=== PATIENT | female | born 1935 | race Caucasian/White ===

== ENCOUNTER → 2023-12-24 12:32 | Outpatient (REF) | payer MEDICARE, OTHER, SELFPAY ==
[2023-12-24 13:24] LABS: Blood Urea Nitrogen 19 mg/dl (7-17); Calcium 9.4 mg/dl (8.4-10.2); Carbon Dioxide 35 mmol/L (22-30); Chloride 97 mmol/L (98-107); Glucose 88 mg/dl (70-99); Potassium 3.6 mmol/L (3.5-5.1); Sodium 135 mmol/L (135-145); eGFR > 60.00
== END ==
LOC: OLABN 12:32
PROVIDERS: ATTENDING PHYSICIAN Student in an Organized Health Care Education/Training Program
DX: M79.7 Fibromyalgia (principal)
CPT/HCPCS: 36415; 80048

== ENCOUNTER → 2023-12-31 10:23 | Outpatient (REF) | payer MEDICARE, OTHER, SELFPAY ==
[2023-12-31 11:37] LABS: Blood Urea Nitrogen 17 mg/dl (7-17); Calcium 9.3 mg/dl (8.4-10.2); Carbon Dioxide 35 mmol/L (22-30); Chloride 98 mmol/L (98-107); Glucose 89 mg/dl (70-99); Potassium 3.9 mmol/L (3.5-5.1); Sodium 137 mmol/L (135-145); eGFR > 60.00
== END ==
LOC: OLABN 10:23
PROVIDERS: ATTENDING PHYSICIAN Student in an Organized Health Care Education/Training Program
DX: M79.7 Fibromyalgia (principal)
CPT/HCPCS: 36415; 80048

== ENCOUNTER → 2024-01-14 10:23 | Outpatient (REF) | payer MEDICARE, OTHER, SELFPAY ==
[2024-01-14 11:48] LABS: Blood Urea Nitrogen 19 mg/dl (7-17); Calcium 9.2 mg/dl (8.4-10.2); Carbon Dioxide 33 mmol/L (22-30); Chloride 100 mmol/L (98-107); Glucose 85 mg/dl (70-99); Potassium 3.6 mmol/L (3.5-5.1); Sodium 135 mmol/L (135-145); eGFR > 60.00
== END ==
LOC: OLABN 10:23
PROVIDERS: ATTENDING PHYSICIAN Student in an Organized Health Care Education/Training Program
DX: M79.7 Fibromyalgia (principal)
CPT/HCPCS: 36415; 80048

== ENCOUNTER 2024-05-20 21:53 | Inpatient (IN) | payer MEDICARE, OTHER, SELFPAY ==
[2024-05-20 19:22] VITALS: BP 124/91
[2024-05-20 19:23] VITALS: BP 124/91
--- NOTE | 2024-05-20 19:38 | ED.GENMED ---
History of Present Illness
General
Chief Complaint: Breathing Problem
Source: fpc
Exam Limitations: none
Time Seen by Provider: 05/20/24 19:25
History of Present Illness
History of Present Illness:
This is a 89 year old female that is brought in by ambulance with c/o low pulse ox. Called and spoke with Danilo the nurse and he states that on 7-3 shift she started with some wheezing. states that she was place on Oxygen at 4 liters and her pulse
ox went up to 90-91%. Then on 01-30 she was more lethargic and her pulse ox was down again to 09095% so her oxygen was increased to 5 liters and then onto a simple mask. This brought her up to 91-92%. States that her temp was 99.4. When questioned
about the left leg redness, he stated that she always has some redness but did not noticed the increased redness. Denies any chills, chest pain, SOB, abd pain, nausea, vomiting, diarrhea, headache or dizziness.
Past History
Past History
ED Past Medical History: Cancer (Skin Cancer), CHF, Fibromyalgia, GERD, Psychiatric (Anxiety), Other (Back pain, Herniated disc, GI bleeding Upper and lower, Hiatal hernia, Ulcers. cellulitis, Psoriasis, Anemia, ), Other (Rheumatoid arthritis) and
Other ( chronic pain. Followed by pain management. Currently taking Endocet )
ED Past Surgical History: Cholecystectomy, Gynecological (tubal, ), Orthopedic (Status post right knee replacement x3, status post left wrist fracture repair x 3, Hip surgery) and Other (cataracts)
Social History
Tobacco: Non-smoker
Alcohol: None
Personal:
Living: with family
Family History
Family History: Negative Diabetes, Hypertension or CAD
Review of Systems
Review of Systems
Other source history: fpc
All Other Systems: ROS reviewed and negative except as documented in HPI and ROS
Constitutional: Reports fever (Low grade at 99.4) and other (Lethargic); Denies chills
EENT: Reports no symptoms
Respiratory: Reports other (Low pulse ox); Denies cough or trouble breathing
Cardiac: Denies chest pain
ABD/GI: Denies abdominal pain, nausea, vomiting or diarrhea (Had loose stool)
: Reports no symptoms
Musculoskeletal: Reports other (left leg pain)
Skin: Reports no symptoms
Neurological: Reports no symptoms; Denies dizzy or headache
Psychiatric: Reports no symptoms
Phy Exam
General Physical Exam
General Presentation: mild distress
General age: appears stated age
General Skin: warm and dry
General Habitus: debilitated and elderly
General Mental: other (Lethargic, Opens eyes to name and tries to answer questions. Helped with turning. )
General Hydration: dry mucous membranes
ENT Exam
ENT Exam: TM's normal, pharynx normal and neck supple
Eye Exam
Eye Exam: EOMI
Cardiovascular Exam
Cardiovascular Exam: regular rate/rhythm and normal peripheral pulses
Pulmonary Exam
Pulmonary Exam: lungs clear, no respiratory distress, no rales, chest non tender, no crackles, no rhonchi, no wheezing and no cough
Gastrointestinal Exam
Gastrointestinal Exam: normal bowel sounds, soft, no organomegaly, no pulsatile mass, non distended and tender (Slight generalized tenderness with palpation)
Musculoskeletal Exam
Musculoskeletal Exam: edema (L>R pitting from feet to lower legs) and other (left leg sweling with redness form the foot to the medial aspect of the thigh. Redness also noted on the right lower leg mid calf)
Skin Exam
Skin Exam: normal color, warm/dry, no petechia and redness (Left lower leg on the medial aspect into the thighs, Rightness right lower leg. )
Psychiatric Exam
Psychiatric Exam: other (Lethargic but will attempt to answer questions and helped with turning. )
Scores
Heart Failure Risk
Heart Failure Risk Score: Yes
History of Stroke or TIA: No
History of intubation for respiratory distress: No
Heart rate on ED arrival >/= 110: No
SaO2 <90% on arrival on room air: Yes
HR >/=110 during 3min walk test (or too ill to perform test): No
ECG has acute ischemic changes: No
Urea >/=12mmol/L (BUN 33.6mg/dL): No
Serum CO2>/=35mmol/L: Yes
Troponin I or T elevated to SC Level (0.4mg/dL): No
NT-proBNP >/=5,000ng/L (5,000pg/ml): No
HF Risk Score: 3
Admission Status: HIGH RISK 15.9% Consider SNF treatment or admission to hospital
Course
Orders/Labs/Results
Orders:
Orders
05/20/24 Breakfast
Cholesterol Lowering
At Your Request: Limited Participation
Fluid Restriction: 1200 mL/day (40 oz)
Cholesterol Lowering: Sodium, 2 Gram
05/20/24 19:27
Electrocardiogram (*1) Urgent
Reason for Study: Other
Other Reason for Exam: Possible Sepsis
Cardiac Monitoring- Treatment ONCE
O2 Therapy [RESP] Urgent
Titrate/Wean O2 to maintain O2 sat greater than (%): 93
Special Instructions: TO MAINTAIN CONTINUOUS O2 SATS > OR = 93%
Pulse Ox/cont/shift [RESP] Urgent
Quantity: 1
Special Instructions: CONTINUOUS
05/20/24 19:28
EKG- Treatment ONCE
05/20/24 19:31
Complete Blood Count/With Diff Urgent
Lactic Acid Q4H
Comment: ON ICE, CANCEL 2ND ORDER IF FIRST LACTIC ACID LEVEL <2
Blood Culture Q30M
CAR Source: Blood/Venous
Specimen Description:
Comment: FROM 2 SEPARATE SITES
05/20/24 19:35
Acetaminophen 1000MG/100Ml [Ofirmev] 1,000 mg in 100 ml IV ONCE
Acetaminophen IV Indication:: ED Narcotic Naive Pt-ONCE
Piperacillin/Tazo 3.375 Gram [Zosyn] 3.375 gram in 50 ml IV NOW
Vancomycin 1 Gram/200 ml [Vancocin] 1 gram in 200 ml IV NOW
05/20/24 20:02
CR Chest Portable - 1 View Urgent
Comment:
Reason For Exam: Fever, Hypoxia
Reason Study Needs to be Portable: Patient Unstable
05/20/24 20:06
Blood Culture Q30M
CAR Source: Blood/Venous
Specimen Description:
Comment: FROM 2 SEPARATE SITES
05/20/24 20:12
CT Head W/o Iv Contrast Urgent
Comment:
Reason For Exam: Change in mental status
05/20/24 20:39
Furosemide [Lasix] 80 mg IV NOW STA
05/20/24 20:56
COVID-19 Antigen Stat
Source: Nasal Swab
NT-proBNP Urgent
Troponin I Urgent
05/20/24 21:28
Comprehensive Metabolic Panel Urgent
05/20/24 21:37
Admit/Transfer Patient As Directed
Co-Sign Provider:
Level of Care: Inpatient admission
Assign to:: Telemetry
Physician / Group: dulce baker
Diagnosis: CHF exacerbation
Reason for Telemetry: Subacute Heart Failure
Date to Stop Telemetry: 05/22/24
Time to Stop Telemetry: 11:00
Reason for Hospitalization: CHF exacerbation
cellulitis
Expected length of stay greater than two midnights?: Yes
ELOS- Estimated Length of Stay in days: 3
I certify the patient meets the requirements for IP care: Yes
05/20/24 21:39
Code Status As Directed
Resuscitation Status: Do not resuscitate
Reached after discussion with pt or family/Healthcare POA: Yes
DNR Bracelet Application ONCE
05/20/24 22:15
Urinalysis Reflex To Culture Urgent
Date Specimen was Collected: 05/20/24
Time Specimen was Collected: 19:28
Urine Microscopic Reflex Cult Urgent
Urine Culture Urgent
CAR Source: U
Specimen Description:
Date Specimen was Collected: 05/20/24
Time Specimen was Collected: 19:28
05/20/24 22:28
Diclofenac 1% Topical Gel 2 gram TOPICAL Q8H PRN
Apply 2 or 4 grams as per protocol to the following joints:: Other joint(s)
Other joint/location to apply to:: back
Grams to be applied to other indicated joint/location:: 2
Gabapentin [Neurontin] 300 mg PO HS
Ipratropium/Albuterol Sulfate [Duoneb] 3 ml INH R Q4HPRN PRN
05/20/24 22:28
CARDIOLOGY CONSULT Routine
Consulting Provider: Paulino Aguilar
Was physician already notified: Yes
HF DIETARY CONSULT Routine
HF EDUCATOR CONSULT Routine
Comment:
Activity As Directed
Activity Level: As Tolerated
Intake/ Output As Directed
Frequency: Per unit guidelines
Patient Education As Directed
Type: CHF folder
Comment: give on admission. Document in Interdisciplinary Education record
Sleep Apnea Assessment by RN As Directed
Comment:
Physician Instructions:
Vital Signs As Directed
Frequency: Other
Additional Instructions:: Q12 or per unit guidelines if more frequent.
Weight As Directed
Frequency: Daily
Type of Scale: Standing Scale
Comment: Daily morning weight. If unable to stand, use balanced bed scale.
Weight As Directed
Frequency: Once
Type of Scale: Standing Scale
Comment: Upon Admission. If unable to stand, use balanced bed scale.
Pulse Ox/cont/shift [RESP] Routine
Quantity: 1
Special Instructions: Daily pulse oximetry at rest. If greater than 92% at rest also obtain pulse oximetry
while ambulating as tolerated.
Ot Eval And Treat Routine
Pt Eval And Treat Routine
Activity Level: As Tolerated
DX Deep Vein Thrombosis Video Routine
05/21/24 06:00
Basic Metabolic Panel IN AM
Cardiovascular Evaluation IN AM
Complete Blood Count/No Diff IN AM
Mgnod-Weso-Dvqotrv IN AM
Magnesium IN AM
TSH Reflex To Free T4 IN AM
05/21/24 08:00
Famotidine [Pepcid] 20 mg PO BID
Furosemide [Lasix] 40 mg IV BID AT 0800,1600
Heparin 5,000 units SC Q12
Polyethylene Glycol 3350 [Gavilax] 17 gm PO DAILY
Potassium Chloride [KCl] 20 meq PO DAILY
05/21/24 08:30
Gabapentin [Neurontin] 2 mg PO BID@0830,1430
05/22/24 06:00
Basic Metabolic Panel IN AM
Complete Blood Count/No Diff IN AM
05/22/24 11:00
DC Protocol for Telemetry ONCE
05/22/24 21:37
ferrous gluconate 324 mg PO MOWEFR
05/23/24 06:00
Basic Metabolic Panel IN AM
Complete Blood Count/No Diff IN AM
05/24/24 06:00
Complete Blood Count/No Diff IN AM
05/25/24 06:00
Complete Blood Count/No Diff IN AM
Abnormal Lab Results
05/20/24 05/20/24
19:31 21:28
Hct 49.0 H %
(37.0-47.0)
MCHC 31.0 L g/dL
(33.0-37.0)
MPV 10.5 H fL
(7.4-10.4)
Immature Gran % 0.6 H %
(0-0.5)
Monocytes % 10.2 H %
(1.7-9.3)
Chloride 93 L mmol/L
(98-107)
Carbon Dioxide 38 H mmol/L
(22-30)
Glucose 136 H mg/dl
(70-99)
Total Protein 6.1 L g/dl
(6.3-8.2)
05/20/24 19:31
05/20/24 21:28
lactic acid normal at 0.9, Chloride low. carbon dioxide elevation. Glucose nonfasting. Total protein slightly low. COVID negative, Positive UTI, Troponin <0.012, Pro-BNP 4180
Vital Signs
Initial and Last Documented VS:
Initial Vital Signs
BP
124/91
05/20/24 19:22
Last Documented Vital Signs
Temp Pulse Resp BP Pulse Ox
98.5 F 78 22 123/74 94
05/20/24 22:34 05/20/24 22:34 05/20/24 22:34 05/20/24 22:34 05/20/24 22:34
MDM/Problems Addressed
Differential Diagnosis Includes:
Change in mental status, Cellulitis,
MDM/Problems Addressed:
This is a 89 year old female that is brought in by ambulance with c/o Hypoxia according to the nurse at [facility]. Told that the patient was hypoxic there and they kept increase her Oxygen and she continued to go down into the 80's.
Will get labs, Chest, and start antibiotics as patient has a cellulitis of the left leg form the foot to the medial aspect of the thigh. Will admit. .
Spoke with patient family and explained that she would be admitted. Explained that her leg is extremely red and patient has a fever. Will give IV antibiotics and admit.
Chronic conditions affecting care:
Cellulitis
Chronic conditions affecting care: Other (CHF)
Acute Exacerbation and/or Progression of Chronic Illness:
Cellulitis
*Radiology
Radiology exam reviewed: preliminary read by ED provider (Chest- Increased vascular congestion, ) and radiology read reviewed (CT head night hawk-Limited by motion artifact. No acute intracranial abnormality seen. Moderate atrophy and small vessel
ischemic white matter changes. )
*Pulse Oximetry
Patient hypoxic: no
Comment: 98% on 100% Nonrebreather
*EKG
Interpreted by ED Provider?: Yes
Heart Rate: 90
Rate: normal
Rhythm: sinus
[place]: left axis deviation
Interval: normal interval
QRS Pattern: normal QRS
Ischemia: T-wave inversion (III, aVR, aVF, V1, V2, V3, V4, V5, )
*Critical Care Note
Total Time (30-74mins, 75-104mins- exclusive of procedures): Not Applicable
ED Attending Note
-
Portions of this chart may have been created with voice recognition software.� Occasional wrong word or��sound alike� substitutions may have occurred due to the inherent limitations of voice recognition software.
Discharge Plan
Departure
Patient Disposition: Admit
Presentation/result/management discussed w/ accepting MD/DO: Hospitalist
Patient with high blood pressure during this ER visit?: No
Condition: Good
Covid-19: Negative COVID-19
Discharge Problem:
Cellulitis of left leg, Altered mental status, Acute UTI (urinary tract infection), CHF (congestive heart failure)
Interventions
Interventions:
*Risk Screen - Suicide Last Done: 05/20/24 20:00
*General Assessment Last Done: 05/20/24 20:00
*Neglect/Abuse Screening Last Done: 05/20/24 20:00
ED- Fall Risk Assessment Last Done: 05/20/24 22:06
*Nursing Disposition Last Done: 05/20/24 22:25
ED- Cardiac Assessment Last Done: 05/20/24 20:34
ED- Pulmonary Assessment Last Done: 05/20/24 20:34
Discharge Date and Time
Discharge Date/Time: 05/20/24 22:25
[2024-05-20] MEDS: OFIRMEV 100 IV (19:50)
[2024-05-20 19:52] LABS: % Basophils 0.2 % (0-2); % Immature Granulocytes 0.6 % (0-0.5); % Lymphocytes 28.2 % (20.5-51.1); % Monocytes 10.2 % (1.7-9.3); % Neutrophils 59.8 % (42.2-75.2); Absolute Eosinophils 0.1 10^3/uL (0-0.7); Absolute Lymphocytes 1.5 10^3/uL (1.2-3.4); Absolute Monocytes 0.5 10^3/uL (0.1-0.6); Absolute Neutrophils 3.1 10^3/uL (1.4-6.5); Hemoglobin 15.2 g/dL (12.0-16.0); Mean Corpuscular Hgb 30.1 pg (27.0-31.0); Mean Platelet Volume 10.5 fL (7.4-10.4); Nucleated Red Blood Cells % 0 %; Platelet Count 154 10^3/uL (130-400); Red Blood Cell Count 5.05 10^6/uL (4.20-5.40); Red Cell Dist. Width 14.5 % (11.5-14.5); White Blood Cell Count 5.2 10^3/uL (4.8-10.8)
[2024-05-20] MEDS: ZOSYN 50 IV (20:03)
[2024-05-20 20:04] LABS: Lactic Acid 0.9 mmol/L (0.7-2.0)
[2024-05-20] MEDS: VANCOCIN 200 IV (20:09)
--- NOTE | 2024-05-20 20:52 | HPS.HSE ---
Addendum entered and electronically signed by Nick Brody DO 05/20/24 22:08:
Patient seen and examined independently. Agree with findings and plan as set forth by RAYSHAWN Bruner.
Patient is an 89y F with PMH significant for CHF, chronic lymphedema and morbid obesity who presents to ED with confusion, lethargy and hypoxemia requirements. History obtained from family at the bedside. Patient began to seem more sleepy /
lethargic about one week ago. She had notable increase in LE swelling. Family states that these symptoms are consistent with her prior episodes of CHF exacerbation.
Family also states that patient is non-compliant with her Lasix dosing. She will refuse or hide her Lasix pills as she is quite bothered by the increased frequency coupled with her baseline immobility. She requires Chaz lift to get OOB and to the
toilet.
Ass:
Acute on Chronic HFpEF
Acute Hypoxemic Respiratory Failure
Acute TME secondary to the above
Chronic Lymphedema +/- LLE Cellulitis
Iron Deficiency Anemia
Chronic Pain Syndrome
Chronic Opioid Dependence
Obesity
Plan:
Admit for further evaluation and treatment.
IV Lasix BID and follow weight, I/Os, etc.
Echo done last October with normal LVEF and severe pulmonary hypertension.
Patient is not on O2 chronically at the ID.
Continue O2 support for now and titrate as needed - may benefit from chronic O2 given pulmonary hypertension.
Will give IV Ancef for now for suspected LLE cellulitis.
Wound Care evaluation.
Follow for clinical improvement.
Ongoing discussions with patient / family re: med compliance and reasonable plan of care moving forward.
Original Note:
Family Physician
-
Family Physician: Jean Sandoval DO
Chief Complaint
-
sob
History of Present Illness
89 year old with PMH for CHF, chronic lymphedema, GERD, anxiety, bleed, hiatal hernia, RA, chronic pain presented to us with lethargic, sob, hypoxic and wheezing today. as per family she was noted weak and tired last Wednesday. she was looking
puffier than usual. today she was more lethargic, noted hypoxic at [facility]. she required 5l of oxygen at ID. at present she is denying sob. denied HOANG ,dizzy. denied chest pain. denied abdominal pain,n,v,d, denied dysuria or hematuria.
patient has chronic lymphedema and she follows wound care as outpatient.
upon arrival she required non breather mask, at present she is oxygenating >95 on 5l. patient recived Lasix fo CHF. she also received iv abx for cellulitis. admitting for further mangement.
Medical History
Past Medical History
Past Medical History: Reports Other
Additional Past Medical History:
fibromyalgia
anemia
atherosclerosis of b/l LE
lymphedema
HTn
spinal stones
PAD
Past Surgical History: Reports Other
Additional Past Surgical History:
b/l TKR
Social History
Tobacco: Former Smoker
Alcohol: Former
Drug: None
Personal: Single
Living: Assisted Living
Family History
Family History: Not pertinent
Allergies / Home Medications
Allergies reflects when Allergies were last updated in [facility].
Home Medications with original date entered in [facility]
Allergy/Medication List:
Allergies
Allergy/AdvReac Type Severity Reaction Status Date / Time
No Known Drug Allergies Allergy Unknown Verified 02/21/22 03:58
Home Medications
ascorbic acid (vitamin C) 500 mg tablet 500 mg PO MOWEFR@7070,2947 Supplement 11/09/23
bisacodyl 10 mg rectal suppository (Dulcolax (bisacodyl)) 10 mg TN DAILY PRN 3 days ag no bm & mom is ineffective 11/09/23
diclofenac sodium 1 % topical gel 2 g topical Q8H PRN lower back pain 11/09/23
ferrous gluconate 324 mg (38 mg iron) tablet 324 mg PO MOWEFR Supplement 11/09/23
gabapentin 100 mg capsule 100 mg PO BID@0830,1430 Pain 11/09/23
gabapentin 300 mg capsule 300 mg PO HS Pain 11/09/23
lidocaine 4 % topical patch 1 patch topical DAILY PRN lower back pain 11/09/23
magnesium hydroxide 400 mg/5 mL oral suspension (Milk of Magnesia) 30 ml PO HS PRN constipation 11/09/23
naloxone 4 mg/actuation nasal spray (Narcan) 1 spray intranasal Q2M PRN opioid overdose 11/09/23
pantoprazole 20 mg tablet,delayed release 20 mg PO DAILY Gastrointestinal Issue 11/09/23
triamcinolone acetonide 40 mg/mL suspension for injection (Kenalog) 80 mg IM ONCE PRN left knee pain 11/09/23
triamcinolone acetonide 40 mg/mL suspension for injection (Kenalog) 80 mg IM ONCE PRN lower back pain 11/09/23
acetaminophen 500 mg tablet (Pain Relief Extra Strength (acetaminophen)) 1,000 mg (2 x 500 mg) PO TID #0 tabs 11/14/23
furosemide 80 mg tablet (Lasix) 80 mg PO DAILY #30 tabs 11/14/23
miconazole nitrate 2 % topical powder (Miconazorb AF) 1 applic topical BID #0 grams 11/14/23
oxycodone 5 mg tablet 5 mg PO Q4HPRN PRN severe pain #10 tabs 11/14/23
polyethylene glycol 3350 17 gram/dose oral powder 17 g PO DAILY #510 grams 11/14/23
potassium chloride 20 mEq tablet,extended release 20 meq PO DAILY #30 tabs 11/14/23
Review of Systems
-
Constitutional: Reports No Symptoms
EENT: Reports No Symptoms
Respiratory: Reports No Symptoms
Cardiac: Reports No Symptoms
Abdomen/GI: Reports No Symptoms
: Reports No Symptoms
Musculoskeletal: Reports No Symptoms
Skin: Reports No Symptoms
Neurological: Reports No Symptoms
Endocrine: Reports No Symptoms
Hematologic/Lymphatic: Reports No Symptoms
Psych: Reports No Symptoms
Physical Exam
Vital Signs
Vital Signs
Temp Pulse Resp BP Pulse Ox
100 F 87 24 124/91 95
05/20/24 19:23 05/20/24 19:23 05/20/24 19:23 05/20/24 19:23 05/20/24 20:34
Physical Exam
General: Well Developed, Well Nourished and No Apparent Distress
HEENT: NormoCephalic, Moist mucous membranes and Atraumatic
Respiratory: Rales
Cardiac: S1/S2 and Regular Rhythm; No Murmur or Rub
GI: Soft, Non Tender, Non Distended and Normal Bowel Sounds; No Organomegaly
Rectal: Deferred by Provider
Musculoskeletal: No Clubbing, No Cyanosis and Other (left LE swollen)
Skin: Other (left LE red and swollen); No Rash
Neuro: Nonfocal/grossly intact
Psych: Confused
Laboratory Results
-
05/20/24 19:31
Laboratory Results
Lactic Acid Cancelled 05/20/24 23:30
Total Bilirubin Cancelled 05/20/24 19:31
AST Cancelled 05/20/24 19:31
ALT Cancelled 05/20/24 19:31
Alkaline Phosphatase Cancelled 05/20/24 19:31
Troponin I Cancelled 05/20/24 20:22
Data Reviewed
-
Lab Data: Labs Reviewed by me
Impression/Plan
-
#metabolic encephalopathy likely from acute hypoxic respiratory failure secondary to CHF exacerbation
-head CT pending
-chest X ray pending
-BNP 4180
-received Lasix in ER
-continue Lasix 4o bid
-strict I&O
-daily weight
-fluid restriction
-cardiology consulted
# PAD
#Chronic Lymphedema concern for cellulitis
-iv vanco and cefepime continued
-blood culture sent from ER
-Tylenol prn for fever
#Chronic Pain Syndrome
#Chronic Narcotic Dependence
-gabapentin continued
-oxy continued
�
#GERD
#History of GI Bleeding
�- Stable.� Continue PPI.
#iron def anemia
-ferrous gluconate continued
#Dermatitis
-Triamcinolone
#DVT Prophylaxis:�Subcu Lovenox
#Code Status:� DNR
[2024-05-20] MEDS: LASIX 80 MG IV (21:05)
[2024-05-20 21:08] VITALS: BP 99/54
[2024-05-20 21:18] VITALS: BP 101/63
[2024-05-20 21:31] LABS: COVID-19 Antigen Negative (Negative)
[2024-05-20 21:32] LABS: NT-proBNP 4180 pg/ml; Troponin I < 0.012 ng/ml
[2024-05-20 21:55] LABS: ALT (SGPT) 15 U/L (0-35); AST (SGOT) 19 U/L (14-36); Albumin 3.7 g/dl (3.5-5.0); Alkaline Phosphatase 48 U/L (38-126); Blood Urea Nitrogen 14 mg/dl (7-17); Chloride 93 mmol/L (98-107); Glucose 136 mg/dl (70-99); Potassium 4.5 mmol/L (3.5-5.1); Sodium 136 mmol/L (135-145); Total Bilirubin 0.8 mg/dl (0.2-1.3); Total Protein 6.1 g/dl (6.3-8.2); eGFR > 60.00
[2024-05-20 22:00] VITALS: BP 103/58
[2024-05-20 22:09] LABS: Carbon Dioxide 38 mmol/L (22-30)
[2024-05-20 22:23] LABS: Urine Albumin Negative (Neg - Trace); Urine Bilirubin Negative (Negative); Urine Character Clear (Clear); Urine Color Straw; Urine Glucose Negative (Negative); Urine Ketone Negative (Negative); Urine Leukocyte 2+ (Negative); Urine Nitrite Positive (Negative); Urine Occult Blood Negative (Negative); Urine Specific Gravity 1.015 (<1.030); Urine Urobilinogen Negative (Neg - 1+)
[2024-05-20 22:29] LABS: Urine Squamous Cell 0-2 /LPF (Few)
[2024-05-20 22:30] LABS: Urine Bacteria Few (Negative); Urine Red Blood Cell 0-2 /HPF (0-2); Urine White Cell 16-20 /HPF (0-5)
[2024-05-20 22:34] VITALS: BP 123/74; BMI 33.8
[2024-05-20 22:39] VITALS: BMI 33.8
--- NOTE | 2024-05-20 22:45 | PTCARENOTE ---
pt arrived to floor via stretcher from ED, Pt is not ambulatory baseline. Pt lives at [facility] where she requires a Chaz lift to get oob and is in the wheel chair most of the day. Pt AOx3, but forgetful. Needed information repeated to her
several times. Pt c/o lower back pain and mildy SOB. VSS on 4L O2NC. Pt resting comfortably in bed, will review chart and follow plan of care.
[2024-05-20] MEDS: NEURONTIN 300 MG PO (23:31)
[2024-05-20] MEDS: DICLOFENAC 1% TOPICAL GEL 2 GRAM TOPICAL (23:31)
[2024-05-21] MEDS: ANCEF 10 IV ×3 (02:34→18:04)
[2024-05-21 03:13] VITALS: BP 105/65
[2024-05-21 06:00] VITALS: BMI 33.8
[2024-05-21 06:41] LABS: Hematocrit 45.4 % (37.0-47.0); Hemoglobin 14.1 g/dL (12.0-16.0); Mean Corp Hgb Conc. 31.1 g/dL (33.0-37.0); Mean Corpuscular Volume 96.6 fL (81.0-99.0); Mean Platelet Volume 10.8 fL (7.4-10.4); Platelet Count 146 10^3/uL (130-400); Red Cell Dist. Width 14.1 % (11.5-14.5); White Blood Cell Count 4.9 10^3/uL (4.8-10.8)
[2024-05-21 07:00] VITALS: BP 111/61
[2024-05-21 07:06] LABS: ALT (SGPT) 17 U/L (0-35); AST (SGOT) 42 U/L (14-36); Albumin 3.8 g/dl (3.5-5.0); Alkaline Phosphatase 31 U/L (38-126); Blood Urea Nitrogen 15 mg/dl (7-17); Calcium 8.9 mg/dl (8.4-10.2); Carbon Dioxide 40 mmol/L (22-30); Chloride 93 mmol/L (98-107); Direct Bilirubin 0.7 mg/dl (0.0-0.4); Estimated Creatinine Clearance 73 ml/min; Glucose 90 mg/dl (70-99); HDL Cholesterol 49 mg/dl; LDL Cholesterol, Calculated 98 mg/dl; Magnesium 1.7 mg/dl (1.6-2.3); Potassium 4.7 mmol/L (3.5-5.1); Sodium 135 mmol/L (135-145); Total Bilirubin 1.3 mg/dl (0.2-1.3); Total Cholesterol 163 mg/dl (50-199); Total Protein 6.4 g/dl (6.3-8.2); Triglyceride 81 mg/dl (10-149); Very Low Density Lipoprotein 16 mg/dl (0-30); eGFR > 60.00
[2024-05-21 07:33] LABS: TSH Reflex To Free T4 0.58 uIU/ml (0.47-4.68)
--- NOTE | 2024-05-21 07:58 | W.PN.HOSP.TC ---
Today's Communication/Plan
-
see bold
Assessment / Plan
Assessment / Plan
Gen: NAD, Awake and alert
Eyes: EOMI, PERRLA, no scleral icterus.
Neck: supple.
CV: RRR, +S1/S2, no m/r/g.
Resp: CTAB anteriorly, no rales, wheezes, or rhonchi.
Abd: +BS, soft, NT, ND
Skin: B/L LE chronic venous stasis dermatitis. 1�2+ bilateral lower extremity edema
Neuro: CN 2-12 intact, non-focal.
Psych: Normal mood and affect.
CXR: Lungs appear significantly hypoinflated, with worsening inflation/aeration of the lungs compared to most recent chest radiograph of November 13, 2023.
CT Brain: No evidence of acute intracranial abnormality. Mild to moderate diffuse atrophy. Moderate leukomalacia.
Acute hypoxemic respiratory failure and acute metabolic encephalopathy due to acute on chronic HFpEF:
-CXR above
-Echo Oct 2023 EF 60-65%, G1DD, Dilated right ventricle with hypokinesis of the right ventricular free wall and mild/moderately impaired systolic function.
-proBNP 4180
-cont IV Lasix
-daily wts, I/Os
-c/s cards
-check echo
-was on 6L NC O2, now weaned to 4L NC O2
-hold home narcotics
Other problems:
Chronic Lymphedema +/- LLE Cellulitis: cont Ancef for today. B/L LE skin findings more consistent with chronic venous stasis dermatitis.
Iron Deficiency Anemia, Hb normal, cont ferrous sulfate
Chronic Pain Syndrome, Chronic Opioid use with dependence: hold home narcotics, cont neurontin
Obesity due to excess calories
GERD: cont PPI
PAD
Family updated at bedside.
DNR/Heparin
Anticipated Discharge: 24 - 48 hours
Subjective/Interval History
-
Date of Service: May 21, 2024
No new complaints.
Objective Data
-
Labs:
Laboratory Results
05/20/24 05/20/24 05/20/24
19:31 20:56 21:28
WBC
Hgb
Hct
Plt Count
Sodium Cancelled Cancelled 136
Potassium Cancelled Cancelled 4.5
Chloride Cancelled Cancelled 93 L
Carbon Dioxide Cancelled Cancelled 38 H
BUN Cancelled Cancelled 14
Creatinine Cancelled Cancelled 0.6
Glucose Cancelled Cancelled 136 H
Calcium Cancelled Cancelled 9.0
Total Bilirubin Cancelled Cancelled 0.8
AST Cancelled Cancelled 19
ALT Cancelled Cancelled 15
Alkaline Phosphatase Cancelled Cancelled 48
05/21/24
06:17
WBC 4.9
Hgb 14.1
Hct 45.4
Plt Count 146
Sodium 135
Potassium 4.7
Chloride 93 L
Carbon Dioxide 40 H
BUN 15
Creatinine 0.4 L
Glucose 90
Calcium 8.9
Total Bilirubin 1.3
AST 42 H
ALT 17
Alkaline Phosphatase 31 L
Vital Signs:
Vital Signs
Temp Pulse Resp BP Pulse Ox
98.6 F 74 18 111/61 95
05/21/24 07:00 05/21/24 07:00 05/21/24 07:00 05/21/24 07:00 05/21/24 07:00
I&O
05/20/24 05/21/24 05/22/24
06:59 06:59 06:59
Intake Total 400 / 400
Output Total 900 / 900
Balance -500 / -500
[2024-05-21] MEDS: PEPCID 20 MG PO ×2 (09:08→21:18)
[2024-05-21] MEDS: GAVILAX 17 GM PO (09:09)
[2024-05-21] MEDS: KCL 20 MEQ PO (09:09)
[2024-05-21] MEDS: DICLOFENAC 1% TOPICAL GEL 2 GRAM TOPICAL ×2 (09:09→16:51)
[2024-05-21] MEDS: HEPARIN 5000 UNITS SC ×2 (09:10→21:18)
[2024-05-21] MEDS: LASIX 40 MG IV ×2 (09:10→16:52)
[2024-05-21] MEDS: NEURONTIN 200 MG PO ×2 (09:12→15:04)
--- NOTE | 2024-05-21 10:29 | CON.CAR ---
Consultation
Consultation Request
Date/Time Consultation Requested: May 20, 2024 10:30 PM
Date/Time Consultation Performed: May 21, 2024 10:30 AM
Requesting Provider: Hospitalist
Performing Provider: Paulino Aguilar
Reason for Consultation: Heart failure
Medical History
-
Chief Complaint: Shortness of breath
History of Present Illness:
89-year-old female with past medical history of CHF, chronic lymphedema, GERD, anxiety, bleed, hiatal hernia, RA, chronic pain presented to us with lethargic, sob, hypoxic and wheezing today. She is a poor historian and her son is at bedside.
He provides interval history. Apparently, she has been noncompliant with her Lasix. She either does not take it or will hide them. She is essentially nonambulatory and requires a wheelchair to be able to move around [facility]. She also
needs a Chaz lift to be able to go to the bathroom. Thus, taking Lasix is extremely difficult as she is unable to make it to bathroom. She also has poor dietary compliance and eats chips pretzels etc. Thus, she has had some weight gain and
worsening shortness of breath.
Past Medical History
Past Medical History: Other (Additional Past Medical History: fibromyalgia anemia atherosclerosis of b/l LE lymphedema HTn spinal stones PAD)
Past Surgical History: Tonsilectomy and Other (b/l TKR)
Social History
Tobacco: Former Smoker
Alcohol: None
Drug: None
Personal: Single
Living: Usp
Family History
Family History: Reviewed & Not Pertinent (denies)
Allergies / Home Medications
Allergy/AdvReac Type Severity Reaction Status Date / Time
No Known Drug Allergies Allergy Unknown Verified 02/21/22 03:58
�Medication �Instructions �Recorded �Confirmed �Type
ascorbic acid (vitamin C) 500 mg 500 mg PO MOWEFR@1808,9523 11/09/23 05/20/24 History
tablet Supplement
bisacodyl 10 mg rectal suppository 10 mg MN DAILY PRN 3 days ag no 11/09/23 05/20/24 History
(Dulcolax (bisacodyl)) bm & mom is ineffective
diclofenac sodium 1 % topical gel 2 g topical Q8H PRN lower back pain 11/09/23 05/20/24 History
ferrous gluconate 324 mg (38 mg 324 mg PO MOWEFR Supplement 11/09/23 05/20/24 History
iron) tablet
gabapentin 100 mg capsule 200 mg PO BID@0830,1430 Pain 11/09/23 05/20/24 History
gabapentin 300 mg capsule 300 mg PO HS Pain 11/09/23 05/20/24 History
magnesium hydroxide 400 mg/5 mL 30 ml PO HS PRN constipation 11/09/23 05/20/24 History
oral suspension (Milk of Magnesia)
naloxone 4 mg/actuation nasal 1 spray intranasal Q2M PRN opioid 11/09/23 05/20/24 History
spray (Narcan) overdose
acetaminophen 500 mg tablet (Pain 1,000 mg (2 x 500 mg) PO TID #0 11/14/23 05/20/24 Rx
Relief Extra Strength tabs
(acetaminophen))
furosemide 80 mg tablet (Lasix) 80 mg PO DAILY #30 tabs 11/14/23 05/20/24 Rx
polyethylene glycol 3350 17 17 g PO DAILY #510 grams 11/14/23 05/20/24 Rx
gram/dose oral powder
potassium chloride 20 mEq 20 meq PO DAILY #30 tabs 11/14/23 05/20/24 Rx
tablet,extended release
famotidine 20 mg tablet 20 mg PO BID Gastrointestinal Issue 05/20/24 05/20/24 History
oxycodone 5 mg tablet 5 mg PO TID Pain 05/20/24 History
Review of Systems
-
All other systems: Negative unless noted
Physical Exam
Vital Signs
Temp Pulse Resp BP Pulse Ox
98.6 F 74 18 111/61 95
05/21/24 07:00 06/30/24 07:00 05/21/24 07:00 05/21/24 07:00 05/21/24 07:00
Lab Results
05/21/24 06:17
05/21/24 06:17
Troponin I < 0.012 ng/ml 05/20/24 20:56
Fzu-Y-Tumhuoftmes Pept 4180 pg/ml 05/20/24 20:56
Physical Exam
General: Well Developed, Well Nourished and No Apparent Distress
HEENT: Normocephalic and Anicteric
Respiratory: Other (Decreased breath sounds bilaterally mild crackles)
Cardiac: S1/S2 and Regular Rhythm (Distant heart sounds)
GI: Soft and Other (Obese)
Musculoskeletal: Other (Left lower extremity erythema and swelling)
Skin: Warm and Dry
Neuro: Awake, Alert and Oriented
Psych: Calm
Impression / Plan
-
89-year-old female with past medical history of CHF, chronic lymphedema, GERD, anxiety, bleed, hiatal hernia, RA, chronic pain presented to us with lethargic, sob, hypoxic and wheezing consistent with heart failure exacerbation. She has poor
dietary and medication compliance.
Acute on chronic heart failure preserved ejection fraction exacerbation
-Lasix 40 mg IV twice daily unclear what her dry weight is she has not been weighed in some time
-SGLT2 inhibitor if able to afford update echocardiogram
Possible cellulitis and infection
-Per primary
Data Reviewed
-
EKG: Tracing Personally Visualized and interpreted (Sinus rhythm)
Medical Tests (Nuc Med, Echo etc): Report Reviewed by me
Labs: Labs Reviewed by me
[2024-05-21] MEDS: FLUSH (NSS) 2 FLUSH IV (10:36)
[2024-05-21 11:00] VITALS: BP 99/58
--- NOTE | 2024-05-21 13:26 | PTCARENOTE ---
patient aaox2, confused to time, forgetful, tolerating diet, 4L NC, does become sob with exertion, turns with max assist x2, vss, will continue to monitor.
[2024-05-21 15:00] VITALS: BP 108/68
[2024-05-21 19:47] VITALS: BP 110/61
[2024-05-21] MEDS: NEURONTIN 300 MG PO (21:17)
[2024-05-21 22:29] VITALS: BP 109/53
[2024-05-21] MEDS: TYLENOL 650 MG PO (22:43)
[2024-05-22] MEDS: DICLOFENAC 1% TOPICAL GEL 2 GRAM TOPICAL ×3 (00:12→16:21)
[2024-05-22] MEDS: ANCEF 10 IV ×3 (01:46→17:00)
[2024-05-22] MEDS: FLUSH (NSS) 2 FLUSH IV (01:47)
[2024-05-22 03:04] VITALS: BP 109/63
--- NOTE | 2024-05-22 03:25 | PTCARENOTE ---
@0300;Found pt trying to get out of the bottom of bed without 02 on.Pt confused x2 to time and placed.POX room air 74%.Nasal 02 applied at 4liters = 95%. Bed alarm applied to bed.Pt more cooperative with nasal 02 on.
[2024-05-22 05:43] LABS: Hemoglobin 14.3 g/dL (12.0-16.0); Mean Corp Hgb Conc. 31.8 g/dL (33.0-37.0); Mean Corpuscular Hgb 29.9 pg (27.0-31.0); Mean Corpuscular Volume 94.1 fL (81.0-99.0); Mean Platelet Volume 10.3 fL (7.4-10.4); Platelet Count 132 10^3/uL (130-400); Red Blood Cell Count 4.78 10^6/uL (4.20-5.40); White Blood Cell Count 4.3 10^3/uL (4.8-10.8)
[2024-05-22 06:00] VITALS: BMI 33.6
[2024-05-22 06:14] LABS: Blood Urea Nitrogen 19 mg/dl (7-17); Calcium 9.1 mg/dl (8.4-10.2); Chloride 89 mmol/L (98-107); Estimated Creatinine Clearance 73 ml/min; Glucose 87 mg/dl (70-99); Potassium 3.5 mmol/L (3.5-5.1); Sodium 135 mmol/L (135-145); eGFR > 60.00
[2024-05-22 06:36] LABS: Carbon Dioxide 37 mmol/L (22-30)
[2024-05-22 07:00] VITALS: BP 112/72
[2024-05-22] MEDS: MIRALAX 17 GRAMS PO (08:37)
[2024-05-22] MEDS: PEPCID 20 MG PO ×2 (08:38→21:42)
[2024-05-22] MEDS: NEURONTIN 200 MG PO ×2 (08:38→14:26)
[2024-05-22] MEDS: LASIX 40 MG IV ×2 (08:39→16:11)
[2024-05-22] MEDS: KCL 20 MEQ PO (08:39)
[2024-05-22] MEDS: HEPARIN 5000 UNITS SC ×2 (08:39→21:42)
[2024-05-22] MEDS: GAVILAX PO (08:50)
--- NOTE | 2024-05-22 09:02 | W.PN.CD ---
Addendum entered and electronically signed by Steve Sorensen MD 05/22/24 14:12:
I saw and examined the patient.
The DECAY CONTROL OPERATOR's note was reviewed and I agree with the note.
Comment: Treating for Heart Failure, will check echo to confirm HFpEF. Adjusting meds. Continue with diuresing.
Last admit acute heart R>L. Oct 2023.
From our last note 10/2023: Acute HF: acute right sided HF, with severe pulmonary HTN
-echo 11/10/23: EF 60-65%, dilated RV with decreased fx, mild TR, PASP 61
Original Note:
Today's Communication / Plan
-
Echocardiogram today
Impression / Plan
-
BACKGROUND: 89-year-old female with past medical history of CHF, chronic lymphedema, GERD, anxiety, bleed, hiatal hernia, RA, chronic pain presented to us with lethargic, sob, hypoxic and wheezing consistent with heart failure exacerbation.
Acute hypoxemic respiratory failure, in the setting of acute HFpEF
-Wean oxygen as tolerated, HFpEF care as below
Acute heart failure exacerbation, presumed HFpEF
-Diuresis with furosemide 40 mg IV twice daily
-Dry weight to be determined
-HF education
-Trend daily weight, I/Os, and BMP with diuresis
-Consider addition of SGLT2i (admitting diagnosis is UTI however this is not reflected in notes from primary service)
Concern for left lower extremity cellulitis, on Ancef
Obesity, BMI 33
Ambulatory dysfunction
SUBJECTIVE:
Shortness of breath is improving. No chest pain.
Physical Exam
Vital Signs/Labs
Vital Signs
Temp Pulse Resp BP Pulse Ox
98.3 F 73 19 109/63 95
05/22/24 07:00 05/22/24 07:00 05/22/24 07:00 05/22/24 08:39 05/22/24 07:00
0605/22/24 05/23/24
06:59 06:59 06:59
Actual Weight 92.261 kg 91.671 kg
05/22/24 05:12
05/22/24 05:12
Magnesium 1.7 mg/dl (1.6-2.3) 05/21/24 06:17
Triglycerides 81 mg/dl (10-149) 05/21/24 06:17
LDL Cholesterol, Calc 98 mg/dl 05/21/24 06:17
VLDL Cholesterol, Calc 16 mg/dl (0-30) 05/21/24 06:17
HDL Cholesterol 49 mg/dl 05/21/24 06:17
05/20/24 05/20/24
20:22 20:56
Fzg-C-Vekyknfcnfz Pept Cancelled 4180
LAB Results
05/20/24 05/20/24
20:22 20:56
Troponin I Cancelled < 0.012
Physical Exam
Constitutional: No acute distress and Comfortable
EENT: Anicteric and Moist mucous membranes
Cardiovascular: Rhythm & rate is regular and S1S2 is normal
Respiratory: Respiratory effort normal and Crackles Present
GI: Soft, Distention absent, Flat, Non tender and Normal bowel sounds
Neuro/Psych: AO x 3
Other: Skin (warm and dry)
Data Reviewed
-
Date of Service: May 22, 2024
Labs: Labs Reviewed by me
[2024-05-22 11:00] VITALS: BP 106/66
[2024-05-22] MEDS: FEOSOL 325 MG PO (11:15)
[2024-05-22] MEDS: ROXICODONE 5 MG PO (12:28)
--- NOTE | 2024-05-22 12:53 | W.PN.HOSP.TC ---
Today's Communication/Plan
-
Echo pending
continue IV Lasix
continue IV Ancef
Assessment / Plan
Assessment / Plan
CXR: Lungs appear significantly hypoinflated, with worsening inflation/aeration of the lungs compared to most recent chest radiograph of November 13, 2023.
CT Brain: No evidence of acute intracranial abnormality. Mild to moderate diffuse atrophy. Moderate leukomalacia.
Assessment:
Acute hypoxemic respiratory failure and acute metabolic encephalopathy due to acute on chronic HFpEF:
-CXR above
-Echo Oct 2023 EF 60-65%, G1DD, Dilated right ventricle with hypokinesis of the right ventricular free wall and mild/moderately impaired systolic function.
-proBNP 4180
-repeat Echo pending
-cont IV Lasix - requires intensive monitoring of I/Os, weights, lytes
-cards following
-was on 6L NC O2, now weaned to 4L NC O2
Chronic Lymphedema +/- LLE Cellulitis: cont Ancef, day 2 . B/L LE skin findings also consistent with chronic venous stasis dermatitis.
Iron Deficiency Anemia, Hb normal, cont ferrous sulfate
Chronic Pain Syndrome, Chronic Opioid use with dependence: hold home narcotics, cont Neurontin
Obesity due to excess calories
GERD: cont PPI
PAD
DVT ppx: SC Heparin
Code: DNR
Anticipated Discharge: > 48 hours
Subjective/Interval History
-
Date of Service: May 22, 2024
reports SOB improving
weight down further 1 kg
Objective Data
-
Labs:
Laboratory Results
05/22/24
05:12
WBC 4.3 L
Hgb 14.3
Hct 45.0
Plt Count 132
Sodium 135
Potassium 3.5 D
Chloride 89 L
Carbon Dioxide 37 H
BUN 19 H
Creatinine 0.4 L
Glucose 87
Calcium 9.1
Vital Signs:
Vital Signs
Temp Pulse Resp BP Pulse Ox
98.0 F 68 18 106/66 94
05/22/24 11:00 05/22/24 11:00 05/22/24 11:00 05/22/24 11:00 05/22/24 11:00
I&O
05/21/24 05/22/24 05/23/24
06:59 06:59 06:59
Intake Total 400 / 400 1420 / 1420
Output Total 900 / 900 1450 / 1450
Balance -500 / -500 -30 / -30
Physical Exam
-
General: No Apparent Distress
HEENT: Normocephalic and Atraumatic
Respiratory: Negative Wheezes
Cardiac: Regular Rhythm
GI: Soft
Skin: Other (B/L LE chronic venous stasis dermatitis. 1-2+ bilateral lower extremity edema)
Neuro: AO x 3
Hematologic / Lymphatic: No Lymphadenopathy
Psych: Calm
Data Reviewed
-
Total Time Spent with Patient (in minutes): 51
Labs: Labs Reviewed by me
--- NOTE | 2024-05-22 14:11 | WOUNDNOTE ---
L THIGH (LATERAL POSTERIOR)
--- NOTE | 2024-05-22 14:13 | WOUNDNOTE ---
L CALF (MEDIAL ANTERIOR)
--- NOTE | 2024-05-22 14:17 | WOUNDNOTE ---
[facility] RN note: Patient admitted with CHF exacerbation. Patient resides at [facility]. Patient is non ambulatory.
See H&P for complete history.
PMH: CHF, Chronic lymphedema, GERD, anxiety, GI bleed, hiatal hernia, RA, chronic pain, psoriasis, non ambulatory, fibromyalgia, former smoker, skin cancer.
Wound Location and type/assessment: Patient admitted with: healing LLE wounds suspect r/t venous edema. Psoriasis appearing rash patches on L thigh, buttocks, L foot, R posterior breast. Patient stated she likes Vaseline for her psoriasis. LLE with
diffuse erythema. Skin on heels blanchable red. Sacral/coccyx crease mild MASD. Patient is on IV Ancef. Patient stated her LLE gets red intermittently. +Palpable pedal pulses. She stated she uses knee high Gonzales wraps at [facility].
Appetite: fair.
Pressure redistribution devices in place: [employer] Accumax. Patient turns with 1 assist. She can lift RLE but cannot lift LLE. Mild rosalba MASD.
Plan: Patient incontinent of large amount of urine. Rosalba care given. Dressings applied to LLE wounds. Protective silicone border foam maintained on heels. Heels off bed with pillow. Quilted heel pads reapplied.
Will confirm orders with Dr. Jennings and discussed with REYES Mcknight.
Care plan to be updated and will follow as needed.
[2024-05-22] MEDS: FARXIGA 10 MG PO (14:26)
--- NOTE | 2024-05-22 14:30 | CM ---
Met with pt and her son at bedside
Pt is a LTR at [facility] - confirmed with Ishan at DC - + bed hold
Pt is PASCUA YAQUI, forgetful. Non-ambulatory, wheel chair bound, feeds self
Plan to return to [facility] when ready - will send updates in [facility]
PCP - Dr Sondra Sandoval
Plan - return to [facility] when medically stable
[2024-05-22 15:00] VITALS: BP 102/60
[2024-05-22 19:55] VITALS: BP 125/63
[2024-05-22] MEDS: LOTRIMIN 1% CREAM 1 APPLIC TOPICAL (21:30)
[2024-05-22] MEDS: HYDROPHOR 1 APPLIC TOPICAL (21:31)
[2024-05-22] MEDS: DESENEX/MITRAZOL/ZEASORB 1 APPLIC TOPICAL (21:40)
[2024-05-22] MEDS: NEURONTIN 300 MG PO (21:42)
[2024-05-22] MEDS: TYLENOL 650 MG PO (21:47)
[2024-05-22 23:39] VITALS: BP 83/44
[2024-05-23] VITALS: BP 110/57
[2024-05-23] MEDS: ROXICODONE PO (00:07)
[2024-05-23] MEDS: DICLOFENAC 1% TOPICAL GEL 2 GRAM TOPICAL ×3 (00:08→15:47)
[2024-05-23] MEDS: ANCEF IV ×2 (02:21→02:51)
[2024-05-23] MEDS: FLUSH (NSS) 2 FLUSH IV (02:21)
--- NOTE | 2024-05-23 02:51 | PTCARENOTE ---
Pt stated, 'I am not taking anymore pills and you are not giving me anymore antibiotics, get away from me'. Pt agitated and yelling. This RN explained purpose of IV antibiotics and pt continued to refuse. Pt stated, 'I am going to call my son who is
an [employer] agent and have him send someone here that is higher up then your name is going on a paper and you will be in trouble'. Unable to orient patient to hospital. Pt stated 'You are not a nurse'. This RN showed patient ID [id number]. Will continue to
monitor.
--- NOTE | 2024-05-23 04:00 | PTCARENOTE ---
This RN reattempted to administer antibiotic. Pt yelled, 'You better get away from me'. This RN informed pt there are other patients on the floor and to not yell because it will wake them. Pt stated, 'I'll scream loud enough that it wakes up
everyone on the floor'. Pt angry. Pt continued to refuse. BENEFITS SPECIALIST made aware.
[2024-05-23 06:00] VITALS: BMI 33.2
--- NOTE | 2024-05-23 06:00 | PTCARENOTE ---
Pt refused to have air sampling and monitoring placed back on chest. Two PCT's and this RN at bedside. Pt informed of importance of air sampling and monitoring and why it is needed. Pt angry and raising voice. Pt pounded fist on bed and said 'you're all going to '.
Pt stated 'why is it needed if I am just going to anyway'. Pt agitated. Pt informed that if air sampling and monitoring is not placed on chest, then restraints may be needed. conveyor monitor placed.
[2024-05-23 07:10] LABS: Hematocrit 47.3 % (37.0-47.0); Hemoglobin 14.9 g/dL (12.0-16.0); Mean Corp Hgb Conc. 31.5 g/dL (33.0-37.0); Mean Corpuscular Hgb 29.4 pg (27.0-31.0); Mean Corpuscular Volume 93.5 fL (81.0-99.0); Mean Platelet Volume 10.8 fL (7.4-10.4); Platelet Count 138 10^3/uL (130-400); Red Blood Cell Count 5.06 10^6/uL (4.20-5.40); White Blood Cell Count 4.3 10^3/uL (4.8-10.8)
[2024-05-23 07:50] VITALS: BP 127/88
[2024-05-23 08:09] LABS: Blood Urea Nitrogen 19 mg/dl (7-17); Glucose 91 mg/dl (70-99)
[2024-05-23 08:10] LABS: Calcium 9.5 mg/dl (8.4-10.2); Chloride 88 mmol/L (98-107); Estimated Creatinine Clearance 72 ml/min; Potassium 3.5 mmol/L (3.5-5.1); Sodium 136 mmol/L (135-145); eGFR > 60.00
[2024-05-23 09:05] LABS: Carbon Dioxide 41 mmol/L (22-30)
[2024-05-23] MEDS: MIRALAX 17 GRAMS PO (09:14)
[2024-05-23] MEDS: PEPCID 20 MG PO ×2 (09:14→21:41)
[2024-05-23] MEDS: LASIX 40 MG IV ×2 (09:14→15:46)
[2024-05-23] MEDS: KCL 20 MEQ PO (09:14)
[2024-05-23] MEDS: HEPARIN 5000 UNITS SC ×2 (09:15→21:41)
[2024-05-23] MEDS: HYDROPHOR 1 APPLIC TOPICAL ×2 (09:19→21:31)
[2024-05-23] MEDS: LOTRIMIN 1% CREAM 1 APPLIC TOPICAL ×2 (09:20→21:31)
[2024-05-23] MEDS: DESENEX/MITRAZOL/ZEASORB 1 APPLIC TOPICAL ×2 (09:20→21:30)
[2024-05-23] MEDS: NEURONTIN 200 MG PO ×2 (09:41→14:14)
[2024-05-23] MEDS: FARXIGA 10 MG PO (09:44)
--- NOTE | 2024-05-23 10:24 | W.PN.CD ---
Today's Communication / Plan
-
-Continue furosemide 40 mg IV twice daily.
Impression / Plan
-
BACKGROUND: 89-year-old female with past medical history of CHF, chronic lymphedema, GERD, anxiety, bleed, hiatal hernia, RA, chronic pain presented to us with lethargic, sob, hypoxic and wheezing consistent with heart failure exacerbation.
Acute hypoxemic respiratory failure, in the setting of acute HFpEF
-Wean oxygen as tolerated, HFpEF care as below
Acute on chronic HFpEF
-Continue furosemide 40 mg IV twice daily.
-Dry weight to be determined
-HF education
-Trend daily weight, I/Os, and BMP with diuresis
-Consider addition of SGLT2i (admitting diagnosis is UTI however this is not reflected in notes from primary service)
Concern for left lower extremity cellulitis, on Ancef --management as per primary team.
Obesity, BMI 33
Ambulatory dysfunction
SUBJECTIVE:
No major events overnight. Still with some shortness of breath, but improving.
Physical Exam
Vital Signs/Labs
Vital Signs
Temp Pulse Resp BP Pulse Ox
98.1 F 80 17 127/88 94
05/23/24 07:50 05/23/24 07:50 05/23/24 07:50 05/23/24 07:50 05/23/24 07:50
05/22/24 05/23/24 05/24/24
06:59 06:59 06:59
Actual Weight 91.671 kg 90.407 kg
05/23/24 06:17
05/23/24 06:17
Magnesium 1.7 mg/dl (1.6-2.3) 05/21/24 06:17
Triglycerides 81 mg/dl (10-149) 05/21/24 06:17
LDL Cholesterol, Calc 98 mg/dl 05/21/24 06:17
VLDL Cholesterol, Calc 16 mg/dl (0-30) 05/21/24 06:17
HDL Cholesterol 49 mg/dl 05/21/24 06:17
05/20/24 05/20/24
20:22 20:56
Hgm-Z-Bnqlxewnwym Pept Cancelled 4180
LAB Results
05/20/24 05/20/24
20:22 20:56
Troponin I Cancelled < 0.012
Physical Exam
Constitutional: No acute distress and Comfortable
EENT: Anicteric
Cardiovascular: Rhythm & rate is regular, Pedal edema present (1+), Systolic murmur present (2/6) and S1S2 is normal
Respiratory: Respiratory effort normal, Wheeze Absent and Crackles Present
GI: Soft
Neuro/Psych: Alert
Other: Skin (Warm, dry)
Data Reviewed
-
Date of Service: May 23, 2024
EKG: Tracing Personally Visualized and interpreted (Telemetry: Sinus rhythm)
Labs: Labs Reviewed by me
[2024-05-23] MEDS: ANCEF 10 IV (10:46)
--- NOTE | 2024-05-23 12:08 | W.PN.HOSP.TC ---
Today's Communication/Plan
-
continue IV diuretics
continue IV Abx
PT/OT
wean O2 as able
Assessment / Plan
Assessment / Plan
CXR: Lungs appear significantly hypoinflated, with worsening inflation/aeration of the lungs compared to most recent chest radiograph of November 13, 2023.
CT Brain: No evidence of acute intracranial abnormality. Mild to moderate diffuse atrophy. Moderate leukomalacia.
Assessment:
Acute hypoxemic respiratory failure and acute metabolic encephalopathy due to acute on chronic HFpEF:
-CXR above
-Echo Oct 2023 EF 60-65%, G1DD, Dilated right ventricle with hypokinesis of the right ventricular free wall and mild/moderately impaired systolic function.
-proBNP 4180
-Echo: unchanged EF, RV function and pulmonary pressures improved
-cont IV Lasix - requires intensive monitoring of I/Os, weights, lytes
-cards following
-was on 6L NC O2, now weaned to 4-5L NC O2
Chronic Lymphedema +/- LLE Cellulitis: cont Ancef, day 3/5 . B/L LE skin findings also consistent with chronic venous stasis dermatitis.
Iron Deficiency Anemia, Hb normal, cont ferrous sulfate
Chronic Pain Syndrome, Chronic Opioid use with dependence: hold home narcotics, cont Neurontin
Obesity due to excess calories
GERD: cont PPI
PAD
DVT ppx: SC Heparin
Code: DNR
Anticipated Discharge: > 48 hours
Subjective/Interval History
-
Date of Service: May 23, 2024
weight down additional 1 kg
Objective Data
-
Labs:
Laboratory Results
05/23/24
06:17
WBC 4.3 L
Hgb 14.9
Hct 47.3 H
Plt Count 138
Sodium 136
Potassium 3.5
Chloride 88 L
Carbon Dioxide 41 H
BUN 19 H
Creatinine 0.5 L
Glucose 91
Calcium 9.5
Vital Signs:
Vital Signs
Temp Pulse Resp BP Pulse Ox
98.1 F 80 17 127/88 94
05/23/24 07:50 05/23/24 07:50 05/23/24 07:50 05/23/24 07:50 05/23/24 07:50
I&O
05/22/24 05/23/24 05/24/24
06:59 06:59 06:59
Intake Total 1420 / 1420 240 / 240
Output Total 1450 / 1450
Balance -30 / -30 240 / 240
Physical Exam
-
General: No Apparent Distress
HEENT: Normocephalic and Atraumatic
Respiratory: Negative Wheezes
Cardiac: Regular Rhythm
Genito-urinary: No Costovertebral Tender
Musculoskeletal: Edema, Left Upper Extrem and Edema, Right Lower Extrem
Neuro: AO x 3
Psych: Calm
Data Reviewed
-
Total Time Spent with Patient (in minutes): 51
Labs: Labs Reviewed by me
--- NOTE | 2024-05-23 13:13 | PN.CDI ---
CDI
- -
CDI:
Physician Documentation Request
Admit Date: 05/20/24 21:53
Dear Doctor Michaela
05/20 Urine culture positive for Escherichia coli.
UA results:
Laboratory Tests
05/20/24
22:15
Urine Color Straw
Urine Clarity Clear
Urine Nitrite (Reflex) Positive A
Leukocyte Esterase Rfl 2+ A
Urine WBC (Reflex) 16-20 A
Urine Bacteria (Reflex) Few A
Could you please provide diagnosis that supports the above abnormalities and additional evaluation/ monitoring:
UTI
Asymptomatic bacteruria
Other
Use of terms such as suspected, likely, concern for, or probable (associated with a specific diagnosis that is being evaluated, monitored, or treated as if it exists) are acceptable and can be coded in the inpatient setting, when documented at the
time of discharge.
Thank you,
Mallika Peguero RN, BSN
CDI Specialist
tiger text
Please use your independent medical judgment in providing your response.
[2024-05-23] MEDS: STERILE WATER FOR INJECTION 10 ML IV (14:13)
[2024-05-23] MEDS: ROCEPHIN 1000 MG IV (14:14)
[2024-05-23 15:57] VITALS: BP 101/59
[2024-05-23] MEDS: NEURONTIN 300 MG PO (21:41)
[2024-05-23] MEDS: ROXICODONE 5 MG PO (21:42)
[2024-05-23 23:40] VITALS: BP 105/64
[2024-05-24] MEDS: DICLOFENAC 1% TOPICAL GEL 2 GRAM TOPICAL ×3 (00:41→15:38)
[2024-05-24 05:31] VITALS: BMI 32.7
[2024-05-24 07:00] VITALS: BP 127/68
--- NOTE | 2024-05-24 08:18 | W.PN.CD ---
Today's Communication / Plan
-
-Continue furosemide 40 mg IV twice daily today; transition back to Lasix 80 mg PO once daily starting tomorrow--which should be her home regimen.
-No further cardiac recommendations at this time; outpatient follow-up with Cardiology.
Impression / Plan
-
BACKGROUND: 89-year-old female with past medical history of CHF, chronic lymphedema, GERD, anxiety, bleed, hiatal hernia, RA, chronic pain presented to us with lethargic, sob, hypoxic and wheezing consistent with heart failure exacerbation.
Acute hypoxemic respiratory failure, in the setting of acute HFpEF
-Wean oxygen as tolerated, HFpEF care as below
Acute on chronic HFpEF
-Continue furosemide 40 mg IV twice daily today; transition back to Lasix 80 mg PO once daily starting tomorrow--which should be her home regimen.
-No SGLT2i secondary to UTI.
-No further cardiac recommendations at this time; outpatient follow-up with Cardiology.
Concern for left lower extremity cellulitis, on Ancef --management as per primary team.
Obesity, BMI 33
Ambulatory dysfunction
SUBJECTIVE:
No major events overnight.
Physical Exam
Vital Signs/Labs
Vital Signs
Temp Pulse Resp BP Pulse Ox
97.8 F 66 19 127/68 98
05/24/24 07:00 05/24/24 07:00 05/24/24 07:00 05/24/24 07:00 05/24/24 07:00
05/23/24 05/24/24 05/25/24
06:59 06:59 06:59
Actual Weight 90.407 kg 89.046 kg
05/23/24 06:17
Magnesium 1.7 mg/dl (1.6-2.3) 05/21/24 06:17
Triglycerides 81 mg/dl (10-149) 05/21/24 06:17
LDL Cholesterol, Calc 98 mg/dl 05/21/24 06:17
VLDL Cholesterol, Calc 16 mg/dl (0-30) 05/21/24 06:17
HDL Cholesterol 49 mg/dl 05/21/24 06:17
05/20/24 05/20/24
20:22 20:56
Cqs-O-Kutoakzzvxp Pept Cancelled 4179
Physical Exam
Constitutional: No acute distress
EENT: Anicteric
Cardiovascular: Rhythm & rate is regular, Pedal edema present (trace to 1+), Systolic murmur present (2/6) and S1S2 is normal
Respiratory: Respiratory effort normal, Wheeze Absent and Rhonchi Present
GI: Soft
Neuro/Psych: Alert
Other: Skin (Warm, dry)
Data Reviewed
-
Date of Service: May 24, 2024
Labs: Labs Reviewed by me
--- NOTE | 2024-05-24 08:35 | W.PN.HOSP.TC ---
Today's Communication/Plan
-
dc to SNF today
Assessment / Plan
Assessment / Plan
CXR: Lungs appear significantly hypoinflated, with worsening inflation/aeration of the lungs compared to most recent chest radiograph of November 13, 2023.
CT Brain: No evidence of acute intracranial abnormality. Mild to moderate diffuse atrophy. Moderate leukomalacia.
Assessment:
Acute hypoxemic respiratory failure and acute metabolic encephalopathy due to acute on chronic HFpEF:
-CXR above
-Echo Oct 2023 EF 60-65%, G1DD, Dilated right ventricle with hypokinesis of the right ventricular free wall and mild/moderately impaired systolic function.
-proBNP 4180
-Echo: unchanged EF, RV function and pulmonary pressures improved
-cont IV Lasix - requires intensive monitoring of I/Os, weights, lytes
-cards following
-was on 6L NC O2, now weaned to 4-5L NC O2
Multi-drug resistant E. coli
- continue Rocephin, day 2
Chronic Lymphedema +/- LLE Cellulitis: cont Rocephin, day 4/5 . B/L LE skin findings also consistent with chronic venous stasis dermatitis.
Iron Deficiency Anemia, Hb normal, cont ferrous sulfate
Chronic Pain Syndrome, Chronic Opioid use with dependence: hold home narcotics, cont Neurontin
Obesity due to excess calories
GERD: cont PPI
PAD
DVT ppx: SC Heparin
Code: DNR
More than 30 minutes spent in discharge including
Final examination of the patient
Summarizing hospital stay
Instructions for continuing care to all relevant caregivers
Preparation of discharge records, prescriptions, and referral forms
Total time spent (in minutes):41
Anticipated Discharge: Today
Subjective/Interval History
-
Date of Service: May 24, 2024
no new complaints
transitioning to oral Lasix tomorrow
at baseline 2L NC
Objective Data
-
Labs:
Laboratory Results
05/24/24
08:12
Sodium Pending
Potassium Pending
Chloride Pending
Carbon Dioxide Pending
BUN Pending
Creatinine Pending
Glucose Pending
Calcium Pending
Vital Signs:
Vital Signs
Temp Pulse Resp BP Pulse Ox
97.8 F 66 19 127/68 98
05/24/24 07:00 05/24/24 07:00 05/24/24 07:00 05/24/24 07:00 05/24/24 07:00
I&O
05/23/24 05/24/24 05/25/24
06:59 06:59 06:59
Intake Total 240 / 240 1080 / 1080
Balance 240 / 240 1080 / 1080
Physical Exam
-
General: No Apparent Distress
HEENT: Normocephalic and Atraumatic
Respiratory: Negative Wheezes
Cardiac: Regular Rhythm
GI: Soft
Neuro: AO x 3
Psych: Calm and Apparent Dementia
Data Reviewed
-
Total Time Spent with Patient (in minutes): 41
Labs: Labs Reviewed by me
[2024-05-24 09:10] LABS: Blood Urea Nitrogen 19 mg/dl (7-17); Calcium 9.5 mg/dl (8.4-10.2); Chloride 89 mmol/L (98-107); Estimated Creatinine Clearance 71 ml/min; Glucose 89 mg/dl (70-99); Potassium 3.5 mmol/L (3.5-5.1); Sodium 136 mmol/L (135-145); eGFR > 60.00
[2024-05-24 09:20] LABS: Carbon Dioxide 40 mmol/L (22-30)
[2024-05-24] MEDS: DESENEX/MITRAZOL/ZEASORB 1 APPLIC TOPICAL (09:42)
[2024-05-24] MEDS: FARXIGA 10 MG PO (09:43)
[2024-05-24] MEDS: KCL 20 MEQ PO (09:43)
[2024-05-24] MEDS: PEPCID 20 MG PO (09:43)
[2024-05-24] MEDS: HEPARIN 5000 UNITS SC (09:44)
[2024-05-24] MEDS: LASIX 40 MG IV ×2 (09:44→15:37)
[2024-05-24] MEDS: MIRALAX 17 GRAMS PO (09:45)
[2024-05-24] MEDS: LOTRIMIN 1% CREAM 1 APPLIC TOPICAL (09:45)
[2024-05-24] MEDS: HYDROPHOR 1 APPLIC TOPICAL (09:46)
[2024-05-24] MEDS: FEOSOL 325 MG PO (09:48)
[2024-05-24] MEDS: NEURONTIN 200 MG PO ×2 (09:48→13:45)
--- NOTE | 2024-05-24 12:33 | CM ---
Received notification from attending that patient is medically cleared for discharge. Placed a call to [facility] and spoke with Ishan in admissions who confirmed that she can accept patient back.
# For report [phone]
#
Placed a call to patient's son, Ayaz to update. Reviewed IMM. He was agreeable to discharge.
Will complete medical necessity and transfer sheet to give to [employer] community planner.
Plan: Case management will continue to follow and assist with discharge planning. Back to [facility].
[2024-05-24] MEDS: ROCEPHIN 1000 MG IV (13:38)
[2024-05-24] MEDS: STERILE WATER FOR INJECTION 10 ML IV (13:38)
[2024-05-24 15:00] VITALS: BP 106/79
--- NOTE | 2024-05-24 15:39 | W.DS.TRANS ---
DC Summary - [employer]
-
Discharge Instructions:
Sleep Apnea Risk Low
Discharge Diagnosis/Procedures acute CHF, UTI
Diet 2 Gram Sodium,Restrict fluids to 48 oz,Low
Cholesterol
Activity As tolerated
Bathing Restrictions None
Other Services PT,OT
Instructions: *PCP/Other Patient'S Librarian Heart Failure Instructions
Stand-Alone Forms:
Changes to Home Medications: No
Discharge Medications:
DC Medications w/original date entered in [employer]
ascorbic acid (vitamin C) 500 mg tablet 500 mg PO MOWEFR@0830,1830 Supplement 11/09/23
bisacodyl 10 mg rectal suppository (Dulcolax (bisacodyl)) 10 mg SC DAILY PRN 3 days ag no bm & mom is ineffective 11/09/23
diclofenac sodium 1 % topical gel 2 g topical Q8H PRN lower back pain 11/09/23
ferrous gluconate 324 mg (38 mg iron) tablet 324 mg PO MOWEFR Supplement 11/09/23
gabapentin 100 mg capsule 200 mg PO BID@0830,1430 Pain 11/09/23
gabapentin 300 mg capsule 300 mg PO HS Pain 11/09/23
magnesium hydroxide 400 mg/5 mL oral suspension (Milk of Magnesia) 30 ml PO HS PRN constipation 11/09/23
naloxone 4 mg/actuation nasal spray (Narcan) 1 spray intranasal Q2M PRN opioid overdose 11/09/23
acetaminophen 500 mg tablet (Pain Relief Extra Strength (acetaminophen)) 1,000 mg (2 x 500 mg) PO TID #0 tabs 11/14/23
furosemide 80 mg tablet (Lasix) 80 mg PO DAILY #30 tabs 11/14/23
polyethylene glycol 3350 17 gram/dose oral powder 17 g PO DAILY #510 grams 11/14/23
potassium chloride 20 mEq tablet,extended release 20 meq PO DAILY #30 tabs 11/14/23
famotidine 20 mg tablet 20 mg PO BID Gastrointestinal Issue 05/20/24
cefdinir 300 mg capsule 300 mg PO Q12H #14 caps 05/24/24
dapagliflozin propanediol 10 mg tablet 10 mg PO DAILY #30 tabs 05/24/24
oxycodone 5 mg tablet 5 mg PO TID Pain #10 tabs 05/24/24
Home Medication Changes
Pending Results: No
Total time spent discharging patient (in min): 42
== END 2024-05-24 17:40 | DRG 291 ==
LOC: 3 WEST ACU 21:53
PROVIDERS: Registered Nurse; ADMITTING PHYSICIAN Hospitalist; ATTENDING PHYSICIAN Internal Medicine; CONSULT PHYSICIAN Internal Medicine Cardiovascular Disease; EMERGENCY PHYSICIAN Student in an Organized Health Care Education/Training Program; FAMILY PHYSICIAN Student in an Organized Health Care Education/Training Program
DX: I11.0 Hypertensive heart disease with heart failure (principal); G92.8 Other toxic encephalopathy; I50.33 Acute on chronic diastolic (congestive) heart failure; J96.21 Acute and chronic respiratory failure with hypoxia; F11.20 Opioid dependence, uncomplicated; L03.116 Cellulitis of left lower limb; N39.0 Urinary tract infection, site not specified; Z16.24 Resistance to multiple antibiotics; I89.0 Lymphedema, not elsewhere classified; E66.01 Morbid (severe) obesity due to excess calories; D50.9 Iron deficiency anemia, unspecified; G89.4 Chronic pain syndrome; I27.20 Pulmonary hypertension, unspecified; K21.9 Gastro-esophageal reflux disease without esophagitis; F41.9 Anxiety disorder, unspecified; M06.9 Rheumatoid arthritis, unspecified; M79.7 Fibromyalgia; I73.9 Peripheral vascular disease, unspecified; Z66 Do not resuscitate; I87.2 Venous insufficiency (chronic) (peripheral); B96.20 Unspecified Escherichia coli [E. coli] as the cause of diseases classified elsewhere; Z68.33 Body mass index [BMI] 33.0-33.9, adult; Z91.148 Patient's other noncompliance with medication regimen for other reason; Z91.119 Patient's noncompliance with dietary regimen due to unspecified reason; Z87.891 Personal history of nicotine dependence; Z11.52 Encounter for screening for COVID-19
CPT/HCPCS: 70450; 71045; 80048; 80053; 80061; 81003; 81015; 82248; 83605; 83735; 83880; 84443; 84484; 85025; 85027; 87040; 87070; 87077; 87086; 87186; 87811; 93005; 93306; 94760; 96365; 96367; 96375; 99285

== ENCOUNTER → 2024-07-25 13:11 | Outpatient (REF) | payer MEDICARE, OTHER, SELFPAY ==
[2024-07-25 13:27] LABS: % Basophils 0.4 % (0-2); % Eosinophils 4.1 % (0-6); % Immature Granulocytes 0.4 % (0-0.5); % Lymphocytes 24.3 % (20.5-51.1); % Monocytes 7.9 % (1.7-9.3); % Neutrophils 62.9 % (42.2-75.2); Absolute Eosinophils 0.2 10^3/uL (0-0.7); Absolute Lymphocytes 1.3 10^3/uL (1.2-3.4); Absolute Monocytes 0.4 10^3/uL (0.1-0.6); Absolute Neutrophils 3.4 10^3/uL (1.4-6.5); Hematocrit 40.6 % (37.0-47.0); Hemoglobin 13.1 g/dL (12.0-16.0); Mean Corp Hgb Conc. 32.3 g/dL (33.0-37.0); Mean Corpuscular Hgb 30.7 pg (27.0-31.0); Mean Corpuscular Volume 95.1 fL (81.0-99.0); Mean Platelet Volume 10.5 fL (7.4-10.4); Nucleated Red Blood Cells % 0 %; Platelet Count 117 10^3/uL (130-400); Red Blood Cell Count 4.27 10^6/uL (4.20-5.40); Red Cell Dist. Width 15.1 % (11.5-14.5); White Blood Cell Count 5.3 10^3/uL (4.8-10.8)
[2024-07-25 14:12] LABS: Blood Urea Nitrogen 13 mg/dl (7-17); Calcium 9.2 mg/dl (8.4-10.2); Carbon Dioxide 35 mmol/L (22-30); Chloride 96 mmol/L (98-107); Glucose 78 mg/dl (70-99); Potassium 4.3 mmol/L (3.5-5.1); Sodium 137 mmol/L (135-145); eGFR > 60.00
== END ==
LOC: OLABN 13:11
PROVIDERS: ATTENDING PHYSICIAN Student in an Organized Health Care Education/Training Program
DX: I10 Essential (primary) hypertension (principal); I89.0 Lymphedema, not elsewhere classified
CPT/HCPCS: 36415; 80048; 85025

== ENCOUNTER 2024-07-26 12:54 | Emergency (ER) | payer MEDICARE, OTHER, SELFPAY ==
[2024-07-26] VITALS (13 sets, daily range): BP systolic 90–119; BP diastolic 33–89; BMI 33.9
--- NOTE | 2024-07-26 14:32 | ED.GENMED ---
History of Present Illness
General
Chief Complaint: Fall
Source: patient, records and ambulance crew
Exam Limitations: none
Time Seen by Provider: 07/26/24 14:02
Nursing documentation reviewed up to this point in time: agreed with
History of Present Illness
History of Present Illness:
89-year-old female with past medical history as noted presents to the emergency room from alf at [facility] for evaluation of a lower leg injury. Patient is in a wheelchair at baseline. She says that she was moving in her wheelchair
and her left foot got caught underneath the chair and ankle was forced into extreme plantarflexion underneath the chair. She has had pain and deformity in the ankle since. She apparently had an outpatient x-ray which showed a tibia/fib fracture
and was referred to the ER. She denies any other injuries or complaints. She has chronic swelling of the legs no worse than usual.
Past History
Past History
ED Past Medical History: Cancer (Skin Cancer), CHF, Fibromyalgia, GERD, Psychiatric (Anxiety), Other (Back pain, Herniated disc, GI bleeding Upper and lower, Hiatal hernia, Ulcers. cellulitis, Psoriasis, Anemia, ), Other (Rheumatoid arthritis) and
Other ( chronic pain. Followed by pain management. Currently taking Endocet )
ED Past Surgical History: Cholecystectomy, Gynecological (tubal, ), Orthopedic (Status post right knee replacement x3, status post left wrist fracture repair x 3, Hip surgery) and Other (cataracts)
Social History
Tobacco: Non-smoker
Alcohol: None
Personal:
Living: with family
Family History
Family History: Negative Diabetes, Hypertension or CAD
Review of Systems
Review of Systems
All Other Systems: ROS reviewed and negative except as documented in HPI and ROS
Respiratory: Denies trouble breathing
Cardiac: Denies chest pain
ABD/GI: Denies abdominal pain or nausea
: Denies flank pain
Musculoskeletal: Reports joint pain; Denies neck pain or back pain
Neurological: Denies headache
Phy Exam
Physical Exam
Physical Exam:
General: Awake, alert, oriented x3; no acute distress
Head: Normocephalic, atraumatic
Eyes: Conjunctiva normal
Throat: Airway intact, handling secretions
Neck: Trachea midline
Lungs: Breathing comfortably no distress
Heart: Regular rate
Neuro: No gross deficits
Skin: no rash
Extremities: Patient has bilateral lower extremity edema +3; she has deformity of left ankle with foot angulated and plantarflexion, pain with any attempts at palpation or flexion around the ankle; she has purpleish discoloration of the left lower
leg, right lower leg appears normal color; she does have good palpable DP and PT pulses bilaterally
Scores
Heart Failure Risk
Heart Failure Risk Score: Not Applicable
Heart Score for Chest Pain Patients
STEMI patient?: Not applicable
Withdrawal Assessment of Alcohol
Withdrawal Assessment Completed?: Not applicable
Course
Orders/Labs/Results
Orders:
Orders
07/26/24 13:09
Ankle, left 3 view CR [CR Ankle - Left Min 3 Views ] Urgent
Comment:
Reason For Exam: fall/pain/deformity
CR Leg Tibia/fibula Left 2 Vw Urgent
Comment:
Reason For Exam: fall/pain/deformity
07/26/24 15:17
Propofol [Diprivan] 20 ml .ROUTE .STK-MED
07/26/24 15:35
CR Ankle - Left 2 Views Stat
Comment:
Reason For Exam: post reduction
Vital Signs
Initial and Last Documented VS:
Initial Vital Signs
BP Pulse Ox
91/69 84
07/26/24 13:01 07/26/24 13:01
Last Documented Vital Signs
Temp Pulse Resp BP Pulse Ox
36.4 C 81 26 119/68 93
07/26/24 15:25 07/26/24 15:57 07/26/24 15:57 07/26/24 15:57 07/26/24 15:57
Procedures
Moderate Sedation
ASA Risk Score: Class III
Chart and allergies reviewed: Yes
Consent for anesthesia obtained: Yes
Time out completed (validating right patient & procedure): Yes
Moderate Sedation Start Time(when first medication is given): 15:27
History of difficult intubation: No
Airway free of obstruction: Yes
Patient has a gag reflex: Yes
Patient is able to open mouth: Yes
Patient has no dentures: Yes
Patient has no loose teeth: Yes
Medication administered by Provider during Moderate Sedation: IV Propofol (mg)
Total dose administered: 50
Time drug administered: 15:27
Moderate Sedation Procedure End Time: 15:42
Splinting/Sling Placement
Left Leg:
Procedure completed by: Steve Alarcon MD
Pre-splint extermity exam: neurovascular intact
Type of splint: posterior short leg (with stirrup)
Splint material: fiberglass
Splint checked by provider?: Yes
Normal distal neurovascular exam?: Yes
Joint/Fracture Reduction
Left Leg:
Indication for procedure:: tibia and fibular fracture
Procedure completed by: Steve Alarcon MD
Consent form signed: Yes
Anesthesia/sedation: Moderate sedation
Injury was: closed
Post reduction exam: stable
Capillary Refill: normal
Normal distal neurovascular exam?: Yes
MDM/Problems Addressed
Differential Diagnosis Includes:
Fracture, dislocation
MDM/Problems Addressed:
89-year-old female presents with left ankle injury as described above. Outpatient x-ray showed tib/fib fracture. Unfortunately outpatient x-ray unavailable for review�will obtain x-ray of the ankle and tibia/fib. Will reassess at the above.
X-ray confirms fracture of the distal tibia and fibula; will discuss with orthopedics�patient may be a placement issue due to functional status with this injury.
Discussed with orthopedics recommended reduction and splinting here, will be treated nonoperatively can follow-up as an outpatient. Discussed with alf staff�patient is 100% mechanical lift does not bear weight whatsoever and is in a
wheelchair at all times. They can accommodate her with splint in place nonweightbearing left lower extremity. Discussed with patient and she is agreeable to sedation here for closed reduction and splinting.
Fracture reduced and splinted as documented in procedure note. Postreduction x-ray shows improved medial to lateral alignment still slightly angulated; hesitant to sedate further for additional reduction attempts with her multiple medical
comorbidities--alignment adequate, will refer to orthopedics for follow-up. Will monitor post sedation plan likely for discharge pending observation.
*Radiology
Radiology exam reviewed: preliminary read by ED provider and radiology read reviewed
*Pulse Oximetry
Patient hypoxic: no
*Critical Care Note
Total Time (30-74mins, 75-104mins- exclusive of procedures): Not Applicable
Data Reviewed
Review of Other/Old Records Reveals: Records
Source: patient, records, ambulance crew and alf
Patient Management
Discussion with other providers: [employer] (Discussed with orthopedics) and longterm staff (Discussed directly with alf staff)
ED Attending Note
-
Portions of this chart may have been created with voice recognition software.� Occasional wrong word or��sound alike� substitutions may have occurred due to the inherent limitations of voice recognition software.
Discharge Plan
Departure
Patient with high blood pressure during this ER visit?: No
Discharge Problem:
Fracture of tibia and fibula
Instructions: Ankle Fracture ED, MODERATE SEDATION ADULT
Prescriptions:
No Action
magnesium hydroxide [Milk of Magnesia] 400 mg/5 mL Suspension
30 ml PO HS PRN (Reason: constipation)
ascorbic acid (vitamin C) 500 mg Tablet
500 mg PO MOWEFR@0830,1830
bisacodyl [Dulcolax (bisacodyl)] 10 mg Suppository
10 mg MO DAILY PRN (Reason: 3 days ag no bm & mom is ineffective)
gabapentin 300 mg capsule
300 mg PO TID
ferrous gluconate 324 mg (38 mg iron) Tablet
324 mg PO MOWEFR
diclofenac sodium 1 % Gel
2 g TOPICAL Q8H PRN (Reason: lower back pain)
naloxone [Narcan] 4 mg/actuation Baird,Non-Aerosol
1 spray INTRANASAL Q2M PRN (Reason: opioid overdose)
acetaminophen [Pain Relief ES (acetaminophen)] 500 mg Tablet
1,000 mg PO TID Qty: 0 0RF
furosemide [Lasix] 80 mg tablet
80 mg PO DAILY Qty: 30 0RF
potassium chloride 20 mEq tablet extended release
20 meq PO DAILY Qty: 30 0RF
polyethylene glycol 3350 17 gram/dose powder
17 g PO DAILY Qty: 510 0RF
famotidine 20 mg Tablet
20 mg PO BID
dapagliflozin propanediol 10 mg Tablet
10 mg PO DAILY Qty: 30 0RF
oxycodone 5 mg tablet
5 mg PO TID Qty: 10 0RF
Referrals:
Ulices Spear MD [Active] - Call in 1-3 days for appt
Josh Chan DO [Family Provider] -
Activity Restrictions/Additional Instructions:
PATIENT MUST BE STRICT NON-WEIGHT BEARING ON THE LEFT LEG FOR 8 WEEKS. SPLINT MUST BE MAINTAINED AT ALL TIMES. PATIENT SHOULD FOLLOW UP WITH THE ORTHOPEDIC SURGEON WITHIN THE NEXT WEEK TO HAVE LEG REASSESSED.
Thank you for visiting the Emergency Department at [facility].
1. Please schedule a follow up appointment as directed. Call first thing tomorrow morning to make an appointment.
2. If indicated, please take your medications as instructed and indicated on discharge paperwork.
3. If any of your symptoms do not improve, or persist, or become more severe within 6-12 hours, please return to the emergency department for further care.
4. Please return to the emergency department if you develop a headache, neck pain/stiffness, fever greater than 100.4F, chest pain, shortness of breath, persistent nausea, vomiting, slurred speech, difficulty walking, numbness/tingling, weakness,
signs of infection or any other symptoms that are worrisome to you.
Please call [phone] if you have any questions.
Interventions
Interventions:
*Risk Screen - Suicide Last Done: 07/26/24 13:14
*General Assessment Last Done: 07/26/24 13:14
*Neglect/Abuse Screening Last Done: 07/26/24 13:14
ED- Fall Risk Assessment Last Done: 07/26/24 13:10
*ED COVID-19 Vaccine History Last Done: 07/26/24 13:14
ED-Musculoskeletal Assessment Last Done: 07/26/24 13:16
ED- Neurological Assessment Last Done: 07/26/24 13:16
ED-Skin Assessment Last Done: 07/26/24 13:16
Discharge Date and Time
Print Language: MONTENEGRIN
--- NOTE | 2024-07-26 16:01 | EDRN ---
Moderate sedation done by Dr. Alarcon.
Start time 1527; 50mg of propofol given
End time 1542
== END 2024-07-26 17:46 ==
LOC: EMR 12:54
PROVIDERS: EMERGENCY PHYSICIAN Emergency Medicine; FAMILY PHYSICIAN Family Medicine
DX: S82.832A Other fracture of upper and lower end of left fibula, initial encounter for closed fracture (principal); X58.XXXA Exposure to other specified factors, initial encounter; I50.9 Heart failure, unspecified; K21.9 Gastro-esophageal reflux disease without esophagitis; M06.9 Rheumatoid arthritis, unspecified; M79.7 Fibromyalgia; Z85.828 Personal history of other malignant neoplasm of skin; Z90.49 Acquired absence of other specified parts of digestive tract; Z96.651 Presence of right artificial knee joint
CPT/HCPCS: 99283; 27788; 99152; 73590; 73600; 73610

== ENCOUNTER → 2025-07-03 10:42 | Outpatient (REF) | payer MEDICARE, OTHER, SELFPAY ==
[2025-07-03 11:47] LABS: Blood Urea Nitrogen 20 mg/dl (7-17); Calcium 9.2 mg/dl (8.4-10.2); Carbon Dioxide 38 mmol/L (22-30); Chloride 99 mmol/L (98-107); Glucose 71 mg/dl (70-99); Potassium 4.0 mmol/L (3.5-5.1); Sodium 138 mmol/L (135-145); eGFR > 60.00
== END ==
LOC: OLABN 10:42
PROVIDERS: ATTENDING PHYSICIAN Student in an Organized Health Care Education/Training Program
DX: I50.32 Chronic diastolic (congestive) heart failure (principal)
CPT/HCPCS: 36415; 80048

== ENCOUNTER 2025-08-16 21:02 | Inpatient (IN) | payer MEDICARE, OTHER, SELFPAY ==
[2025-08-16] VITALS (8 sets, daily range): BP systolic 103–142; BP diastolic 61–88; PULSE 2–109; BMI 38.3
[2025-08-16 17:52] LABS: Hematocrit 51.0 % (37.0-47.0); Hemoglobin 15.8 g/dL (12.0-16.0); Mean Corp Hgb Conc. 31.0 g/dL (33.0-37.0); Mean Corpuscular Volume 100.6 fL (81.0-99.0); Nucleated Red Blood Cells % 0 %; Platelet Count 114 10^3/uL (130-400); Red Cell Dist. Width 14.3 % (11.5-14.5)
--- NOTE | 2025-08-16 17:57 | ED.GENMED ---
History of Present Illness
General
Chief Complaint: Breathing Problem
Source: patient, records, ambulance crew and long-term records
Exam Limitations: none
Time Seen by Provider: 08/16/25 17:47
Nursing documentation reviewed up to this point in time: agreed with
History of Present Illness
History of Present Illness:
89-year-old female with past medical history as noted significant for CHF, chronic respiratory failure on home oxygen 2 L who presents to the ER from [facility] for evaluation of breathing difficulties. Patient appears in mild
respiratory distress and is a relatively poor historian. She cannot tell me exactly how long she has been feeling short of breath. She denies feeling any chest pain. She has massive swelling of her left leg and redness but she seems to think that
this is a chronic issue.
Past History
Past History
ED Past Medical History: Cancer (Skin Cancer), CHF, Fibromyalgia, GERD, Psychiatric (Anxiety), Other (Back pain, Herniated disc, GI bleeding Upper and lower, Hiatal hernia, Ulcers. cellulitis, Psoriasis, Anemia, ), Other (Rheumatoid arthritis) and
Other ( chronic pain. Followed by pain management. Currently taking Endocet )
ED Past Surgical History: Cholecystectomy, Gynecological (tubal, ), Orthopedic (Status post right knee replacement x3, status post left wrist fracture repair x 3, Hip surgery) and Other (cataracts)
Social History
Tobacco: Non-smoker
Alcohol: None
Personal:
Living: with family
Family History
Family History: Negative Diabetes, Hypertension or CAD
Review of Systems
Review of Systems
All Other Systems: ROS reviewed and negative except as documented in HPI and ROS
Respiratory: Reports cough and trouble breathing
Cardiac: Denies chest pain or palpitations
ABD/GI: Denies abdominal pain
Musculoskeletal: Reports edema
Neurological: Denies headache
Phy Exam
Physical Exam
Physical Exam:
General: Laying in bed sleeping but easily arousable, oriented to person and place, mild respiratory distress
Head: Normocephalic, atraumatic
Eyes: Conjunctiva normal
Throat: Airway intact, handling secretions
Neck: Trachea midline, no JVD noted
Lungs: Breath sounds are diminished at the lung bases bilaterally; patient has increased hypoxia requiring 6 L nasal cannula here (on 2 L chronically), is tachypneic with respiratory rate 28-30 during my assessment and labored breathing
Heart: Tachycardia with regular rhythm, no murmurs, gallops, or rubs appreciated
Abd: Soft, non distended, no apparent tenderness
Skin: Patient has significant erythema of the entire left lower leg
Extremities: Patient has bilateral edema but much worse left +3 versus +1 on the right and significant erythema of the left leg
Scores
Heart Failure Risk
Heart Failure Risk Score: Not Applicable
Heart Score for Chest Pain Patients
STEMI patient?: Not applicable
Withdrawal Assessment of Alcohol
Withdrawal Assessment Completed?: Not applicable
Sepsis
Sepsis Screening
Sepsis Assessment: Sepsis
Sepsis Screen
Sepsis Screen: Sepsis
Date: 08/16/25
Time: 22:54
Course
Orders/Labs/Results
Orders:
Orders
08/16/25 Dinner
NPO
Allow oral meds: Yes
Allow clear liquids: Sips of Clears
08/16/25 17:22
Electrocardiogram (*1) Urgent
Reason for Study: Chest Pain
EKG- Treatment ONCE
08/16/25 17:25
Basic Metabolic Panel Urgent
COVID-19 Antigen Urgent
Source: Nasal Swab
Complete Blood Count/With Diff Urgent
NT-proBNP Urgent
Influenza A+B Rapid Molecular Urgent
CAR Source: Nasal Swab
Specimen Description:
08/16/25 17:49
CR Chest Portable - 1 View Urgent
Comment:
Reason For Exam: sob
Reason Study Needs to be Portable: Unable to Transport
08/16/25 17:53
Lactate Level [Lactic Acid] Urgent
Blood Culture Q30M
CAR Source: Blood/Venous
Specimen Description:
08/16/25 17:55
CT Chest PE Study Urgent
Comment:
Reason For Exam: sob, hypoxia, tachypnea
US Periph Venous LOWER Ext LT Urgent
Comment:
Reason For Exam: LLE redness, swelling
08/16/25 18:34
CefTRIAXone [Rocephin] 1,000 mg IV NOW STA
Doxycycline Hyclate [Vibramycin] 100 mg 0.9% Sodium Chloride 250 ml [Nss] 250 ml IV NOW
08/16/25 18:41
Blood Culture Q30M
CAR Source: Blood/Venous
Specimen Description:
08/16/25 18:46
ABG [Arterial Blood Gas] Urgent
%Oxygen/Room Air: 85%
08/16/25 19:05
Doxycycline Hyclate [Vibramycin] 100 mg 0.9% Sodium Chloride 250 ml [Nss] 250 ml IV NOW
08/16/25 19:12
Furosemide [Lasix] 40 mg IV NOW STA
08/16/25 20:25
Admit/Transfer Patient As Directed
Co-Sign Provider:
Level of Care: Inpatient admission
Assign to:: IMU- Intermediate Care
Physician / Group: Yani
Diagnosis: Hypoxic respiratory failure
Reason for Hospitalization: Hypoxic respiratory failure, pneumonia
Expected length of stay greater than two midnights?: Yes
ELOS- Estimated Length of Stay in days: 2
I certify the patient meets the requirements for IP care: Yes
PRN Pain Medication Management As Directed
May give lesser potent ordered pain med per pt: Yes
preference::
Protocol:: Medication orders for pain may be administered in a
manner that supports deferring to patient preference
when the pt is:
- Requesting an ordered lesser potent pain medication.
Least to most potent pain medications are defined
as: acetaminophen < NSAID < tramadol < opioids
(morphine, oxycodone, hydromorphone).
- Requesting a lesser dose of the same medication IF
ORDERED.
- Requesting a less intrusive route of administration
if both routes are prescribed by the provider (PO <
IV).
08/16/25 20:28
Code Status As Directed
Resuscitation Status: Do not resuscitate
Reached after discussion with pt or family/Healthcare POA: Yes
DNR Bracelet Application ONCE
08/16/25 21:39
Acetaminophen [Tylenol] 650 mg PO Q4HPRN PRN
Ipratropium/Albuterol Sulfate [Duoneb] 3 ml INH R Q4HPRN PRN
Ondansetron Injectable [Zofran] 4 mg IV Q6HPRN PRN
Oxycodone [Roxicodone] 5 mg PO DAILYPRN PRN SEVERE PAINS
08/16/25 21:39
Echo 2D MMode Color/Doppler Routine
Reason for Study: CHF
WOUND/OSTOMY CONSULT Routine
Reason for Consult: stasis dermatitis Left leg
Legionella Urinary Antigen Routine
CAR Source: Urine
Specimen Description:
MRSA Screen Routine
CAR Source: Nose
Specimen Description:
Strep pneumoniae Antigen Routine
CAR Source: Urine
Specimen Description:
Activity As Directed
Activity Level: Out of Bed-Early Mobility
Intake/ Output As Directed
Frequency: Per unit guidelines
Intake/ Output As Directed
Frequency: Per unit guidelines
Vital Signs As Directed
Frequency: Per unit guidelines
Weight As Directed
Frequency: Daily
Weight As Directed
Frequency: Once
Comment: on admission
Bipap [RESP] Routine
Patient to use own unit?: No
Inspiratory Pressure (cm H2O): 12
Expiratory Pressure (cm H2O): 5
Oxygen Liter Flow: 3
Pulse Ox/cont/shift [RESP] Routine
Quantity: 1
Special Instructions: notify provider if SPO2 < 91%
Rx Incentive Spirometry [RESP] Routine
Frequency: q1h while awake
Pt Eval And Treat Routine
Activity Level: With Assistance
DX Deep Vein Thrombosis Video Routine
08/16/25 22:00
Cefepime HCl [Maxipime] 1,000 mg IV Q6H
Gabapentin [Neurontin] 300 mg PO TID
08/17/25 06:00
Basic Metabolic Panel IN AM
Complete Blood Count/No Diff IN AM
Procalcitonin IN AM
If negative, will antibiotics be d/c'd or not started: Yes
Does the patient have renal or hepatic impairment?: No
Any recent (w/in 48 hrs) physiologic stress (CPR, rhabdo): No
Venous Blood Gas IN AM
%Oxygen/Room Air: 30
08/17/25 08:00
Dapagliflozin [Farxiga] 10 mg PO DAILY
Doxycycline Hyclate [Vibramycin] 100 mg 0.9% Sodium Chloride 250 ml [Nss] 250 ml IV Q12H
Famotidine [Pepcid] 20 mg PO BID
Furosemide [Lasix] 80 mg IV DAILY
Ipratropium/Albuterol Sulfate [Duoneb] 3 ml INH R QID
Polyethylene Glycol Powder [Miralax] 17 grams PO DAILY
Potassium Chloride [KCl] 20 meq PO DAILY
08/17/25 18:00
Enoxaparin Sodium [Lovenox] 40 mg SC QPM
Abnormal Lab Results
08/16/25 08/16/25
17:25 18:46
WBC 14.7 H 10^3/uL
(4.8-10.8)
Hct 51.0 H %
(37.0-47.0)
MCV 100.6 H fL
(81.0-99.0)
MCH 31.2 H pg
(27.0-31.0)
MCHC 31.0 L g/dL
(33.0-37.0)
Plt Count 114 L 10^3/uL
(130-400)
Abs Immat Gran (auto) 0.1 H 10^3/uL
(0-0.05)
Absolute Neuts (auto) 13.0 H 10^3/uL
(1.4-6.5)
Absolute Lymphs (auto) 1.1 L 10^3/uL
(1.2-3.4)
Immature Gran % 0.7 H %
(0-0.5)
Neutrophils % 88.5 H %
(42.2-75.2)
Lymphocytes % 7.6 L %
(20.5-51.1)
pCO2 61 H mmHg
(32-35)
pO2 75 L mmHg
(83-108)
HCO3 36.9 H mmol/L
(21-28)
Sodium 134 L mmol/L
(135-145)
Chloride 97 L mmol/L
(98-107)
Carbon Dioxide 34 H mmol/L
(22-30)
Creatinine 0.5 L mg/dL
(0.6-1.0)
Glucose 129 H mg/dl
(70-99)
08/16/25 17:25
08/16/25 17:25
Vital Signs
Initial and Last Documented VS:
Initial Vital Signs
Temp Pulse Resp BP Pulse Ox
37.8 C 110 32 105/61 92
08/16/25 17:11 08/16/25 17:11 08/16/25 17:11 08/16/25 17:11 08/16/25 17:11
Last Documented Vital Signs
Temp Pulse Resp BP Pulse Ox
38.6 C H 94 29 130/73 92
08/16/25 21:55 08/16/25 21:15 08/16/25 21:15 08/16/25 21:00 08/16/25 21:15
MDM/Problems Addressed
Differential Diagnosis Includes:
PE, CHF, bronchitis, pneumonia
MDM/Problems Addressed:
89-year-old female presents for evaluation of shortness of breath and increased hypoxia. She is normotensive but tachycardic, tachypneic borderline febrile with increased hypoxia requiring 6 L nasal cannula. She is in mild respiratory distress.
Review paperwork shows that she is DNR/DNI. Will place large-bore IV send labs including a CBC and a CMP. Will check lactate and blood cultures, proBNP. Swab for COVID and flu. Check EKG. Check stat chest x-ray. Very low threshold for CT chest
if chest x-ray nondiagnostic.
Chest x-ray reviewed by me poor inspiratory effort but no clear pneumonia or edema noted. Will proceed with CT chest to rule out PE. Will check ultrasound of the left leg as well. Continue to monitor very closely.
Patient still very labored on return from [facility] place patient on BiPAP. Will check blood gas. I did review CT PE and on my review no PE noted but it does appear to show right lower lobe pneumonia. Will cover with antibiotics. Awaiting final
radiology report. Anticipate admission.
Labs reviewed: CBC shows leukocytosis to 14.7. Mild thrombocytopenia. Chemistry no clinically significant abnormalities. Lactate less than 2. proBNP marginal. Blood gas she does have elevated pCO2 at 61�will reassess after some time on BiPAP.
Report for CT reviewed�no central PE noted. Awaiting results of lower extremity ultrasound. She does have bilateral right greater than left opacifications felt to favor atelectasis but given clinical picture concerned that this is pneumonia.
There is also question of interstitial edema or pneumonitis. Given history of CHF and edema in her legs and degree of respiratory compromise will treat with some Lasix for any aspect of interstitial edema/volume overload, will cover with
antibiotics for possible pneumonia. Will admit for continued management. Discussed case with hospitalist.
I did speak to the patient's son who is at bedside and provided an update. I clarified that she is DNR/DNI and he confirmed this. I explained her serious condition and guarded prognosis. Explained that she will be admitted to the hospital and he
is agreeable.
Chronic conditions affecting care:
CHF
Acute Exacerbation and/or Progression of Chronic Illness:
Acute on chronic respiratory failure treated with additional oxygen
*Pulse Oximetry
SaO2: 92
Nasal Cannula flow liters per minute: 2
Patient hypoxic: yes (85% on typical 2 L of oxygen)
*EKG
Interpreted by ED Provider?: Yes
Heart Rate: 109
Rate: tachycardiac
Rhythm: sinus tachycardia
[place]: normal axis
Interval: normal interval
QRS Pattern: normal QRS
Ischemia: no ischemia
*Critical Care Note
Total Time (30-74mins, 75-104mins- exclusive of procedures): 37
comment:
Critical care statement: A total of 37 minutes of critical care time was provided for this patient. This includes management of unstable vital signs, evaluation of the patient at bedside, frequent reassessment, discussion with
consultants/hospitalist, and review of pertinent medical records. This time was separate from time utilized to perform any aforementioned documented procedures
Data Reviewed
Review of Other/Old Records Reveals: Labs and Records
Source: patient, records and long-term records
Patient Management
Discussion with other providers: Hospitalist (Discussed with hospitalist)
Escalation/DeEscalation of care consider admission/obs:
Admission indicated
ED Attending Note
-
Portions of this chart may have been created with voice recognition software.� Occasional wrong word or��sound alike� substitutions may have occurred due to the inherent limitations of voice recognition software.
Discharge Plan
Departure
Patient Disposition: Admit
Date of Disposition: 08/16/25
Time of Disposition: 19:11
Admit to doctor: Yani
Presentation/result/management discussed w/ accepting MD/DO: Hospitalist
Discharge Problem:
Acute and chronic respiratory failure, Pneumonia, CHF (congestive heart failure)
Interventions
Interventions:
*Risk Screen - Suicide Last Done: 08/16/25 17:11
*General Assessment Last Done: 08/16/25 17:11
*Neglect/Abuse Screening Last Done: 08/16/25 17:11
*ED- Fall Risk Assessment Last Done: 08/16/25 21:57
*ED COVID-19 Vaccine History Last Done: 08/16/25 21:57
*Nursing Disposition Last Done: 08/16/25 21:57
ED- Cardiac Assessment Last Done: 08/16/25 18:16
ED- Pulmonary Assessment Last Done: 08/16/25 18:16
[2025-08-16 18:05] LABS: COVID-19 Antigen Negative (Negative)
[2025-08-16 18:13] LABS: Blood Urea Nitrogen 15 mg/dl (7-17); Calcium 9.4 mg/dl (8.4-10.2); Carbon Dioxide 34 mmol/L (22-30); Chloride 97 mmol/L (98-107); Glucose 129 mg/dl (70-99); Sodium 134 mmol/L (135-145); eGFR > 60.00
[2025-08-16 18:56] LABS: B.E. 9.1 mmol/L; HCO3 36.9 mmol/L (21-28); O2 Saturation % 97.3 % (94-98); PCO2 61 mmHg (32-35); PO2 75 mmHg (83-108)
[2025-08-16] MEDS: ROCEPHIN 1000 MG IV (18:57)
[2025-08-16] MEDS: VIBRAMYCIN 260 MG IV (19:41)
[2025-08-16] MEDS: LASIX 40 MG IV (19:47)
--- NOTE | 2025-08-16 19:57 | HPS.HSE ---
Family Physician
-
Family Physician: Jeet Pena MD, PhD
Chief Complaint
-
Shortness of breath
History of Present Illness
This is a 89-year-old female with past medical history significant for CHF with preserved EF, chronic respiratory failure on home oxygen,, dementia, chronic pain on opioids, pulmonary hypertension improved on prior echocardiogram, chronic lower
extremity edema brought in from intermediate for increased respiratory difficulties.
Patient is a poor historian and cannot provide much history. She lives at [facility] and was brought in to be evaluated for breathing difficulties. He is unclear exactly how long she has been feeling short of breath. She denies having
any chest pain. She denies any calf tenderness or calf pain. She does have massive swelling of her left leg and some redness but she thinks that this is chronic. She did not complain of any known fevers or chills.
In the emergency manage she had a Tmax of 100.1, blood pressure was 136/88 with a pulse rate of 110 and she was satting 94% on 3 L. Blood gas shows chronic respiratory acidosis with a pH of 7.39 CO2 61 and a bicarb of 36.9. White count was 14.7
hemoglobin 15.8 and a platelet count of 114. Electrolytes were essentially stable with normal BUN and creatinine. BNP was elevated at 678 but decreased from prior.
Chest x-ray shows increased interstitial markings consistent with mild pulmonary edema. CT scan with PE protocol was negative for PE he did show cardiomegaly and a right greater than left lower lobe opacification possibly representing subsegmental
atelectasis.
Ultrasound was negative for DVT.
She has negative COVID and influenza tests.
Medical History
Past Medical History
Past Medical History: Reports CHF (Preserved EF) and Other
Additional Past Medical History:
fibromyalgia
anemia
atherosclerosis of b/l LE
lymphedema
HTn
spinal stones
PAD
Past Surgical History: Reports Other
Additional Past Surgical History:
b/l TKR
Social History
Tobacco: Former Smoker
Alcohol: Former
Drug: None
Personal: Single
Living: Assisted Living
Family History
Family History: Not pertinent
Allergies / Home Medications
Allergies reflects when Allergies were last updated in [facility].
Home Medications with original date entered in [facility]
Allergy/Medication List:
Allergies
Allergy/AdvReac Type Severity Reaction Status Date / Time
No Known Drug Allergies Allergy Unknown Verified 08/16/25 17:22
Home Medications
ascorbic acid (vitamin C) 500 mg tablet 500 mg PO MOWEFR@0830,1830 Supplement 11/09/23
bisacodyl 10 mg rectal suppository (Dulcolax (bisacodyl)) 10 mg DE [id number] PRN IF NO BM AFTR MOM 11/09/23
diclofenac sodium 1 % topical gel 2 g topical Q8HPRN PRN lower back pain 11/09/23
ferrous gluconate 324 mg (38 mg iron) tablet 324 mg PO MOWEFR Supplement 11/09/23
gabapentin 300 mg capsule 300 mg PO TID MILD Pain 11/09/23
magnesium hydroxide 400 mg/5 mL oral suspension (Milk of Magnesia) 30 ml PO HSPRN PRN constipation 11/09/23
acetaminophen 500 mg tablet (Pain Relief Extra Strength (acetaminophen)) 1,000 mg (2 x 500 mg) PO TID #0 tabs 11/14/23
furosemide 80 mg tablet (Lasix) 80 mg PO DAILY #30 tabs 11/14/23
polyethylene glycol 3350 17 gram/dose oral powder 17 g PO DAILY #510 grams 11/14/23
potassium chloride 20 mEq tablet,extended release 20 meq PO DAILY #30 tabs 11/14/23
famotidine 20 mg tablet 20 mg PO BID Gastrointestinal Issue 05/20/24
dapagliflozin propanediol 10 mg tablet 10 mg PO DAILY #30 tabs 05/24/24
oxycodone 5 mg tablet 5 mg PO TID Pain #10 tabs 05/24/24
oxycodone 5 mg tablet 5 mg PO DAILYPRN PRN SEVERE PAINS 08/16/25
Review of Systems
-
Unable to obtain full review of systems at this time due to: Acuity
Physical Exam
Vital Signs
Vital Signs
Temp Pulse Resp BP Pulse Ox
100.1 F 110 17 136/88 94
08/16/25 17:11 08/16/25 19:47 08/16/25 18:31 08/16/25 19:47 08/16/25 18:31
Physical Exam
General: Respiratory Distress
HEENT: NormoCephalic, Anicteric, Moist mucous membranes, Atraumatic, PERRLA and Oxygen
Respiratory: Crackles and Decreased Breath Sounds
Cardiac: S1/S2 and Regular Rhythm
Breast: Deferred by me
GI: Soft, Non Tender, Non Distended and Normal Bowel Sounds
Rectal: Deferred by Provider
Genito-urinary: Deferred by me
Musculoskeletal: No Clubbing, No Cyanosis, Edema, Left Lower Extremity (3+ ) and Edema, Right Lower Extremity (trace)
Skin: Other (Left leg erythematous plaque from just below the knee to the ankle )
Neuro: Awake and Nonfocal/grossly intact
Hematologic/Lymphatic: No Lymphadenopathy
Laboratory Results
-
08/16/25 17:25
08/16/25 17:25
Laboratory Results
pH 7.39 (7.35-7.45) 08/16/25 18:46
pCO2 61 mmHg (32-35) H 08/16/25 18:46
pO2 75 mmHg (83-108) L 08/16/25 18:46
HCO3 36.9 mmol/L (21-28) H 08/16/25 18:46
Lactic Acid 1.4 mmol/L (0.7-2.0) 08/16/25 17:53
Total Bilirubin Cancelled 08/16/25 17:25
AST Cancelled 08/16/25 17:25
ALT Cancelled 08/16/25 17:25
Alkaline Phosphatase Cancelled 08/16/25 17:25
Data Reviewed
-
Diagnostic Radiology: Report Reviewed by me
CT Scan: Report Reviewed by me
Medical Tests (Nuc Med, Echo, EKG etc): Image Personally Visualized and interpreted
Old Records: Reviewed
Impression/Plan
-
IMPRESSION:
This is a 89-year-old female with past medical history significant for chronic hypoxic respiratory failure on 2 to 3 L home O2, obesity hypoventilation, congestive heart failure with preserved EF, dementia, hypertension, chronic pain, chronic
lymphedema presenting to the emergency department with approximately 1 day history of worsening shortness of breath and decrease in mental status. Patient is a poor historian. History provided by family members who saw her in usual state of health
1 day before and then the following 24 hours she declined rapidly. She had a temp of 100.1, leukocytosis to 14.7, asymmetric atelectasis on CT scan consistent with likely right-sided pneumonia and some mild interstitial edema. She does have lower
extremity swelling on the of the left lower extremity which is chronic, but the erythema is also chronic according to family members but cellulitis cannot be ruled out. Suspect multifactorial respiratory failure likely from pneumonia as well as
some mild CHF exacerbation with pneumonia contributing to moderate alteration of mental status.
PLAN:
Pneumonia -likely right lower lobe but cannot rule out bilateral pneumonia. She has increased work of breathing and reduced capacity necessitating need for noninvasive positive pressure ventilation. She had chronic respiratory acidosis with
preserved pH at this time. Chronic hypoxia and hypoventilation.
- Admit to IMU
- Continue BiPAP support 10/26 with O2 to maintain sats greater than 93%
- Blood culture sent
- Viral panel negative
- Check Legionella and pneumococcal urinary antigen
- Check procalcitonin in a.m.
- History of Pseudomonas UTI, continue with IV cefepime and doxycycline for now
- Check MRSA swab
- pulmonary consult
Congestive heart failure -BNP is actually improved compared to prior. No significant with differential. She has mild interstitial edema and chronic lower extremity edema.
- Continue with Lasix 80 mg IV daily for now
- Daily weights and ins and outs
- Check echocardiogram
- N.p.o. for now except meds
Lower extremity edema -chronic, likely some venous stasis dermatitis but cannot rule out cellulitis
-Check MRSA as above, blood culture sent
-Cefepime and Doxy antibiotics on
-Wound care for lymphedema wrapping
DVT prophylaxis�Lovenox subcu
CODE STATUS�DNR/DNI
[2025-08-16] MEDS: NEURONTIN PO (22:29)
[2025-08-16] MEDS: STERILE WATER FOR INJECTION 10 ML IV (22:34)
[2025-08-16] MEDS: OFIRMEV 100 IV (22:34)
[2025-08-16] MEDS: MAXIPIME 1000 MG IV (22:34)
--- NOTE | 2025-08-16 22:49 | PTCARENOTE ---
Addendum entered by Alicia Lawler RN 08/17/25 02:07:
documentation showing IV's on right. Pt presenting with IV/s on left hand and arm.
Original Note:
Received Pt from ED RN and RT bed side. pt on bipap at this time. spo2 92%, per RT spo2 goal change requested due to Pt having chronic copd. All other vitals stable at this time. Pt easily arousable answering all question appropriately, drowsy and
quick to fall back asleep. bed in lowest position and alarm underwriter solicitation director martinez within reach.
[2025-08-17] VITALS (37 sets, daily range): BP systolic 80–124; BP diastolic 46–83; PULSE 2–81; O2SAT 97; BMI 38.3; BMI 38.1
[2025-08-17] MEDS: LEVOPHED 250 IV (00:50)
--- NOTE | 2025-08-17 01:53 | PTCARENOTE ---
Pt becoming hypotensive overnight,ARTIFICIAL LIMB MAKER made aware. Levo gtt started with positive results at 3mcg/min.
--- NOTE | 2025-08-17 03:11 | PTCARENOTE ---
Pt having a run of tachycardia into 140 quickly back into the 80's, MELT SUPERVISOR made aware. Pt becoming more awake requesting BiPAP off. RT made aware. Pt now on 3l nc spo2 93%. Pt allowing mouth care to be done at this time!
[2025-08-17] MEDS: MAXIPIME 1000 MG IV ×2 (04:14→11:37)
[2025-08-17] MEDS: STERILE WATER FOR INJECTION 10 ML IV ×2 (04:14→11:37)
[2025-08-17 04:35] LABS: Venous Blood Gas B.E. 10.2 mmol/L (-4 to +4); Venous Blood Gas O2 Sat % 99.9 %
[2025-08-17 04:54] LABS: Hematocrit 47.4 % (37.0-47.0); Hemoglobin 14.9 g/dL (12.0-16.0); Mean Corp Hgb Conc. 31.4 g/dL (33.0-37.0); Mean Corpuscular Volume 100.9 fL (81.0-99.0); Platelet Count 106 10^3/uL (130-400); Red Cell Dist. Width 14.2 % (11.5-14.5)
[2025-08-17 05:04] LABS: Procalcitonin 0.08 ng/ml (0.0-0.25)
[2025-08-17 05:09] LABS: Blood Urea Nitrogen 13 mg/dl (7-17); Calcium 8.8 mg/dl (8.4-10.2); Carbon Dioxide 35 mmol/L (22-30); Chloride 99 mmol/L (98-107); Estimated Creatinine Clearance 68 ml/min; Glucose 147 mg/dl (70-99); Potassium 3.7 mmol/L (3.5-5.1); Sodium 136 mmol/L (135-145); eGFR > 60.00
--- NOTE | 2025-08-17 05:55 | W.PN.UPDATE ---
Update Note
Progress Note Update
�One run of tachycardia into 140s but quickly returned� to 80s NSR. More alert and awake. Off bipap. Bp 84/58. Low dose levophed added overnight and will wean this down to off. Awake and alert.�
[2025-08-17] MEDS: DUONEB 3 ML INH ×4 (08:19→19:38)
--- NOTE | 2025-08-17 08:27 | PTCARENOTE ---
Patient received from date night caregiver. Patient resting comfortably in bed. AAO, VSS. Patient had to be placed on Levo overnight but off by day shift. No complaints of pain. BiPAP also off by AM and placed on baseline 3L N/C. Purewick in place.
Continuing ABX. Scheduled for ECHO today, will remain NPO at this time. Call martinez in reach.
[2025-08-17] MEDS: VIBRAMYCIN 260 MG IV (08:53)
[2025-08-17] MEDS: KCL 20 MEQ PO (08:54)
[2025-08-17] MEDS: FARXIGA 10 MG PO (08:54)
[2025-08-17] MEDS: NEURONTIN 300 MG PO ×3 (08:54→21:57)
[2025-08-17] MEDS: PEPCID 20 MG PO ×2 (08:54→21:57)
[2025-08-17] MEDS: LASIX 80 MG IV (08:54)
--- NOTE | 2025-08-17 10:36 | WOUNDNOTE ---
MID UPPER BACK
--- NOTE | 2025-08-17 10:37 | WOUNDNOTE ---
POSTERIOR THIGHS AND BUTTOCKS
--- NOTE | 2025-08-17 10:40 | WOUNDNOTE ---
WON RN note: Patient admitted with CHF exacerbation.
See H&P for complete history. Patient resides at [facility]. Patient is non ambulatory, assisted to w/c daily.
PMH: CHF, Chronic lymphedema, GERD, anxiety, GI bleed, hiatal hernia, RA, chronic pain, psoriasis, non ambulatory, fibromyalgia, former smoker, skin cancer.
Wound Location and type/assessment: Patient known to service, last seen 05/22/24 by wound care. Admitted with: chronic L medial ankle and mid upper back with slow to heal skin cancer sites. Son Octavio at bedside confirmed it is skin cancer and not
having any grafts or aggressive treatment done. Psoriasis rash patches on thighs, R medial lower and upper leg. Patient confirmed she uses Vaseline for her psoriasis. LLE with diffuse erythema and edema, worse compared to last seen. +Palpable pedal
pulses, uses knee high Gonzales wraps at [facility]. Patient turned with assist of nurse Giovanni, heels blanchable red. Sacral/buttocks with slow to ace pink skin and MASD. Groin and skin folds with MASD, fungal powder in use. Purwick in use, leaked
onto Ultrasorb pad.
Appetite: fair.
Pressure redistribution devices in place: Centrella max air bed. Patient turns with 2 assist. Air cushion on pillow in use under calves. Protective foams applied to heels. Recommend keep on air bed or overlay if transferred to floor.
Plan: Farheen care given, pad changed, assessed skin under sacral foam. Dressings changed on back and LLE wounds. Vaseline applied to legs, ordered mineral oil to start tomorrow. Gonzales wraps knee high applied, legs elevated with pillows.
Will confirm orders with hospitalist and discussed plan with REYES Davila. Care plan to be updated and will follow as needed.
Recommend follow up at wound care center if family deems necessary.
--- NOTE | 2025-08-17 10:59 | CM ---
Initial Assessment Completed By Mirtha.
Patient lives at [facility], 6 years now, fci. Patient uses a wheelchair there with oxygen tank attached to the back, son Ralf not sure how much oxygen she uses there.
Patient was on BIPAP last night so have to watch to see if she will need this or not.
PCP: Dr. Jeet Pena
Pharmacy: Via [facility]
Patient will need transportation back. Referral sent so they can follow.
PLAN: Return to LTC at [facility]
--- NOTE | 2025-08-17 15:14 | W.PN.HOSP.TC ---
Addendum entered and electronically signed by Bertin Jesus MD 08/23/25 08:57:
#stage 2 left med ankle PI-POA
#stage 1 generalized buttocks PI-POA,
#stage 2 upper back PI-POA
Addendum entered and electronically signed by Bertin Jesus MD 08/17/25 19:53:
Attending Addendum-
I saw and evaluated the patient. I reviewed the resident�s note and agree with findings and plan as documented in the resident�s note. Sub: Denies SOB CP palps cough or urinary sxs. Patient complains of mild LLE pain. Was febrile overnight. Full 12
point ROS reviewed and negative except as documented Exam: Vitals reviewed in chart GEN-NAD heart RRR lungs decreased BS @ bases no W/R/R abd obese soft NT ND LE- LLE redn warm draining,b/l LE wrapped +2 peripheral pulses
Plan:
# Acute on Chronic Hypoxemic and hypercarbic Respiratory Failure
- resolved
- was placed on bipap in ED and weaned to NC
- baseline 3L o2 continuous- patient is noncompliant
- transfer to med surg from IMU
# Sepsis secondary to LLE cellulitis
- was on levophed for short period of time
- DC cefepime and doxycycline-doubt PNA, start ancef
- blood cx pending
# Asymptomatic Bacteruria
- no treatment
# HFpEF
- repeat echo 08/17- normal LVSF mild pulm htn
- not in AE, BNP is improved from prior
- DC IV lasix change to home PO lasix dosing
- cont farxiga
- Daily weights and ins and outs
# Lower extremity edema -chronic, likely some venous stasis dermatitis
-Wound care for lymphedema
# Chronic pain- cont oxy PRN
# Peripheral Neuropathy- cont gabapentin
DVT prophylaxis�Lovenox subcu
CODE STATUS�DNR/DNI
[facility] if able
ACP
Patient consented to discuss, was alone, time spent explanation of advance directives, changes in health status, patient�s health care wishes if the patient becomes unable to make health decisions, goals of care, code status, and prognosis, verified
with patient and facility- 16 minutes
Time spent coordinating care, review of plan of care with resident, personally reviewed previous records in EMR, med rec, labs, radiology, d/w nursing, family total time documented is exclusive of any additional time listed that was spent in advance
care planning discussion -� 51 minutes
Original Note:
Today's Communication/Plan
-
DC Cefepime and Doxy; start IV Ancef 2g q8h for cellulitis
Stop IV Lasix 80mg; restart home dose Lasix 80mg PO
Downgrade from tele to med/surg
Low cholesterol diet
Assessment / Plan
Assessment / Plan
89-year-old with HFpEF, chronic respiratory failure on home oxygen 3 L, chronic pain on narcotics, lower extremity lymphedema (L>R), HTN, and GERD who presented from [facility] for shortness of breath and increased hypoxia. Per sons, patient is
not compliant with her home O2.
Echo 08/17:
1. Normal left ventricular size and systolic function without regional wall motion abnormality.
2. Dilated right ventricle with mildly reduced systolic function.
3. No significant valve disease.
4. Mild pulmonary hypertension.
5. Compared to the images from 05/22/2024, there is no significant change.
#Acute on Chronic Hypoxic Respiratory Failure, resolved
#HFpEF
Most recent echo above. On admission thought to have PNA, started on IV cefepime and doxy 08/16-08/17 and requiring BiPAP in ED 08/16, but was weaned off to 3L NC (BL home rec) on 08/17. Per sons, patient should be on home O2 at SNF, however is not
compliant. To them, her presentation is most in line with hypoxia 2/2 low spO2; they state this happens time to time. On 08/17 patient states she was told she only needs O2 at night. Important to relay to her about 24/7 O2 use once outside the
hospital.
- Downgraded to Med/Surg
- s/p IV Lasix 80mg x2
- Restart home Lasix 80mg daily
- Continue 2-3L NC
- F/u blood culture and MRSA
- Viral panel negative
- Legionella and pneumococcal urinary antigen negative
- Procalcitonin 0.08
- DC IV cefepime and doxycycline 08/16-08/17
--Start IV Ancef 2g q8h
#History of Pseudomonas UTI
Patient complaining of some dysuria.
- Follow-up UA
#Lower extremity edema, chronic
#Cellulitis, acute on chronic
Has history of lymphedema. Left leg evaluated when unwrapped, erythematous, tender, warm, likely some venous stasis dermatitis but strong suspicion for cellulitis iso infectious picture.
- Call [place] and check status of baseline wounds
- IV Ancef 2g q8h
-Wound care for lymphedema wrapping
#Iron Deficiency Anemia
- Cont ferrous sulfate
#Chronic Pain Syndrome
#Chronic Opioid use with dependence
- Home Oxycodone 5mg po daily prn
- Cont Neurontin
#ALEXEI
- Pepcid 20mg BID
DVT prophylaxis�Lovenox subcu
CODE STATUS�DNR/DNI
Anticipated Discharge: 24 - 48 hours
Subjective/Interval History
-
Date of Service: August 17, 2025
- Weaned off levo and BiPAP; on baseline 3L NC, alert & oriented
- DC melissa as patient reporting discomfort with it
Objective Data
-
Labs:
Laboratory Results
08/17/25
04:28
WBC 12.4 H
Hgb 14.9
Hct 47.4 H
Plt Count 106 L
Sodium 136
Potassium 3.7
Chloride 99
Carbon Dioxide 35 H
BUN 13
Creatinine 0.4 L
Glucose 147 H
Calcium 8.8
Vital Signs:
Vital Signs
Temp Pulse Resp BP Pulse Ox
97.8 F 74 18 95/62 95
08/17/25 14:03 08/17/25 15:06 08/17/25 15:06 08/17/25 08:54 08/17/25 15:06
I&O
08/16/25 08/17/25 08/18/25
06:59 06:59 06:59
Intake Total 72.5 / 72.5
Output Total 375 / 375 650 / 650
Balance -302.5 / -302.5 -650 / -650
Review of Systems
-
All other systems: Reviewed and negative
Respiratory: Reports Trouble Breathing
Musculoskeletal: Reports Joint Pain (left calf) and Joint Swelling (BL LE)
Physical Exam
-
General: Well Developed, Well Nourished, No Apparent Distress and Comfortable (laying in bed on 3L NC)
HEENT: Normocephalic, Atraumatic and Moist Mucous Membranes
Respiratory: Clear to Auscultation and Non Labored Respirations
Cardiac: Regular Rhythm and S1/S2
GI: Soft, Nontender and Nondistended
Musculoskeletal: Edema, Right Lower Extrem and Edema, Left Lower Extrem (chronic lymphedema with acute on chronic cellulitis and seeping wound)
Skin: Warm, Lesions (left calf down to dorsal feet, acute on chronic cellulitis) and Decubitus Ulcers
Neuro: AO x 3
Psych: Calm and Intact Judgement/Insight
[2025-08-17 16:26] LABS: Urine Character Clear (Clear)
[2025-08-17 16:34] LABS: Urine Squamous Cell 16-20 /LPF (Few)
[2025-08-17 16:35] LABS: Urine Red Blood Cell 0-2 /HPF (0-2); Urine White Cell 21-25 /HPF (0-5)
--- NOTE | 2025-08-17 17:27 | PTCARENOTE ---
Report called to Janki Li RN. Patient taken to new room via patient transport. Patient left with all known belongings.
[2025-08-17] MEDS: ANCEF 10 IV (18:03)
[2025-08-17] MEDS: LOVENOX 40 MG SC (18:04)
--- NOTE | 2025-08-18 00:11 | PTCARENOTE ---
Oral care was not performed on patient because she stated that it was her preference to brush her teeth in the morning.
[2025-08-18] MEDS: ANCEF 10 IV ×2 (01:10→10:14)
[2025-08-18 05:26] VITALS: BMI 37.8
[2025-08-18] MEDS: DUONEB 3 ML INH ×3 (07:29→15:19)
[2025-08-18 08:39] VITALS: BP 108/62
[2025-08-18] MEDS: FARXIGA 10 MG PO (09:00)
[2025-08-18] MEDS: PEPCID 20 MG PO (09:00)
[2025-08-18] MEDS: KCL 20 MEQ PO (09:00)
[2025-08-18] MEDS: LASIX 80 MG PO (09:00)
[2025-08-18] MEDS: NEURONTIN 300 MG PO (09:00)
[2025-08-18] MEDS: DESENEX/MITRAZOL/ZEASORB 1 APPLIC TOPICAL (09:00)
[2025-08-18] MEDS: HYDROPHOR 1 APPLIC TOPICAL (09:01)
[2025-08-18] MEDS: FLUSH (NSS) 2 FLUSH IV (10:14)
--- NOTE | 2025-08-18 10:58 | W.PN.HOSP.TC ---
Addendum entered and electronically signed by Phan Francois MD 08/18/25 12:32:
treat LLE cellulitis
-Keflex 500mg QID
-Bcx NGTD
On baseline home o2
On po diuretics
DC to [facility]
Original Note:
Today's Communication/Plan
-
Discharge with Keflex 500 mg every 6 hours for 9 more days
Assessment / Plan
Assessment / Plan
89-year-old with HFpEF, chronic respiratory failure on home oxygen 3 L, chronic pain on narcotics, lower extremity lymphedema (L>R), HTN, and GERD who presented from [facility] for shortness of breath and increased hypoxia. Per sons, patient is
not compliant with her home O2.
Assessment/plan
#Acute on Chronic Hypoxic Respiratory Failure with hypercarbia
Resolved
Patient was on BiPAP in the ER, weaned down to baseline 3 L of oxygen via nasal cannula
S/p 80 mg IV Lasix twice in ER, currently on home dose of Lasix that is 80 mg daily
Procalcitonin 0.08, Legionella and pneumococcal antigen negative, viral panel negative, blood culture negative, MRSA screen negative
#Sepsis secondary to left lower extremity cellulitis
Initially was on Levophed for a short period of time, currently maintaining vitals
Suspect left lower extremity cellulitis as cause of sepsis
Received cefazolin yesterday
Discharge with Keflex 500 mg every 6 hours for 9 more days
#HFpEF
Echo 08/17-normal left ventricular systolic function with mild pulmonary hypertension
-DC IV cefepime and doxycycline 08/16-08/17, pneumonia unlikely
# Asymptomatic bacteriuria
No treatment
# Chronic lower extremity edema
Wound care for lymphedema
#Iron Deficiency Anemia
- Cont ferrous sulfate
#Chronic Pain Syndrome
#Chronic Opioid use with dependence
- Home Oxycodone 5mg po daily prn
- Cont Neurontin
#ALEXEI
- Pepcid 20mg BID
DVT prophylaxis�Lovenox subcu
CODE STATUS�DNR/DNI
Anticipated Discharge: Today
Subjective/Interval History
-
Date of Service: August 18, 2025
Patient seen and examined at bedside
No respiratory distress, breathing comfortably on 3 L of oxygen via nasal cannula
Alert and oriented
Objective Data
-
Vital Signs:
Vital Signs
Temp Pulse Resp BP Pulse Ox
97.9 F 70 18 108/62 91
08/18/25 08:39 08/18/25 08:39 08/18/25 08:39 08/18/25 08:39 08/18/25 08:39
I&O
08/17/25 08/18/25 08/19/25
06:59 06:59 06:59
Intake Total 72.5 / 72.5 640 / 640
Output Total 375 / 375 1350 / 1350
Balance -302.5 / -302.5 -710 / -710
Review of Systems
-
All other systems: Reviewed and negative
Physical Exam
-
General: No Apparent Distress, Comfortable, Conversant, Obese and Other (Sitting on bed comfortable weak and breathing on 3 L of oxygen via nasal cannula)
Respiratory: Clear to Auscultation; Negative Wheezes, Rales or Rhonchi
Cardiac: Regular Rhythm and S1/S2
GI: Soft, Nontender and Normal Bowel Sounds
Musculoskeletal: No Clubbing, Edema, Right Lower Extrem and Edema, Left Lower Extrem (Right greater than left, erythema extending up to the knee, decubitus ulcers on left ankle, few blistering lesions, psoriatic plaques on upper thigh)
Skin: Warm and Decubitus Ulcers (See wound care note)
Neuro: Awake, AO x 3 and Nonfocal/Grossly Intact
Psych: Calm and Intact Judgement/Insight
--- NOTE | 2025-08-18 11:24 | W.DCSUMMARY ---
Discharge Summary
Discharge Data
Date of Admission: 08/16/25
Date of Discharge: 08/18/25
-
Pending Results: No
Hospital Course
Discharging Physician :
Phan Francois
Disposition :
Home
Principal Discharge diagnosis :
Acute on Chronic Hypoxic Respiratory Failure with hypercarbia/Sepsis secondary to left lower extremity cellulitis
Chronic Discharge diagnosis :
fibromyalgia
anemia
atherosclerosis of b/l LE
lymphedema
HTn
spinal stones
PAD
Hospital Course :
81-year-old female with HFpEF, chronic respiratory failure on home oxygen 3 L, chronic pain on narcotics, lower extremity edema left greater than right, hypertension and GERD who presented from [facility] for worsening shortness of breath and
increased hypoxia, put on BiPAP in the ER eventually weaned down to baseline 3 L of oxygen via nasal cannula. Received 80 mg IV Lasix twice in the ER and then resumed on home dose of Lasix. Echocardiogram checked normal systolic function. Chest
x-ray checked no evidence of pneumonia, tested for Legionella, pneumococcal antigen, COVID, influenza, which was negative, procalcitonin normal, blood cultures negative.
A CT chest was done to evaluate for pulmonary embolism which was negative as well
Chronic bilateral lower extremity edema, left greater than right, peripheral vascular ultrasound did not show any evidence of DVT
Left lower extremity cellulitis possible cause of sepsis, received cefazolin in the hospital, patient back to baseline, discharged home with Keflex 500 mg every 6 hours for 9 more days.
Important imaging findings :
Echo 08/17:
1. Normal left ventricular size and systolic function without regional wall motion abnormality.
2. Dilated right ventricle with mildly reduced systolic function.
3. No significant valve disease.
4. Mild pulmonary hypertension.
5. Compared to the images from 05/22/2024, there is no significant change.
Peripheral vascular ultrasound 08/16
IMPRESSION: No evidence of deep venous thrombosis of the left common femoral and femoral veins.
Chest x-ray 08/16
IMPRESSION:
Markedly limited study with extremely low lung volumes and crowding of central/vascular markings, similar to prior study, possibly chronic. Pulmonary vascular congestion/pulmonary edema/CHF cannot be excluded.
CT chest 08/16
IMPRESSION:
Evaluation markedly limited as a result of numerous factors, as detailed above, without findings to suggest central pulmonary embolism.
Right greater than left lower lobe opacification most likely representing subsegmental atelectasis.
Pulmonary interstitium at least top normal, cannot exclude interstitial process such as edema or pneumonitis. No pneumothorax or significant pleural effusion.
Cardiomegaly with coronary artery calcifications again suspected.
Slightly prominent caliber bilateral main pulmonary arteries. Is there a history of pulmonary artery hypertension?
Large hiatal hernia.
Discharge Plan
-
Patient Disposition: Assisted/SNF
Discharge Diagnosis/Procedures: Acute on Chronic Hypoxemic and hypercarbic Respiratory Failure/Sepsis secondary to LLE cellulitis
Condition: Fair
Diet: Low Cholesterol
Activity: As tolerated
Driving Restrictions: As prior to admission
Bathing Restrictions: OK to Shower
Activity Restrictions/Additional Instructions:
Wound Care Instructions
Upper back and L medial ankle: Clean with saline, adaptic and silicone foam change q other day and prn drainage.
mineral oil to legs and feet daily
Gonzales wraps knee high daily, can remove at bedtime
turning schedule when in bed
leg elevation when sitting
offloading cushion when sitting, can take air chair cushion upon discharge
increase protein in diet to help wound healing.
Follow up at wound care center call for an appointment.
Referrals:
Jeet Pena MD, PhD [Family Provider, Interventional Radiology]
Keila Stovall DO, Resident [Family Practice Resident Year1, General] - in less than 1 week
Additional Discharge Medication Instructions: Cephalexin for cellulitis for 9 more days
Prescriptions:
New
cephalexin 500 mg capsule
500 mg PO Q6H 9 Days Qty: 36 0RF
Continued
magnesium hydroxide [Milk of Magnesia] 400 mg/5 mL Suspension
30 ml PO HSPRN PRN (Reason: constipation)
ascorbic acid (vitamin C) 500 mg Tablet
500 mg PO MOWEFR@0830,1830
bisacodyl [Dulcolax (bisacodyl)] 10 mg Suppository
10 mg OK [id number] PRN (Reason: IF NO BM AFTR MOM)
gabapentin 300 mg capsule
300 mg PO TID
ferrous gluconate 324 mg (38 mg iron) Tablet
324 mg PO MOWEFR
diclofenac sodium 1 % Gel
2 g TOPICAL Q8HPRN PRN (Reason: lower back pain)
acetaminophen [Pain Relief ES (acetaminophen)] 500 mg Tablet
1,000 mg PO TID Qty: 0 0RF
furosemide [Lasix] 80 mg tablet
80 mg PO DAILY Qty: 30 0RF
potassium chloride 20 mEq tablet extended release
20 meq PO DAILY Qty: 30 0RF
polyethylene glycol 3350 17 gram/dose powder
17 g PO DAILY Qty: 510 0RF
famotidine 20 mg Tablet
20 mg PO BID
dapagliflozin propanediol 10 mg Tablet
10 mg PO DAILY Qty: 30 0RF
oxycodone 5 mg tablet
5 mg PO TID Qty: 10 0RF
oxycodone 5 mg Tablet
5 mg PO DAILYPRN PRN (Reason: SEVERE PAIN)
Discharge Orders:
Discharge Patient (As Directed); Ordered 08/18/25
Ordered By: Sam Chou
Discharge Date and Time
Print Language: THAI
--- NOTE | 2025-08-18 12:50 | CM ---
Pt cleared for discharge back to [facility] today. Ambulance transport requested.
Rick [place] report: [phone]
Rick Hoyos
[2025-08-18 16:00] VITALS: BP 117/65
--- NOTE | 2025-08-18 16:00 | PTCARENOTE ---
pt tolerating diet, turns with assist x2, lle with greater lymph edema compared to RLE and LLE with erythema and warmth extending up to knee area. vss, returning back to [facility].
--- NOTE | 2025-08-21 12:54 | PN.CDI ---
CDI
- -
CDI:
Physician Documentation Request
Admit Date: 08/16/25 21:02
Dear Doctor Ayesha,
Patient admitted with sepsis.
08/17 Nursing skin assessment, 'Stage 1 generalized buttock pressure injury, POA....Stage 2 left medial ankle pressure injury, POA....Stage 2 upper back pressure injury, POA.'
Physician documentation of the type and location of wounds is required for compliant documentation. Based on the above clinical findings and your assessment, please provide the following in your progress note:
Type (etiology) of ulcer/wound:
- Pressure (decubitus) ulcer
- Other
- Unable to determine
For a pressure ulcer, please also include the stage* of the ulcer:
- Stage 1 - Skin intact, non-blanchable redness
- Stage 2 - Partial thickness loss of dermis, includes intact or open blister
- Stage 3 - Full thickness tissue not including bone, tendon or muscle
- Stage 4 - Full thickness tissue loss, including exposed bone, tendon or muscle
- Unstageable - Full thickness loss in which the base of the ulcer is covered by slough (yellow, coelho, collazo, green or brown) and/or eschar (coelho, brown or black) in the wound bed.
- Unable to determine
Use of terms such as suspected, likely, concern for, or probable (associated with a specific diagnosis that is being evaluated, monitored, or treated as if it exists) are acceptable and can be coded in the inpatient setting, when documented at the
time of discharge.
Thank you,
Amanda BURTON,RN,CCDS
CDI Specialist
Available via tiger text
Please use your independent medical judgment in providing your response.
*Source: National Pressure Ulcer Advisory Panel (NPUAP)
== END 2025-08-18 16:17 | DRG 871 ==
LOC: 3 WEST ACU 21:02
PROVIDERS: ADMITTING PHYSICIAN Internal Medicine; ATTENDING PHYSICIAN Hospitalist; EMERGENCY PHYSICIAN Emergency Medicine; FAMILY PHYSICIAN Radiology Diagnostic Radiology
PROC: 5A09357 Assistance with Respiratory Ventilation, Less than 24 Consecutive Hours, Continuous Positive Airway Pressure (ICD-10-PCS; 2025-08-16)
DX: A41.9 Sepsis, unspecified organism (principal); J96.21 Acute and chronic respiratory failure with hypoxia; J96.22 Acute and chronic respiratory failure with hypercapnia; L03.116 Cellulitis of left lower limb; I50.32 Chronic diastolic (congestive) heart failure; J98.11 Atelectasis; F11.20 Opioid dependence, uncomplicated; D64.9 Anemia, unspecified; F03.90 Unspecified dementia, unspecified severity, without behavioral disturbance, psychotic disturbance, mood disturbance, and anxiety; I11.0 Hypertensive heart disease with heart failure; I27.20 Pulmonary hypertension, unspecified; D72.829 Elevated white blood cell count, unspecified; D69.6 Thrombocytopenia, unspecified; K21.9 Gastro-esophageal reflux disease without esophagitis; I87.2 Venous insufficiency (chronic) (peripheral); K59.00 Constipation, unspecified; R82.71 Bacteriuria; G62.9 Polyneuropathy, unspecified; L89.301 Pressure ulcer of unspecified buttock, stage 1; L89.102 Pressure ulcer of unspecified part of back, stage 2; Z66 Do not resuscitate; K44.9 Diaphragmatic hernia without obstruction or gangrene; G89.4 Chronic pain syndrome; D50.9 Iron deficiency anemia, unspecified; Z11.52 Encounter for screening for COVID-19; Z87.891 Personal history of nicotine dependence; Z79.899 Other long term (current) drug therapy; Z99.81 Dependence on supplemental oxygen
CPT/HCPCS: 71045; 71275; 80048; 81003; 81015; 82805; 83605; 83880; 84145; 85025; 85027; 87040; 87070; 87086; 87449; 87502; 87811; 87899; 93005; 93306; 93971; 94640; 94660; 96365; 96375; 97163; 97167; 97530; 99291; Q9967

== ENCOUNTER 2025-09-02 10:38 | Inpatient (IN) | payer MEDICARE, OTHER, SELFPAY ==
[2025-09-02] VITALS (12 sets, daily range): BP systolic 92–129; BP diastolic 55–73; BMI 49.1
[2025-09-02 07:54] LABS: Hematocrit 46.7 % (37.0-47.0); Hemoglobin 14.4 g/dL (12.0-16.0); INR 1.03; Mean Corp Hgb Conc. 30.8 g/dL (33.0-37.0); Mean Corpuscular Volume 100.6 fL (81.0-99.0); Nucleated Red Blood Cells % 0 %; PT 13.8 Sec (11.4-14.6); Platelet Count 143 10^3/uL (130-400); Red Cell Dist. Width 13.5 % (11.5-14.5)
[2025-09-02 07:57] LABS: ALT (SGPT) 25 U/L (0-35); AST (SGOT) 21 U/L (14-36); Albumin 3.7 g/dl (3.5-5.0); Alkaline Phosphatase 54 U/L (38-126); Blood Urea Nitrogen 14 mg/dl (7-17); Calcium 9.4 mg/dl (8.4-10.2); Carbon Dioxide 36 mmol/L (22-30); Chloride 101 mmol/L (98-107); Estimated Creatinine Clearance 59 ml/min; Glucose 139 mg/dl (70-99); Potassium 4.4 mmol/L (3.5-5.1); Sodium 140 mmol/L (135-145); Total Protein 6.6 g/dl (6.3-8.2); eGFR > 60.00
[2025-09-02] MEDS: TYLENOL 1000 MG PO ×3 (08:03→21:23)
[2025-09-02 08:13] LABS: COVID-19 Antigen Negative (Negative)
--- NOTE | 2025-09-02 09:30 | ED.GENMED ---
History of Present Illness
General
Chief Complaint: Fever
Source: patient, records, family and previous hospital records
Exam Limitations: altered mental status
Time Seen by Provider: 09/02/25 09:07
Nursing documentation reviewed up to this point in time: agreed with
History of Present Illness
History of Present Illness:
89-year-old female from local [facility] chronic respiratory sufficiency CHF chronic lymphedema presents with fever confusion low blood pressure admitted a few weeks ago with CHF and cellulitis, currently got Tylenol prior to arrival, on exam she
is awake think she is at [facility] has marked swelling of her left lower extremity with warmth also minimal redness posterior on the right Achilles area breathing comfortably on supplemental oxygen, she tells me she did not sleep well last
night she felt very warm and then chilled
Past History
Past History
ED Past Medical History: Cancer (Skin Cancer), CHF, Fibromyalgia, GERD, Psychiatric (Anxiety), Other (Back pain, Herniated disc, GI bleeding Upper and lower, Hiatal hernia, Ulcers. cellulitis, Psoriasis, Anemia, ), Other (Rheumatoid arthritis) and
Other ( chronic pain. Followed by pain management. Currently taking Endocet )
ED Past Surgical History: Cholecystectomy, Gynecological (tubal, ), Orthopedic (Status post right knee replacement x3, status post left wrist fracture repair x 3, Hip surgery) and Other (cataracts)
Social History
Tobacco: Non-smoker
Alcohol: None
Drug: None
Personal:
Living: [facility]
Employment: Retired
Family History
Family History: Negative Diabetes, Hypertension or CAD
Review of Systems
Review of Systems
All Other Systems: Not applicable
Constitutional: Reports fever, fatigue and chills
EENT: Reports no symptoms
Respiratory: Denies cough
Cardiac: Reports no symptoms
ABD/GI: Reports no symptoms
Musculoskeletal: Reports edema
Neurological: Reports weakness
Phy Exam
Physical Exam
Physical Exam:
Physical Exam
General: Elderly female chronically ill-appearing
Neck: No jaundice
Heart: Regular
Lungs: Bibasilar crackles
Abdomen: Nontender
Neuro: alert and oriented. Globally weak
Skin: no rash
Psychiatric: Calm
Extremities: Left lower extremity warm swollen venous stasis changes with superimposed cellulitis, right lower extremity warm area posteriorly over the Achilles
Sepsis
Sepsis Screening
Sepsis Assessment: Sepsis Ruled Out
Sepsis Screen
Sepsis Screen: Sepsis Ruled Out
Date: 09/04/25
Time: 08:30
Course
Orders/Labs/Results
Orders:
Orders
09/02/25 07:20
Electrocardiogram (*1) Urgent
Reason for Study: Other
Other Reason for Exam: Possible Sepsis
EKG- Treatment ONCE
IV Insert/Care/Rem.- Treatment PRN
09/02/25 07:27
Complete Blood Count/With Diff Urgent
Comprehensive Metabolic Panel Urgent
Lactic Acid Q4H
Comment: ON ICE, CANCEL 2ND ORDER IF FIRST LACTIC ACID LEVEL <2
NT-proBNP Urgent
Comment: ADD ON
Prothrombin Time Urgent
Blood Culture Q20M
CAR Source: Blood/Venous
Specimen Description:
Comment: Urgent from separate sites. If patient screens positive for possible sepsis
09/02/25 07:29
COVID-19 Antigen Urgent
Source: Nasal Swab
Blood Culture Q20M
CAR Source: Blood/Venous
Specimen Description:
Comment: Urgent from separate sites. If patient screens positive for possible sepsis
Influenza A+B Rapid Molecular Urgent
CAR Source: Nasal Swab
Specimen Description:
09/02/25 07:57
Acetaminophen [Tylenol] 1,000 mg .ROUTE .STK-MED ONE
09/02/25 08:02
Acetaminophen [Tylenol] 1,000 mg PO NOW STA
09/02/25 09:23
CeFAZolin 2 GRAM [Ancef] 2 grams in 10 ml IV NOW
09/02/25 09:29
Add On- LAB Urgent
Tests Added?: pbnp
CR Chest - 2 Views Urgent
Comment:
Reason For Exam: fever
09/02/25 Lunch
Sodium, 4 Gram (WALE)
At Your Request: Full Participation
09/02/25 10:18
Admit/Transfer Patient As Directed
Co-Sign Provider:
Level of Care: Inpatient admission
Assign to:: Medical/Surgical
Physician / Group: Veto [place]ura
Diagnosis: Sepsis 2/2 cellulitis
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
Expected length of stay greater than two midnights?: Yes
ELOS- Estimated Length of Stay in days: 3
I certify the patient meets the requirements for IP care: Yes
09/02/25 10:19
PRN Pain Medication Management As Directed
May give lesser potent ordered pain med per pt: Yes
preference::
Protocol:: Medication orders for pain may be administered in a
manner that supports deferring to patient preference
when the pt is:
- Requesting an ordered lesser potent pain medication.
Least to most potent pain medications are defined
as: acetaminophen < NSAID < tramadol < opioids
(morphine, oxycodone, hydromorphone).
- Requesting a lesser dose of the same medication IF
ORDERED.
- Requesting a less intrusive route of administration
if both routes are prescribed by the provider (PO <
IV).
09/02/25 10:21
Code Status As Directed
Resuscitation Status: Do not resuscitate
Reached after discussion with pt or family/Healthcare POA: Yes
DNR Bracelet Application ONCE
09/02/25 11:39
Lactic Acid Q4H
Comment: ON ICE, CANCEL 2ND ORDER IF FIRST LACTIC ACID LEVEL <2
09/02/25 15:30
Bisacodyl [Dulcolax] 10 mg RECTAL [id number] PRN
Bisacodyl [Dulcolax] 10 mg RECTAL [id number] PRN IF NO BM AFTR MOM
Diclofenac 1% Topical Gel 2 gram TOPICAL Q8HPRN PRN lower back pain
Apply 2 or 4 grams as per protocol to the following joints:: Other joint(s)
Other joint/location to apply to:: Low back
Grams to be applied to other indicated joint/location:: 4
Docusate W/Senna [Senokot-S] 1 tablet PO BIDPRN PRN
Magnesium Hydroxide [Milk of Magnesia] 30 ml PO HSPRN PRN constipation
Oxycodone [Roxicodone] 5 mg PO DAILYPRN PRN SEVERE PAIN
Polyethylene Glycol Powder [Miralax] 17 grams PO DAILYPRN PRN
09/02/25 15:30
Activity As Directed
Activity Level: Out of Bed-Early Mobility
Intake/ Output As Directed
Frequency: Per unit guidelines
Pneumatic Compression Sleeves As Directed
Type: Knee high
Vital Signs As Directed
Frequency: Per unit guidelines
Weight As Directed
Frequency: Daily
DX Deep Vein Thrombosis Video Routine
09/02/25 16:00
Acetaminophen [Tylenol] 1,000 mg PO TID
Gabapentin [Neurontin] 300 mg PO TID
Oxycodone [Roxicodone] 5 mg PO TID
09/02/25 18:00
CeFAZolin 1 GRAM [Ancef] 1 gram in 5 ml IV Q8H
Enoxaparin Sodium [Lovenox] 40 mg SC QPM
09/02/25 20:00
Famotidine [Pepcid] 20 mg PO BID
09/03/25 06:47
Basic Metabolic Panel IN AM
Complete Blood Count/With Diff IN AM
Magnesium IN AM
09/03/25 08:00
Dapagliflozin [Farxiga] 10 mg PO DAILY
Polyethylene Glycol Powder [Miralax] 17 grams PO DAILY
09/03/25 08:30
Ascorbic Acid [Vitamin C] 500 mg PO MOWEFR@0830,1830
09/03/25 15:53
Ferrous Sulfate [Feosol] 325 mg PO MOWEFR
Abnormal Lab Results
09/02/25
07:27
WBC 15.0 H 10^3/uL
(4.8-10.8)
MCV 100.6 H fL
(81.0-99.0)
MCHC 30.8 L g/dL
(33.0-37.0)
Abs Immat Gran (auto) 0.1 H 10^3/uL
(0-0.05)
Absolute Neuts (auto) 13.8 H 10^3/uL
(1.4-6.5)
Absolute Lymphs (auto) 0.7 L 10^3/uL
(1.2-3.4)
Immature Gran % 0.9 H %
(0-0.5)
Neutrophils % 91.4 H %
(42.2-75.2)
Lymphocytes % 4.7 L %
(20.5-51.1)
Carbon Dioxide 36 H mmol/L
(22-30)
Creatinine 0.5 L mg/dL
(0.6-1.0)
Glucose 139 H mg/dl
(70-99)
Lactic Acid 2.1 H mmol/L
(0.7-2.0)
09/02/25 07:27
09/02/25 07:27
Vital Signs
Initial and Last Documented VS:
Initial Vital Signs
BP
106/71
09/02/25 07:16
Last Documented Vital Signs
Temp Pulse Resp BP Pulse Ox
98.0 F 70 18 118/63 94
09/04/25 07:41 09/04/25 07:41 09/04/25 07:41 09/04/25 07:41 09/04/25 07:41
MDM/Problems Addressed
Differential Diagnosis Includes:
Cellulitis sepsis bacteremia deconditioning heart failure pneumonia
MDM/Problems Addressed:
Warm leg fever
Chronic conditions affecting care:
Recurrent cellulitis venous stasis CHf respiratory failure
Acute Exacerbation and/or Progression of Chronic Illness: Cardiomyopathy
*Radiology
Radiology exam reviewed: preliminary read by ED provider
*Pulse Oximetry
SaO2: 94
Nasal Cannula flow liters per minute: 4
Oxygen Mode of Delivery: Simple mask
Patient hypoxic: no
*EKG
Interpreted by ED Provider?: Yes
Interpretation: abnormal
Comparison EKG: no comparison EKG present
Heart Rate: 78
Rate: normal
Rhythm: sinus
Ischemia: non-specific ST changes
*Environmental Services Director Interpretation
Rate: normal
Interpretation: normal
Heart Rate: 78
Rhythm: sinus
*Critical Care Note
Total Time (30-74mins, 75-104mins- exclusive of procedures): Not Applicable
Data Reviewed
Review of Other/Old Records Reveals: Labs, Records, Radiology Studies and Discharge Summary
Source: patient, records and family
ED Attending Note
-
Portions of this chart may have been created with voice recognition software.� Occasional wrong word or��sound alike� substitutions may have occurred due to the inherent limitations of voice recognition software.
Discharge Plan
Departure
Patient Disposition: Admit
Date of Disposition: 09/02/25
Time of Disposition: 09:42
Admit to: Med/Surg
Presentation/result/management discussed w/ accepting MD/DO: Hospitalist
Patient with high blood pressure during this ER visit?: No
Condition: Fair
Discharge Problem:
Cellulitis
Interventions
Interventions:
*Risk Screen - Suicide Last Done: 09/02/25 07:21
*General Assessment Last Done: 09/02/25 07:21
*Neglect/Abuse Screening Last Done: 09/02/25 07:21
*ED- Fall Risk Assessment Last Done: 09/02/25 15:37
*ED COVID-19 Vaccine History Last Done: 09/02/25 07:21
*ED Influenza Vaccine History Last Done: 09/02/25 07:21
*Nursing Disposition Last Done: 09/02/25 15:37
ED- Neurological Assessment Last Done: 09/02/25 07:24
ED-Skin Assessment Last Done: 09/02/25 07:24
Discharge Date and Time
Discharge Date/Time: 09/02/25 15:38
--- NOTE | 2025-09-02 10:04 | HPS.HSE ---
Family Physician
-
Family Physician: Jean Sandoval DO
Chief Complaint
-
Fever
History of Present Illness
89-year-old female with CRF on O2, HFpEF, PAD of the bilateral lower extremities, lymphedema, vitamin D deficiency, spinal stenosis, hypertension, OAB, chronic anemia, fibromyalgia, s/p bilateral TKR who is presenting to the ED today from nursing
facility with fever, confusion, low blood pressure. Recently was hospitalized here for heart failure and cellulitis. Patient complains of fevers and chills. AFVSS on arrival. Labs with WBC 15, neutrophilic predominance, bicarb 36, lactate 2.1.
ECG showed NSR without ischemic findings. Chest x-ray with mild pulmonary congestion though otherwise unremarkable on my prelim read. Viral panel negative. Blood cultures x 2 were obtained in the ED. Ordered 2 g IV cefazolin and 1 g Tylenol in
the ED.
Medical History
Past Medical History
Past Medical History: Reports Other
Additional Past Medical History:
Chronic hypoxemic respiratory failure
HFpEF
PAD
Lymphedema
Vitamin D deficiency
Spinal stenosis
Primary hypertension
Overactive bladder
Chronic anemia
Fibromyalgia
Dementia
GERD
Past Surgical History: Reports Other
Additional Past Surgical History:
Bilateral total knee replacement
status post left wrist fracture repair x 3
Hip surgery
Social History
Tobacco: Former Smoker
Alcohol: Former
Drug: None
Living: Assisted Living
Employment: Retired
Family History
Family History: Not pertinent
Allergies / Home Medications
Allergies reflects when Allergies were last updated in [facility].
Home Medications with original date entered in [facility]
Allergy/Medication List:
Allergies
Allergy/AdvReac Type Severity Reaction Status Date / Time
No Known Drug Allergies Allergy Unknown Verified 09/02/25 07:19
Home Medications
ascorbic acid (vitamin C) 500 mg tablet 500 mg PO MOWEFR@0830,1830 Supplement 11/09/23
bisacodyl 10 mg rectal suppository (Dulcolax (bisacodyl)) 10 mg WV [id number] PRN IF NO BM AFTR MOM 11/09/23
diclofenac sodium 1 % topical gel 2 g topical Q8HPRN PRN lower back pain 11/09/23
ferrous gluconate 324 mg (38 mg iron) tablet 324 mg PO MOWEFR Supplement 11/09/23
gabapentin 300 mg capsule 300 mg PO TID MILD Pain 11/09/23
magnesium hydroxide 400 mg/5 mL oral suspension (Milk of Magnesia) 30 ml PO HSPRN PRN constipation 11/09/23
acetaminophen 500 mg tablet (Pain Relief Extra Strength (acetaminophen)) 1,000 mg (2 x 500 mg) PO TID #0 tabs 11/14/23
furosemide 80 mg tablet (Lasix) 80 mg PO DAILY #30 tabs 11/14/23
polyethylene glycol 3350 17 gram/dose oral powder 17 g PO DAILY #510 grams 11/14/23
potassium chloride 20 mEq tablet,extended release 20 meq PO DAILY #30 tabs 11/14/23
famotidine 20 mg tablet 20 mg PO BID Gastrointestinal Issue 05/20/24
dapagliflozin propanediol 10 mg tablet 10 mg PO DAILY #30 tabs 05/24/24
oxycodone 5 mg tablet 5 mg PO TID Pain #10 tabs 05/24/24
oxycodone 5 mg tablet 5 mg PO DAILYPRN PRN SEVERE PAIN 08/16/25
cephalexin 500 mg capsule 500 mg PO Q6H 9 days #36 caps 08/18/25
Review of Systems
-
A 12 point ROS was completed and negative except as noted: Yes
Constitutional: Reports See HPI
EENT: Reports No Symptoms
Respiratory: Reports No Symptoms
Cardiac: Reports No Symptoms
Abdomen/GI: Reports No Symptoms
: Reports No Symptoms
Musculoskeletal: Reports No Symptoms
Skin: Reports See HPI
Neurological: Reports No Symptoms
Endocrine: Reports No Symptoms
Hematologic/Lymphatic: Reports No Symptoms
Psych: Reports No Symptoms
Physical Exam
Vital Signs
Vital Signs
Temp Pulse Resp BP Pulse Ox
99.7 F 90 27 102/55 94
09/02/25 07:17 09/02/25 08:45 09/02/25 08:45 09/02/25 08:00 09/02/25 09:33
Physical Exam
General: Well Developed, Comfortable and Morbidly Obese
HEENT: NormoCephalic, Anicteric, Moist mucous membranes and PERRLA
Respiratory: Clear and Non Labored Respirations; No Accessory Resp Muscle Use
Cardiac: S1/S2 and Regular Rhythm; No Murmur, Rub or Gallop
GI: Soft, Non Tender, Non Distended and Normal Bowel Sounds
Musculoskeletal: No Clubbing, No Cyanosis and Other (Edema L > R lower extremity)
Skin: Warm, Dry and Rash (Erythema and warmth to the posterior distal left lower extremity, no purulence or fluctuance)
Neuro: AO x 3, Nonfocal/grossly intact and Cranial Nerves Intact
Psych: Calm
Laboratory Results
-
09/02/25 07:27
09/02/25 07:27
Laboratory Results
PT 13.8 Sec (11.4-14.6) 09/02/25 07:27
INR 1.03 09/02/25 07:27
Lactic Acid 2.1 mmol/L (0.7-2.0) H 09/02/25 07:27
Total Bilirubin 1.2 mg/dl (0.2-1.3) 09/02/25 07:27
AST 21 U/L (14-36) 09/02/25 07:27
ALT 25 U/L (0-35) 09/02/25 07:27
Alkaline Phosphatase 54 U/L (38-126) 09/02/25 07:27
Data Reviewed
-
Lab Data: Labs Reviewed by me and Discussed with Physician (ED attending)
Impression/Plan
-
#Sepsis secondary to nonpurulent cellulitis of the LLE
#Chronic venous insufficiency
-Suspect incomplete treatment of recent cellulitis due to CVI and poor antibiotic penetrance
-Presented with leukocytosis, fever, source of infection with LLE cellulitis
-No history of diabetes or other risk factors for polymicrobial infection
-Blood cultures x 2 taken in the ED, started on IV cefazolin 2 g after cultures
-Currently hemodynamically adequate, no hypotension or tachycardia
-Continue IV cefazolin 1 g every 8 hours for now and monitor leg
-Follow cultures, trend CBC and temperature curve
-Supportive measures for CVI
#Chronic hypoxemic respiratory failure
#HFpEF with mild pulmonary hypertension
-Utilizes 3-4 L of supplemental oxygen at baseline; echo here recently with LVEF preserved; on 4L here
-Unclear etiology of heart failure, possibly iatrogenic with IV fluids received for cellulitis at that time
-Home regimen includes Lasix 80 mg daily, GDMT with SGLT2i; also on potassium supplement
-Will hold home diuretics today consider resuming as early as tomorrow depending on hemodynamics
-Avoid aggressive IVF, monitor I's and O's + weights
#Primary hypertension
-No known history of hypertensive systemic disease
-Home regimen without first-line antihypertensives
-Avoid aggressive BP goals due to age
#PAD of BLLE
-No known interventions such as angioplasty or stents
-Not currently on aspirin or statin therapy
-No signs of arterial insufficiency on exam
#GERD
-Home regimen includes famotidine twice daily
- No red flag symptoms at this time
#Vitamin D deficiency
-Continue with vitamin D supplement
#Spinal stenosis
#Fibromyalgia
-Continue with home gabapentin, oxycodone, Tylenol
- Continue with Tylenol and home oxycodone
#Overactive bladder
- Unclear etiology, not currently on any antispasmodics
- Monitor for incontinence
#Chronic iron deficiency anemia
-Home regimen includes ferrous gluconate on //
-Trend CBC here and monitor for bleeding
#Morbid obesity
-BMI 49, affects all aspects of care
#Wheelchair dependent
#Dementia
Diet: No added salt
Thromboprophylaxis: SQ Lovenox
CODE STATUS: DNR/DNI
Disposition: Admit to [facility]
[2025-09-02] MEDS: ANCEF 10 IV (10:23)
[2025-09-02] MEDS: FLUSH (NSS) 1 FLUSH IV (11:49)
--- NOTE | 2025-09-02 12:11 | CM ---
Patient seen at bedside with patient son present in ED. Patient stated that she lives at [facility] and per chart review patient appears to have been a resident there since approx 2018. Per chart transfer patient needs binh lift for transfers. Patient
has been at SNF for several years. Patient son indicated plan is to return to SNF when medically appropriate. 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 CM will continue to follow for discharge planning needs.
Plan;return to SNF; [facility] confirm nursing home care status.
[2025-09-02] MEDS: ROXICODONE 5 MG PO ×2 (16:53→21:23)
[2025-09-02] MEDS: NEURONTIN 300 MG PO ×2 (16:53→21:23)
[2025-09-02] MEDS: LOVENOX 40 MG SC (18:25)
[2025-09-02] MEDS: ANCEF 5 IV (18:25)
[2025-09-02] MEDS: PEPCID 20 MG PO (21:22)
[2025-09-02] MEDS: DESENEX/MITRAZOL/ZEASORB 1 APPLIC TOPICAL (21:24)
[2025-09-03] MEDS: ANCEF 5 IV (02:30)
[2025-09-03 06:00] VITALS: BMI 48.1
[2025-09-03 07:50] VITALS: BP 106/60
[2025-09-03 08:00] LABS: Blood Urea Nitrogen 15 mg/dl (7-17); Calcium 8.9 mg/dl (8.4-10.2); Carbon Dioxide 35 mmol/L (22-30); Chloride 101 mmol/L (98-107); Estimated Creatinine Clearance 58 ml/min; Glucose 88 mg/dl (70-99); Magnesium 2.2 mg/dl (1.6-2.3); Potassium 3.7 mmol/L (3.5-5.1); Sodium 137 mmol/L (135-145); eGFR > 60.00
[2025-09-03 08:02] LABS: Hematocrit 42.5 % (37.0-47.0); Hemoglobin 13.1 g/dL (12.0-16.0); Mean Corp Hgb Conc. 30.8 g/dL (33.0-37.0); Mean Corpuscular Volume 101.7 fL (81.0-99.0); Nucleated Red Blood Cells % 0 %; Platelet Count 123 10^3/uL (130-400); Red Cell Dist. Width 13.8 % (11.5-14.5)
[2025-09-03] MEDS: PEPCID 20 MG PO ×2 (08:45→21:00)
[2025-09-03] MEDS: ROXICODONE 5 MG PO ×3 (08:46→21:19)
[2025-09-03] MEDS: FARXIGA 10 MG PO (08:46)
[2025-09-03] MEDS: NEURONTIN 300 MG PO ×3 (08:46→21:18)
[2025-09-03] MEDS: TYLENOL 1000 MG PO ×3 (08:46→21:18)
[2025-09-03] MEDS: VITAMIN C 500 MG PO ×2 (08:58→18:07)
[2025-09-03] MEDS: MIRALAX PO (08:59)
[2025-09-03] MEDS: DESENEX/MITRAZOL/ZEASORB 1 APPLIC TOPICAL ×2 (09:00→21:00)
--- NOTE | 2025-09-03 09:04 | W.PN.HOSP.TC ---
Today's Communication/Plan
-
Escalate to IV ceftriaxone
Added on urine culture to initial urine sample
Trend CBC and temperature curve, follow blood and urine cultures
Monitor LLE, compressive stockings and elevation as tolerated
Assessment / Plan
Assessment / Plan
#Sepsis secondary to nonpurulent cellulitis of the LLE
#Chronic venous insufficiency
-Suspect incomplete treatment of recent cellulitis due to CVI and poor antibiotic penetrance
-Blood cultures x 2 taken in the ED, started on IV cefazolin 2 g after cultures
-White count improved though leg peers more erythematous and warm today
-Will transition to IV ceftriaxone with possible concurrent UTI
-Follow cultures, trend CBC and temperature curve
-Supportive measures for CVI
-Consider ID for suppressive therapy
#UTI
-Patient complains of dysuria though has been present for a while; UA consistent with infection
-Will escalate antibiotics to ceftriaxone as above for empiric coverage
-Added on urine culture to urine sample in which UA was obtained
-Trend CBC and temperature curve as above, follow UCx
#Chronic hypoxemic respiratory failure
#HFpEF with mild pulmonary hypertension
-Utilizes 2-4 L of supplemental oxygen at baseline; echo here recently with LVEF preserved; on baseline here
-Unclear etiology of heart failure, possibly iatrogenic with IV fluids received for cellulitis at that time
-Home regimen includes Lasix 80 mg daily, GDMT with SGLT2i; also on potassium supplement
-Will hold home diuretics today consider resuming as early as tomorrow depending on hemodynamics
-Avoid aggressive IVF, monitor I's and O's + weights
#Primary hypertension
-No known history of hypertensive systemic disease
-Home regimen without first-line antihypertensives
-Avoid aggressive BP goals due to age
#PAD of BLLE
-No known interventions such as angioplasty or stents
-Not currently on aspirin or statin therapy
-No signs of arterial insufficiency on exam
#GERD
-Home regimen includes famotidine twice daily
- No red flag symptoms at this time
#Vitamin D deficiency
-Continue with vitamin D supplement
#Spinal stenosis
#Fibromyalgia
-Continue with home gabapentin, oxycodone, Tylenol
- Continue with Tylenol and home oxycodone
#Overactive bladder
- Unclear etiology, not currently on any antispasmodics
- Monitor for incontinence
#Chronic iron deficiency anemia
-Home regimen includes ferrous gluconate on //
-Trend CBC here and monitor for bleeding
#Morbid obesity
-BMI 49, affects all aspects of care
#Wheelchair dependent
#Dementia
Diet: No added salt
Thromboprophylaxis: SQ Lovenox
CODE STATUS: DNR/DNI
Disposition: PT consulted
Anticipated Discharge: > 48 hours
Subjective/Interval History
-
Date of Service: September 03, 2025
Seen and examined at the bedside. No acute events reported overnight. AFVSS this morning on baseline O2
Patient states her leg still feels very warm, swollen and appears red without much improvement. Also complains of some dysuria, states it has been present for 'a while'
Denies other new complaints this morning.
Objective Data
-
Labs:
Laboratory Results
09/03/25
06:47
WBC 9.1
Hgb 13.1
Hct 42.5
Plt Count 123 L
Sodium 137
Potassium 3.7
Chloride 101
Carbon Dioxide 35 H
BUN 15
Creatinine 0.4 L
Glucose 88
Calcium 8.9
Vital Signs:
Vital Signs
Temp Pulse Resp BP Pulse Ox
98.7 F 68 16 106/60 94
09/03/25 07:50 09/03/25 07:50 09/03/25 07:50 09/03/25 07:50 09/03/25 07:50
I&O
09/02/25 09/03/25 09/04/25
06:59 06:59 06:59
Intake Total 1000 / 1000
Output Total 150 / 150
Balance 850 / 850
Review of Systems
-
History Source: Patient and Family
All other systems: Reviewed and negative
Physical Exam
-
General: Well Developed, No Apparent Distress and Morbidly Obese
HEENT: Normocephalic, Atraumatic, Moist Mucous Membranes and Anicteric
Respiratory: Clear to Auscultation and Non Labored Respirations; Negative Accessory Resp Muscle Use
Cardiac: Regular Rhythm; Negative Murmur, Rub or Gallop
GI: Soft, Nontender, Nondistended and Normal Bowel Sounds
Genito-urinary: No Costovertebral Tender
Musculoskeletal: No Clubbing, No Cyanosis and No Edema
Skin: Warm, Dry and Rash (Distal LLE with warmth, erythema, swelling and mild tenderness)
Neuro: AO x 3, Nonfocal/Grossly Intact and Central Nerve's Intact
Psych: Calm
Data Reviewed
-
Labs: Labs Reviewed by me, Discussed with Physician (Infectious disease), Discussed with Patient and Discussed with Family
--- NOTE | 2025-09-03 10:58 | PTOTSP ---
Received order for PT and reviewed chart. Pt lives at [facility] and patient needs binh lift for transfers at baseline. She has no acute rehab goals as this is her baseline. PT will sign off.
[2025-09-03] MEDS: ANCEF IV (11:20)
[2025-09-03] MEDS: STERILE WATER FOR INJECTION 20 ML IV (11:33)
[2025-09-03] MEDS: ROCEPHIN 2000 MG IV (11:34)
--- NOTE | 2025-09-03 12:35 | CM ---
Reviewed the chart notes. Referral sent for return to SNF in [facility]. Patient is a LT resident of [facility]. CM continues to be available to patient/family and is monitoring medical plan for needs at discharge.
Plan: Discharge back to [facility] when medically stable. No precert required.
--- NOTE | 2025-09-03 14:11 | WOUNDNOTE ---
MID UPPER BACK
--- NOTE | 2025-09-03 14:11 | WOUNDNOTE ---
L MEDIAL THIGH/GROIN
--- NOTE | 2025-09-03 14:11 | WOUNDNOTE ---
L MEDIAL LOWER LEG
--- NOTE | 2025-09-03 14:12 | WOUNDNOTE ---
L ANTERIOR LOWER LEG
--- NOTE | 2025-09-03 14:12 | WOUNDNOTE ---
R MEDIAL LOWER LEG AND KNEE
--- NOTE | 2025-09-03 14:15 | WOUNDNOTE ---
NAHOMY RN note: Patient admitted with Cellulitis of L leg and sepsis.
See H&P for complete history. Patient resides at [facility]. Patient is non ambulatory, assisted to w/c daily.
PMH: CHF, Chronic lymphedema, GERD, anxiety, GI bleed, hiatal hernia, RA, chronic pain, psoriasis, non ambulatory, fibromyalgia, former smoker, skin cancer.
Wound Location and type/assessment: Patient known to service, last seen 08/17/25 by wound care. Admitted with: chronic L medial ankle, slow to heal skin cancer site. Upper back with scar, healed skin cancer. Psoriasis rash patches on thighs, R
medial lower and upper leg. Patient confirmed she uses Vaseline for her psoriasis. LLE with diffuse erythema and edema, same as last seen. +Palpable pedal pulses, uses knee high Gonzales wraps at [facility] legs. Patient turned with assist of
PCT. Heels blanchable red. Sacral/buttocks with slow to ace pink skin and MASD. Groin and skin folds with MASD, fungal powder in use. Patient is incontinent.
Appetite: Good.
Pressure redistribution devices in place: Accumax. Patient turns with 2 assist. pillow in use under calves. Protective foams applied to heels. Recommend air overlay if becomes difficult to turn.
Plan: Assessed skin under sacral foam. Dressings changed on heels and L ankle wound. Vaseline applied to psoriasis patches on R leg. Gonzales wraps knee high applied b/l, legs elevated with pillows.
Will confirm orders with hospitalist. Care plan to be updated and will follow as needed.
Recommend follow up at wound care center if family deems necessary.
[2025-09-03 16:06] VITALS: BP 102/61
[2025-09-03] MEDS: FEOSOL 325 MG PO (16:25)
[2025-09-03] MEDS: LOVENOX 40 MG SC (18:07)
[2025-09-03 19:21] VITALS: BP 103/54
[2025-09-03 23:33] VITALS: BP 127/70
[2025-09-04] MEDS: ROXICODONE 5 MG PO ×4 (01:37→23:36)
[2025-09-04 06:00] VITALS: BMI 48.3
[2025-09-04 07:41] VITALS: BP 118/63
[2025-09-04] MEDS: FARXIGA 10 MG PO (08:01)
[2025-09-04] MEDS: NEURONTIN 300 MG PO ×3 (08:01→23:36)
[2025-09-04] MEDS: PEPCID 20 MG PO ×2 (08:01→21:27)
[2025-09-04] MEDS: TYLENOL 1000 MG PO ×3 (08:01→23:36)
[2025-09-04] MEDS: DESENEX/MITRAZOL/ZEASORB 1 APPLIC TOPICAL ×2 (08:02→21:29)
[2025-09-04] MEDS: MIRALAX PO (08:02)
[2025-09-04] MEDS: ANCEF 5 IV ×3 (08:02→23:36)
--- NOTE | 2025-09-04 09:14 | W.PN.HOSP.TC ---
Today's Communication/Plan
-
Continue IV cefazolin
Compression wrapping and leg elevation
Trend CBC and temperature curve
Monitor leg
OP lymphedema clinic
Assessment / Plan
Assessment / Plan
#Sepsis secondary to nonpurulent cellulitis of the LLE
#Chronic venous insufficiency
- Suspect incomplete treatment of recent cellulitis due to CVI and poor antibiotic penetrance
- Discussed with ID, no need for hospital consult or suppressive antibiotics, recommended lymphedema care
- Blood cultures x 2 taken in the ED, started on IV cefazolin 2 g after cultures
- White count improved and legs with improving erythema and warmth today
- Follow cultures, trend CBC and temperature curve
- Supportive measures for CVI
- Will need follow-up with lymphedema clinic
#Possible UTI
- Patient complains of dysuria though has been present for a while, timeline of weeks
- Leukocytosis on arrival resolved with IV Keflex after 1 day, no recurrent fevers
- Will check UA if white count up trends or she develops new fever or worsening symptoms
#Chronic hypoxemic respiratory failure
#HFpEF with mild pulmonary hypertension
- Utilizes 2-4 L of supplemental oxygen PRN; echo here recently with LVEF preserved; on baseline here
- Unclear etiology of heart failure, possibly iatrogenic with IV fluids received for cellulitis at that time
- Home regimen includes Lasix 80 mg daily, GDMT with SGLT2i; also on potassium supplement
- Will hold home diuretics today consider resuming as early as tomorrow depending on hemodynamics
- Avoid aggressive IVF, monitor I's and O's + weights
#Primary hypertension
- No known history of hypertensive systemic disease
- Home regimen without first-line antihypertensives
- Avoid aggressive BP goals due to age
#PAD of BLLE
- No known interventions such as angioplasty or stents
- Not currently on aspirin or statin therapy
- No signs of arterial insufficiency on exam
#GERD
- Home regimen includes famotidine twice daily
- No red flag symptoms at this time
#Vitamin D deficiency
- Continue with vitamin D supplement
#Spinal stenosis
#Fibromyalgia
- Continue with home gabapentin, oxycodone, Tylenol
- Continue with Tylenol and home oxycodone
#Overactive bladder
- Unclear etiology, not currently on any antispasmodics
- Monitor for incontinence
#Chronic iron deficiency anemia
- Home regimen includes ferrous gluconate on //
- Trend CBC here and monitor for bleeding
#Morbid obesity
- BMI 49, affects all aspects of care
#Wheelchair dependent
#Dementia
Diet: No added salt
Thromboprophylaxis: SQ Lovenox
CODE STATUS: DNR/DNI
Disposition: PT consulted
Anticipated Discharge: 24 - 48 hours
Subjective/Interval History
-
Date of Service: September 04, 2025
Seen and examined at the bedside. No acute events reported overnight. AFVSS this morning, not wearing oxygen
Patient denies any new complaints today. LLE in compression bandaging, appears less red but needs bandaging.
WBC continues to downtrend
Objective Data
-
Labs:
Laboratory Results
09/04/25
09:02
WBC Pending
Hgb Pending
Hct Pending
Plt Count Pending
Sodium Pending
Potassium Pending
Chloride Pending
Carbon Dioxide Pending
BUN Pending
Creatinine Pending
Glucose Pending
Calcium Pending
Vital Signs:
Vital Signs
Temp Pulse Resp BP Pulse Ox
98.0 F 70 18 118/63 94
09/04/25 07:41 09/04/25 07:41 09/04/25 07:41 09/04/25 07:41 09/04/25 07:41
I&O
09/03/25 09/04/2525
06:59 06:59 06:59
Intake Total 1000 / 1000 400 / 400
Output Total 150 / 150
Balance 850 / 850 400 / 400
Review of Systems
-
History Source: Patient
All other systems: Reviewed and negative
Physical Exam
-
General: Well Developed, No Apparent Distress, Appears Chronically Ill and Morbidly Obese
HEENT: Normocephalic, Atraumatic, Moist Mucous Membranes and Anicteric
Respiratory: Clear to Auscultation and Non Labored Respirations; Negative Accessory Resp Muscle Use
Cardiac: Regular Rhythm and S1/S2; Negative Murmur, Rub or Gallop
GI: Soft, Nontender, Nondistended and Normal Bowel Sounds
Musculoskeletal: No Clubbing, No Cyanosis and No Edema
Skin: Warm, Dry and Rash (MASD, groin)
Neuro: AO x 3 and Nonfocal/Grossly Intact; Negative Central Nerve's Intact
Psych: Calm
Data Reviewed
-
Labs: Labs Reviewed by me and Discussed with Patient
[2025-09-04 09:42] LABS: Hematocrit 43.5 % (37.0-47.0); Hemoglobin 12.9 g/dL (12.0-16.0); Mean Corp Hgb Conc. 29.7 g/dL (33.0-37.0); Mean Corpuscular Volume 104.3 fL (81.0-99.0); Nucleated Red Blood Cells % 0 %; Platelet Count 117 10^3/uL (130-400); Red Cell Dist. Width 13.9 % (11.5-14.5)
[2025-09-04 10:17] LABS: Blood Urea Nitrogen 13 mg/dl (7-17); Calcium 9.1 mg/dl (8.4-10.2); Carbon Dioxide 34 mmol/L (22-30); Chloride 100 mmol/L (98-107); Estimated Creatinine Clearance 58 ml/min; Glucose 102 mg/dl (70-99); Potassium 3.4 mmol/L (3.5-5.1); Sodium 138 mmol/L (135-145); eGFR > 60.00
[2025-09-04 11:59] VITALS: BP 119/51
--- NOTE | 2025-09-04 13:38 | CM ---
Addendum entered by Mikayla White RN 09/04/25 14:52:
Change:
Call report to: [phone]
Fax report to: [phone]
Original Note:
Reviewed the chart notes and spoke with the patient at the bedside. CM continues to be available to patient/family and is monitoring medical plan for needs at discharge.
Plan: Discharge back to [facility] when medically stable. No precert required.
Call report to: [phone]
Fax report to: [phone]
Medical necessity and transport forms on chart.
[2025-09-04] MEDS: KCL 40 MEQ PO ×2 (13:53→16:07)
[2025-09-04 15:50] VITALS: BP 98/47
[2025-09-04] MEDS: LOVENOX 40 MG SC (18:12)
[2025-09-04 23:59] VITALS: BP 119/51
[2025-09-05 06:00] VITALS: BMI 48.7
[2025-09-05 07:20] LABS: Hematocrit 39.8 % (37.0-47.0); Hemoglobin 12.0 g/dL (12.0-16.0); Mean Corp Hgb Conc. 30.2 g/dL (33.0-37.0); Mean Corpuscular Volume 105.3 fL (81.0-99.0); Nucleated Red Blood Cells % 0 %; Platelet Count 107 10^3/uL (130-400); Red Cell Dist. Width 13.7 % (11.5-14.5)
[2025-09-05 07:42] LABS: Blood Urea Nitrogen 11 mg/dl (7-17); Calcium 9.1 mg/dl (8.4-10.2); Carbon Dioxide 35 mmol/L (22-30); Chloride 102 mmol/L (98-107); Estimated Creatinine Clearance 59 ml/min; Glucose 86 mg/dl (70-99); Potassium 3.9 mmol/L (3.5-5.1); Sodium 136 mmol/L (135-145); eGFR > 60.00
[2025-09-05 07:50] VITALS: BP 131/76
[2025-09-05] MEDS: ROXICODONE 5 MG PO ×3 (08:52→20:55)
[2025-09-05] MEDS: NEURONTIN 300 MG PO ×3 (08:53→20:55)
[2025-09-05] MEDS: FARXIGA 10 MG PO (08:53)
[2025-09-05] MEDS: TYLENOL 1000 MG PO ×3 (08:53→20:55)
[2025-09-05] MEDS: MIRALAX 17 GRAMS PO (08:53)
[2025-09-05] MEDS: ANCEF 5 IV ×2 (08:53→16:56)
[2025-09-05] MEDS: PEPCID 20 MG PO ×2 (08:54→20:50)
[2025-09-05] MEDS: VITAMIN C 500 MG PO ×2 (08:55→16:58)
[2025-09-05] MEDS: DESENEX/MITRAZOL/ZEASORB 1 APPLIC TOPICAL ×2 (08:58→20:51)
--- NOTE | 2025-09-05 09:05 | W.PN.HOSP.TC ---
Today's Communication/Plan
-
24-hours more of IV antibiotic
Next continue supportive care for CVI/lymphedema
Possible discharge on oral antibiotics tomorrow
Assessment / Plan
Assessment / Plan
#Sepsis secondary to nonpurulent cellulitis of the LLE
#Chronic venous insufficiency
- Suspect incomplete treatment of recent cellulitis due to CVI and poor antibiotic penetrance
- Discussed with ID, no need for hospital consult or suppressive antibiotics, recommended lymphedema care
- Blood cultures x 2 taken in the ED, started on IV cefazolin 2 g after cultures
- White count improved and legs with improving erythema and warmth today
Plan
- Continue IV cefazolin for 1 more day, plan for Keflex
- Follow cultures, trend CBC and temperature curve
- Supportive measures for CVI
- Will need follow-up with lymphedema clinic
#Possible UTI
- Patient complains of dysuria though has been present for a while, timeline of weeks
- Leukocytosis on arrival resolved with IV Keflex after 1 day, no recurrent fevers
- Will check UA if white count up trends or she develops new fever, worsening symptoms
#Chronic hypoxemic respiratory failure
#HFpEF with mild pulmonary hypertension
- Utilizes 2-4 L of supplemental oxygen PRN; echo here recently with LVEF preserved; on baseline here
- Unclear etiology of heart failure, possibly iatrogenic with IV fluids received for cellulitis at that time
- Home regimen includes Lasix 80 mg daily, GDMT with SGLT2i; also on potassium supplement
- Will hold home diuretics today consider resuming as early as tomorrow depending on hemodynamics
- Avoid aggressive IVF, monitor I's and O's + weights
#Primary hypertension
- No known history of hypertensive systemic disease
- Home regimen without first-line antihypertensives
- Avoid aggressive BP goals due to age
#PAD of BLLE
- No known interventions such as angioplasty or stents
- Not currently on aspirin or statin therapy
- No signs of arterial insufficiency on exam
#GERD
- Home regimen includes famotidine twice daily
- No red flag symptoms at this time
#Vitamin D deficiency
- Continue with vitamin D supplement
#Spinal stenosis
#Fibromyalgia
- Continue with home gabapentin, oxycodone, Tylenol
- Continue with Tylenol and home oxycodone
#Overactive bladder
- Unclear etiology, not currently on any antispasmodics
- Monitor for incontinence
#Chronic iron deficiency anemia
- Home regimen includes ferrous gluconate on //
- Trend CBC here and monitor for bleeding
#Morbid obesity
- BMI 49, affects all aspects of care
#Wheelchair dependent
#Dementia
Diet: No added salt
Thromboprophylaxis: SQ Lovenox
CODE STATUS: DNR/DNI
Disposition: PT consulted
Anticipated Discharge: 24 - 48 hours
Subjective/Interval History
-
Date of Service: September 05, 2025
Objective Data
-
Labs:
Laboratory Results
09/05/25
06:55
WBC 3.5 L
Hgb 12.0
Hct 39.8
Plt Count 107 L
Sodium 136
Potassium 3.9
Chloride 102
Carbon Dioxide 35 H
BUN 11
Creatinine 0.4 L
Glucose 86
Calcium 9.1
Vital Signs:
Vital Signs
Temp Pulse Resp BP Pulse Ox
98.2 F 78 18 131/76 96
09/05/25 07:50 09/05/25 07:50 09/05/25 07:50 09/05/25 07:50 09/05/25 07:50
I&O
09/04/25 09/05/25 09/06/25
06:59 06:59 06:59
Intake Total 400 / 400 360 / 360
Balance 400 / 400 360 / 360
--- NOTE | 2025-09-05 12:25 | CM ---
Reviewed the chart notes. CM confirmed with Karina educational director at [facility] that the patient is a retirement resident. No precert to return.
Plan: Discharge back to [facility] when medically stable.
Call report to: [phone]
Fax report to: [phone]
Medical necessity and transport forms on chart.
[2025-09-05 15:20] VITALS: BP 93/45
[2025-09-05] MEDS: FEOSOL 325 MG PO (16:55)
[2025-09-05] MEDS: LOVENOX 40 MG SC (16:56)
[2025-09-05 23:37] VITALS: BP 110/68
[2025-09-06] MEDS: ANCEF 5 IV ×3 (00:53→15:35)
[2025-09-06 06:00] VITALS: BMI 48.9
[2025-09-06 06:25] LABS: Hematocrit 39.6 % (37.0-47.0); Hemoglobin 12.4 g/dL (12.0-16.0); Mean Corp Hgb Conc. 31.3 g/dL (33.0-37.0); Mean Corpuscular Volume 102.9 fL (81.0-99.0); Nucleated Red Blood Cells % 0 %; Platelet Count 118 10^3/uL (130-400); Red Cell Dist. Width 13.7 % (11.5-14.5)
[2025-09-06 06:49] LABS: Blood Urea Nitrogen 12 mg/dl (7-17); Calcium 9.0 mg/dl (8.4-10.2); Carbon Dioxide 36 mmol/L (22-30); Chloride 101 mmol/L (98-107); Estimated Creatinine Clearance 59 ml/min; Glucose 85 mg/dl (70-99); Potassium 4.0 mmol/L (3.5-5.1); Sodium 138 mmol/L (135-145); eGFR > 60.00
[2025-09-06 07:40] VITALS: BP 120/70
[2025-09-06] MEDS: NEURONTIN 300 MG PO ×3 (08:31→21:25)
[2025-09-06] MEDS: TYLENOL 1000 MG PO ×3 (08:31→21:25)
[2025-09-06] MEDS: FARXIGA 10 MG PO (08:31)
[2025-09-06] MEDS: ROXICODONE 5 MG PO ×3 (08:31→21:25)
[2025-09-06] MEDS: MIRALAX PO (08:32)
[2025-09-06] MEDS: DESENEX/MITRAZOL/ZEASORB 1 APPLIC TOPICAL ×2 (08:32→20:00)
[2025-09-06] MEDS: PEPCID 20 MG PO ×2 (08:33→20:00)
--- NOTE | 2025-09-06 10:44 | W.PN.HOSP.TC ---
Today's Communication/Plan
-
Transition to oral antibiotics within next 24 hours
Continue leg wrapping and elevation
Monitor LLE clinically
Assessment / Plan
Assessment / Plan
#Sepsis secondary to nonpurulent cellulitis of the LLE
#Chronic venous insufficiency
- Suspect incomplete treatment of recent cellulitis due to CVI and poor antibiotic penetrance
- Discussed with ID, no need for hospital consult or suppressive antibiotics, recommended lymphedema care
- Blood cultures x 2 taken in the ED, started on IV cefazolin 2 g after cultures
- White count improved and legs with improving erythema and warmth today
Plan
- Continue IV cefazolin for 1 more day, plan for Keflex
- Follow cultures, trend CBC and temperature curve
- Supportive measures for CVI
- Will need follow-up with lymphedema clinic
#Possible UTI
- Patient complains of dysuria though has been present for a while, timeline of weeks
- Leukocytosis on arrival resolved with IV Keflex after 1 day, no recurrent fevers
- Will check UA if white count up trends or she develops new fever, worsening symptoms
#Chronic hypoxemic respiratory failure
#HFpEF with mild pulmonary hypertension
- Utilizes 2-4 L of supplemental oxygen PRN; echo here recently with LVEF preserved; on baseline here
- Unclear etiology of heart failure, possibly iatrogenic with IV fluids received for cellulitis at that time
- Home regimen includes Lasix 80 mg daily, GDMT with SGLT2i; also on potassium supplement
- Will hold home diuretics today consider resuming as early as tomorrow depending on hemodynamics
- Avoid aggressive IVF, monitor I's and O's + weights
#Primary hypertension
- No known history of hypertensive systemic disease
- Home regimen without first-line antihypertensives
- Avoid aggressive BP goals due to age
#PAD of BLLE
- No known interventions such as angioplasty or stents
- Not currently on aspirin or statin therapy
- No signs of arterial insufficiency on exam
#GERD
- Home regimen includes famotidine twice daily
- No red flag symptoms at this time
#Vitamin D deficiency
- Continue with vitamin D supplement
#Spinal stenosis
#Fibromyalgia
- Continue with home gabapentin, oxycodone, Tylenol
- Continue with Tylenol and home oxycodone
#Overactive bladder
- Unclear etiology, not currently on any antispasmodics
- Monitor for incontinence
#Chronic iron deficiency anemia
- Home regimen includes ferrous gluconate on //
- Trend CBC here and monitor for bleeding
#Morbid obesity
- BMI 49, affects all aspects of care
#Wheelchair dependent
#Dementia
Diet: No added salt
Thromboprophylaxis: SQ Lovenox
CODE STATUS: DNR/DNI
Disposition: PT consulted
Anticipated Discharge: Within 24 hours
Subjective/Interval History
-
Date of Service: September 06, 2025
Seen and examined at the bedside. No acute events reported overnight. AFVSS on 2 L O2 this morning
Patient states she feels well, denies any complaints including chest pain, dyspnea, fevers or chills.
WBC stable near 3.6. States leg feels about the same, appears with improved redness by the day
Objective Data
-
Labs:
Laboratory Results
09/06/25
05:30
WBC 3.6 L
Hgb 12.4
Hct 39.6
Plt Count 118 L
Sodium 138
Potassium 4.0
Chloride 101
Carbon Dioxide 36 H
BUN 12
Creatinine 0.4 L
Glucose 85
Calcium 9.0
Vital Signs:
Vital Signs
Temp Pulse Resp BP Pulse Ox
97.6 F 67 16 120/70 93
09/06/25 07:40 09/06/25 07:40 09/06/25 07:40 09/06/25 07:40 09/06/25 08:42
I&O
09/05/25 09/06/25 09/07/25
06:59 06:59 06:59
Intake Total 360 / 360 1020 / 1020
Balance 360 / 360 1020 / 1020
Review of Systems
-
History Source: Patient
All other systems: Reviewed and negative
Physical Exam
-
General: Well Developed, No Apparent Distress, Appears Chronically Ill and Morbidly Obese
HEENT: Normocephalic, Atraumatic, Moist Mucous Membranes and Anicteric
Respiratory: Clear to Auscultation and Non Labored Respirations; Negative Accessory Resp Muscle Use
Cardiac: Regular Rhythm and S1/S2; Negative Murmur, Rub or Gallop
GI: Soft, Nontender, Nondistended and Normal Bowel Sounds
Musculoskeletal: No Clubbing, No Cyanosis and Other (1+ edema bilaterally)
Skin: Warm, Dry and Other (Improving erythema of the LLE distally, improved warmth, mild discomfort palpation)
Neuro: AO x 3, Nonfocal/Grossly Intact and Central Nerve's Intact
Psych: Calm
Data Reviewed
-
Labs: Labs Reviewed by me and Discussed with Patient
[2025-09-06 15:00] VITALS: BP 126/68
--- NOTE | 2025-09-06 16:02 | CM ---
Reviewed the chart notes and spoke with the patient at the bedside. IMM reviewed. CM continues to be available to patient/family and is monitoring medical plan for needs at discharge.
Plan: Discharge back to [facility] when medically stable. No precert required.
Call report to: [phone]
Fax report to: [phone]
Medical necessity and transport forms on chart.
[2025-09-06] MEDS: LOVENOX 40 MG SC (17:21)
[2025-09-06 23:15] VITALS: BP 111/67
[2025-09-07] MEDS: ANCEF 5 IV ×2 (00:58→07:51)
[2025-09-07 06:00] VITALS: BMI 49.3
[2025-09-07 07:49] LABS: Hematocrit 41.2 % (37.0-47.0); Hemoglobin 12.7 g/dL (12.0-16.0); Mean Corp Hgb Conc. 30.8 g/dL (33.0-37.0); Mean Corpuscular Volume 100.7 fL (81.0-99.0); Nucleated Red Blood Cells % 0 %; Platelet Count 131 10^3/uL (130-400); Red Cell Dist. Width 13.8 % (11.5-14.5)
[2025-09-07] MEDS: MIRALAX PO (07:51)
[2025-09-07] MEDS: NEURONTIN 300 MG PO (07:51)
[2025-09-07] MEDS: FARXIGA 10 MG PO (07:51)
[2025-09-07] MEDS: DESENEX/MITRAZOL/ZEASORB 1 APPLIC TOPICAL (07:51)
[2025-09-07] MEDS: PEPCID 20 MG PO (07:52)
[2025-09-07] MEDS: TYLENOL 1000 MG PO (07:52)
[2025-09-07] MEDS: ROXICODONE 5 MG PO (07:52)
[2025-09-07] MEDS: VITAMIN C 500 MG PO (07:53)
[2025-09-07 07:56] VITALS: BP 128/70
--- NOTE | 2025-09-07 09:21 | W.PN.HOSP.TC ---
Today's Communication/Plan
-
Transition to oral antibiotic
Discharge
Lymphedema clinic follow-up
Assessment / Plan
Assessment / Plan
#Sepsis secondary to nonpurulent cellulitis of the LLE
#Chronic venous insufficiency
- Suspect incomplete treatment of recent cellulitis due to CVI and poor antibiotic penetrance
- Discussed with ID, no need for hospital consult or suppressive antibiotics, recommended lymphedema care
- Blood cultures x 2 taken in the ED, started on IV cefazolin 2 g after cultures
- White count improved and legs with improving erythema and warmth today
Plan
- Transition from cefazolin to Keflex to complete 10 days of antibiotic
- Supportive measures for CVI
- Will need follow-up with lymphedema clinic
#Possible UTI
- Patient complains of dysuria though has been present for a while, timeline of weeks
- Leukocytosis on arrival resolved with IV Keflex after 1 day, no recurrent fevers
- Will check UA if white count up trends or she develops new fever, worsening symptoms
#Chronic hypoxemic respiratory failure
#HFpEF with mild pulmonary hypertension
- Utilizes 2-4 L of supplemental oxygen PRN; echo here recently with LVEF preserved; on baseline here
- Unclear etiology of heart failure, possibly iatrogenic with IV fluids received for cellulitis at that time
- Home regimen includes Lasix 80 mg daily, GDMT with SGLT2i; also on potassium supplement
- Will hold home diuretics today consider resuming as early as tomorrow depending on hemodynamics
- Avoid aggressive IVF, monitor I's and O's + weights
#Primary hypertension
- No known history of hypertensive systemic disease
- Home regimen without first-line antihypertensives
- Avoid aggressive BP goals due to age
#PAD of BLLE
- No known interventions such as angioplasty or stents
- Not currently on aspirin or statin therapy
- No signs of arterial insufficiency on exam
#GERD
- Home regimen includes famotidine twice daily
- No red flag symptoms at this time
#Vitamin D deficiency
- Continue with vitamin D supplement
#Spinal stenosis
#Fibromyalgia
- Continue with home gabapentin, oxycodone, Tylenol
- Continue with Tylenol and home oxycodone
#Overactive bladder
- Unclear etiology, not currently on any antispasmodics
- Monitor for incontinence
#Chronic iron deficiency anemia
- Home regimen includes ferrous gluconate on //
- Trend CBC here and monitor for bleeding
#Morbid obesity
- BMI 49, affects all aspects of care
#Wheelchair dependent
#Dementia
Diet: No added salt
Thromboprophylaxis: SQ Lovenox
CODE STATUS: DNR/DNI
Anticipated Discharge: Today
Subjective/Interval History
-
Date of Service: September 07, 2025
Seen and examined at bedside. No acute events reported overnight. AFVSS this morning on 2 L O2
Patient states she feels well today. Pain in leg proved
White count stable, no recurrent fevers.
Objective Data
-
Labs:
Laboratory Results
09/07/25
07:09
WBC 4.0 L
Hgb 12.7
Hct 41.2
Plt Count 131
Vital Signs:
Vital Signs
Temp Pulse Resp BP Pulse Ox
98.4 F 80 18 128/70 94
09/07/25 07:56 09/07/25 07:56 09/07/25 07:56 09/07/25 07:56 09/07/25 07:56
I&O
09/06/25 09/07/25 09/08/25
06:59 06:59 06:59
Intake Total 1020 / 1020 2410 / 2410
Balance 1020 / 1020 2410 / 2410
Review of Systems
-
History Source: Patient
All other systems: Reviewed and negative
Physical Exam
-
General: Well Developed, No Apparent Distress and Comfortable
HEENT: Normocephalic, Atraumatic, Moist Mucous Membranes, Anicteric and Oxygen
Respiratory: Clear to Auscultation and Non Labored Respirations; Negative Accessory Resp Muscle Use
Cardiac: Regular Rhythm and S1/S2; Negative Murmur, Rub or Gallop
GI: Soft, Nontender, Nondistended and Normal Bowel Sounds
Musculoskeletal: No Clubbing, No Cyanosis and Other (1-2+ edema bilaterally)
Skin: Warm, Dry and Rash (Improving erythema of the LLE, improved warmth)
Neuro: AO x 3, Nonfocal/Grossly Intact and Central Nerve's Intact
Psych: Calm
Data Reviewed
-
Labs: Labs Reviewed by me and Discussed with Patient
--- NOTE | 2025-09-07 12:44 | CM ---
Plan: Discharge back to [facility] when medically stable. No precert required.
Call report to: [phone]
Fax report to: [phone]
Medical necessity and transport forms on chart.
[2025-09-07 14:54] VITALS: BP 140/75
--- NOTE | 2025-09-07 16:56 | W.DCSUMMARY ---
Discharge Summary
Discharge Data
Date of Admission: 09/02/25
Date of Discharge: 09/07/25
Total time spent discharging patient (in min): 33
-
Pending Results: No
Hospital Course
Discharge physician: Veto Ventura DO
Discharge disposition: [facility]
Primary discharge diagnoses:
Nonpurulent cellulitis of the LLE
Lymphedema of the BLLE
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
Chronic discharge diagnoses:
Chronic hypoxemic respiratory failure (2 to 4 L baseline)
HFpEF
Lymphedema
GERD
Hypertension
Hyperlipidemia
Iron deficiency anemia
Morbid obesity
Hospital course:
89-year-old female with lymphedema and recurrent cellulitis of the LLE that presented to the hospital with redness, erythema, warmth of the left lower extremity. Clinically consistent with nonpurulent cellulitis of the LLE. Was started on IV
cefazolin 1 g every 8 hours which she received throughout the hospital stay. Implemented aggressive lymphedema measures with leg wrapping and elevation. Had clinical improvement with 5 days of IV antibiotics in the hospital with improvement to the
erythema, warmth and pain. Initial leukocytosis resolved with antibiotics. Was transition to Keflex 500 mg 4 times daily to complete 10-day course of antibiotics. Was provided with follow-up to the lymphedema clinic and recommended to schedule
appointment.
Pertinent imaging findings: N/A
Procedures: N/A
Follow-up:
Family doctor within 1 week
Lymphedema clinic within 1 week
Consider pulm referral for sleep study
Discharge Plan
-
Patient Disposition: Assisted Living
Discharge Diagnosis/Procedures: Nonpurulent cellulitis of the left lower extremity
Lymphedema
Chronic hypoxemic respiratory failure
Condition: Fair
Diet: No added salt
Activity: With assistance and As tolerated
Additional Activity: Use compression stockings and elevate your lower extremities is much as possible
Monitor weight daily
Driving Restrictions: No driving
Bathing Restrictions: None
Blood Work: Repeat BMP and CBC in 1 week with family doctor
Other Services: PT
Specialty Instructions: Weigh Daily- Call MD for wt gain/loss 3 lbs overnight/5 lbs in 1 week
Activity Restrictions/Additional Instructions:
Wound Care Instructions
Vaseline to psoriasis patches on R leg and posterior thighs daily(in med cart)
L medial ankle: clean with saline, silicone foam change q 2 days and prn soilage
Sacrum: clean with soap and water, sacral silicone foam change q 3 days
fungal powder to skin folds bid after cleaning
rubina wraps knee high to both legs daily, can remove at bedtime
air mattress with turning schedule
[facility] --contact them to schedule
[address] [place] [address], [id number]
[phone]
Instructions: Lymphedema
Referrals:
Jean Sandvoal DO [Family Provider, Family Practice]
Additional Discharge Medication Instructions: Continue with Keflex 500 mg 4 times daily for 5 more days after discharge from the hospital
Prescriptions:
New
cephalexin 500 mg capsule
500 mg PO QID 5 Days Qty: 20 0RF
Continued
magnesium hydroxide [Milk of Magnesia] 400 mg/5 mL Suspension
30 ml PO HSPRN PRN (Reason: constipation)
ascorbic acid (vitamin C) 500 mg Tablet
500 mg PO MOWEFR@829,1829
bisacodyl [Dulcolax (bisacodyl)] 10 mg Suppository
10 mg IN [id number] PRN (Reason: IF NO BM AFTR MOM)
gabapentin 300 mg capsule
300 mg PO TID
ferrous gluconate 324 mg (38 mg iron) Tablet
324 mg PO MOWEFR
diclofenac sodium 1 % Gel
2 g TOPICAL Q8HPRN PRN (Reason: lower back pain)
acetaminophen [Pain Relief ES (acetaminophen)] 500 mg Tablet
1,000 mg PO TID Qty: 0 0RF
potassium chloride 20 mEq tablet extended release
20 meq PO DAILY Qty: 30 0RF
polyethylene glycol 3350 17 gram/dose powder
17 g PO DAILY Qty: 510 0RF
famotidine 20 mg Tablet
20 mg PO BID
dapagliflozin propanediol 10 mg Tablet
10 mg PO DAILY Qty: 30 0RF
oxycodone 5 mg tablet
5 mg PO TID Qty: 10 0RF
oxycodone 5 mg Tablet
5 mg PO DAILYPRN PRN (Reason: SEVERE PAIN)
furosemide [Lasix] 80 mg tablet
80 mg PO DAILY Qty: 0 0RF
Discharge Orders:
Discharge Patient (As Directed); Ordered 09/07/25
Ordered By: Veto Ventura
Discharge Date and Time
Discharge Date/Time: 09/07/25 15:29
Print Language: ANDORRAN
== END 2025-09-07 15:29 | disposition home or self-care (01) | DRG 872 ==
LOC: 2 NORTH 10:38
PROVIDERS: Student in an Organized Health Care Education/Training Program; ADMITTING PHYSICIAN Internal Medicine; EMERGENCY PHYSICIAN Emergency Medicine; FAMILY PHYSICIAN Student in an Organized Health Care Education/Training Program
DX: A41.9 Sepsis, unspecified organism (principal); L03.116 Cellulitis of left lower limb; J96.11 Chronic respiratory failure with hypoxia; I50.30 Unspecified diastolic (congestive) heart failure; I13.0 Hypertensive heart and chronic kidney disease with heart failure and stage 1 through stage 4 chronic kidney disease, or unspecified chronic kidney disease; Z68.42 Body mass index [BMI] 45.0-49.9, adult; F03.94 Unspecified dementia, unspecified severity, with anxiety; N39.0 Urinary tract infection, site not specified; Z11.52 Encounter for screening for COVID-19; Z66 Do not resuscitate; Z87.891 Personal history of nicotine dependence; I27.20 Pulmonary hypertension, unspecified; K21.9 Gastro-esophageal reflux disease without esophagitis; E55.9 Vitamin D deficiency, unspecified; M79.7 Fibromyalgia; M48.00 Spinal stenosis, site unspecified; N32.81 Overactive bladder; E66.01 Morbid (severe) obesity due to excess calories; Z99.3 Dependence on wheelchair; I87.2 Venous insufficiency (chronic) (peripheral); I89.0 Lymphedema, not elsewhere classified; D50.9 Iron deficiency anemia, unspecified; Z79.899 Other long term (current) drug therapy
CPT/HCPCS: 71046; 80048; 80053; 83605; 83735; 83880; 85025; 85610; 87040; 87086; 87502; 87811; 93005; 99285

== ENCOUNTER → 2025-09-13 10:32 | Outpatient (REF) | payer OTHER, MEDICARE, SELFPAY ==
[2025-09-13 12:38] LABS: Blood Urea Nitrogen 12 mg/dl (7-17); Calcium 8.8 mg/dl (8.4-10.2); Carbon Dioxide 37 mmol/L (22-30); Chloride 96 mmol/L (98-107); Glucose 81 mg/dl (70-99); Potassium 4.2 mmol/L (3.5-5.1); Sodium 133 mmol/L (135-145); eGFR > 60.00
[2025-09-13 12:48] LABS: Hematocrit 41.1 % (37.0-47.0); Hemoglobin 12.1 g/dL (12.0-16.0); Mean Corp Hgb Conc. 29.4 g/dL (33.0-37.0); Mean Corpuscular Volume 105.7 fL (81.0-99.0); Platelet Count 124 10^3/uL (130-400); Red Cell Dist. Width 14.3 % (11.5-14.5)
== END ==
LOC: OLABN 10:32
PROVIDERS: ATTENDING PHYSICIAN Student in an Organized Health Care Education/Training Program
DX: I10 Essential (primary) hypertension (principal); E87.6 Hypokalemia
CPT/HCPCS: 36415; 80048; 85027

== ENCOUNTER 2025-09-21 12:22 | Outpatient (REF) | payer MEDICARE, OTHER, SELFPAY | END 2025-09-21 23:59 | disposition home or self-care (01) | LOC: WOUND 12:22 | PROVIDERS: ATTENDING PHYSICIAN Surgery; FAMILY PHYSICIAN Family Medicine | DX: C44.719 Basal cell carcinoma of skin of left lower limb, including hip (principal); L97.322 Non-pressure chronic ulcer of left ankle with fat layer exposed; I87.2 Venous insufficiency (chronic) (peripheral) | CPT/HCPCS: G0463; 99203 ==

== ENCOUNTER 2025-09-21 23:34 | Inpatient (IN) | payer MEDICARE, OTHER, SELFPAY ==
[2025-09-21] VITALS (20 sets, daily range): BP systolic 54–93; BP diastolic 26–71; PULSE 3–103
[2025-09-21 21:56] LABS: Hematocrit 45.6 % (37.0-47.0); Hemoglobin 13.8 g/dL (12.0-16.0); Mean Corp Hgb Conc. 30.3 g/dL (33.0-37.0); Mean Corpuscular Volume 106.8 fL (81.0-99.0); Nucleated Red Blood Cells % 0 %; Platelet Count 137 10^3/uL (130-400); Red Cell Dist. Width 14.7 % (11.5-14.5)
[2025-09-21] MEDS: NSS 1000 IV ×2 (22:05→22:06)
[2025-09-21 22:13] LABS: ALT (SGPT) 40 U/L (0-35); AST (SGOT) 35 U/L (14-36); Albumin 3.6 g/dl (3.5-5.0); Alkaline Phosphatase 62 U/L (38-126); Blood Urea Nitrogen 14 mg/dl (7-17); Calcium 9.1 mg/dl (8.4-10.2); Carbon Dioxide 37 mmol/L (22-30); Chloride 95 mmol/L (98-107); Glucose 142 mg/dl (70-99); Potassium 4.2 mmol/L (3.5-5.1); Sodium 134 mmol/L (135-145); Total Protein 6.5 g/dl (6.3-8.2); eGFR > 60.00
[2025-09-21 22:14] LABS: Venous Blood Gas B.E. 9.6 mmol/L (-4 to +4); Venous Blood Gas O2 Sat % 89.4 %
[2025-09-21] MEDS: OFIRMEV 100 IV (22:14)
[2025-09-21 22:20] LABS: COVID-19 Antigen Negative (Negative)
[2025-09-21] MEDS: MAXIPIME 2000 MG IV (22:22)
--- NOTE | 2025-09-21 22:30 | ED.GENMED ---
History of Present Illness
General
Chief Complaint: Fever
Source: patient and family
Exam Limitations: clinical condition
Time Seen by Provider: 09/21/25 21:56
History of Present Illness
History of Present Illness:
Note:
CHIEF COMPLAINT(S)
Redness and swelling of the left lower extremity, fever, and low blood pressure.
HISTORY OF PRESENT ILLNESS
The patient is an 89-year-old female with a recent history of cellulitis of the left leg and was seen today by a contracts specialist. The patients family reports that the leg appeared more red than usual today, a significant change from earlier when it
was not as red. The patient was found to have an increased temperature and low blood pressure. She presented with a fever and hypotension, indicating possible sepsis. She has been on oxygen, and has a history of visits for the same condition. The
family mentioned she met with doctors at [place] regarding basal cell carcinoma but due to poor skin condition, a skin graft procedure was deferred. The patient�s legs show rapid progression in redness, which raises concerns for severe infection.
Her blood pressure shows profound hypotension today, and sepsis is strongly suspected.
PAST MEDICAL AND SURIGICAL HISTORY
The patient has a history of basal cell carcinoma and cellulitis.
ADDITIONAL HISTORY OBTAINED FROM SOURCES OTHER THAN THE PATIENT
Per the family, the patient met with doctors at [place] regarding basal cell carcinoma. According to EMS, the patient was transported with an IV in place.
EXTERNAL RECORDS REVIEWED
Discharge summary from a recent hospitalization was briefly reviewed.
CHRONIC MEDICAL CONDITIONS SIGNIFICANTLY AFFECTING CARE
Basal cell carcinoma.
ALLERGIES
None reported.
REVIEW OF SYSTEMS
- Skin: Redness and swelling of the left lower extremity from the toes to the hip.
- Respiratory: Occasional sonorous respirations.
- Cardiovascular: Hypotensive.
- Gastrointestinal: Reports of no recent nausea or vomiting.
- Neurological: Patient somnolent but responsive to verbal stimulation.
PHYSICAL EXAM
General: Slightly altered but responsive to verbal stimuli, febrile
Skin: Markedly erythematous and swollen left lower extremity from the toes to hip, warm to touch.
Cardiovascular: Heart rate 90 beats per minute, regular rhythm.
Somewhat sonorous respirations at times.
CN's intact.
hypotensive. BP 66 systolic on exam
PROBLEM LIST
Acute:
- Sepsis secondary to cellulitis of the left lower extremity
- Hypotension
- Fever
Chronic:
- Basal cell carcinoma
PLAN
- Initiate intravenous fluids to address hypotension.
- Administer broad-spectrum antibiotics to treat presumed bacterial infection.
- Monitor blood pressure closely and consider vasopressor agents if fluids alone do not stabilize the blood pressure.
- Review previous lab work and consider obtaining additional laboratory panels for comparison.
- Consider imaging, such as CT scan of the leg, to assess for deeper infection or the presence of gas-forming entities if necessary.
DIFFERENTIAL DIAGNOSIS
The Differential Diagnosis includes, in no particular order and is not limited to:
- Cellulitis
- Necrotizing fasciitis
- Deep vein thrombosis
- Compartment syndrome
- Erysipelas
- Thrombophlebitis
- Sepsis secondary to infection
- Peripheral arterial disease
- Chronic venous insufficiency
- Allergic reaction
EKG
My independent EKG interpretation is:
- Time of EKG: [not specified in the art conservator]
- Rhythm: Normal
- Heart Rate: 93 bpm
- Intervals: Normal
- [place]: Normal
- Abnormalities: No acute ischemic changes
Disposition:
SUMMARY OF ENCOUNTER
The patient, an 89-year-old female with a previous history of cellulitis, presented to the emergency department with a markedly erythematous left lower extremity, fever up to 102�F, and hypotension. She recently attended wound care, and her son
noted that her leg was not as red earlier. The patient has a history of chronic hypercarbia, with current CO2 levels at 78 mmHg and pH at 7.31. Oxygen saturation has improved on supplemental oxygen, and positive pressure ventilation may be
considered. She currently requires vasopressors due to a systolic blood pressure of 60 mmHg, despite receiving IV fluids at 30 mL/kg based on ideal body weight. Cultures previously taken showed that the left leg was positive for Proteus,
Pseudomonas, and diphtheroids, guiding the current antibiotic therapy with a 10-day course of cephalexin.
PLAN
- Monitor vital signs, especially blood pressure and oxygenation closely; consider positive pressure ventilation if needed.
- Continue intravenous fluids and vasopressors to maintain hemodynamic stability.
- Continue antibiotics based on previous culture results indicating Proteus, Pseudomonas, and diphtheroids.
- Adjust treatments based on ongoing assessments and improvements or changes in the patients condition.
- Consider additional infectious source work-up if no improvement in clinical status.
INDEPENDENT REVIEW OF LABS AND INTERPRETATION OF TESTS
My independent review of ABG indicates a PCO2 of 78 mmHg and a pH of 7.31 indicating significant hypercapnia and acidosis.
MEDICATION RECONCILIATION
1. Cephalexin: 10-day course prescribed as per previous culture results.
MEDICAL DECISION MAKING
- Number and Complexity of Problems Addressed:
Chronic conditions affecting care include basal cell carcinoma and cellulitis. The differential diagnosis includes cellulitis, necrotizing fasciitis, deep vein thrombosis, compartment syndrome, erysipelas, thrombophlebitis, sepsis secondary to
infection, peripheral arterial disease, chronic venous insufficiency, allergic reaction.
- Data:
Category 1
Reviewed previous records including the discharge summary from a past hospitalization on 09/07.
Category 2
Clinical information obtained from the patients son.
- Risk:
Prescription medication was managed with cephalexin based on prior culture results.
The risk of complications and morbidity/mortality is significant, requiring vasopressors and close monitoring.
Consideration of admission/escalation due to the patients serious sepsis condition.
CRITICAL CARE TIME
I provided 40 minutes of critical care time. Due to a high probability of clinically significant, life-threatening deterioration, the patient required my highest level of preparedness to intervene emergently. I personally spent this critical care
time directly managing the patient. This critical care time included obtaining a history; examining the patient; reviewing pulse oximetry; ordering and review of studies; arranging urgent treatment and developing of a management plan; evaluation of
patients response to treatment; frequent reassessment; and discussions with other providers. This critical care time was performed to assess and manage the high probability of imminent, life-threatening deterioration that could result in multiorgan
failure. It was exclusive of separately billable procedures.
DIAGNOSIS
- Sepsis secondary to cellulitis of the left lower extremity (A41.9)
- Hypotension (I95.89)
- Fever (R50.9)
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
2250 patient blood pressure slowly improving. She does take quite a bit of stimulation to engage. Will recheck pCO2. May need BiPAP. BiPAP not ideal and the patient is hypotensive but I do suspect that there is some element of this that is
related to her hypercarbia. In addition much of it is likely related to her sepsis
Past History
Past History
ED Past Medical History: Cancer (Skin Cancer), CHF, Fibromyalgia, GERD, Psychiatric (Anxiety), Other (Back pain, Herniated disc, GI bleeding Upper and lower, Hiatal hernia, Ulcers. cellulitis, Psoriasis, Anemia, ), Other (Rheumatoid arthritis) and
Other ( chronic pain. Followed by pain management. Currently taking Endocet )
ED Past Surgical History: Cholecystectomy, Gynecological (tubal, ), Orthopedic (Status post right knee replacement x3, status post left wrist fracture repair x 3, Hip surgery) and Other (cataracts)
Social History
Tobacco: Non-smoker
Alcohol: None
Drug: None
Personal:
Living: snf
Employment: Retired
Family History
Family History: Negative Diabetes, Hypertension or CAD
Phy Exam
Physical Exam
Physical Exam:
.
Course
Orders/Labs/Results
Orders:
Orders
09/21/25 21:37
Electrocardiogram (*1) Urgent
Reason for Study: Tachycardia
EKG- Treatment ONCE
09/21/25 21:45
COVID-19 Antigen Urgent
Source: Nasal Swab
Complete Blood Count/With Diff Urgent
Comprehensive Metabolic Panel Urgent
Lactic Acid Urgent
Blood Culture Urgent
CAR Source: Blood/Venous
Specimen Description:
Influenza A+B Rapid Molecular Urgent
CAR Source: Nasal Swab
Specimen Description:
09/21/25 22:05
0.9% Sodium Chloride 1000 ml [Nss] 1,000 ml IV BOLUS
09/21/25 22:06
0.9% Sodium Chloride 1000 ml [Nss] 1,000 ml IV BOLUS
Piperacillin/Tazo 4.5 Gram [Zosyn] 4.5 gram in 100 ml IV NOW
Vancomycin [Vancocin] 2,000 mg 0.9% Sodium Chloride 500 ml [Nss] 500 ml IV NOW
09/21/25 22:07
Venous Blood Gas Urgent
%Oxygen/Room Air: 78
Blood Culture Urgent
CAR Source: Blood/Venous
Specimen Description:
09/21/25 22:12
Acetaminophen 1000MG/100Ml [Ofirmev] 1,000 mg in 100 ml .ROUTE .STK-MED
Acetaminophen 1000MG/100Ml [Ofirmev] 1,000 mg in 100 ml IV ONCE
Acetaminophen IV Indication:: Targeted Temp Management
09/21/25 22:13
Cefepime HCl [Maxipime] 2,000 mg IV NOW STA
09/21/25 22:16
NORepinephrine 4 MG/250 ML [Levophed] 4 mg in 250 ml IV NOW
Initial dose in mcg/min, then titrate:: 5
Titrate to keep:: MAP > 65 mmHg
Titrate by mcg/min:: 1-2 mcg/min
Frequency of titrations (minutes):: 5
Maximum dose in ICU in mcg/min:: 30
Maximum dose in IMU in mcg/min:: 8
Maximum dose in IVU in mcg/min:: 4
Begin to taper infusion when:: Remained at goal for 4hrs
Taper by mcg/min:: 1-2 mcg/min
Frequency of taper (minutes) if patient maintains goal:: 30
Taper to off?: Yes
If infusion off & no longer maintaining goal:: Contact Provider
09/21/25 22:17
NORepinephrine 4 MG/250 ML [Levophed] 4 mg in 250 ml .ROUTE .STK-MED
Sterile Water [Sterile Water For Injection] 10 ml .ROUTE .STK-MED ONE
09/21/25 22:18
CR Chest Portable - 1 View Urgent
Comment:
Reason For Exam: sepsis
Reason Study Needs to be Portable: Patient Unstable
09/21/25 22:19
Vancomycin [Vancocin] 2,000 mg 0.9% Sodium Chloride 500 ml [Nss] 500 ml IV NOW
09/21/25 22:37
MetroNIDAZOLE 500 MG/100 ML [Flagyl 500 mg] 100 ml IV NOW
09/21/25 23:13
ABG [Arterial Blood Gas] Urgent
%Oxygen/Room Air: 2L
09/21/25 23:14
Admit/Transfer Patient As Directed
Co-Sign Provider:
Level of Care: Inpatient admission
Assign to:: ICU
Physician / Group: Ronn
Diagnosis: Septic Shock, Cellulitis
Reason for Hospitalization: Septic Shock, Cellulitis
Expected length of stay greater than two midnights?: Yes
ELOS- Estimated Length of Stay in days: 5
I certify the patient meets the requirements for IP care: Yes
PRN Pain Medication Management As Directed
May give lesser potent ordered pain med per pt: Yes
preference::
Protocol:: Medication orders for pain may be administered in a
manner that supports deferring to patient preference
when the pt is:
- Requesting an ordered lesser potent pain medication.
Least to most potent pain medications are defined
as: acetaminophen < NSAID < tramadol < opioids
(morphine, oxycodone, hydromorphone).
- Requesting a lesser dose of the same medication IF
ORDERED.
- Requesting a less intrusive route of administration
if both routes are prescribed by the provider (PO <
IV).
09/21/25 23:16
Code Status As Directed
Resuscitation Status: Do not resuscitate
Reached after discussion with pt or family/Healthcare POA: Yes
09/21/25 23:18
DNR Bracelet Application ONCE
09/21/25 23:28
Bipap [RESP] Urgent
Patient to use own unit?: No
Inspiratory Pressure (cm H2O): 12
Expiratory Pressure (cm H2O): 5
Oxygen Liter Flow: 2
Abnormal Lab Results
09/21/25 09/21/25 09/21/25
21:45 22:07 23:13
WBC 12.4 H 10^3/uL
(4.8-10.8)
MCV 106.8 H fL
(81.0-99.0)
MCH 32.3 H pg
(27.0-31.0)
MCHC 30.3 L g/dL
(33.0-37.0)
RDW 14.7 H %
(11.5-14.5)
Absolute Neuts (auto) 11.3 H 10^3/uL
(1.4-6.5)
Absolute Lymphs (auto) 0.8 L 10^3/uL
(1.2-3.4)
Neutrophils % 91.5 H %
(42.2-75.2)
Lymphocytes % 6.1 L %
(20.5-51.1)
pH 7.26 L
(7.35-7.45)
pCO2 71 H* mmHg
(32-35)
pO2 78 L mmHg
(83-108)
HCO3 31.9 H mmol/L
(-28)
VBG pH 7.31 L
(7.32-7.43)
VBG pCO2 78 H* mmHg
(35-48)
VBG pO2 60 H mmHg
(30-50)
VBG HCO3 39.3 H mmol/L
(22-27)
Sodium 134 L mmol/L
(135-145)
Chloride 95 L mmol/L
(98-107)
Carbon Dioxide 37 H mmol/L
(22-30)
Glucose 142 H mg/dl
(70-99)
ALT 40 H U/L
(0-35)
09/21/25 21:45
09/21/25 21:45
Vital Signs
Initial and Last Documented VS:
Initial Vital Signs
BP
89/43
09/21/25 21:37
Last Documented Vital Signs
Temp Pulse Resp BP Pulse Ox
102 F H 110 21 87/67 93
09/21/25 21:53 09/21/25 22:50 09/21/25 22:50 09/21/25 22:50 09/21/25 22:50
Procedures
Central Line
Right Femoral:
Indication for procedure:: septic shock
Procedure completed by: Dr Woodard
Consent form signed: No
If no, reason: Emergency procedure
Anesthesia: 1% Lidocaine
Central line lumen: triple
Number of attempts: 1
Central line complications: none
Sterile dressing applied?: Yes
Additional information:
Ultrasound-guided
*Pulse Oximetry
SaO2: 78
Oxygen Mode of Delivery: Room air
Patient hypoxic: yes
*Critical Care Note
Total Time (30-74mins, 75-104mins- exclusive of procedures): 60 minuntes
Patient Management
Discussion with other providers: Hospitalist
ED Attending Note
-
Portions of this chart may have been created with voice recognition software.� Occasional wrong word or��sound alike� substitutions may have occurred due to the inherent limitations of voice recognition software.
Discharge Plan
Departure
Patient Disposition: Admit
Date of Disposition: 09/21/25
Time of Disposition: 22:38
Admit to: ICU
Presentation/result/management discussed w/ accepting MD/DO: Hospitalist
Discharge Problem:
Septic shock, Cellulitis, Acute and chronic respiratory failure with hypercapnia
Interventions
Interventions:
*Risk Screen - Suicide Last Done: 09/21/25 21:40
*General Assessment Last Done: 09/21/25 21:40
*Neglect/Abuse Screening Last Done: 09/21/25 21:40
*ED- Fall Risk Assessment Last Done: 09/21/25 21:40
*ED COVID-19 Vaccine History Last Done: 09/21/25 21:40
*ED Influenza Vaccine History Last Done: 09/21/25 21:40
ED- Neurological Assessment Last Done: 09/21/25 21:41
ED-Skin Assessment Last Done: 09/21/25 21:41
[2025-09-21] MEDS: LEVOPHED 250 IV (22:36)
[2025-09-21] MEDS: VANCOCIN 540 MG IV (22:46)
[2025-09-21 23:19] LABS: B.E. 2.8 mmol/L; HCO3 31.9 mmol/L (21-28); O2 Saturation % 95.8 % (94-98); PO2 78 mmHg (83-108)
[2025-09-21 23:20] LABS: PCO2 71 mmHg (32-35)
--- NOTE | 2025-09-21 23:38 | HPS.HSE ---
Family Physician
-
Family Physician: Jean Sandoval,
Chief Complaint
-
Fever, Cellulitis
History of Present Illness
Patient is an 89y F with PMH significant for ASCVD / PAD, hypertension, chronic O2 dependence and recent issues with LLE cellulitis who presents to ED from local ID for evaluation of LLE redness and swelling, fever and hypotension. History
obtained from son at the bedside, ID record and ED staff. Patient was hospitalized here 08/16 - 08/18 and 09/02 - 09/07 for LLE cellulitis. She completed her most recent course of abx on 09/12 - but was restarted on Keflex (500mg BID) on 09/19 due
to recurrent / worsening redness and swelling. Son notes that patient was seen earlier today [facility] and LE was fairly well-appearing. Upon return to the ID this evening, staff and family noted marked increase in redness of
the entire LLE. Patient was increasingly somnolent / poorly responsive and was noted at ID to have fever and hypotension. She was sent to the ED for further evaluation and treatment.
At the time of my examination, patient is unresponsive in the ED. She is tachypneic with rapid, shallow respirations and drooling.
Medical History
Past Medical History
Past Medical History: Reports Other
Additional Past Medical History:
Chronic hypoxemic respiratory failure
HFpEF
PAD
Lymphedema
Vitamin D deficiency
Spinal stenosis
Primary hypertension
Overactive bladder
Chronic anemia
Fibromyalgia
Dementia
GERD
Past Surgical History: Reports Other
Additional Past Surgical History:
Bilateral total knee replacement
status post left wrist fracture repair x 3
Hip surgery
Social History
Tobacco: Former Smoker
Alcohol: Former
Drug: None
Living: Assisted Living
Employment: Retired
Family History
Family History: Not pertinent
Allergies / Home Medications
Allergies reflects when Allergies were last updated in [facility].
Home Medications with original date entered in [facility]
Allergy/Medication List:
Allergies
Allergy/AdvReac Type Severity Reaction Status Date / Time
No Known Drug Allergies Allergy Unknown Verified 09/02/25 07:19
Home Medications
ascorbic acid (vitamin C) 500 mg tablet 500 mg PO MOWEFR@0830,1830 Supplement 11/09/23
bisacodyl 10 mg rectal suppository (Dulcolax (bisacodyl)) 10 mg AR [id number] PRN IF NO BM AFTR MOM 11/09/23
diclofenac sodium 1 % topical gel 2 g topical [id number] PRN lower back pain 11/09/23
ferrous gluconate 324 mg (38 mg iron) tablet 324 mg PO MOWEFR Supplement 11/09/23
gabapentin 300 mg capsule 300 mg PO TID MILD Pain 11/09/23
magnesium hydroxide 400 mg/5 mL oral suspension (Milk of Magnesia) 30 ml PO HSPRN PRN constipation 11/09/23
acetaminophen 500 mg tablet (Pain Relief Extra Strength (acetaminophen)) 1,000 mg (2 x 500 mg) PO TID #0 tabs 11/14/23
polyethylene glycol 3350 17 gram/dose oral powder 17 g PO DAILY #510 grams 11/14/23
potassium chloride 20 mEq tablet,extended release 20 meq PO DAILY #30 tabs 11/14/23
famotidine 20 mg tablet 20 mg PO BID Gastrointestinal Issue 05/20/24
dapagliflozin propanediol 10 mg tablet 10 mg PO DAILY #30 tabs 05/24/24
oxycodone 5 mg tablet 5 mg PO TID Pain #10 tabs 05/24/24
oxycodone 5 mg tablet 5 mg PO DAILYPRN PRN SEVERE PAIN 08/16/25
furosemide 80 mg tablet (Lasix) 80 mg PO DAILY Fluid retention/Swelling #0 tabs 09/07/25
cephalexin 500 mg capsule 500 mg PO BID cellulitis 09/21/25
Review of Systems
-
Unable to obtain full review of systems at this time due to: Patient Non-verbal
History Source: Family, [facility] and Physician
Constitutional: Reports Fever
EENT: Denies Sore Throat
Respiratory: Denies Cough
Abdomen/GI: Denies Abdominal Pain, Nausea, Vomiting or Diarrhea
Musculoskeletal: Reports Edema
Skin: Reports Other (Redness / swelling)
Physical Exam
Vital Signs
Vital Signs
Temp Pulse Resp BP Pulse Ox
102 F H 110 21 87/67 93
09/21/25 21:53 09/21/25 22:50 09/21/25 22:50 09/21/25 22:50 09/21/25 22:50
Physical Exam
General: Other (Ill-appearing 89y F with rapid, shallow respirations / drooling. Not responsive to verbal or noxious stimuli.)
HEENT: Other (Thick neck, MMM.)
Respiratory: Other (Decreased BS at both bases. No focal W/R/R.)
Cardiac: S1/S2 and Tachycardia; No Murmur
GI: Other (Obese, no apparent tenderness. Pos BS.)
Musculoskeletal: Other (LLE with erythema, increased warmth and induration from the toes to the groin. Small wound medial ankle without bleeding / discharge.)
Laboratory Results
-
09/21/25 21:45
09/21/25 21:45
Laboratory Results
pH 7.26 (7.35-7.45) L 09/21/25 23:13
pCO2 71 mmHg (32-35) H* 09/21/25 23:13
pO2 78 mmHg (83-108) L 09/21/25 23:13
HCO3 31.9 mmol/L (21-28) H 09/21/25 23:13
Lactic Acid 1.2 mmol/L (0.7-2.0) 09/21/25 21:45
Total Bilirubin 1.3 mg/dl (0.2-1.3) 09/21/25 21:45
AST 35 U/L (14-36) 09/21/25 21:45
ALT 40 U/L (0-35) H 09/21/25 21:45
Alkaline Phosphatase 62 U/L (38-126) 09/21/25 21:45
Impression/Plan
-
A/P: Patient is an 89y F with PMH significant for PAD, lymphedema, HFpEF, chronic hypoxemic respiratory failure on home O2, morbid obesity and chronic opioid dependence who presents to ED from local ID for evaluation of LLE redness, swelling,
fever and hypotension.
LLE Cellulitis
Septic Shock secondary to the above
- Admit to ICU for further evaluation and treatment.
- Patient presents with LLE cellulitis by exam and evidence of end-organ dysfunction in the form of acute TME, acute respiratory failure requiring NIV and hypotension requiring pressor support.
- Additional 1 liter of NSS to complete sepsis fluid bolus.
- Continue pressor support and titrate as needed for MAP > 65.
- IV Vanco / cefepime for now. Follow for any positive culture data, fever curve changes or clinical response.
- Blood cultures from prior visits (08/16 and 09/02) were negative.
- ID evaluation given third hospitalization for LLE cellulitis with increasing severity of illness.
- ? additional evaluation, imaging of LLE once patient clinically more stable.
- Graphic Arts Instructor evaluation for additional recommendations.
- Wound care evaluation for local care recommendations.
Acute TME secondary to sepsis
- Patient poorly responsive in the ED.
- Likely combination of sepsis, hypercapnic respiratory failure +/- chronic opioid dependence.
- Sepsis treatment as noted above. BiPAP for hypercapnia.
- Oxycodone on hold acutely. IV Dilaudid as needed for pain / withdrawal symptoms.
- Follow for clinical improvement.
Acute Hypercapnic Respiratory Failure
Chronic Hypoxemic Respiratory Failure
- ABG done in the ED shows pCO2 = 71 with slightly decreased pH (7.26).
- Given mental status change as noted above (and inability to entertain intubation / mechanical ventilation as per patient's wishes) will trial NIV and follow for clinical improvement.
- Continue BiPAP HS and PRN during stay.
- Patient was on NIV similarly during prior admission - though she began to refuse intervention once she was more alert.
- Continue usual O2 support - oxygenation is adequate on usual 2 lpm supplementation.
- Pulm / Graphic Arts Instructor evaluation as noted above.
Chronic HFpEF
- Patient likely with degree of volume overload based on weight, CXR appearance, etc.
- Regardless, holding diuretic / antihypertensive medications acutely given sepsis / shock.
- Follow I/Os, daily weights, etc.
- Will likely benefit from eventual diuresis once hemodynamic status is improved.
- Echo done 07/2025 showed preserved LVEF and mild pulmonary hypertension.
Spinal Stenosis
Fibromyalgia
Chronic Pain Syndrome
Chronic Opioid Dependence
- ? to what extent chronic opioid use is contributing to current TME.
- Usual meds on hold while NPO.
- IV pain medications as needed for complaints of pain / evidence of withdrawal.
- Resume usual med regimen when able. Gradually decrease standing dosing as able.
Morbid Obesity due to excess calories
- Affects all aspects of care - including chronic lymphedema / increased risk for recurrent cellulitis, etc.
DVT Prophylaxis: Lovenox
Code Status: DNR / DNI confirmed with family at bedside.
[2025-09-22] VITALS (57 sets, daily range): BP systolic 52–154; BP diastolic 21–135; PULSE 3–90; BMI 39.3
[2025-09-22] MEDS: NSS 1000 IV
[2025-09-22] MEDS: FLAGYL 500 MG 100 IV (01:28)
[2025-09-22 02:22] LABS: Glucose - Point of Care 142 mg/dl (70-99)
--- NOTE | 2025-09-22 03:21 | PTCARENOTE ---
Addendum entered by Kalyn Morrow RN 09/22/25 03:57:
Levophed at 5 mcg/min not kg/hr
Original Note:
Received patient in room 3362 from ED RN via stretcher. Pt's on Levophed at 5 mcg/kg/hr. Patient groans to activity, but does not follow simple commands. Pupils are +1. Moves all extremities with difficulty noted on LLE compared to right LLE. DP's
% PT's are present with a doppler. + 2 edema to RLE, and +3 edema to LLE. Cellulitis to entire LLE- warm, red, and blanchable to the touch. Diminished breath sounds. Rt femoral TLC is patent, dry and intact. SpO2 @ 97% on BiPAP 166 with rate of 12.
+ BS. Abdomen is round and obese. Left lateral abd with bruise, and right groin with MASD. The patient has a healing wound with small open area to her left shoulder, a wound between her third and 4 left toe, and scattered bruises to bilateral
arms.BLE is flakey. Silicone border foam placed for protect. Sweeney catheter is draining [place] urine. Patient cleaned. Bed alarm in use. Call martinez is within reach. Full assessment as noted on the worklist.
[2025-09-22 04:49] LABS: Hematocrit 43.7 % (37.0-47.0); Hemoglobin 13.0 g/dL (12.0-16.0); Mean Corp Hgb Conc. 29.7 g/dL (33.0-37.0); Mean Corpuscular Volume 108.2 fL (81.0-99.0); Platelet Count 129 10^3/uL (130-400); Red Cell Dist. Width 15.2 % (11.5-14.5)
[2025-09-22 05:16] LABS: ALT (SGPT) 35 U/L (0-35); AST (SGOT) 28 U/L (14-36); Albumin 3.2 g/dl (3.5-5.0); Alkaline Phosphatase 60 U/L (38-126); Blood Urea Nitrogen 12 mg/dl (7-17); Calcium 8.1 mg/dl (8.4-10.2); Carbon Dioxide 30 mmol/L (22-30); Chloride 104 mmol/L (98-107); Estimated Creatinine Clearance 69 ml/min; Glucose 151 mg/dl (70-99); Magnesium 1.9 mg/dl (1.6-2.3); Potassium 3.8 mmol/L (3.5-5.1); Sodium 137 mmol/L (135-145); Total Protein 6.1 g/dl (6.3-8.2); eGFR > 60.00
[2025-09-22 05:30] LABS: B.E. 3.2 mmol/L; HCO3 30.9 mmol/L (21-28); O2 Saturation % 99.0 % (94-98); PCO2 60 mmHg (32-35); PO2 104 mmHg (83-108)
--- NOTE | 2025-09-22 05:34 | PTCARENOTE ---
Patient reassessed. Awake and oriented x2. Answers questions appropriately and able to make her needs known. Oriented patient to situation and reasoning for the hospital. Pt verbalized that she hasn't been feeling well for the past few days.
Positive reinforcement utilized. Pt's son, Saroj called and was updated via the telephone. Patient remains on BiPAP.
[2025-09-22] MEDS: MAXIPIME 2000 MG IV (06:06)
[2025-09-22] MEDS: STERILE WATER FOR INJECTION 10 ML IV (06:06)
--- NOTE | 2025-09-22 07:06 | CON.INTV ---
Consultation
Consultation Request
Date/Time Consultation Requested: 09/22
Date/Time Consultation Performed: 09/22
Reason for Consultation: Critical care
Medical History
-
History of Present Illness:
History obtained from the patient, son at bedside and the chart. Patient is able to give some history as she is not awake with BiPAP in place. 89-year-old female with history of hypertension, chronic oxygen at home, presents with left lower
extremity cellulitis from [facility]. Patient with history of fever, low blood pressure. Recent hospital stay twice in the last 2 months for left lower extremity cellulitis noted, recently completed antibiotics in August but resumed because of
worsening swelling and redness. Because of change in mental status and fevers, patient was sent to ED. Upon arrival, temperature 102, blood pressure 89/43, breathing at 21, 93%. There was also noted about rapid shallow breathing. 78% on room
air. Patient was given IV fluids, placed on BiPAP, started IV vancomycin and cefepime. Patient was admitted to ICU for further management
Presently she is awake, following commands and conversant through the BiPAP mask
According to the son, patient has been diagnosed with basal cell cancer in the left leg, had seen [facility] and it was thought to be too risky to remove given concern regarding healing. She was seen in the wound center on the day
prior to admission and was also told that healing may be an issue and compressions stockings may be helpful with the lymphedema.
Patient has been on oxygen therapy for the past 2 months
.
PMH: Peripheral arterial disease, chronic lymphedema, history of heart failure, chronic hypoxia on home oxygen, morbid obesity with suspected chronic hypercapnia, spinal stenosis, fibromyalgia with chronic pain syndrome and opioid dependence,
dementia, GERD, hypertension
Past Medical History
Past Medical History: None (See above)
Past Surgical History: None (See above)
Social History
Tobacco: Former Smoker
Alcohol: Former
Drug: None
Living: Assisted Living
Employment: Retired
Family History
Family History: Reviewed & Not Pertinent
Allergies / Home Medications
Allergies
Allergy/AdvReac Type Severity Reaction Status Date / Time
No Known Drug Allergies Allergy Unknown Verified 09/02/25 07:19
Home Medications
�Medication �Instructions �Recorded �Confirmed �Last Taken �Type
ascorbic acid (vitamin C) 500 mg 500 mg PO MOWEFR@0830,1830 11/09/23 09/21/25 11/08/23 18:30 History
tablet Supplement
bisacodyl 10 mg rectal suppository 10 mg WI [id number] PRN IF NO BM AFTR 11/09/23 09/21/25 Unknown History
(Dulcolax (bisacodyl)) MOM
diclofenac sodium 1 % topical gel 2 g topical Q8HPRN PRN lower back 11/09/23 09/21/25 Unknown History
pain
ferrous gluconate 324 mg (38 mg 324 mg PO MOWEFR Supplement 11/09/23 09/21/25 11/08/23 08:30 History
iron) tablet
gabapentin 300 mg capsule 300 mg PO TID MILD Pain 11/09/23 09/21/25 08/16/25 History
magnesium hydroxide 400 mg/5 mL 30 ml PO HSPRN PRN constipation 11/09/23 09/21/25 Unknown History
oral suspension (Milk of Magnesia)
acetaminophen 500 mg tablet (Pain 1,000 mg (2 x 500 mg) PO TID #0 11/14/23 09/21/25 08/16/25 Rx
Relief Extra Strength tabs
(acetaminophen))
polyethylene glycol 3350 17 17 g PO DAILY #510 grams 11/14/23 09/21/25 08/16/25 Rx
gram/dose oral powder
potassium chloride 20 mEq 20 meq PO DAILY #30 tabs 11/14/23 09/21/25 08/16/25 Rx
tablet,extended release
famotidine 20 mg tablet 20 mg PO BID Gastrointestinal Issue 05/20/24 09/21/25 08/16/25 History
dapagliflozin propanediol 10 mg 10 mg PO DAILY #30 tabs 05/24/24 09/21/25 08/16/25 Rx
tablet
oxycodone 5 mg tablet 5 mg PO TID Pain #10 tabs 05/24/24 09/21/25 08/16/25 Rx
oxycodone 5 mg tablet 5 mg PO DAILYPRN PRN SEVERE PAIN 08/16/25 09/21/25 Unknown History
furosemide 80 mg tablet (Lasix) 80 mg PO DAILY Fluid 09/07/25 09/21/25 Unknown Rx
retention/Swelling #0 tabs
cephalexin 500 mg capsule 500 mg PO BID cellulitis 09/21/25 09/21/25 Unknown History
Review of Systems
-
Unable to Obtain full review of systems at this time due to: Dementia and Acuity
All other systems: Negative unless noted
Vitals / Labs / Diagnostic Testing
Vital Signs
Temp Pulse Resp BP Pulse Ox
100 F 65 19 114/53 95
09/22/25 02:00 09/22/25 06:30 09/22/25 06:30 09/22/25 06:30 09/22/25 06:30
Lab Data
09/22/25 04:35
09/22/25 04:35
Laboratory Results
09/21/25 09/22/25
23:13 05:15
pH 7.26 L 7.32 L
pCO2 71 H* 60 H
pO2 78 L 104
HCO3 31.9 H 30.9 H
O2 Delivery Level
Microbiology
09/21/25 21:45 Nasal Swab Influenza Types A & B (BRIGITTE) - Final
Negative for Influenza A & B, NAAT
Negative results must be combined with clinical observations
and patient history.
Nucleic Acid Amplification test (NAAT)performed on the
[email or web address] platform.
Diagnostic Testing:
Physical Exam
-
HEENT: Normocephalic, Anicteric, Other (Kyphoscoliosis) and Other (Large neck)
Cardiovascular: S1/S2, Regular Rhythm, Murmur (2/6 systolic murmur) and Other (Right groin line)
Respiratory: Wheeze (n), Rales (n), Rhonchi (n) and Non-Labored Respirations
GI: Soft, Non Distended (Morbidly obese) and Non Tender
Neurology: Awake, Alert and Other (Generally weak, moves extremities)
Skin: Other (Left lower extremity erythema and swelling, no warmth)
General: Comfortable
Assessment
-
89-year-old female with history of chronic lymphedema, peripheral arterial disease, morbid obesity with recurrent left lower extremity cellulitis multiple courses of antibiotics for the past few months, presents with hypotension, change in mental
status, admitted to ICU for further management
Sepsis with hypotension
Responded to IV fluids
Acute hypoxic respiratory insufficiency, 78% room air
Patient on oxygen therapy as of 2 months ago
Left lower extremity cellulitis
Recurrent over the last few months
Chronic lymphedema
Mental status changes
Hypercapnia, hypoxia
Requiring BiPAP
Hyperglycemia
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
PA pressure 43
Mildly dilated RV with mildly decreased function
Normal LV
Conditions present prior to admission
Chronic pain syndrome
Chronic narcotic therapy
Fibromyalgia
History of heart failure, normal EF
Morbid obesity
Dementia
DNR
Plan/recommendations
At this time, patient is critically ill
She seems to have responded to IV fluids, IV antibiotics, BiPAP
She presented with rapid shallow breathing, lethargy, unresponsiveness
Now she is awake, following commands
Blood pressure has improved
Negative fluid balance is noted
Chest x-ray without acute findings
Moving forward
Continue with supportive care
IV fluids will continue with boluses as needed
Normal EF noted
Wean off norepinephrine
Femoral line in place at this time
Consider discontinuation in the next 24 to 48 hours depending on clinical status
Although she presented 78% on room air, suspect this was from hypoventilation
Follow oxygen requirement
Currently adequate
Chronic hypoxia at home noted
Chronic hypercapnia noted per prior blood gas analysis
Given pulm hypertension,
IV antibiotics continue. Currently on vancomycin, Ancef added
ID is following
Follow-up blood sugars
Withhold narcotic therapy for lethargy/sedation
GI prophylaxis: Remains on Protonix at this time
DVT prophylaxis: On Lovenox
Patient is DNR
Reviewed with critical care nursing
Reviewed with son at bedside
TCCT 35 min
--- NOTE | 2025-09-22 07:42 | PHA.VAN.IN ---
Assessment
- Assessment
Renal Function: Appears similar to baseline
Renal Function may be Overestimated due to: age
Maximum Temperature: 102F
Concomitant Antimicrobials: cefepime
AUC Dosing Plan
- Dosing Variables
Dosing Weight (kg): 97.4
Dosing CrCl (ml/min): 69
Vd coefficient (L/kg): 0.6
- Empiric Dosing
Initial / Loading Dose: 2000mg
Maintenance Regimen: 1000mg q12h
Estimated AUC (mcg*h/mL): 572
Estimated Peak (mcg*h/mL): 32.7
Estimated Trough (mcg/ml): 16.6
Estimated Half Life (H): 11.2
- Monitoring
No levels ordered at this time: consider next few days
Pharmacokinetics Vancomycin I
- -
Patient Age: 89
Patient Sex: Female
Vancomycin Day #: 1
Indication: Skin And Soft Tissue
Requesting Provider: Dr. Brody
Pertinent Antimicrobial Allergies:
nkda
Height / Weight:
Height 5 ft 2 in
Actual Weight 97.4 kg
IBW in k.1
- Vital Signs / Lab Results
Temp Pulse Resp BP Pulse Ox
97.8 F 65 19 114/53 95
09/22/25 07:29 09/22/25 06:30 09/22/25 06:30 09/22/25 06:30 09/22/25 06:30
Lab Results - Hematology
09/21/25 09/22/25
21:45 04:35
WBC 12.4 H 13.2 H
Lab Results - Chemistry
09/21/25 09/22/25
21:45 04:35
BUN 14 12
Creatinine 0.6 0.4 L
Estimated Creat Clear 69
Albumin 3.6 3.2 L
10/31/25 11/01/25
21:45 04:35
Lactic Acid 1.2 1.1
Microbiology Results
09/21/25 21:45 Influenza Types A & B (BRIGITTE) - Final
Nasal Swab Negative for Influenza A & B, NAAT
Negative results must be combined with clinical observations
and patient history.
Nucleic Acid Amplification test (NAAT)performed on the
[employer] platform.
--- NOTE | 2025-09-22 07:45 | CON.ID ---
Consultation
-
Date/Time Consultation Requested: 09/22/2025 0200
Date/Time Consultation Performed: 09/22/2025 0746
Requesting Provider: Dr. Brody
Performing Provider: Dr. Kilgore
Reason for Consultation: Left lower extremity cellulitis
Chief Complaint / Past History
History of Present Illness
Mindy Simmons is an 89-year-old female with a significant past medical history of lower extremity lymphedema, obesity and HFpEF being evaluated at the request of Dr. Brody in regards to left lower extremity cellulitis. History is obtained from chart
review, along with patient interview.
The patient resides at a local intermediate and recently was seen in the [facility] for a distal left lower extremity wound. Upon returning to the nursing facility she was found to have fever and a low blood pressure and she was brought to the ER for
further evaluation. Here she was found to have a leukocytosis and a left lower extremity which was markedly erythematous. She has been started on empiric antibiotics. Additionally, she has been placed on pressor support for hypotension.
Infectious Diseases is asked to comment on further antibiotic management.
At this time, she reports left lower extremity discomfort to palpation.
Of note, the patient evidently has a history of multiple prior episodes of cellulitis, most recently in mid August. Prior use of lower extremity compressive modalities is not available to me at this time.
Past History
Additional Past Medical History:
Chronic hypoxemic respiratory failure (2 to 4 L baseline)
HFpEF
Lymphedema
GERD
Hypertension
Hyperlipidemia
Iron deficiency anemia
Morbid obesity
Basal cell carcinoma
Additional Past Surgical History:
Bilateral total knee replacement
status post left wrist fracture repair x 3
Hip surgery
Allergy History:
No Known Drug Allergies Allergy (Verified 09/02/25 07:19)
Unknown
Medications Reviewed: Yes
Current Antibiotics:
Vancomycin (dosing per pharmacy)
Cefepime 2 gm IV q.8 hours
Social History
Tobacco: Former Smoker
Alcohol: Former
Drug: None
Personal: Single
Living: Assisted Living
Employment: Retired
Family History
Family History: Not Pertinent
Review of Systems
Vital Signs
Temp Pulse Resp BP Pulse Ox
97.8 F 65 19 114/53 95
09/22/25 07:29 09/22/25 06:30 09/22/25 06:30 09/22/25 06:30 09/22/25 06:30
Physical Exam
Physical Exam
Constitutional: No Acute Distress, Comfortable, Chronically Ill, Non-toxic and Obese
Eyes: No Conjunctival Hemorrhage and Sclera Anicteric
Oral: No Thrush and No Ulcers
Cardiovascular: Regular Rate and S1/S2; Negative S3/S4
Pulmonary: Clear and Other (BiPAP in place.); Negative Wheezes or Rales
Gastrointestinal: Soft, Non Tender, Non Distended, Normal Bowel Sounds, No Rebound and No Guarding
Extremities: Edema (Bilateral lower extremities; R >L) and Erythema (Marked erythema of left lower extremity; foot to mid thigh with medial thigh tracking.)
Wound: Other (Medial distal left lower extremity; approximately 1.5 cm; superficial and without purulence or drainage.)
Neurological: Awake and Alert
Psychological: Calm
Lab / Diagnostic Study Results
09/22/25 04:35
09/22/25 04:35
Abs Immat Gran (auto) 0.0 10^3/uL (0-0.05) 09/21/25 21:45
Absolute Neuts (auto) 11.3 10^3/uL (1.4-6.5) H 09/21/25 21:45
Absolute Lymphs (auto) 0.8 10^3/uL (1.2-3.4) L 09/21/25 21:45
Absolute Monos (auto) 0.2 10^3/uL (0.1-0.6) 09/21/25 21:45
Absolute Basos (auto) 0.0 10^3/uL (0-0.2) 09/21/25 21:45
Immature Gran % 0.3 % (0-0.5) 09/21/25 21:45
Neutrophils % 91.5 % (42.2-75.2) H 09/21/25 21:45
Lymphocytes % 6.1 % (20.5-51.1) L 09/21/25 21:45
Monocytes % 1.9 % (1.7-9.3) 09/21/25 21:45
Eosinophils % 0.1 % (0-6) 09/21/25 21:45
Basophils % 0.1 % (0-2) 09/21/25 21:45
Lactic Acid 1.1 mmol/L (0.7-2.0) 09/22/25 04:35
Microbiology Results
Micro:
09/22/25 04:35 MRSA Screen - Pending
Nose
09/21/25 21:45 Blood Culture - Pending
Blood/Venous
09/21/25 21:45 Influenza Types A & B (BRIGITTE) - Final
Nasal Swab Negative for Influenza A & B, NAAT
Negative results must be combined with clinical observations
and patient history.
Nucleic Acid Amplification test (NAAT)performed on the
[employer] platform.
09/21/25 22:07 Blood Culture - Pending
Blood/Venous
Imaging:
09/21/2025 CXR (portable): low lung volumes noted. Chronic atelectasis/scarring within the right midlung and left lung base. New right basilar airspace opacity. No pleural effusion or pneumothorax.
Assessment / Plan
Severe left lower extremity SSTI
Left lower extremity wound; likely entry point for above
Chronic lymphedema
Leukocytosis
Fever
Clinical sepsis
Chronic hypoxemic respiratory failure (2 to 4 L baseline)
HFpEF
Lymphedema
GERD
Hypertension
Hyperlipidemia
Iron deficiency anemia
Morbid obesity
Basal cell carcinoma
Recommendations:
Continue with vancomycin for the present. Follow trough levels closely to prevent nephrotoxicity.
Discontinue further cefepime and begin cefazolin in coverage of strep and MSSA.
Monitor white count and temperature curve.
Lower extremity Gonzales wrap (foot to above knee)
Lower extremity elevation to facilitate lymphatic drainage.
Follow pending blood cultures.
Continue with supportive measures.
Wean pressors as possible.
Further recommendations as additional data is returned.
Patient critically ill in intensive care unit on pressor therapy.
--- NOTE | 2025-09-22 07:54 | PTCARENOTE ---
0700 assumed care. pt on BIPAP 16/6/5L. Levophed at 5 mcg Awake and alert. Denies pain , chest discomfort, abdominal discomfort. Indwelling Sweeney, RT TL Femoral line. BP via left upper arm: 113/58 MAP 94; NSR 77; RR 15; 95%/Bipap 16/6/5L. Levophed
decreased from 5 to 3; Awake and alert. Son at bedside, updates provided
--- NOTE | 2025-09-22 08:04 | W.PN.HOSP.TC ---
Today's Communication/Plan
-
See plan
Assessment / Plan
Assessment / Plan
Physical Exam
General:Not in acute distress
HEENT: Normocephalic
Respiratory: CTAB
Cardiac: S1/S2 and RRR
GI: Soft. Non distended. Positive bowel sounds.
Musculoskeletal: Other (LLE with erythema, increased warmth and induration from the toes to the groin. Small wound medial ankle without bleeding/discharge)
Assessment/Plan
89 y/o female with past medical history significant for ASCVD / PAD, hypertension, chronic O2 dependence and recent issues with LLE cellulitis who presented to ED from local ID for evaluation of LLE redness and swelling, fever and hypotension.
Patient was hospitalized here 08/16 - 08/18 and 09/02 - 09/07 for LLE cellulitis. She completed her most recent course of abx on 09/12 - but was restarted on Keflex (500mg BID) on 09/19/25 due to recurrent / worsening redness and swelling. Son noted
that patient was seen earlier on 09/21/25 by [facility] here at [facility] and LE was fairly well-appearing. Upon return to the ID, staff and family noted marked increase in redness of the entire LLE. Patient was increasingly somnolent / poorly
responsive and was noted at ID to have fever and hypotension. She was sent to the ED for further evaluation and treatment.
In the ED, patient was initially unresponsive, and she was also tachypneic with rapid, shallow respirations and drooling.
LLE Cellulitis
Septic Shock secondary to the above
- Patient presents with LLE cellulitis by exam and evidence of end-organ dysfunction in the form of acute TME, acute respiratory failure requiring NIV and hypotension requiring pressor support.
- Received IV fluid boluses
- Continue pressor support and titrate as needed for MAP > 65.
- IV Vancomycin/Cefazolin for now. Follow for any positive culture data, fever curve changes or clinical response.
- Blood cultures from prior visits (08/16 and 09/02) were negative.
- ID evaluation given third hospitalization for LLE cellulitis with increasing severity of illness.
- ? additional evaluation, imaging of LLE once patient clinically more stable.
- Vp Genetic evaluation for additional recommendations.
- Wound care evaluation for local care recommendations.
- Femoral line in place
Presentation with rapid shallow breathing, lethargy, unresponsiveness
Acute TME secondary to sepsis
- Patient poorly responsive in the ED.
- Likely combination of sepsis, hypercapnic respiratory failure +/- chronic opioid dependence.
- Sepsis treatment as noted above. She seems to have responded to IV fluids, IV antibiotics, BiPAP
- Oxycodone on hold acutely. IV Dilaudid as needed for pain / withdrawal symptoms.
- Follow for clinical improvement.
Acute Hypercapnic Respiratory Failure
Chronic Hypoxemic Respiratory Failure
- On 3 L at home
- ABG done in the ED showed pCO2 = 71 with slightly decreased pH (7.26).
- Given mental status change as noted above (and inability to entertain intubation / mechanical ventilation as per patient's wishes) NIV was tried with resulting improvement
- Continue BiPAP HS and PRN during stay.
- Patient was on NIV similarly during prior admission - though she began to refuse intervention once she was more alert.
- Continue usual O2 support - oxygenation is adequate on usual 2 lpm supplementation.
- Pulm / Vp Genetic evaluation as noted above.
- Withhold her chronic opioid/narcotic therapy
Chronic HFpEF
- Patient likely with degree of volume overload based on weight, CXR appearance, etc.
- Regardless, holding diuretic / antihypertensive medications acutely given sepsis / shock.
- Follow I/Os, daily weights, etc.
- Will likely benefit from eventual diuresis once hemodynamic status is improved.
- Echo done 07/2025 showed preserved LVEF and mild pulmonary hypertension.
Spinal Stenosis
Fibromyalgia
Chronic Pain Syndrome
Chronic Opioid Dependence
- ? to what extent chronic opioid use is contributing to current TME.
- Usual meds on hold while NPO.
- IV pain medications as needed for complaints of pain / evidence of withdrawal.
- Resumed Gabapentin, continue to hold Oxycodine
Morbid Obesity due to excess calories
- Affects all aspects of care - including chronic lymphedema / increased risk for recurrent cellulitis, etc.
DVT Prophylaxis: Lovenox
Code Status: DNR / DNI
On 09/22/25, I spoke to patient's son who was in patient's room, and I answered all of his questions and concerns to satisfaction.
Anticipated Discharge: > 48 hours
Subjective/Interval History
-
Date of Service: September 22, 2025
Patient was seen and examined. She reported feeling better, and she denied any new symptoms or complaints.
Objective Data
-
Labs:
Laboratory Results
09/21/25 09/21/25 09/22/25
21:45 23:13 04:35
WBC 12.4 H 13.2 H
Hgb 13.8 13.0
Hct 45.6 43.7
Plt Count 137 129 L
HCO3 31.9 H
Sodium 134 L 137
Potassium 4.2 3.8
Chloride 95 L 104
Carbon Dioxide 37 H 30
BUN 14 12
Creatinine 0.6 0.4 L
Glucose 142 H 151 H
Calcium 9.1 8.1 L
Total Bilirubin 1.3 1.3
AST 35 28
ALT 40 H 35
Alkaline Phosphatase 62 60
09/22/25
05:15
WBC
Hgb
Hct
Plt Count
HCO3 30.9 H
Sodium
Potassium
Chloride
Carbon Dioxide
BUN
Creatinine
Glucose
Calcium
Total Bilirubin
AST
ALT
Alkaline Phosphatase
Vital Signs:
Vital Signs
Temp Pulse Resp BP Pulse Ox
97.8 F 65 19 114/53 95
09/22/25 07:29 09/22/25 06:30 09/22/25 06:30 09/22/25 06:30 09/22/25 06:30
I&O
09/21/25 09/22/25 09/23/25
06:59 06:59 05:59
Intake Total 56.4 / 67.6 11.2 / 11.2
Output Total 300 / 600 300 / 300
Balance -243.6 / -532.4 -288.8 / -288.8
--- NOTE | 2025-09-22 10:22 | CM ---
CM reviewed chart and met with pt and her son Saroj johnson in ICU. Pt resides at [facility] in LTC since 2019.
Pt does not walk, they use binh lift to move her, spends her days in wheelchair.
Recently started using O2 3L NC.
PCP: Jean Sandoval
Pharmacy: [facility] at [place]
Anticipate return to [facility] when medically stable, CM will continue to follow.
[2025-09-22] MEDS: NEURONTIN 300 MG PO ×3 (10:50→20:35)
[2025-09-22] MEDS: MIRALAX PO (10:50)
[2025-09-22] MEDS: ANCEF 10 IV ×2 (10:50→16:42)
[2025-09-22] MEDS: PROTONIX IV 40 MG IV (10:50)
[2025-09-22] MEDS: NSS (PRESERVATIVE FREE) 10 ML IV (10:50)
[2025-09-22] MEDS: LR 500 IV (11:47)
--- NOTE | 2025-09-22 11:48 | PTCARENOTE ---
LR bolus 500 ml given for BP 86/49 via left upper arm. patient off levophed, SpO2: 96%RA
--- NOTE | 2025-09-22 15:08 | PTCARENOTE ---
RT Femoral Line:
RT Femoral line and Indwelling Sweeney placed in ER. Patient off Levophed. Systolic Blood pressure remains labile : low 80's to low 90's. Patient pulled peripheral line, pulling on cables, and closing. Patient may need Levophed over night. Femoral
line will remains in place with plan to remove tomorrow morning.
--- NOTE | 2025-09-22 15:30 | VATNOTE ---
Order noted to d/c annabel calvin, arrived in icu to pull, spoke with primary RN who states it is to be left in for the next 24 hours and will reassess tomorrow.
[2025-09-22] MEDS: LOVENOX 40 MG SC (16:44)
[2025-09-22] MEDS: VANCOCIN 200 IV (17:01)
--- NOTE | 2025-09-22 18:33 | PTCARENOTE ---
Patient in bed. BP via left upper arm 94/52 MAP 67; Normal Sinus Rhythm 89. RR 22. SpO2 93%/3L via nasal canula Off levophed since this am. Left LE wrapped with ELIUD wrap
--- NOTE | 2025-09-22 20:00 | PTCARENOTE ---
Received pt. at 1900. Pt. currently in bed. Awake. Oriented to self, otherwise confused. Combative and not cooperative with care. Afebrile. Heart rhythm sinus. Blood pressure normotensive. Currently on nasal cannula. Lungs sound diminished. Abdomen
obese, round. Sweeney catheter in place. Draining without issue. Skin as documented. Discussed plan of care with patient. Vital signs stable at this time.
[2025-09-22] MEDS: DILAUDID 0.5 MG IV (20:36)
[2025-09-23] VITALS (16 sets, daily range): BP systolic 78–133; BP diastolic 41–121; BMI 40.0
--- NOTE | 2025-09-23 | PTCARENOTE ---
Pt. assessment unchanged. PRN medication given for pain, see MAR. Vital signs stable at this time.
[2025-09-23] MEDS: ANCEF 10 IV ×4 (00:30→23:24)
[2025-09-23] MEDS: DILAUDID 0.5 MG IV (00:36)
[2025-09-23] MEDS: VANCOCIN 200 IV (05:13)
[2025-09-23 05:54] LABS: ALT (SGPT) 21 U/L (0-35); AST (SGOT) 20 U/L (14-36); Albumin 2.9 g/dl (3.5-5.0); Alkaline Phosphatase 56 U/L (38-126); Blood Urea Nitrogen 10 mg/dl (7-17); Calcium 8.6 mg/dl (8.4-10.2); Carbon Dioxide 35 mmol/L (22-30); Chloride 100 mmol/L (98-107); Estimated Creatinine Clearance 70 ml/min; Glucose 88 mg/dl (70-99); Potassium 3.4 mmol/L (3.5-5.1); Sodium 132 mmol/L (135-145); Total Protein 5.5 g/dl (6.3-8.2); eGFR > 60.00
[2025-09-23 06:00] LABS: Hematocrit 37.2 % (37.0-47.0); Hemoglobin 11.2 g/dL (12.0-16.0); Mean Corp Hgb Conc. 30.1 g/dL (33.0-37.0); Mean Corpuscular Volume 107.2 fL (81.0-99.0); Platelet Count 122 10^3/uL (130-400); Red Cell Dist. Width 15.3 % (11.5-14.5)
[2025-09-23] MEDS: KCL 270 MEQ IV (06:29)
--- NOTE | 2025-09-23 06:39 | W.PN.INTV ---
Today's Communication / Plan
Recommendations
Off pressors now for 24 hours
Patient refused BiPAP. Unfortunate thing this would help her given her pulm hypertension, RV dysfunction, patient refuses
She is without complaints, wants left leg wrapping off
Continue with antibiotics
Replete potassium
For transfer out of ICU. We will sign off. Please call with questions
Assessment
-
89-year-old female with history of chronic lymphedema, peripheral arterial disease, morbid obesity with recurrent left lower extremity cellulitis multiple courses of antibiotics for the past few months, presents with hypotension, change in mental
status, admitted to ICU for further management
Sepsis with hypotension
Responded to IV fluids
Acute hypoxic respiratory insufficiency, 78% room air
Patient on oxygen therapy as of 2 months ago
Left lower extremity cellulitis
Recurrent over the last few months
Chronic lymphedema
Mental status changes
Hypercapnia, hypoxia
Requiring BiPAP
Hyperglycemia
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
PA pressure 43
Mildly dilated RV with mildly decreased function
Normal LV
Conditions present prior to admission
Chronic pain syndrome
Chronic narcotic therapy
Fibromyalgia
History of heart failure, normal EF
Morbid obesity
Dementia
DNR
Plan/recommendations
At this time, patient is critically ill
She seems to have responded to IV fluids, IV antibiotics, BiPAP
She presented with rapid shallow breathing, lethargy, unresponsiveness
Now she is awake, following commands
Blood pressure has improved
Negative fluid balance is noted
Chest x-ray without acute findings
Moving forward
Continue with supportive care
IV fluids will continue with boluses as needed
Normal EF noted
Wean off norepinephrine
Femoral line in place at this time
Consider discontinuation in the next 24 to 48 hours depending on clinical status
Although she presented 78% on room air, suspect this was from hypoventilation
Follow oxygen requirement
Currently adequate
Chronic hypoxia at home noted
Chronic hypercapnia noted per prior blood gas analysis
Given pulm hypertension,
IV antibiotics continue. Currently on vancomycin, Ancef added
ID is following
Follow-up blood sugars
Withhold narcotic therapy for lethargy/sedation
GI prophylaxis: Remains on Protonix at this time
DVT prophylaxis: On Lovenox
Patient is DNR
Reviewed with critical care nursing
Reviewed with son at bedside
TCCT 35 min
Subjective Dataa
Subjective Data
Date of Service:
Date of Service: September 23, 2025
Subjective:
Patient remains off pressors now for 24 hours. Patient refusing BiPAP. Denies shortness of breath, chest pain, nausea. Unfortunately patient pulling IVs
Objective Data
Data Reviewed
Vital Signs / I&O / Oxygen:
Vital Signs
Temp Pulse Resp BP Pulse Ox
98 F 64 19 93/47 95
09/23/25 01:00 EDT 09/23/25 06:00 09/23/25 06:00 09/23/25 06:00 09/23/25 01:00 EDT
Intake and Output
09/21/25 09/22/25 09/23/25
06:59 06:59 05:59
Intake Total 56.4 / 67.6 2411.2 / 2411.2
Output Total 300 / 600 1450 / 1450
Balance -243.6 / -532.4 961.2 / 961.2
SaO2 95
Nasal Cannula flow liters per 4
minute
Physical Exam
General: Comfortable, Other (Large neck) and Other (Right femoral line)
HEENT: Normocephalic and Anicteric
Cardiovascular: S1-S2, Regular Rhythm, Murmur (2/6 systolic murmur), Rub (n) and Peripheral Edema (Left lower extremity edema, erythema, slightly improved)
Respiratory: Wheeze (n), Crackles (n), Rhonchi (few), Non-Labored Respirations and Stridor (n)
GI: Soft, Non Distended (Obese) and Non Tender
Neurology: Awake, Alert and No Motor Deficits (Follows commands)
Skin: Cyanosis (n), Jaundice (n), Bruising (Few) and Other (Left leg with wrapping, less erythematous)
Labs/Micro/Reports
Lab Data
09/23/25 05:23
09/23/25 05:23
Microbiology
09/21/25 21:45 Blood/Venous Blood Culture - Preliminary
No Growth in 24 hours- Final report to follow
09/21/25 22:07 Blood/Venous Blood Culture - Preliminary
No Growth in 24 hours- Final report to follow
09/21/25 21:45 Nasal Swab Influenza Types A & B (BRIGITTE) - Final
Negative for Influenza A & B, NAAT
Negative results must be combined with clinical observations
and patient history.
Nucleic Acid Amplification test (NAAT)performed on the
[employer] platform.
[2025-09-23] MEDS: MIRALAX PO (06:52)
[2025-09-23] MEDS: TYLENOL 650 MG PO ×2 (07:33→22:18)
[2025-09-23] MEDS: NSS (PRESERVATIVE FREE) 10 ML IV (07:34)
[2025-09-23] MEDS: PROTONIX IV 40 MG IV (07:34)
[2025-09-23] MEDS: NEURONTIN 300 MG PO ×3 (07:34→22:06)
--- NOTE | 2025-09-23 07:45 | W.PN.ID1 ---
Date of Service
Date of Service: September 23, 2025
Today's Communication
Continue current antibiotics. See below�
Assessment / Plan
Severe left lower extremity SSTI
Left lower extremity wound; likely entry point for above
Chronic lymphedema
Leukocytosis
Fever
Clinical sepsis; now off pressors
Chronic hypoxemic respiratory failure (2 to 4 L baseline)
HFpEF
Lymphedema
GERD
Hypertension
Hyperlipidemia
Iron deficiency anemia
Morbid obesity
Basal cell carcinoma
Recommendations:
Continue with vancomycin for the present. Follow trough levels closely to prevent nephrotoxicity.
MRSA screen pending. If negative, will discontinue further vancomycin.
Continue with cefazolin.
Monitor white count and temperature curve. Leukocytosis resolved today.
Lower extremity Gonzales wrap (foot to above knee)
Lower extremity elevation to facilitate lymphatic drainage. Would place on towels rather than pillows to maintain elevation.
Follow pending blood cultures.
Continue with supportive measures.
����������������������������������������������������������
Chief Complaint
-: Leukocytosis and Cellulitis
Subjective / Review of Systems
Patient seen and examined. Reports ongoing discomfort in the left lower extremity. No fevers noted overnight.
Review of Systems: No Fever and No Chills
Vital Signs / Physical Exam
Vital Signs
Vital Signs
Temp Pulse Resp BP Pulse Ox
98 F 64 19 93/47 95
09/23/25 01:00 EDT 09/23/25 06:00 09/23/25 06:00 09/23/25 06:00 09/23/25 01:00 EDT
Physical Exam
Constitutional: No Acute Distress, Comfortable, Chronically Ill, Non-toxic and Obese
Eyes: No Conjunctival Hemorrhage and Sclera Anicteric
Cardiovascular: Regular Rate and S1/S2; Negative S3/S4
Pulmonary: Clear; Negative Wheezes, Rales or Rhonchi
Gastrointestinal: Soft, Non Tender and Non Distended
Extremities: Edema (4+ left lower extremity) and Erythema (Pronounced; left lower extremity)
Skin: Warm and Dry; Negative Rash
Neurological: Awake and Alert
Psychological: Calm
Objective Data
Lab Data
Lab Results
09/23/25 05:23
09/23/25 05:23
Estimated Creat Clear 70 ml/min 09/23/25 05:23
Lactic Acid Cancelled 09/22/25 14:00
Total Bilirubin 0.6 mg/dl (0.2-1.3) 09/23/25 05:23
AST 20 U/L (14-36) 09/23/25 05:23
ALT 21 U/L (0-35) 09/23/25 05:23
Alkaline Phosphatase 56 U/L (38-126) 09/23/25 05:23
Most recent labs reviewed.
Micro Results:
09/21/25 21:45 Blood Culture - Preliminary
Blood/Venous No Growth in 24 hours- Final report to follow
09/21/25 22:07 Blood Culture - Preliminary
Blood/Venous No Growth in 24 hours- Final report to follow
09/22/25 04:35 MRSA Screen - Pending
Nose
09/21/25 21:45 Influenza Types A & B (BRIGITTE) - Final
Nasal Swab Negative for Influenza A & B, NAAT
Negative results must be combined with clinical observations
and patient history.
Nucleic Acid Amplification test (NAAT)performed on the
[employer] platform.
Imaging:
09/21/2025 CXR (portable): low lung volumes noted. Chronic atelectasis/scarring within the right midlung and left lung base. New right basilar airspace opacity. No pleural effusion or pneumothorax.
--- NOTE | 2025-09-23 07:59 | PHA.VAN.FU ---
Vancomycin Assessment / Plan
- Assessment
Renal Function: SCR Decreasing
WBC's are: WNL
In the past 24 hrs, patient has been: Afebrile
Concomitant Antimicrobials: ANCEF
- Dosing Plan
Continue: 1000MG Q12H
- Monitoring Plan
Peak Level: 09/24 @2100
Trough Level: 09/25 @0530
- Follow Up
Pharmacy will continue to follow.
Vancomycin Follow UP
- -
Patient Age: 89
Patient Sex: Female
Vancomycin Day #: 2
Indication: Skin And Soft Tissue
Requesting Provider: Dr. Brody
Pertinent Antimicrobial Allergies:
nkda
Height / Weight:
Height 5 ft 2 in
Actual Weight 99.2 kg
IBW in k.1
- Vital Signs / Lab Results
Temp Pulse Resp BP Pulse Ox
98 F 64 19 93/47 95
09/23/25 01:00 EDT 09/23/25 06:00 09/23/25 06:00 09/23/25 06:00 09/23/25 01:00 EDT
Lab Results - Hematology
09/21/25 09/22/25 09/23/25
21:45 04:35 05:23
WBC 12.4 H 13.2 H 7.8
Lab Results - Chemistry
09/21/25 09/22/25 09/23/25
21:45 04:35 05:23
BUN 14 12 10
Creatinine 0.6 0.4 L 0.3 L
Estimated Creat Clear 69 70
Albumin 3.6 3.2 L 2.9 L
09/21/25 09/22/25 09/22/25
21:45 04:35 08:00
Lactic Acid 1.2 1.1 Cancelled
09/22/25
14:00
Lactic Acid Cancelled
Microbiology Results
09/21/25 21:45 Blood Culture - Preliminary
Blood/Venous No Growth in 24 hours- Final report to follow
09/21/25 22:07 Blood Culture - Preliminary
Blood/Venous No Growth in 24 hours- Final report to follow
09/21/25 21:45 Influenza Types A & B (BRIGITTE) - Final
Nasal Swab Negative for Influenza A & B, NAAT
Negative results must be combined with clinical observations
and patient history.
Nucleic Acid Amplification test (NAAT)performed on the
[employer] platform.
--- NOTE | 2025-09-23 08:10 | PTCARENOTE ---
- 0700 Assumed care ; patient in bed. Awake and alert. does not to be in distress.
-Awake and alert; able to move b/l UE and LE. speech clear
-Normal Sinus Rhythm 88; +3 edema to b/l LE. pedal pulses present to palpation.
-SpO2: 3L via nasal canula (at home O2 at baseline ) Pox 95% Lungs diminished no cough .
-Abdomen soft round bowel sounds present x 4 quadrants Last BM 11/22 Incontinent Tolerating diet good appetite
-Indwelling Sweeney removed. Purwick placed draining clear madison urine
-Femoral lines removed dressing applied intact; Peripheral lines x 3
-left Leg: Red from ankle to Groin . No open areas observed. Heels intact no redness. Left let wrapped with ELIUD wrap; Elevated on few blankets Heel off load on air cushion.
- HOB elevated. Call martinez within reach
--- NOTE | 2025-09-23 08:37 | W.PN.HOSP.TC ---
Today's Communication/Plan
-
Transferred to telemetry
See plan
Assessment / Plan
Assessment / Plan
Physical Exam
General:Not in acute distress
HEENT: Normocephalic
Respiratory: CTAB
Cardiac: S1/S2 and RRR
GI: Soft. Non distended. Positive bowel sounds.
Musculoskeletal: Other (LLE with erythema, increased warmth and induration from the toes to the groin. Small wound medial ankle without bleeding/discharge)
Assessment/Plan
89 y/o female with past medical history significant for ASCVD / PAD, hypertension, chronic O2 dependence and recent issues with LLE cellulitis who presented to ED from local [place] for evaluation of LLE redness and swelling, fever and hypotension.
Patient was hospitalized here 08/16 - 08/18 and 09/02 - 09/07 for LLE cellulitis. She completed her most recent course of abx on 09/12 - but was restarted on Keflex (500mg BID) on 09/19/25 due to recurrent / worsening redness and swelling. Son noted
that patient was seen earlier on 09/21/25 by [facility] here at [facility] and LE was fairly well-appearing. Upon return to the [place], staff and family noted marked increase in redness of the entire LLE. Patient was increasingly somnolent / poorly
responsive and was noted at [place] to have fever and hypotension. She was sent to the ED for further evaluation and treatment.
In the ED, patient was initially unresponsive, and she was also tachypneic with rapid, shallow respirations and drooling.
Severe LLE Cellulitis
Septic Shock secondary to the above
- Patient presented with LLE cellulitis by exam and evidence of end-organ dysfunction in the form of acute TME, acute respiratory failure requiring NIV and hypotension requiring pressor support.
- Received IV fluid boluses
- Weaned off vasopressors on 09/22/25
- IV Vancomycin/Cefazolin for now. Follow for any positive culture data, fever curve changes or clinical response.
- Blood cultures from prior visits (08/16 and 09/02) were negative.
- ID evaluation given third hospitalization for LLE cellulitis with increasing severity of illness.
- Wound care evaluation for local care recommendations.
Presentation with rapid shallow breathing, lethargy, unresponsiveness
Acute TME secondary to sepsis
- Encephalopathy NOW RESOLVED
- Patient was poorly responsive in the emergency department.
- Likely combination of sepsis, hypercapnic respiratory failure +/- chronic opioid dependence.
- Sepsis treatment as noted above. She seems to have responded to IV fluids, IV antibiotics, BiPAP
- Oxycodone on hold acutely. IV Dilaudid as needed for pain / withdrawal symptoms.
- Follow for clinical improvement.
Acute Hypercapnic Respiratory Failure
Chronic Hypoxemic Respiratory Failure
- On 3 L at home
- ABG done in the ED showed pCO2 = 71 with slightly decreased pH (7.26).
- Given mental status change as noted above (and inability to entertain intubation / mechanical ventilation as per patient's wishes) NIV was tried with resulting improvement
- Continue BiPAP HS and PRN during stay; BiPAP can help her given her pulm hypertension, RV dysfunction, but now patient refuses BiPAP
- Patient was on NIV similarly during prior admission - though she began to refuse intervention once she was more alert.
- Continue usual O2 support - oxygenation is adequate on usual 2 lpm supplementation.
- Pulm / Corporate Relations Manager evaluation as noted above.
- Withhold her chronic opioid/narcotic therapy
Chronic HFpEF
- Patient likely with degree of volume overload based on weight, CXR appearance, etc.
- Regardless, holding diuretic / antihypertensive medications acutely given sepsis / shock.
- Follow I/Os, daily weights, etc.
- Will likely benefit from eventual diuresis once hemodynamic status is improved.
- Echo done 07/2025 showed preserved LVEF and mild pulmonary hypertension.
Spinal Stenosis
Fibromyalgia
Chronic Pain Syndrome
Chronic Opioid Dependence
- ? to what extent chronic opioid use is contributing to current TME.
- IV pain medications as needed for complaints of pain / evidence of withdrawal.
- Resumed Gabapentin, continue to hold Oxycodone
Morbid Obesity due to excess calories
- Affects all aspects of care - including chronic lymphedema / increased risk for recurrent cellulitis, etc.
DVT Prophylaxis: Lovenox
Code Status: DNR / DNI
On 09/22/25, I spoke to patient's son who was in patient's room, and I answered all of his questions and concerns to satisfaction.
Anticipated Discharge: > 48 hours
Subjective/Interval History
-
Date of Service: September 23, 2025
Patient was seen and examined. She said that she is feeling 'pretty good.'
Objective Data
-
Labs:
Laboratory Results
09/23/25
05:23
WBC 7.8
Hgb 11.2 L
Hct 37.2
Plt Count 122 L
Sodium 132 L
Potassium 3.4 L
Chloride 100
Carbon Dioxide 35 H
BUN 10
Creatinine 0.3 L
Glucose 88
Calcium 8.6
Total Bilirubin 0.6
AST 20
ALT 21
Alkaline Phosphatase 56
Vital Signs:
Vital Signs
Temp Pulse Resp BP Pulse Ox
98.1 F 64 19 93/47 95
09/23/25 08:00 09/23/25 06:00 09/23/25 06:00 09/23/25 06:00 09/23/25 01:00 EDT
I&O
09/22/25 09/23/25 09/24/25
06:59 05:59 06:59
Intake Total 56.4 / 67.6 2411.2 / 2411.2
Output Total 300 / 600 1450 / 1450
Balance -243.6 / -532.4 961.2 / 961.2
--- NOTE | 2025-09-23 09:11 | PTCARENOTE ---
Removed:
RT Femoral line removed by IV team: dressing intact and Indwelling Sweeney removed; Purwick placed
--- NOTE | 2025-09-23 12:50 | PTCARENOTE ---
Transfer
Transfer to room 336-1 Transfer via bed. Report given prior family made aware
[2025-09-23] MEDS: LOVENOX SC (17:08)
[2025-09-24] MEDS: TYLENOL 650 MG PO ×2 (02:21→09:00)
[2025-09-24 03:00] VITALS: BP 105/63
[2025-09-24 04:01] VITALS: BMI 40.9
[2025-09-24 06:05] LABS: Hematocrit 40.9 % (37.0-47.0); Hemoglobin 11.9 g/dL (12.0-16.0); Mean Corp Hgb Conc. 29.1 g/dL (33.0-37.0); Mean Corpuscular Volume 110.2 fL (81.0-99.0); Platelet Count 112 10^3/uL (130-400); Red Cell Dist. Width 14.8 % (11.5-14.5)
[2025-09-24 06:32] LABS: Blood Urea Nitrogen 6 mg/dl (7-17); Calcium 8.8 mg/dl (8.4-10.2); Carbon Dioxide 35 mmol/L (22-30); Chloride 104 mmol/L (98-107); Estimated Creatinine Clearance 71 ml/min; Glucose 90 mg/dl (70-99); Potassium 4.0 mmol/L (3.5-5.1); Sodium 140 mmol/L (135-145); eGFR > 60.00
[2025-09-24 07:00] VITALS: BP 92/62
--- NOTE | 2025-09-24 07:13 | W.PN.HOSP.TC ---
Today's Communication/Plan
-
Continue Cefazolin
Assessment / Plan
Assessment / Plan
Physical Exam
General:Not in acute distress
HEENT: Normocephalic
Respiratory: CTAB
Cardiac: S1/S2 and RRR
GI: Soft. Non distended. Positive bowel sounds.
Musculoskeletal: Other (LLE with erythema, increased warmth and induration from the toes to the groin. Small wound medial ankle without bleeding/discharge)
Assessment/Plan
89 y/o female with past medical history significant for ASCVD / PAD, hypertension, chronic O2 dependence and recent issues with LLE cellulitis who presented to ED from local [place] for evaluation of LLE redness and swelling, fever and hypotension.
Patient was hospitalized here 08/16 - 08/18 and 09/02 - 09/07 for LLE cellulitis. She completed her most recent course of abx on 09/12 - but was restarted on Keflex (500mg BID) on 09/19/25 due to recurrent / worsening redness and swelling. Son noted
that patient was seen earlier on 09/21/25 by [facility] here at [facility] and LE was fairly well-appearing. Upon return to the [place], staff and family noted marked increase in redness of the entire LLE. Patient was increasingly somnolent / poorly
responsive and was noted at [place] to have fever and hypotension. She was sent to the ED for further evaluation and treatment.
In the ED, patient was initially unresponsive, and she was also tachypneic with rapid, shallow respirations and drooling.
Severe LLE Cellulitis
Septic Shock secondary to the above
- Patient presented with LLE cellulitis by exam and evidence of end-organ dysfunction in the form of acute TME, acute respiratory failure requiring NIV and hypotension requiring pressor support.
- Received IV fluid boluses
- Weaned off vasopressors on 09/22/25
- IV Cefazolin for now. Follow for any positive culture data, fever curve changes or clinical response.
- Vancomycin IV was stopped as MRSA negative
- Blood cultures from prior visits (08/16 and 09/02) were negative.
- ID evaluation given third hospitalization for LLE cellulitis with increasing severity of illness.
- Wound care evaluation for local care recommendations.
Presentation with rapid shallow breathing, lethargy, unresponsiveness
Acute TME secondary to sepsis
- Encephalopathy NOW RESOLVED
- Patient was poorly responsive in the emergency department.
- Likely combination of sepsis, hypercapnic respiratory failure +/- chronic opioid dependence.
- Sepsis treatment as noted above. She seems to have responded to IV fluids, IV antibiotics, BiPAP
- Oxycodone on hold acutely. IV Dilaudid as needed for pain / withdrawal symptoms.
- Follow for clinical improvement.
Acute Hypercapnic Respiratory Failure
Chronic Hypoxemic Respiratory Failure
- On 3 L at home
- ABG done in the ED showed pCO2 = 71 with slightly decreased pH (7.26).
- Given mental status change as noted above (and inability to entertain intubation / mechanical ventilation as per patient's wishes) NIV was tried with resulting improvement
- Continue BiPAP HS and PRN during stay; BiPAP can help her given her pulm hypertension, RV dysfunction, but now patient refuses BiPAP
- Patient was on NIV similarly during prior admission - though she began to refuse intervention once she was more alert.
- Continue usual O2 support - oxygenation is adequate on usual 2 lpm supplementation.
- Pulm / Deck Builder evaluation as noted above.
- Withhold her chronic opioid/narcotic therapy
Chronic HFpEF
- Patient likely with degree of volume overload based on weight, CXR appearance, etc.
- Regardless, holding diuretic / antihypertensive medications acutely given sepsis / shock.
- Follow I/Os, daily weights, etc.
- Will likely benefit from eventual diuresis once hemodynamic status is improved.
- Echo done 07/2025 showed preserved LVEF and mild pulmonary hypertension.
Spinal Stenosis
Fibromyalgia
Chronic Pain Syndrome
Chronic Opioid Dependence
- ? to what extent chronic opioid use is contributing to current TME.
- IV pain medications as needed for complaints of pain / evidence of withdrawal.
- Resumed Gabapentin, continue to hold Oxycodone
Morbid Obesity due to excess calories
- Affects all aspects of care - including chronic lymphedema / increased risk for recurrent cellulitis, etc.
DVT Prophylaxis: Lovenox
Code Status: DNR / DNI
On 09/22/25, I spoke to patient's son who was in patient's room, and I answered all of his questions and concerns to satisfaction.
Anticipated Discharge: 24 - 48 hours
Subjective/Interval History
-
Date of Service: September 24, 2025
Patient was seen and examined. She was eating breakfast and denied any chest pain or shortness of breath.
Objective Data
-
Labs:
Laboratory Results
09/24/25
05:38
WBC 5.1
Hgb 11.9 L
Hct 40.9
Plt Count 112 L
Sodium 140 D
Potassium 4.0
Chloride 104
Carbon Dioxide 35 H
BUN 6 L
Creatinine 0.3 L
Glucose 90
Calcium 8.8
Vital Signs:
Vital Signs
Temp Pulse Resp BP Pulse Ox
97.4 F 68 14 105/63 97
09/24/25 03:00 09/24/25 03:00 09/24/25 03:00 09/24/25 03:00 09/24/25 03:00
I&O
09/23/25 09/24/25 09/25/25
05:59 06:59 06:59
Intake Total 2411.2 / 2411.2 1320 / 1320
Output Total 1450 / 1450 2550 / 2550
Balance 961.2 / 961.2 -1230 / -1230
[2025-09-24] MEDS: NEURONTIN 300 MG PO ×3 (08:52→21:38)
[2025-09-24] MEDS: MIRALAX PO ×2 (08:52→08:54)
[2025-09-24] MEDS: PROTONIX 40 MG PO (08:52)
[2025-09-24] MEDS: NSS (PRESERVATIVE FREE) IV (08:52)
[2025-09-24] MEDS: ANCEF 10 IV ×3 (09:00→23:42)
[2025-09-24] MEDS: PROTONIX IV IV (09:43)
[2025-09-24 11:00] VITALS: BP 104/56
--- NOTE | 2025-09-24 12:33 | W.PN.ID1 ---
Date of Service
Date of Service: September 24, 2025
Today's Communication
Continue antibiotics.
Assessment / Plan
Severe left lower extremity SSTI
Left lower extremity wound; likely entry point for above
Chronic lymphedema
Leukocytosis
Fever
Clinical sepsis; resolved
Chronic hypoxemic respiratory failure (2 to 4 L baseline)
HFpEF
Lymphedema
GERD
Hypertension
Hyperlipidemia
Iron deficiency anemia
Morbid obesity
Basal cell carcinoma
Recommendations:
MRSA screen negative. Vancomycin discontinued.
Continue with cefazolin 2gm IV q8
Monitor white count and temperature curve. Leukocytosis resolved.
Continue lower extremity Gonzales wrap (foot to above knee)
Lower extremity elevation to facilitate lymphatic drainage. Would place on towels rather than pillows to maintain elevation.
Follow pending blood cultures.
Follow for clinical improvement
Continue with supportive measures.
����������������������������������������������������������
Chief Complaint
-: Leukocytosis and Cellulitis
Subjective / Review of Systems
Patient seen and examined. Reports ongoing left lower extremity discomfort.
Review of Systems: No Fever and No Chills
Vital Signs / Physical Exam
Vital Signs
Vital Signs
Temp Pulse Resp BP Pulse Ox
97.7 F 83 18 104/56 95
09/24/25 11:09/24/25 11:00 09/24/25 11:00 09/24/25 11:00 09/24/25 11:00
Physical Exam
Constitutional: No Acute Distress, Comfortable, Chronically Ill, Non-toxic and Obese
Eyes: No Conjunctival Hemorrhage and Sclera Anicteric
Cardiovascular: Regular Rate and S1/S2; Negative S3/S4
Pulmonary: Clear; Negative Wheezes, Rales or Rhonchi
Gastrointestinal: Soft, Non Tender and Non Distended
Extremities: Edema (4+ left lower extremity) and Erythema (Pronounced; left lower extremity)
Skin: Warm and Dry; Negative Rash
Neurological: Awake and Alert
Psychological: Calm
Objective Data
Lab Data
Lab Results
09/24/25 05:38
09/24/25 05:38
Estimated Creat Clear 71 ml/min 09/24/25 05:38
Lactic Acid Cancelled 09/22/25 14:00
Total Bilirubin 0.6 mg/dl (0.2-1.3) 09/23/25 05:23
AST 20 U/L (14-36) 09/23/25 05:23
ALT 21 U/L (0-35) 09/23/25 05:23
Alkaline Phosphatase 56 U/L (38-126) 09/23/25 05:23
Most recent labs reviewed.
Micro Results:
09/21/25 21:45 Blood Culture - Preliminary
Blood/Venous No Growth in 48 hours- Final report to follow
09/21/25 22:07 Blood Culture - Preliminary
Blood/Venous No Growth in 48 hours- Final report to follow
09/22/25 04:35 MRSA Screen - Final
Nose No Methicillin Resistant Staphylococcus aureus isolated.
09/21/25 21:45 Influenza Types A & B (BRIGITTE) - Final
Nasal Swab Negative for Influenza A & B, NAAT
Negative results must be combined with clinical observations
and patient history.
Nucleic Acid Amplification test (NAAT)performed on the
[email or web address] platform.
Imaging:
09/21/2025 CXR (portable): low lung volumes noted. Chronic atelectasis/scarring within the right midlung and left lung base. New right basilar airspace opacity. No pleural effusion or pneumothorax.
--- NOTE | 2025-09-24 13:31 | WOUNDNOTE ---
[facility] RN note: Patient admitted with septic shock, L leg cellulitis. Patient resides at a SNF. Patient stated she has an air mattress at SNF.
See H&P for complete history.
PMH: ASCVD, HTN, o2 dependent, LLE cellulitis, 2 admissions fro LLE cellulitis, lymphedema, spinal stenosis, fibromyalgia, dementia, bilateral THR, L wrist fracture repair x 3, former smoker, obesity, basal cell cancer.
Wound Location and type/assessment: Patient admitted with: L medial ankle dermal ulcers patient states it's skin cancer, ulcer pink with small ss drainage. She stated she goes to some clinic for her skin cancer. L moser dry dark brown hyperkeratotic
skin. L leg with diffuse erythema and edema. LLE edema decreased as per patient. Heels blanchable red. Sacral/buttocks/posterior thigh blanchable persistent red. R groin bruise with couple small linear dermal skin tears, no drainage currently. Upper
back healing skin tear. LLQ bruise.
Appetite: good.
Pressure redistribution devices in place: [employer] Accumax. Patient cannot turn self in bed. REYES Ramirez agreeable to an air overlay mattress.
Plan: L medial ankle dressing changed. Silicone border foam applied to sacrum and back skin tear. R groin cleansed with saline. Moisture lotion applied to dry skin on le's. L knee high Gonzales wrap applied with help from clinical nursing instructor Nora. Waffle
air overlay applied and patient pulled up in bed with help from nurse student Nora. Heels off bed with pillows. Patient will only allow L knee high Gonzales and not thigh high gonzales. Patient followed by ID. Discussed with REYES Ramirez.
Will confirm orders with Dr. Vincent.
Care plan to be updated and will follow as needed.
Note to case management of equipment requested for discharge: Air mattress if not already in place.
Recommend follow up at wound care center upon discharge.
[2025-09-24 15:00] VITALS: BP 100/58
[2025-09-24] MEDS: LOVENOX 40 MG SC (18:31)
[2025-09-24 19:30] VITALS: BP 96/53
[2025-09-24 23:30] VITALS: BP 117/67
--- NOTE | 2025-09-25 03:30 | PTCARENOTE ---
Pt repeatedly removing threat monitoring analyst despite multiple attempts by this RN to educate on the importance of continuous cardiac monitoring. Pt became increasingly agitated, yelling, 'I refuse to wear this. I can't sleep with it and there's nothing
wrong with my heart.' This RN re-educated patient, but patient continued to refuse, yelling at staff and pushing this RN away. Patient also refusing 3am vital signs. RAYSHAWN Dewitt, notified of patient's refusal. Plan of care ongoing.
[2025-09-25] MEDS: TYLENOL 650 MG PO (03:44)
[2025-09-25 05:52] LABS: Hematocrit 39.7 % (37.0-47.0); Hemoglobin 11.7 g/dL (12.0-16.0); Mean Corp Hgb Conc. 29.5 g/dL (33.0-37.0); Mean Corpuscular Volume 107.0 fL (81.0-99.0); Platelet Count 133 10^3/uL (130-400); Red Cell Dist. Width 14.6 % (11.5-14.5)
[2025-09-25 06:00] VITALS: BMI 40.7
[2025-09-25 06:10] LABS: Blood Urea Nitrogen 4 mg/dl (7-17); Calcium 8.8 mg/dl (8.4-10.2); Carbon Dioxide 39 mmol/L (22-30); Chloride 101 mmol/L (98-107); Estimated Creatinine Clearance 71 ml/min; Glucose 98 mg/dl (70-99); Potassium 3.7 mmol/L (3.5-5.1); Sodium 138 mmol/L (135-145); eGFR > 60.00
[2025-09-25 07:00] VITALS: BP 104/57
[2025-09-25] MEDS: NEURONTIN 300 MG PO ×2 (08:21→15:39)
[2025-09-25] MEDS: MIRALAX 17 GRAMS PO (08:21)
[2025-09-25] MEDS: PROTONIX 40 MG PO (08:22)
[2025-09-25] MEDS: ANCEF 10 IV ×2 (08:22→15:42)
[2025-09-25 11:00] VITALS: BP 100/66
--- NOTE | 2025-09-25 12:10 | W.PN.ID1 ---
Date of Service
Date of Service: September 25, 2025
Today's Communication
Continue abx.
Assessment / Plan
Severe left lower extremity SSTI
Left lower extremity wound; likely entry point for above
Chronic lymphedema
Leukocytosis
Fever
Clinical sepsis; resolved
Chronic hypoxemic respiratory failure (2 to 4 L baseline)
HFpEF
Lymphedema
GERD
Hypertension
Hyperlipidemia
Iron deficiency anemia
Morbid obesity
Basal cell carcinoma
Recommendations:
MRSA screen negative. Vancomycin previously discontinued.
Continue with cefazolin 2gm IV q8 while inpatient.
Monitor white count and temperature curve. Leukocytosis resolved.
Continue lower extremity Gonzales wrap (foot to above knee). May need to follow up in lymphedema clinic following discharge.
Lower extremity elevation to facilitate lymphatic drainage. Would place on towels rather than pillows to maintain elevation.
Continue with supportive measures.
����������������������������������������������������������
Chief Complaint
-: Leukocytosis and Cellulitis
Subjective / Review of Systems
Pt. reports ongoing swelling of the right LE. Feels that GONZALES wraps are contributing to swelling.
Review of Systems: No Fever and No Chills
Vital Signs / Physical Exam
Vital Signs
Vital Signs
Temp Pulse Resp BP Pulse Ox
98.5 F 87 18 100/66 93
09/25/25 11:00 09/25/25 11:00 09/25/25 11:00 09/25/25 11:00 09/25/25 11:00
Physical Exam
Constitutional: No Acute Distress, Comfortable, Chronically Ill, Non-toxic and Obese
Eyes: No Conjunctival Hemorrhage and Sclera Anicteric
Cardiovascular: Regular Rate and S1/S2; Negative S3/S4
Pulmonary: Clear; Negative Wheezes, Rales or Rhonchi
Gastrointestinal: Soft, Non Tender and Non Distended
Extremities: Edema (4+ left lower extremity) and Erythema (Pronounced; left lower extremity)
Skin: Warm and Dry; Negative Rash
Neurological: Awake and Alert
Psychological: Calm
Objective Data
Lab Data
Lab Results
09/25/25 05:23
09/25/25 05:23
Estimated Creat Clear 71 ml/min 09/25/25 05:23
Lactic Acid Cancelled 09/22/25 14:00
Total Bilirubin 0.6 mg/dl (0.2-1.3) 09/23/25 05:23
AST 20 U/L (14-36) 09/23/25 05:23
ALT 21 U/L (0-35) 09/23/25 05:23
Alkaline Phosphatase 56 U/L (38-126) 09/23/25 05:23
Most recent labs reviewed.
Micro Results:
09/21/25 21:45 Blood Culture - Preliminary
Blood/Venous No Growth in 72 hours- Final report to follow
09/21/25 22:07 Blood Culture - Preliminary
Blood/Venous No Growth in 72 hours- Final report to follow
09/22/25 04:35 MRSA Screen - Final
Nose No Methicillin Resistant Staphylococcus aureus isolated.
09/21/25 21:45 Influenza Types A & B (BRIGITTE) - Final
Nasal Swab Negative for Influenza A & B, NAAT
Negative results must be combined with clinical observations
and patient history.
Nucleic Acid Amplification test (NAAT)performed on the
[employer] platform.
Imaging:
09/21/2025 CXR (portable): low lung volumes noted. Chronic atelectasis/scarring within the right midlung and left lung base. New right basilar airspace opacity. No pleural effusion or pneumothorax.
--- NOTE | 2025-09-25 14:42 | W.PN.HOSP.TC ---
Today's Communication/Plan
-
Discharge today
Assessment / Plan
Assessment / Plan
Physical Exam
General:Not in acute distress
HEENT: Normocephalic
Respiratory: CTAB
Cardiac: S1/S2 and RRR
GI: Soft. Non distended. Positive bowel sounds.
Musculoskeletal: Other (LLE with erythema, increased warmth and induration from the toes to the groin. Small wound medial ankle without bleeding/discharge)
Assessment/Plan
89 y/o female with past medical history significant for ASCVD / PAD, hypertension, chronic O2 dependence and recent issues with LLE cellulitis who presented to ED from local [facility] for evaluation of LLE redness and swelling, fever and hypotension.
Patient was hospitalized here 08/16 - 08/18 and 09/02 - 09/07 for LLE cellulitis. She completed her most recent course of abx on 09/12 - but was restarted on Keflex (500mg BID) on 09/19/25 due to recurrent / worsening redness and swelling. Son noted
that patient was seen earlier on 09/21/25 by [facility] here at [facility] and LE was fairly well-appearing. Upon return to the [place], staff and family noted marked increase in redness of the entire LLE. Patient was increasingly somnolent / poorly
responsive and was noted at [facility] to have fever and hypotension. She was sent to the ED for further evaluation and treatment.
In the ED, patient was initially unresponsive, and she was also tachypneic with rapid, shallow respirations and drooling.
Severe LLE Cellulitis
Septic Shock secondary to the above
- Patient presented with LLE cellulitis by exam and evidence of end-organ dysfunction in the form of acute TME, acute respiratory failure requiring NIV and hypotension requiring pressor support.
- Received IV fluid boluses
- Weaned off vasopressors on 09/22/25
- IV Cefazolin while inpatient
- I communicated (on 09/25/25, via [place] Text) with Dr. Kilgore and Dr. Kilgore agreed that patient can be discharged today on Keflex 500 mg QID for another 5 to 7 days
- Vancomycin IV was previously stopped as MRSA negative
- Blood cultures from prior visits (08/16 and 09/02) were negative.
- ID evaluation given third hospitalization for LLE cellulitis with increasing severity of illness.
- Continue lower extremity Gonzales wrap (foot to above knee). May need to follow up in lymphedema clinic following discharge.
- Lower extremity elevation to facilitate lymphatic drainage -- place on towels rather than pillows to maintain elevation.
Presentation with rapid shallow breathing, lethargy, unresponsiveness
Acute TME secondary to sepsis
- Encephalopathy NOW RESOLVED
- Patient was poorly responsive in the emergency department.
- Likely combination of sepsis, hypercapnic respiratory failure +/- chronic opioid dependence.
- Sepsis treatment as noted above. She seems to have responded to IV fluids, IV antibiotics, BiPAP
- Oxycodone on hold acutely.
- Follow for clinical improvement.
Acute Hypercapnic Respiratory Failure
Chronic Hypoxemic Respiratory Failure
- On 3 L at home
- ABG done in the ED showed pCO2 = 71 with slightly decreased pH (7.26).
- Given mental status change as noted above (and inability to entertain intubation / mechanical ventilation as per patient's wishes) NIV was tried with resulting improvement
- Continue BiPAP HS and PRN during stay; BiPAP can help her given her pulm hypertension, RV dysfunction, but now patient refuses BiPAP
- Patient was on NIV similarly during prior admission - though she began to refuse intervention once she was more alert.
- Continue usual O2 support - oxygenation is adequate on usual 2 lpm supplementation.
- Pulm / Lawn Service Manager evaluation as noted above.
- Withhold her chronic opioid/narcotic therapy
Chronic HFpEF
- Patient likely with degree of volume overload based on weight, CXR appearance, etc.
- Regardless, holding diuretic / antihypertensive medications acutely given sepsis / shock.
- Resume Lasix and Farxiga outpatient when clinically appropriate after outpatient re-evaluation (was held for low blood pressures)
- Follow I/Os, daily weights, etc.
- Will likely benefit from eventual diuresis once hemodynamic status is improved.
- Echo done 07/2025 showed preserved LVEF and mild pulmonary hypertension.
Spinal Stenosis
Fibromyalgia
Chronic Pain Syndrome
Chronic Opioid Dependence
- ? to what extent chronic opioid use is contributing to current TME.
- IV pain medications as needed for complaints of pain / evidence of withdrawal.
- Resumed Gabapentin, continue to hold Oxycodone to prevent over-sedation
Morbid Obesity due to excess calories
- Affects all aspects of care - including chronic lymphedema / increased risk for recurrent cellulitis, etc.
DVT Prophylaxis: Lovenox
Code Status: DNR / DNI
On 09/22/25, I spoke to patient's son who was in patient's room, and I answered all of his questions and concerns to satisfaction.
More than 30 minutes spent in discharge including
Final examination of the patient
Summarizing hospital stay
Instructions for continuing care to all relevant caregivers
Preparation of discharge records, prescriptions, and referral forms
Total time spent (in minutes): 43
Anticipated Discharge: Today
Subjective/Interval History
-
Date of Service: September 25, 2025
Patient was seen and examined. She denied any new symptoms or complaints.
Objective Data
-
Labs:
Laboratory Results
09/25/25
05:23
WBC 4.3 L
Hgb 11.7 L
Hct 39.7
Plt Count 133
Sodium 138
Potassium 3.7
Chloride 101
Carbon Dioxide 39 H
BUN 4 L
Creatinine 0.3 L
Glucose 98
Calcium 8.8
Vital Signs:
Vital Signs
Temp Pulse Resp BP Pulse Ox
98.5 F 87 18 100/66 95
09/25/25 11:00 09/25/25 11:00 09/25/25 11:00 09/25/25 11:00 09/25/25 13:09
I&O
09/24/25 09/25/25 09/26/25
06:59 06:59 06:59
Intake Total 1320 / 1320 1580 / 1580
Output Total 2550 / 2550 2850 / 2850
Balance -1230 / -1230 -1270 / -1270
[2025-09-25 15:00] VITALS: BP 127/80
--- NOTE | 2025-09-25 15:32 | CM ---
Addendum entered by Yoana Pedroza 09/25/25 15:50:
Call placed to pt's son, Ayaz, to make him aware of discharge back to [facility] today via ambulance. He was appreciative of the notification.
IMM reviewed via telephone and Ayaz was in agreement with discharge; declined having a copy of the IMM sent via email.
Original Note:
CM following for return to [facility]. Call placed to [facility], spoke with Karina Durand who advised that CM would need to contact the nursing field crop farming supervisor at [facility] at [phone].
Call placed spoke with Cristiana. Pt is accepted back to [facility] today. CM to arrange ambulance transportation.
Report: [phone]
[2025-09-25] MEDS: LOVENOX 40 MG SC (17:41)
[2025-09-25 18:40] VITALS: BP 116/66
== END 2025-09-25 20:25 | DRG 871 ==
LOC: 3 WEST ACU 23:34
PROVIDERS: ADMITTING PHYSICIAN Hospitalist; ATTENDING PHYSICIAN Hospitalist; CONSULT PHYSICIAN Internal Medicine Critical Care Medicine; CONSULT PHYSICIAN Internal Medicine Infectious Disease; EMERGENCY PHYSICIAN Emergency Medicine; FAMILY PHYSICIAN Student in an Organized Health Care Education/Training Program
PROC: 5A09357 Assistance with Respiratory Ventilation, Less than 24 Consecutive Hours, Continuous Positive Airway Pressure (ICD-10-PCS; 2025-09-21)
DX: A41.9 Sepsis, unspecified organism (principal); G92.8 Other toxic encephalopathy; R65.21 Severe sepsis with septic shock; J96.21 Acute and chronic respiratory failure with hypoxia; J96.22 Acute and chronic respiratory failure with hypercapnia; L03.116 Cellulitis of left lower limb; I50.32 Chronic diastolic (congestive) heart failure; Z68.41 Body mass index [BMI] 40.0-44.9, adult; F03.94 Unspecified dementia, unspecified severity, with anxiety; F11.20 Opioid dependence, uncomplicated; I25.10 Atherosclerotic heart disease of native coronary artery without angina pectoris; I73.9 Peripheral vascular disease, unspecified; I11.0 Hypertensive heart disease with heart failure; Z99.81 Dependence on supplemental oxygen; M79.7 Fibromyalgia; G89.4 Chronic pain syndrome; M48.00 Spinal stenosis, site unspecified; E66.01 Morbid (severe) obesity due to excess calories; Z79.899 Other long term (current) drug therapy; Z85.828 Personal history of other malignant neoplasm of skin; Z87.891 Personal history of nicotine dependence; Z96.653 Presence of artificial knee joint, bilateral; I89.0 Lymphedema, not elsewhere classified; E55.9 Vitamin D deficiency, unspecified; N32.81 Overactive bladder; K21.9 Gastro-esophageal reflux disease without esophagitis; D50.9 Iron deficiency anemia, unspecified; E78.5 Hyperlipidemia, unspecified; I27.20 Pulmonary hypertension, unspecified; L40.9 Psoriasis, unspecified; M06.9 Rheumatoid arthritis, unspecified; Z66 Do not resuscitate; Z11.52 Encounter for screening for COVID-19
CPT/HCPCS: 36556; 36600; 71045; 80048; 80053; 80076; 82805; 82962; 83605; 83735; 84100; 84439; 84443; 85025; 85027; 87040; 87070; 87502; 87811; 93005; 96365; 96366; 96367; 96375; 99203; 99291

== ENCOUNTER 2025-09-27 18:15 | Inpatient (IN) | payer MEDICARE, OTHER, SELFPAY ==
[2025-09-27] VITALS (7 sets, daily range): BP systolic 95–133; BP diastolic 42–77; BMI 38.3
[2025-09-27 16:12] LABS: Hematocrit 46.1 % (37.0-47.0); Hemoglobin 13.5 g/dL (12.0-16.0); Mean Corp Hgb Conc. 29.3 g/dL (33.0-37.0); Mean Corpuscular Volume 107.0 fL (81.0-99.0); Nucleated Red Blood Cells % 0 %; Platelet Count 170 10^3/uL (130-400); Red Cell Dist. Width 14.6 % (11.5-14.5)
[2025-09-27 16:18] LABS: Urine Character Clear (Clear)
[2025-09-27 16:26] LABS: Urine White Cell 0-2 /HPF (0-5)
[2025-09-27 16:31] LABS: ALT (SGPT) 24 U/L (0-35); AST (SGOT) 37 U/L (14-36); Albumin 3.8 g/dl (3.5-5.0); Alkaline Phosphatase 66 U/L (38-126); Blood Urea Nitrogen 8 mg/dl (7-17); Calcium 9.2 mg/dl (8.4-10.2); Chloride 90 mmol/L (98-107); Estimated Creatinine Clearance 74 ml/min; Potassium 4.0 mmol/L (3.5-5.1); Sodium 136 mmol/L (135-145); Total Protein 7.1 g/dl (6.3-8.2); eGFR > 60.00
[2025-09-27 16:37] LABS: Glucose 108 mg/dl (70-99)
--- NOTE | 2025-09-27 16:39 | ED.GENMED ---
History of Present Illness
General
Chief Complaint: Breathing Problem
Source: records
Exam Limitations: clinical condition
Time Seen by Provider: 09/27/25 15:52
History of Present Illness
History of Present Illness:
Patient presents with tachypnea and hypoxia at the facility. Patient denies specific complaints. Recent admission for cellulitis. Does not complain of leg pain chest pain.
Past History
Past History
ED Past Medical History: Cancer (Skin Cancer), CHF, Fibromyalgia, GERD, Psychiatric (Anxiety), Other (Back pain, Herniated disc, GI bleeding Upper and lower, Hiatal hernia, Ulcers. cellulitis, Psoriasis, Anemia, ), Other (Rheumatoid arthritis) and
Other ( chronic pain. Followed by pain management. Currently taking Endocet )
ED Past Surgical History: Cholecystectomy, Gynecological (tubal, ), Orthopedic (Status post right knee replacement x3, status post left wrist fracture repair x 3, Hip surgery) and Other (cataracts)
Social History
Tobacco: Non-smoker
Alcohol: None
Drug: None
Personal:
Living: retirement
Employment: Retired
Family History
Family History: Negative Diabetes, Hypertension or CAD
Review of Systems
Review of Systems
All Other Systems: Not applicable
Respiratory: Denies cough
Cardiac: Denies chest pain
Phy Exam
Physical Exam
Physical Exam:
GENERAL: Alert and oriented in no apparent distress
EYE: Orbits normal.
NECK: Supple, no significant adenopathy.
ENT: Pharynx without erythema
CARDIAC: Regular rate and rhythm without any obvious murmurs.
LUNGS: Mild tachypnea at rest. Decreased breath sounds diffusely. Rales in the bases
ABDOMEN: Soft, without focal tenderness or distention
NEUROLOGICAL: Alert and oriented , grossly non-focal
SKIN: Warm and dry, no rash or lesion, no discoloration, skin intact.
MUSCULOSKELETAL: Bilateral edema left greater than right with significant erythema at the left lower leg
PSYCH: Normal and appropriate interaction.
Scores
Heart Failure Risk
Heart Failure Risk Score: Not Applicable
Course
Orders/Labs/Results
Orders:
Orders
09/27/25 15:56
Electrocardiogram (*1) Urgent
Reason for Study: Other
Other Reason for Exam: Respiratory Distress
EKG- Treatment ONCE
CR Chest Portable - 1 View Urgent
Comment:
Reason For Exam: respiratory distress
Reason Study Needs to be Portable: Patient Unstable
09/27/25 15:58
Complete Blood Count/With Diff Urgent
Comprehensive Metabolic Panel Urgent
NT-proBNP Urgent
Troponin I Urgent
09/27/25 16:10
Urinalysis Reflex To Culture Urgent
Date Specimen was Collected: 09/27/25
Time Specimen was Collected: 16:08
Urine Microscopic Reflex Cult Urgent
09/27/25 17:46
Admit/Transfer Patient As Directed
Co-Sign Provider:
Level of Care: Inpatient admission
Assign to:: Telemetry
Physician / Group: Davidson Keys
Diagnosis: acute on chronic hypoxic respiratory failure, acute on chronic HFpEF
Reason for Telemetry: Acute Heart Failure
Date to Stop Telemetry: 09/30/25
Time to Stop Telemetry: 11:00
Reason for Hospitalization: acute on chronic hypoxic respiratory failure, acute on chronic HFpEF
Expected length of stay greater than two midnights?: Yes
ELOS- Estimated Length of Stay in days: 3
I certify the patient meets the requirements for IP care: Yes
Furosemide [Lasix] 40 mg IV NOW STA
09/27/25 17:47
PRN Pain Medication Management As Directed
May give lesser potent ordered pain med per pt: Yes
preference::
Protocol:: Medication orders for pain may be administered in a
manner that supports deferring to patient preference
when the pt is:
- Requesting an ordered lesser potent pain medication.
Least to most potent pain medications are defined
as: acetaminophen < NSAID < tramadol < opioids
(morphine, oxycodone, hydromorphone).
- Requesting a lesser dose of the same medication IF
ORDERED.
- Requesting a less intrusive route of administration
if both routes are prescribed by the provider (PO <
IV).
09/27/25 17:50
Code Status As Directed
Resuscitation Status: Do not resuscitate
Reached after discussion with pt or family/Healthcare POA: Yes
Decision communicated with: patient and family
09/27/25 17:51
DNR Bracelet Application ONCE
09/27/25 17:56
CeFAZolin 2 GRAM [Ancef] 2 grams in 10 ml IV NOW
09/30/25 11:00
DC Protocol for Telemetry ONCE
Abnormal Lab Results
09/27/25 09/27/25
15:58 16:10
MCV 107.0 H fL
(81.0-99.0)
MCH 31.3 H pg
(27.0-31.0)
MCHC 29.3 L g/dL
(33.0-37.0)
RDW 14.6 H %
(11.5-14.5)
Abs Immat Gran (auto) 0.2 H 10^3/uL
(0-0.05)
Absolute Lymphs (auto) 1.0 L 10^3/uL
(1.2-3.4)
Immature Gran % 4.0 H %
(0-0.5)
Monocytes % 10.7 H %
(1.7-9.3)
Chloride 90 L mmol/L
(98-107)
Carbon Dioxide 46 H mmol/L
(22-30)
Creatinine 0.4 L mg/dL
(0.6-1.0)
Glucose 108 H mg/dl
(70-99)
AST 37 H U/L
(14-36)
Ur Occult Blood Reflex 3+ A
(Negative)
Urine RBC 11-15 A /HPF
(0-2)
Urine Bacteria (Reflex) Few A
(Negative)
Urine Yeast Moderate A
(Negative)
Urine Glucose 4+ A
(Negative)
Urine Albumin (Reflex) 1+ A
(Neg - Trace)
09/27/25 15:58
09/27/25 15:58
Vital Signs
Initial and Last Documented VS:
Initial Vital Signs
Temp Pulse Resp BP Pulse Ox
98.1 F 76 18 121/68 86
09/27/25 15:37 09/27/25 15:37 09/27/25 15:37 09/27/25 15:37 09/27/25 15:37
Last Documented Vital Signs
Temp Pulse Resp BP Pulse Ox
98.1 F 87 14 126/76 99
09/27/25 15:37 09/27/25 19:15 09/27/25 18:00 09/27/25 19:00 09/27/25 19:25
*Radiology
Radiology exam reviewed: radiology read reviewed (Mild pulmonary edema)
*Pulse Oximetry
SaO2: 86
Nasal Cannula flow liters per minute: 2
Patient hypoxic: yes
*Critical Care Note
Total Time (30-74mins, 75-104mins- exclusive of procedures): Not Applicable
Data Reviewed
Review of Other/Old Records Reveals: Labs, Records, Radiology Studies, Testing and Discharge Summary
ED Attending Note
-
Portions of this chart may have been created with voice recognition software.� Occasional wrong word or��sound alike� substitutions may have occurred due to the inherent limitations of voice recognition software.
Discharge Plan
Departure
Patient Disposition: Admit
Date of Disposition: 09/27/25
Time of Disposition: 17:01
Presentation/result/management discussed w/ accepting MD/DO: Hospitalist
Discharge Problem:
Progressive cellulitis, Respiratory distress, Respiratory distress pulmonary edema by
Interventions
Interventions:
*Risk Screen - Suicide Last Done: 09/27/25 15:37
*Neglect/Abuse Screening Last Done: 09/27/25 15:37
*ED COVID-19 Vaccine History Last Done: 09/27/25 15:37
*ED Influenza Vaccine History Last Done: 09/27/25 15:37
ED- Cardiac Assessment Last Done: 09/27/25 16:23
ED- Pulmonary Assessment Last Done: 09/27/25 16:23
[2025-09-27 16:45] LABS: Carbon Dioxide 46 mmol/L (22-30)
[2025-09-27 16:54] LABS: Troponin I 0.015 ng/ml
--- NOTE | 2025-09-27 17:00 | HPS.HSE ---
Addendum entered and electronically signed by Davidson Keys MD 09/27/25 19:36:
I saw and examined the patient.
The CONSTRUCTION REP or PA's note was reviewed and I agree with the note.
Comment:
HPI
89F who was DC' don 09/25/25 with LLE cellulitis most recently discharged 09/25/2025 for septic shock 2/2 to severe LLE cellulitis.
HX significant for chronic hypoxemic RF , HFpEF, PAD, lymphedema, hypertension, overactive bladder, chronic anemia, fibromyalgia, dementia and GERD
HX multiple recent hospitalizations
VS: Temp Pulse Resp BP Pulse Ox
98.1 F 76 18 121/68 8
PE:
Morbidly Obese
HEENT Not toxic
Lungs: mild tachypnea- baseline for her
Cor: RR and Peripheral Edema
GI: Soft, Non Tender, Non Distended
Musculoskeletal: Lt Leg - red, warm and swollen , chr Lymphedema Nick
Skin: Warm, Dry and IV/Catheter Site
Neuro: Awake and AO x 3
Psych: Calm
CXR
1. Mild interstitial cardiogenic pulmonary edema.
2. Moderately decreased bilateral lung volumes.
3. Multiple bands of opacity in the mid and lower lungs which have an appearance most suggestive of multifocal scarring and subsegmental atelectasis. If there are signs/symptoms of pulmonary
IMPRESSION/PLAN:
Acute on chr hypoxia vs. acute on chronic HFpEF vs. sespsis
Hypoxia on 2L reported by facility staff with increased work of breathing
- increased O2 need to 4L
- IV Lasix 40mg times one
- O2 titrate to baseline
- Pul consult
Lt lower extremity cellulitis - poorly resolved
- rubina wrap for compression BLLE
- resume cefazolin 2gm IV q8
- consult ID
HX Chr HFpEF
- I & Os
- daily weights
- dapagliflozin and furosemide on hold
Primary hypertension
Overactive bladder
Dementia
DVT prophylaxis: Lovenox sq
DNR
IP TLM
Lab Data: Labs Reviewed by me
Original Note:
Family Physician
-
Family Physician: Jean Sandoval DO
Chief Complaint
-
increased work of breathing and hypoxia
History of Present Illness
Patient is a 89-year-old female with past medical history significant for chronic hypoxemic respiratory failure, HFpEF, PAD, lymphedema, hypertension, overactive bladder, chronic anemia, fibromyalgia, dementia and GERD who presented to [facility] ED for
evaluation of increased work of breathing and hypoxia. Patient multiple recent hospitalizations for LLE cellulitis most recently discharged 09/25/2025 for septic shock 2/ to severe LLE cellulitis. Patient was discharged on Keflex 500 mg QID for
another 5 to 7 days in which she has been receiving at facility. Patient denies any specific complaints at assessment and expresses frustration of needing to be at hospital again. Patient family at bedside who report LLE is red and infected but they
have seen it much worse. Denies fever, chills, cough, shortness of breath, chest pain, nausea, vomiting, constipation or diarrhea.
Medical History
Past Medical History
Past Medical History: Reports Other
Additional Past Medical History:
Chronic hypoxemic respiratory failure
HFpEF
PAD
Lymphedema
Vitamin D deficiency
Spinal stenosis
Primary hypertension
Overactive bladder
Chronic anemia
Fibromyalgia
Dementia
GERD
Past Surgical History: Reports Other
Additional Past Surgical History:
Bilateral total knee replacement
status post left wrist fracture repair x 3
Hip surgery
Social History
Tobacco: Former Smoker
Alcohol: Former
Drug: None
Living: Assisted Living
Employment: Retired
Family History
Family History: Not pertinent
Allergies / Home Medications
Allergies reflects when Allergies were last updated in [facility].
Home Medications with original date entered in [facility]
Allergy/Medication List:
Allergies
Allergy/AdvReac Type Severity Reaction Status Date / Time
No Known Drug Allergies Allergy Unknown Verified 09/02/25 07:19
Home Medications
ascorbic acid (vitamin C) 500 mg tablet 500 mg PO MOWEFR@0830,1830 Supplement 11/09/23
bisacodyl 10 mg rectal suppository (Dulcolax (bisacodyl)) 10 mg PA [id number] PRN IF NO BM AFTR MOM 11/09/23
diclofenac sodium 1 % topical gel 2 g topical [id number] PRN lower back pain 11/09/23
ferrous gluconate 324 mg (38 mg iron) tablet 324 mg PO MOWEFR Supplement 11/09/23
gabapentin 300 mg capsule 300 mg PO TID MILD Pain 11/09/23
magnesium hydroxide 400 mg/5 mL oral suspension (Milk of Magnesia) 30 ml PO HSPRN PRN constipation 11/09/23
acetaminophen 500 mg tablet (Pain Relief Extra Strength (acetaminophen)) 1,000 mg (2 x 500 mg) PO TID #0 tabs 11/14/23
polyethylene glycol 3350 17 gram/dose oral powder 17 g PO DAILY #510 grams 11/14/23
potassium chloride 20 mEq tablet,extended release 20 meq PO DAILY #30 tabs 11/14/23
famotidine 20 mg tablet 20 mg PO BID Gastrointestinal Issue 05/20/24
dapagliflozin propanediol 10 mg tablet 10 mg PO DAILY #30 tabs 05/24/24
Held on 09/25/25. Instructions: Resume on 10/02/25. Resume after outpatient re-evaluation with outpatient or [facility] doctor
furosemide 80 mg tablet (Lasix) 80 mg PO DAILY Fluid retention/Swelling #0 tabs 09/07/25
Held on 09/25/25. Instructions: Resume on 09/28/25. Furosemide was held in the hospital due to hypotension, but patient will very likely need this for her heart failure, please consider resuming soon in a few days after checking Basic Metabolic
Panel labwork and patient's blood pressure.
cephalexin 500 mg capsule 500 mg PO QID 7 days #28 caps 09/25/25
Review of Systems
-
History Source: Patient
Constitutional: Reports No Symptoms
EENT: Reports No Symptoms
Respiratory: Reports Trouble Breathing (increased work of breathing and hypoxia )
Cardiac: Reports No Symptoms
Abdomen/GI: Reports No Symptoms
: Reports No Symptoms
Musculoskeletal: Reports No Symptoms
Skin: Reports No Symptoms
Neurological: Reports No Symptoms
Endocrine: Reports No Symptoms
Hematologic/Lymphatic: Reports No Symptoms
Psych: Reports No Symptoms
Physical Exam
Vital Signs
Vital Signs
Temp Pulse Resp BP Pulse Ox
98.1 F 76 18 121/68 86
09/27/25 15:37 09/27/25 15:37 09/27/25 15:37 09/27/25 15:37 09/27/25 16:41
Physical Exam
General: Well Developed, Well Nourished, No Apparent Distress, Comfortable, Conversant and Morbidly Obese
HEENT: NormoCephalic, PERRLA, Nose Appears Normal and Ears Appear Normal
Respiratory: Clear, Decreased Breath Sounds and Other (mild tachypnea, patient reports this is baseline for her )
Cardiac: Regular Rhythm and Peripheral Edema; No Murmur, Rub or Gallop
GI: Soft, Non Tender, Non Distended and Normal Bowel Sounds
Musculoskeletal: No Clubbing and No Cyanosis
Skin: Warm, Dry and IV/Catheter Site
Neuro: Awake and AO x 3
Psych: Calm
Laboratory Results
-
09/27/25 15:58
09/27/25 15:58
Laboratory Results
Total Bilirubin 0.8 mg/dl (0.2-1.3) 09/27/25 15:58
AST 37 U/L (14-36) H 09/27/25 15:58
ALT 24 U/L (0-35) 09/27/25 15:58
Alkaline Phosphatase 66 U/L (38-126) 09/27/25 15:58
Troponin I 0.015 ng/ml 09/27/25 15:58
Data Reviewed
-
Diagnostic Radiology: Report Reviewed by me (CXR: 1. Mild interstitial cardiogenic pulmonary edema. 2. Moderately decreased bilateral lung volumes. 3. Multiple bands of opacity in the mid and lower lungs which have an appearance most
suggestive of multifocal scarring and subsegmental atelectasis. If there are signs/symptoms of pulmonary )
Lab Data: Labs Reviewed by me
Impression/Plan
-
IMPRESSION/PLAN:
#increased work of breathing and hypoxia 2/2 chronic hypoxemic respiratory failure vs. acute on chronic HFpEF vs. septic shock
hypoxia on 2L reported by facility staff with increased work of breathing
increased O2 need to 4L
lungs diminished throughout
EKG: NORMAL SINUS RHYTHM
CANNOT RULE OUT ANTERIOR INFARCT , AGE UNDETERMINED
CXR: 1. Mild interstitial cardiogenic pulmonary edema.
2. Moderately decreased bilateral lung volumes.
3. Multiple bands of opacity in the mid and lower lungs which have an appearance most suggestive of multifocal scarring and subsegmental atelectasis. If there are signs/symptoms of pulmonary
infection, pneumonia is a diagnostic possibility.
4. Mild cardiomegaly.
5. Chronic pulmonary arterial hypertension.
6. Severely exaggerated thoracic kyphosis secondary to multilevel chronic vertebral body endplate insufficiency fractures.
7. Moderate to large hiatal hernia.
- Admit to telemetry
- consult Pulmonary
- IV Lasix 40mg now
- O2 titrate to baseline
#left lower extremity cellulitis
- cefazolin 2gm IV q8
- consult ID
- rubina wrap for compression BLLE
#HFpEF
- I & Os
- daily weights
- dapagliflozin and furosemide on hold
#GERD
- continue famotidine
#Chronic anemia
- continue ferrous gluconate
#Spinal stenosis
#Fibromyalgia
-continue gabapentin
#PAD
#Lymphedema
#Vitamin D deficiency
#Primary hypertension
#Overactive bladder
#Dementia
Code status: DNR/DNI
DVT prophylaxis: Lovenox sq
[2025-09-27] MEDS: LASIX 40 MG IV (18:06)
[2025-09-27] MEDS: ANCEF 10 IV (18:06)
--- NOTE | 2025-09-27 22:00 | PTCARENOTE ---
Pt received from ED via stretcher at 2100. Pt pleasant, AAOX3, VSS, and pulled over into bed from stretcher. Pt complains of mild (4/10) lower back pain and Rt lower leg pain at this time. Pt receptive to room and call martinez. Pt bed in lowest
position and call martinez within reach. Pt educated on importance of call martinez usage, pt relays understanding and cooperation. Will continue with current plan of care.
[2025-09-27] MEDS: LOVENOX 40 MG SC (22:22)
[2025-09-27] MEDS: PEPCID 20 MG PO (22:22)
[2025-09-27] MEDS: DICLOFENAC 1% TOPICAL GEL 2 GRAM TOPICAL (22:23)
[2025-09-27] MEDS: NEURONTIN 300 MG PO (22:23)
[2025-09-28] MEDS: ANCEF 10 IV ×3 (02:21→17:02)
[2025-09-28 06:00] VITALS: BMI 36.3
[2025-09-28 07:30] VITALS: BP 115/55
--- NOTE | 2025-09-28 07:49 | W.PN.HOSP.TC ---
Today's Communication/Plan
-
Continue IV antibiotics
See plan
Assessment / Plan
Assessment / Plan
Assessment/Plan
LLE Cellulitis
Recurrent Cellulitis - Nonpurulent
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
- Patient was recently hospitalized with septic shock with associated cellulitis, at that time, ID was consulted given patient's third hospitalization for LLE cellulitis with increasing severity of illness.
- Continue Ancef
- Continue lower extremity Gonzales wrap (foot to above knee). Will need to follow up in lymphedema clinic following discharge.
- Lower extremity elevation to facilitate lymphatic drainage
- Possible trial of suppressive antibiotics following the acute course
Presentation with rapid shallow breathing, lethargy, unresponsiveness during recent hospitalization
Acute TME secondary to sepsis, infection, and hypercapnia -- during recent hospitalization
- Likely combination of sepsis, hypercapnic respiratory failure +/- chronic opioid dependence.
- Sepsis treatment as noted above. Last hospitalization, she appeared to have responded to IV fluids, IV antibiotics, BiPAP
- Oxycodone was stopped at that time -- avoid narcotic pain medications
- Follow for clinical improvement.
Chronic Hypoxemic Respiratory Failure on home 3 L oxygen previously
- ABG done in the ED showed pCO2 = 71 with slightly decreased pH (7.26).
- Given mental status change as noted above (and inability to entertain intubation / mechanical ventilation as per patient's wishes) NIV was tried with resulting improvement
- Continue BiPAP HS and PRN during stay; BiPAP can help her given her pulm hypertension, RV dysfunction, but now patient refuses BiPAP
- Patient was on NIV similarly during prior admission - though she began to refuse intervention once she was more alert.
- Continue usual O2 support - oxygenation is adequate on usual 2 L/min supplementation.
- Pulmonary/Banquet Bartender evaluation as noted above.
- Avoid opioids/narcotic pain medications
Chronic HFpEF
- Continue Lasix
- Consider resuming Farxiga
- Follow I/Os, daily weights, etc.
- Echo done 07/2025 showed preserved LVEF and mild pulmonary hypertension.
Spinal Stenosis
Fibromyalgia
Chronic Pain Syndrome
Chronic Opioid Dependence
- Continue Gabapentin
- Avoid opioid pain medications
Morbid Obesity due to excess calories
- Affects all aspects of care - including chronic lymphedema / increased risk for recurrent cellulitis, etc.
Lymphedema
Obesity
DVT Prophylaxis: Lovenox
Code Status: DNR/DNI
Anticipated Discharge: 24 - 48 hours
Subjective/Interval History
-
Date of Service: September 28, 2025
Patient was seen and examined. She denied any new symptoms or complaints.
Objective Data
-
Labs:
Laboratory Results
09/28/25
06:00
Sodium Pending
Potassium Pending
Chloride Pending
Carbon Dioxide Pending
BUN Pending
Creatinine Pending
Glucose Pending
Calcium Pending
Vital Signs:
Vital Signs
Temp Pulse Resp BP Pulse Ox
97.7 F 76 16 115/55 95
09/28/25 07:30 09/28/25 07:30 09/28/25 07:30 09/28/25 07:30 09/28/25 07:30
I&O
09/27/25 09/28/25 09/29/25
06:59 06:59 06:59
Intake Total
Balance
--- NOTE | 2025-09-28 07:58 | WOUNDNOTE ---
ABDOMEN FOLD (LOWER)
--- NOTE | 2025-09-28 08:00 | WOUNDNOTE ---
R HIP (LATERAL POSTERIOR)
--- NOTE | 2025-09-28 08:01 | WOUNDNOTE ---
L HEEL/ANKLE (POSTERIOR)
--- NOTE | 2025-09-28 08:03 | WOUNDNOTE ---
[facility] RN note: Patient admitted with respiratory failure. Patient admitted from SNF.
See H&P for complete history.
PMH: recent discharge from with cellulitis LLE, CHF, lymphedema, HTN, fibromyalgia, dementia.
Wound Location and type/assessment: Patient admitted with: healing L back abrasion, L medial ankle deep dermal ulcer which may be a biopsy site as patient told nursing along with edema related. +1-2 LLE edema. Trace RLE edema. Scattered dry rash
patches on RLE suspect eczema or psoriasis. R groin and L abdomen bruise. L posterior ankle small dermal abrasion. Blanchable red sacral/buttocks. Heels blanchable red. Mild perineal MASD. Abdominal/groin MASD.
Appetite: good.
Pressure redistribution devices in place: [employer] air bed. Patient cannot turn self in bed.
Plan:
Will confirm orders with hospitalist and update nurse.
Updated care plan and will follow as needed.
Note to case management of equipment requested for discharge:
Recommend follow up at wound care center upon discharge.
--- NOTE | 2025-09-28 08:14 | WOUNDNOTE ---
[facility] RN note: Patient admitted with respiratory failure. Patient admitted from SNF.
See H&P for complete history.
PMH: recent discharge from with cellulitis LLE, CHF, lymphedema, HTN, fibromyalgia, dementia.
Wound Location and type/assessment: Patient admitted with: healing L back abrasion, L medial ankle deep dermal ulcer which patient stated is a biopsy site for skin cancer along with edema related. +1-2 LLE edema. Trace RLE edema. +Pedal pulses.
Patient stated there is a plan in place for the skin cancer. Scattered dry rash patches on RLE suspect eczema or psoriasis. R groin and L abdomen bruise. L posterior ankle small dermal abrasion. Blanchable red sacral/buttocks. Heels blanchable red.
Mild perineal MASD. Abdominal/groin MASD.
Appetite: good.
Pressure redistribution devices in place: [employer] air bed. Patient cannot turn self in bed.
Plan: L ankle dressing changed. Silicone border foam applied to L posterior ankle abrasion. Protective heel foam dressing changed on heels. Patient turned with PCT Alexis. Silicone border foam applied to sacrum and L back abrasion. Heels off bed
with pillow and air chair cushion. Foam turning wedge given.
Will confirm orders with Dr. Vincent and discussed with REYES Warner.
Updated care plan and will follow as needed.
Note to case management of equipment requested for discharge: Air mattress at SNF if not already in place. Patient stated during recent admission that she has an air mattress at [facility].
Recommend follow up with her neuroscientist and at wound care center upon discharge.
[2025-09-28] MEDS: TYLENOL 1000 MG PO ×2 (08:23→17:02)
[2025-09-28] MEDS: FEOSOL 325 MG PO (08:23)
[2025-09-28] MEDS: VITAMIN C 500 MG PO ×2 (08:23→17:04)
[2025-09-28] MEDS: KCL 20 MEQ PO (08:24)
[2025-09-28] MEDS: NEURONTIN 300 MG PO ×3 (08:24→22:18)
[2025-09-28] MEDS: PEPCID 20 MG PO ×2 (08:24→22:18)
[2025-09-28] MEDS: MIRALAX 17 GRAMS PO (08:34)
[2025-09-28 09:19] LABS: Blood Urea Nitrogen 6 mg/dl (7-17); Calcium 8.8 mg/dl (8.4-10.2); Chloride 94 mmol/L (98-107); Estimated Creatinine Clearance 71 ml/min; Glucose 90 mg/dl (70-99); Potassium 3.8 mmol/L (3.5-5.1); Sodium 136 mmol/L (135-145); eGFR > 60.00
--- NOTE | 2025-09-28 09:27 | WOUNDNOTE ---
[facility] RN note: Spoke with patient's son Ralf who is visiting patient who clarified that patient's L medial ankle wound is skin cancer/biopsy site and that the biopsy was positive for either basal or squamous cell cancer. Ralf said his mother had a
recent appointment to discuss treatment options and they decided not to have the skin cancer treated give her medial condition and lymphedema.
[2025-09-28 10:30] LABS: Carbon Dioxide 40 mmol/L (22-30)
[2025-09-28 11:30] VITALS: BP 106/56
--- NOTE | 2025-09-28 12:49 | CON.PUL ---
Consultation
Consultation Request
Date/Time Consultation Requested: 09/28/2025
Date/Time Consultation Performed: 09/28/2025
Requesting Provider: Dr. Keys
Performing Provider: Dr. Lalo Mccloud
Reason for Consultation: Hypoxemia/chronic hypercapnic respiratory failure
Medical History
-
History of Present Illness:
History obtained from the patient, son at bedside and the chart.
89-year-old female with Morbid obesity, likely obesity hypoventilation syndrome, history of hypertension, chronic oxygen at home, recent admission for cellulitis, change in mental status, hypoxemia and acute on chronic hypercapnic respiratory
failure. At that time she refused BiPAP. She was discharged on 09/25/2025.
Patient herself denies any specific complaints.
She was sent to the hospital for evaluation of hypoxemia.
Chest x-ray is unrevealing. Patient does have chronic lower extremity swelling.
-
Reviewed last admission, she was hypoxemic and it was deemed due to hypoventilation. She refused BiPAP at that time and she was discharged.
-
PMH: Peripheral arterial disease, chronic lymphedema, history of heart failure, chronic hypoxia on home oxygen, morbid obesity with suspected chronic hypercapnia, spinal stenosis, fibromyalgia with chronic pain syndrome and opioid dependence,
dementia, GERD, hypertension
Past Medical History
Past Medical History: None (See above)
Past Surgical History: None (See above)
Social History
Tobacco: Former Smoker
Alcohol: Former
Drug: None
Living: Assisted Living
Employment: Retired
Family History
Family History: Reviewed & Not Pertinent
Allergies / Home Medications
Allergies
Allergy/AdvReac Type Severity Reaction Status Date / Time
No Known Drug Allergies Allergy Unknown Verified 09/02/25 07:19
Home Medications
�Medication �Instructions �Recorded �Confirmed �Last Taken �Type
ascorbic acid (vitamin C) 500 mg 500 mg PO MOWEFR@0830,6120 11/09/23 09/27/25 11/08/23 18:30 History
tablet Supplement
bisacodyl 10 mg rectal suppository 10 mg OH [id number] PRN IF NO BM AFTR 11/09/23 09/27/25 Unknown History
(Dulcolax (bisacodyl)) MOM
diclofenac sodium 1 % topical gel 2 g topical Q8HPRN PRN lower back 11/09/23 09/27/25 Unknown History
pain
ferrous gluconate 324 mg (38 mg 324 mg PO MOWEFR Supplement 11/09/23 09/27/25 11/08/23 08:30 History
iron) tablet
gabapentin 300 mg capsule 300 mg PO TID MILD Pain 11/09/23 09/27/25 08/16/25 History
magnesium hydroxide 400 mg/5 mL 30 ml PO HSPRN PRN constipation 11/09/23 09/27/25 Unknown History
oral suspension (Milk of Magnesia)
acetaminophen 500 mg tablet (Pain 1,000 mg (2 x 500 mg) PO TID #0 11/14/23 09/27/25 08/16/25 Rx
Relief Extra Strength tabs
(acetaminophen))
polyethylene glycol 3350 17 17 g PO DAILY #510 grams 11/14/23 09/27/25 08/16/25 Rx
gram/dose oral powder
potassium chloride 20 mEq 20 meq PO DAILY #30 tabs 11/14/23 09/27/25 08/16/25 Rx
tablet,extended release
famotidine 20 mg tablet 20 mg PO BID Gastrointestinal Issue 05/20/24 09/27/25 08/16/25 History
dapagliflozin propanediol 10 mg 10 mg PO DAILY #30 tabs 05/24/24 09/27/25 08/16/25 Rx
tablet
Held on 09/25/25.
Instructions: Resume on
10/02/25. Resume after
outpatient re-evaluation with
outpatient or Rick Hoyos
doctor
furosemide 80 mg tablet (Lasix) 80 mg PO DAILY Fluid 09/07/25 09/27/25 Unknown Rx
Held on 09/25/25. retention/Swelling #0 tabs
Instructions: Resume on
09/28/25. Furosemide was held
in the hospital due to
hypotension, but patient will
very likely need this for her
heart failure, please
consider resuming soon in a
few days after checking Basic
Metabolic Panel labwork and
patient's blood pressure.
cephalexin 500 mg capsule 500 mg PO QID 7 days #28 caps 09/25/25 09/27/25 Unknown Rx
Review of Systems
-
Unable to Obtain full review of systems at this time due to: Dementia
Vitals / Labs / Diagnostic Testing
Vital Signs
Temp Pulse Resp BP Pulse Ox
98.3 F 73 16 106/56 93
09/28/25 11:30 09/28/25 11:30 09/28/25 11:30 09/28/25 11:30 09/28/25 11:30
Lab Data
09/27/25 15:58
09/28/25 08:04
Diagnostic Testing:
Physical Exam
-
HEENT: Normocephalic
Cardiovascular: S1/S2 and Other (Chronic lower extremity swelling.)
Respiratory: Clear and Non-Labored Respirations
GI: Soft and Non Distended
Neurology: Awake, Alert, No Motor Deficits and Other (Following commands)
Skin: Warm and Other (Left lower extremity cellulitis noted.)
General: Respiratory Distress
Assessment
-
Assessment:
Mrs Mindy Simmons is an 89/W snf resident, recent admission to the hospital for cellulitis septic shock and hypercapnic respiratory failure. Back to the hospital from the [facility] sent for evaluation of hypoxemia.
Patient has no significant respiratory symptoms.
She is not sure why she is in the hospital.
There is no fevers, chills, night sweats or coughing.
Chest x-ray is unrevealing
I was consulted 09/28/2025 for evaluation.
Impression:
Acutechronic hypoxemic respiratory failure--suspect due to hypoventilation/lung restriction/immobility/hiatal hernia/obesity-currently on 4 L.
Chest x-ray 09/27/2025: Suggestion of cardiogenic pulmonary edema mild/decreased lung volumes. Lower lobe subsegmental atelectasis. Cardiomegaly. Signs of pulmonary hypertension. Kyphosis. Moderate to large hiatal hernia.
Acute on chronic hypercapnic respiratory failure:
ABG 09/22/2025: 7.32/68/104 compensatory
Metabolic alkalosis.
Chronic pulmonary hypertension: Likely due to untreated chronic hypercapnia and chronic hypoxemia. Likely obesity hypoventilation syndrome/obstructive sleep apnea.
proBNP not significantly elevated in the 600s.
Cellulitis left lower extremity-recently in the hospital with antibiotics.
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
ASCVD / PAD
Chronic Lymphedema
Lower Extremity Wounds
Spinal Stenosis
Chronic Ambulatory Dysfunction
Chronic HFpEF. DD
Iron Deficiency Anemia
Non-Melanoma Skin Cancer
Obesity, morbid
Overactive Bladder
Chronic Pain Syndrome / Fibromyalgia
On opiates, lidocaine patch, gabapentin, diclofenac, APAP
CGE February 2022, EGD showed CG secretions but no lesions
RA
H/o head trauma 201
Constipation
HH
Bilateral TKA
L hip fracture surgery Jul 2013
L wrist fracture s/p repair x3
RLE bimalleolar fracture 2017, medical mgmt
Former smoker in her teens
NHR
DNR
Echocardiogram 08/17/2025: Report reviewed.
Normal LVEF. Dilated right ventricle with mild reduced systolic function.
No significant valve disease. Mild pulmonary hypertension
Plan:
Suspect reason for hypoxemia is mainly hypoventilation-patient does have chronic hypercapnic respiratory failure and has declined BiPAP in the past.
To my evaluation patient denies any pulmonary symptoms.
Appears comfortable. Able to speak in full sentences.
Baseline mental status.
-
This likely will scot recurrent issue.
Okay to diurese gently-have to monitor renal function closely as patient has RV dysfunction and she is at risk for hypotension and cardiorenal syndrome.
proBNP not significantly elevated.
My recommendation is to wear BiPAP nightly and be discharged on BiPAP. She has refused adamantly in the past.
If unable to use BiPAP, no additional recommendations from the pulmonary perspective.
Avoid sedatives.
Patient with untreated obesity hypoventilation syndrome with chronic hypercapnia without therapy at a risk of respiratory failure, recurrent admissions and even .
Consider palliative care or hospice.
Can discharge in oxy supplementation.
-
Chest x-ray has mild pulmonary vascular congestion.
No evidence for infection
Again not unreasonable to diurese gently.
-
Thromboembolic disease also possibility but clinically Not suspected. Due to similar presentation she got worked up at the end of July for it.
CT angiogram 08/16/2025: No pulmonary embolism. Low lung volumes. Large hiatal hernia.
Lower extremity Dopplers 08/16/2025: No evidence for deep venous thrombosis. Limited study due to edema
Not tachycardic
Asymptomatic
Not in distress.
Monitor.
-
With a large hiatal hernia aspiration pneumonitis also possibility.
No indication for antibiotics
Aspiration precautions
-
DNR status
-
I did discuss with the patient need for BiPAP therapy at bedtime but she adamantly declined.
She has been using oxygen.
Currently she is relatively asymptomatic
Doubt any acute decompensation at this point.
-
Discussed with primary team.
No additional recommendation
Again, discharged on oxygen and optimize diuresis
Please call with questions sign off
Discussed with Dr. Garcia
Diagnostic tests:
Chest x-ray: 09/27/2025, cardiomegaly, low lung volumes, kyphosis, mild pulmonary vascular congestion.
CT chest 08/16/2025: No evidence for pulmonary embolism.
Cardiomegaly, coronary artery for dissection. Large hiatal hernia
-
Chest CTA 11-09-23
COMPARISON: No prior studies available for comparison.
FINDINGS:
Vascular: There is satisfactory opacification of the pulmonary arterial distribution. No filling defect to suggest pulmonary embolus. Mild dilation of the main pulmonary trunk, measuring 4 cm in diameter.
No evidence of thoracic aortic dissection. The proximal arch vessels are markedly tortuous. Atherosclerotic plaque is seen near the origin of the left subclavian artery and distal brachiocephalic artery, each associated with approximately 50%
stenosis.
Thyroid: No significant enlargement, and no significant nodules appreciated.
Supraclavicular region: No pathologic lymphadenopathy appreciated.
No pathologic axillary lymphadenopathy on either side.
Mediastinum: No pathologic mediastinal lymphadenopathy. No significant pericardial effusion. Mild calcification of the proximal LAD.
Lungs: Small to moderate pleural effusions are seen on each side.
Bilateral central patchy groundglass opacity is seen, most pronounced centrally, suggestive of pulmonary edema. No definite lobar pneumonia or pneumothorax on either side. Minimal bibasilar subsegmental atelectasis.
Upper abdomen: Moderate hiatal hernia without evidence of incarceration..
Osseous structures: Multiple compression fractures are seen within the thoracic and upper lumbar spine. Vertebra plana deformity is seen at T12.
No paraspinal inflammatory change or large paraspinal mass.
IMPRESSION:
1. No evidence of pulmonary embolism or thoracic aortic dissection.
2. Small to moderate bilateral pleural effusions. Bibasilar subsegmental atelectasis.
3. Central groundglass opacity on each side, most suggestive of pulmonary edema.
4. Dilation of the main pulmonary trunk, suggestive of pulmonary arterial hypertension in the correct clinical setting.
5. Moderate hiatal hernia without evidence of incarceration.
6. Mild coronary arterial calcification. Please correlate with symptoms of and risk factors for coronary artery disease, with further workup as clinically appropriate.
7. Pronounced tortuosity of the proximal arch vessels. Mild stenoses within the proximal left subclavian artery and brachiocephalic artery.
No TTE
--- NOTE | 2025-09-28 13:08 | CM ---
Initial assessment completed. Patient is a 89-year-old female with past medical history significant for chronic hypoxemic respiratory failure, HFpEF, PAD, lymphedema, hypertension, overactive bladder, chronic anemia, fibromyalgia, dementia and GERD
who presented to [facility] ED for evaluation of increased work of breathing and hypoxia.
Patient is a LTC resident at [facility]. Recent admission (09/21-09/25). Patient is non ambulatory, a binh lift is used to move her according to previous admission. Patient stays in her w/c throughout the day. Uses O2 at facility.
PCP: Jean Sandoval
Pharmacy: [facility]
Plan: Return to [facility] LT
--- NOTE | 2025-09-28 14:15 | CON.ID ---
Consultation
-
Date/Time Consultation Requested: 09/27/25 21:11
Date/Time Consultation Performed: 09/28/25 14:15
Requesting Provider: Radha COLLINS
Performing Provider: Dr Raymundo
Reason for Consultation: cellulitis
Chief Complaint / Past History
Chief Complaint
left leg redness warmth
History of Present Illness
Ms Simmons is an 89 year old female with history of lymphedema, dementia who represents for left leg redness, warmth, tenderness; she has a chronic wound on the left medial ankle that is an ulcerated basal cell carcinoma that she follows with wound
care for. She was recently hospitalized here 09/21-09/25 also for cellulitis complicated by septic shock requiring blood pressure support with pressors. She was treated initially with vancomycin and cefazolin, when MRSA screen was found to be
negative antibiotics were consolidated to cefazolin. She had compression and elevation of the leg. She was treated with cefazolin 2 gm IV q8 hr through 09/25 then transitioned to keflex with plans for 7 further days through 10/02. She reports that
wednesday, the day after discharge she started to notice increasing erythema, warmth and tenderness of the left leg. She states that she had ongoing compressive therapy to the leg. No fevers or chills. She was found to be hypoxemic and tachypneic
at the facility and was sent back to the ER for further evaluation.
Past History
Additional Past Medical History:
(Skin Cancer), CHF, Fibromyalgia, GERD, Psychiatric (Anxiety), Other (Back pain, Herniated disc, GI bleeding Upper and lower, Hiatal hernia, Ulcers. cellulitis, Psoriasis, Anemia, ), Other (Rheumatoid arthritis) and Other ( chronic pain. Followed by
pain management. Currently taking Endocet )
Additional Past Surgical History:
Cholecystectomy, Gynecological (tubal, ), Orthopedic (Status post right knee replacement x3, status post left wrist fracture repair x 3, Hip surgery) and Other (cataracts)
Allergy History:
No Known Drug Allergies Allergy (Verified 09/02/25 07:19)
Unknown
Medications Reviewed: Yes
Social History
Tobacco: Non-Smoker
Alcohol: None
Drug: None
Family History
Family History: Not Pertinent
Review of Systems
Vital Signs
Temp Pulse Resp BP Pulse Ox
98.3 F 73 16 106/56 93
09/28/25 11:30 09/28/25 11:30 09/28/25 11:30 09/28/25 11:30 09/28/25 11:30
Physical Exam
Physical Exam
Constitutional: No Acute Distress
Cardiovascular: Regular Rate and S1/S2; Negative Murmur or Rub
Pulmonary: Clear and Symmetric; Negative Wheezes, Rales or Rhonchi
Gastrointestinal: Soft, Non Tender, Non Distended and Normal Bowel Sounds
Extremities: Other (left lower extremity warm, 1+ pitting edema, erythema; small medial ulcerated ankle wound without purulence)
Skin: Warm and Dry; Negative Rash or Jaundice
Lab / Diagnostic Study Results
09/27/25 15:58
09/28/25 08:04
Abs Immat Gran (auto) 0.2 10^3/uL (0-0.05) H 09/27/25 15:58
Absolute Neuts (auto) 3.1 10^3/uL (1.4-6.5) 09/27/25 15:58
Absolute Lymphs (auto) 1.0 10^3/uL (1.2-3.4) L 09/27/25 15:58
Absolute Monos (auto) 0.5 10^3/uL (0.1-0.6) 09/27/25 15:58
Absolute Basos (auto) 0.0 10^3/uL (0-0.2) 09/27/25 15:58
Immature Gran % 4.0 % (0-0.5) H 09/27/25 15:58
Neutrophils % 62.5 % (42.2-75.2) 09/27/25 15:58
Lymphocytes % 20.6 % (20.5-51.1) 09/27/25 15:58
Monocytes % 10.7 % (1.7-9.3) H 09/27/25 15:58
Eosinophils % 1.8 % (0-6) 09/27/25 15:58
Basophils % 0.4 % (0-2) 09/27/25 15:58
Ur Squamous Epith Cells 11-15 /LPF (Few) 09/27/25 16:10
Microbiology Results
Micro:
09/28/25 05:56 MRSA Screen - Pending
Nose
Assessment / Plan
Recurrent Cellulitis - Nonpurulent
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
Lymphedema
Obesity
- compression of the leg with rubina wraps
- elevation as tolerated
- cefazolin 2 gm IV q8hrs
- follow clinically
- may consider a trial of suppressive antibiotics following the acute course
[2025-09-28 15:15] VITALS: BP 96/50
[2025-09-28] MEDS: LOVENOX 40 MG SC (17:03)
[2025-09-28 19:00] VITALS: BP 106/54
[2025-09-28] MEDS: DESENEX/MITRAZOL/ZEASORB 1 APPLIC TOPICAL (22:17)
[2025-09-28] MEDS: TRIAMCINOLONE ACETONIDE 0.025% CREAM 1 APPLIC TOPICAL (22:18)
[2025-09-28 23:00] VITALS: BP 112/52
[2025-09-29] MEDS: ANCEF 10 IV ×3 (01:05→18:28)
[2025-09-29] MEDS: TYLENOL 1000 MG PO ×4 (01:05→23:00)
[2025-09-29] MEDS: FLUSH (NSS) 1 FLUSH IV (01:06)
[2025-09-29 03:00] VITALS: BP 112/51
[2025-09-29 04:16] VITALS: BMI 36.4
[2025-09-29 07:10] VITALS: BP 105/53
--- NOTE | 2025-09-29 09:33 | W.PN.PUL.V3 ---
Today's Communication / Plan
-
Refusing BiPAP
Supplemental oxygen
Cefazolin
Assess discharge supplemental oxygen needs
Goals of care discussions
Assessment
-
Assessment:
Mrs Mindy Simmons is an 89/W [facility] resident, recent admission to the hospital for cellulitis septic shock and hypercapnic respiratory failure. Back to the hospital from the [facility] sent for evaluation of hypoxemia.
Patient has no significant respiratory symptoms.
She is not sure why she is in the hospital.
There is no fevers, chills, night sweats or coughing.
Chest x-ray is unrevealing
I was consulted 09/28/2025 for evaluation.
Impression:
Acutechronic hypoxemic respiratory failure--suspect due to hypoventilation/lung restriction/immobility/hiatal hernia/obesity-currently on 4 L.
Chest x-ray 09/27/2025: Suggestion of cardiogenic pulmonary edema mild/decreased lung volumes. Lower lobe subsegmental atelectasis. Cardiomegaly. Signs of pulmonary hypertension. Kyphosis. Moderate to large hiatal hernia.
Acute on chronic hypercapnic respiratory failure:
ABG 09/22/2025: 7.32/68/104 compensatory
Metabolic alkalosis.
Chronic pulmonary hypertension: Likely due to untreated chronic hypercapnia and chronic hypoxemia. Likely obesity hypoventilation syndrome/obstructive sleep apnea.
proBNP not significantly elevated in the 600s.
Cellulitis left lower extremity-recently in the hospital with antibiotics.
Conditions OVERHEAD LINE WORKER:
ASCVD / PAD
Chronic Lymphedema
Lower Extremity Wounds
Spinal Stenosis
Chronic Ambulatory Dysfunction
Chronic HFpEF. DD
Iron Deficiency Anemia
Non-Melanoma Skin Cancer
Obesity, morbid
Overactive Bladder
Chronic Pain Syndrome / Fibromyalgia
On opiates, lidocaine patch, gabapentin, diclofenac, APAP
CGE February 2022, EGD showed CG secretions but no lesions
RA
H/o head trauma
Constipation
HH
Bilateral TKA
L hip fracture surgery Jul 2013
L wrist fracture s/p repair x3
RLE bimalleolar fracture 2017, medical mgmt
Former smoker in her teens
NHR
DNR
Plan:
Respiratory status is slightly declined-increased FiO2 requirements over the evening
Continue supplemental oxygen as needed
Assess discharge supplemental oxygen needs prior to discharge
Nebulizers if needed-currently not bronchospastic
Aspiration precautions
Incentive spirometry
Mucus clearing devices
BiPAP if tolerated-another conversation with the patient, nursing, patient's son at the bedside-patient adamantly refuses BiPAP and would rather
Suspected hypoventilation from obesity hypoventilation syndrome
Previous CT angiogram 08/16/2025 was without any pulmonary embolism and lower extremity ultrasounds were negative for DVT at that time
Gentle diuresis
Monitor renal function, electrolytes, intake/output, lower extremity edema and weight
Replace electrolytes as needed
Observe off antibiotics
DVT prophylaxis-on Lovenox
Nutrition
Early mobilization/PT/OT
Reviewed with nursing
Discussed with Dr. Garcia
Consider goals of care-comfort/hospice as suspect without chronic PAP therapy she will have recurrent admissions
Reviewed with son at the bedside-he understands and states that she is 'stubborn'
Diagnostics
Chest x-ray: 09/27/2025, cardiomegaly, low lung volumes, kyphosis, mild pulmonary vascular congestion.
CT chest 08/16/2025: No evidence for pulmonary embolism.
Cardiomegaly, coronary artery for dissection. Large hiatal hernia
Chest CTA 11-09-23
COMPARISON: No prior studies available for comparison.
FINDINGS:
Vascular: There is satisfactory opacification of the pulmonary arterial distribution. No filling defect to suggest pulmonary embolus. Mild dilation of the main pulmonary trunk, measuring 4 cm in diameter.
No evidence of thoracic aortic dissection. The proximal arch vessels are markedly tortuous. Atherosclerotic plaque is seen near the origin of the left subclavian artery and distal brachiocephalic artery, each associated with approximately 50%
stenosis.
Thyroid: No significant enlargement, and no significant nodules appreciated.
Supraclavicular region: No pathologic lymphadenopathy appreciated.
No pathologic axillary lymphadenopathy on either side.
Mediastinum: No pathologic mediastinal lymphadenopathy. No significant pericardial effusion. Mild calcification of the proximal LAD.
Lungs: Small to moderate pleural effusions are seen on each side.
Bilateral central patchy groundglass opacity is seen, most pronounced centrally, suggestive of pulmonary edema. No definite lobar pneumonia or pneumothorax on either side. Minimal bibasilar subsegmental atelectasis.
Upper abdomen: Moderate hiatal hernia without evidence of incarceration..
Osseous structures: Multiple compression fractures are seen within the thoracic and upper lumbar spine. Vertebra plana deformity is seen at T12.
No paraspinal inflammatory change or large paraspinal mass.
IMPRESSION:
1. No evidence of pulmonary embolism or thoracic aortic dissection.
2. Small to moderate bilateral pleural effusions. Bibasilar subsegmental atelectasis.
3. Central groundglass opacity on each side, most suggestive of pulmonary edema.
4. Dilation of the main pulmonary trunk, suggestive of pulmonary arterial hypertension in the correct clinical setting.
5. Moderate hiatal hernia without evidence of incarceration.
6. Mild coronary arterial calcification. Please correlate with symptoms of and risk factors for coronary artery disease, with further workup as clinically appropriate.
7. Pronounced tortuosity of the proximal arch vessels. Mild stenoses within the proximal left subclavian artery and brachiocephalic artery.
Echocardiogram 08/17/2025: Report reviewed.
Normal LVEF. Dilated right ventricle with mild reduced systolic function.
No significant valve disease. Mild pulmonary hypertension
No TTE
Subjective Data
-
Date of Service:
Date of Service: September 29, 2025
Chief Complaint: Pulmonary Follow Up and Dyspnea Follow Up
Subjective:
Increased shortness of breath and increased FiO2 requirements this morning, minimal cough, no chest pain, refusing BiPAP
Review of Systems
General: Other (Per HPI)
Objective Data
Data Reviewed
Vital Signs / I&O:
Vital Signs
Temp Pulse Resp BP Pulse Ox
98 F 77 20 105/53 90
09/29/25 07:10 09/29/25 07:10 09/29/25 07:10 09/29/25 07:10 09/29/25 07:10
Intake and Output
09/28/25 09/29/25 09/30/25
06:59 06:59 06:59
Intake Total 660 / 660
Balance 660 / 660
SaO2: 90
Nasal Cannula flow liters per minute: 6
Physical Exam
General: Respiratory Distress (n) and Comfortable
HEENT: Normocephalic, Anicteric and Moist Mucous Membranes
Cardiovascular: Regular Rhythm
Respiratory: Crackles (Few basilar), Rhonchi (n), Non-Labored Respirations, Accessory Resp Muscle Use (n) and Stridor (n)
GI: Soft, Non Distended and Non Tender
Neurology: Awake, Alert and No Motor Deficits
Skin: Warm, Good Color, Cyanosis (n), Jaundice (n) and Rash (n)
Labs/Micro/Reports
Lab Data
09/27/25 15:58
09/28/25 08:04
Microbiology
09/28/25 05:56 Nose MRSA Screen - Final
No Methicillin Resistant Staphylococcus aureus isolated.
[2025-09-29] MEDS: KCL 20 MEQ PO (09:44)
[2025-09-29] MEDS: PEPCID 20 MG PO ×2 (09:45→20:03)
[2025-09-29] MEDS: NEURONTIN 300 MG PO ×3 (09:45→22:32)
[2025-09-29] MEDS: TRIAMCINOLONE ACETONIDE 0.025% CREAM 1 APPLIC TOPICAL ×2 (09:45→20:03)
[2025-09-29] MEDS: LASIX 80 MG PO (09:45)
[2025-09-29] MEDS: MIRALAX 17 GRAMS PO (09:46)
[2025-09-29] MEDS: DESENEX/MITRAZOL/ZEASORB 1 APPLIC TOPICAL ×2 (09:46→20:03)
[2025-09-29] MEDS: HYDROPHOR 1 APPLIC TOPICAL (09:46)
[2025-09-29 11:10] VITALS: BP 119/54
--- NOTE | 2025-09-29 12:55 | W.PN.HOSP.TC ---
Today's Communication/Plan
-
See plan
Assessment / Plan
Assessment / Plan
Assessment/Plan
LLE Cellulitis
Recurrent Cellulitis - Nonpurulent
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
- Patient was recently hospitalized with septic shock with associated cellulitis, at that time, ID was consulted given patient's third hospitalization for LLE cellulitis with increasing severity of illness.
- Continue Ancef
- Continue lower extremity Gonzales wrap (foot to above knee). Will need to follow up in lymphedema clinic following discharge.
- Lower extremity elevation to facilitate lymphatic drainage
- Possible trial of suppressive antibiotics following the acute course
Presentation with rapid shallow breathing, lethargy, unresponsiveness during recent hospitalization
Acute TME secondary to sepsis, infection, and hypercapnia -- during recent hospitalization
- Likely combination of sepsis, hypercapnic respiratory failure +/- chronic opioid dependence.
- Sepsis treatment as noted above. Last hospitalization, she appeared to have responded to IV fluids, IV antibiotics, BiPAP
- Oxycodone was stopped at that time -- avoid narcotic pain medications
- Follow for clinical improvement.
Chronic Hypoxemic Respiratory Failure on home 3 L oxygen previously
- ABG done in the ED showed pCO2 = 71 with slightly decreased pH (7.26).
- Given mental status change as noted above (and inability to entertain intubation / mechanical ventilation as per patient's wishes) NIV was tried with resulting improvement
- Continue BiPAP HS and PRN during stay; BiPAP can help her given her pulm hypertension, RV dysfunction, but now patient refuses BiPAP
- Patient was on NIV similarly during prior admission - though she began to refuse intervention once she was more alert.
- Continue usual O2 support -- assess oxygenation needs prior to discharge -- overnight needed more oxygen
- Pulmonary/Brand Marketing Intern evaluation as noted above.
- Avoid opioids/narcotic pain medications
Chronic HFpEF
- Continue Lasix
- Consider resuming Farxiga
- Follow I/Os, daily weights, etc.
- Echo done 07/2025 showed preserved LVEF and mild pulmonary hypertension.
Spinal Stenosis
Fibromyalgia
Chronic Pain Syndrome
Chronic Opioid Dependence
- Continue Gabapentin
- Avoid opioid pain medications
Morbid Obesity due to excess calories
- Affects all aspects of care - including chronic lymphedema / increased risk for recurrent cellulitis, etc.
Lymphedema
Obesity
DVT Prophylaxis: Lovenox
Code Status: DNR/DNI
Anticipated Discharge: > 48 hours
Subjective/Interval History
-
Date of Service: September 29, 2025
Patient was seen and examined. A little more short of breath today, no other new symptoms or complaints.
Objective Data
-
Vital Signs:
Vital Signs
Temp Pulse Resp BP Pulse Ox
98.4 F 87 18 119/54 95
09/29/25 11:10 09/29/25 11:10 09/29/25 11:10 09/29/25 11:10 09/29/25 11:10
I&O
09/28/25 09/29/25 09/30/25
06:59 06:59 06:59
Intake Total 660 / 660
Balance / 660
--- NOTE | 2025-09-29 15:02 | W.PN.ID1 ---
Date of Service
Date of Service: September 29, 2025
Today's Communication
Continue cefazolin.
Assessment / Plan
Recurrent Cellulitis - Nonpurulent
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
Lymphedema
Obesity
- continue compression of the leg with rubina wraps
- elevation as tolerated
- continue cefazolin 2 gm IV q8hrs
- follow clinically
- may consider a trial of suppressive antibiotics following the acute course
Chief Complaint
-: Cellulitis
Subjective / Review of Systems
SOB OK
Leg better.
Vital Signs / Physical Exam
Vital Signs
Vital Signs
Temp Pulse Resp BP Pulse Ox
98.4 F 87 18 119/54 95
09/29/25 11:10 09/29/25 11:10 09/29/25 11:10 09/29/25 11:10 09/29/25 11:10
Physical Exam
Constitutional: No Acute Distress and Obese
Cardiovascular: Regular Rate and S1/S2
Pulmonary: Rales (bibase)
Gastrointestinal: Soft, Non Tender, Non Distended and Normal Bowel Sounds
Extremities: Edema (lymphedema LLE>RLE) and Erythema (LLE: erythema ankle to medial thigh, decrease of erythema)
Neurological: AO x 3
Objective Data
Lab Data
Lab Results
09/27/25 15:58
09/28/25 08:04
Estimated Creat Clear 71 ml/min 09/28/25 08:04
Total Bilirubin 0.8 mg/dl (0.2-1.3) 09/27/25 15:58
AST 37 U/L (14-36) H 09/27/25 15:58
ALT 24 U/L (0-35) 09/27/25 15:58
Alkaline Phosphatase 66 U/L (38-126) 11/06/25 15:58
Most recent labs reviewed.
Micro Results:
09/28/25 05:56 MRSA Screen - Final
Nose No Methicillin Resistant Staphylococcus aureus isolated.
[2025-09-29 15:25] VITALS: BP 117/58
[2025-09-29] MEDS: LOVENOX 40 MG SC (18:28)
[2025-09-29 19:54] VITALS: BP 127/65
[2025-09-29 23:07] VITALS: BP 133/62
[2025-09-30] MEDS: ANCEF 10 IV ×3 (02:35→17:26)
[2025-09-30 03:00] VITALS: BP 130/80
[2025-09-30 06:00] VITALS: BMI 36.6
[2025-09-30 07:00] VITALS: BP 111/60
[2025-09-30 07:21] LABS: Hematocrit 39.7 % (37.0-47.0); Hemoglobin 11.7 g/dL (12.0-16.0); Mean Corp Hgb Conc. 29.5 g/dL (33.0-37.0); Mean Corpuscular Volume 110.3 fL (81.0-99.0); Platelet Count 145 10^3/uL (130-400); Red Cell Dist. Width 14.3 % (11.5-14.5)
[2025-09-30 07:29] LABS: Blood Urea Nitrogen 8 mg/dl (7-17); Calcium 8.9 mg/dl (8.4-10.2); Chloride 91 mmol/L (98-107); Estimated Creatinine Clearance 72 ml/min; Glucose 96 mg/dl (70-99); Potassium 4.0 mmol/L (3.5-5.1); Sodium 140 mmol/L (135-145); eGFR > 60.00
[2025-09-30 07:49] LABS: Carbon Dioxide 48 mmol/L (22-30)
[2025-09-30 08:46] LABS: Nucleated Red Blood Cells % 0 %
[2025-09-30] MEDS: TYLENOL 1000 MG PO ×2 (09:47→17:25)
[2025-09-30] MEDS: KCL 20 MEQ PO (09:47)
[2025-09-30] MEDS: LASIX 80 MG PO (09:47)
[2025-09-30] MEDS: PEPCID 20 MG PO ×2 (09:47→21:02)
[2025-09-30] MEDS: TRIAMCINOLONE ACETONIDE 0.025% CREAM 1 APPLIC TOPICAL ×2 (09:47→21:03)
[2025-09-30] MEDS: MIRALAX 17 GRAMS PO (09:47)
[2025-09-30] MEDS: NEURONTIN 300 MG PO ×3 (09:47→21:02)
[2025-09-30] MEDS: HYDROPHOR 1 APPLIC TOPICAL (09:48)
[2025-09-30] MEDS: DESENEX/MITRAZOL/ZEASORB 1 APPLIC TOPICAL ×2 (09:48→21:04)
[2025-09-30 11:00] VITALS: BP 111/65
--- NOTE | 2025-09-30 11:12 | W.PN.PUL.V3 ---
Today's Communication / Plan
-
Wean oxygen
Antibiotics per infectious disease
Refusing BiPAP
Consider no rehospitalization/hospice status-family considering
Assessment
-
Assessment:
Mrs Mindy Simmons is an 89/W [facility] resident, recent admission to the hospital for cellulitis septic shock and hypercapnic respiratory failure. Back to the hospital from the [facility] sent for evaluation of hypoxemia.
Patient has no significant respiratory symptoms.
She is not sure why she is in the hospital.
There is no fevers, chills, night sweats or coughing.
Chest x-ray is unrevealing
I was consulted 09/28/2025 for evaluation.
Impression:
Acutechronic hypoxemic respiratory failure--suspect due to hypoventilation/lung restriction/immobility/hiatal hernia/obesity-currently on 4 L.
Chest x-ray 09/27/2025: Suggestion of cardiogenic pulmonary edema mild/decreased lung volumes. Lower lobe subsegmental atelectasis. Cardiomegaly. Signs of pulmonary hypertension. Kyphosis. Moderate to large hiatal hernia.
Acute on chronic hypercapnic respiratory failure:
ABG 09/22/2025: 7.32/68/104 compensatory
Metabolic alkalosis.
Chronic pulmonary hypertension: Likely due to untreated chronic hypercapnia and chronic hypoxemia. Likely obesity hypoventilation syndrome/obstructive sleep apnea.
proBNP not significantly elevated in the 600s.
Cellulitis left lower extremity-recently in the hospital with antibiotics.
Conditions ENGRAVER BLOCK:
ASCVD / PAD
Chronic Lymphedema
Lower Extremity Wounds
Spinal Stenosis
Chronic Ambulatory Dysfunction
Chronic HFpEF. DD
Iron Deficiency Anemia
Non-Melanoma Skin Cancer
Obesity, morbid
Overactive Bladder
Chronic Pain Syndrome / Fibromyalgia
On opiates, lidocaine patch, gabapentin, diclofenac, APAP
CGE February 2022, EGD showed CG secretions but no lesions
RA
H/o head trauma
Constipation
HH
Bilateral TKA
L hip fracture surgery Jul 2013
L wrist fracture s/p repair x3
RLE bimalleolar fracture 2017, medical mgmt
Former smoker in her teens
NHR
DNR
Plan:
Respiratory status nearly back to her baseline
Continue supplemental oxygen as needed-currently on 5 L
Assess discharge supplemental oxygen needs prior to discharge
Nebulizers if needed-currently not bronchospastic
Aspiration precautions
Incentive spirometry
Mucus clearing devices
BiPAP if tolerated-another conversation with the patient, nursing, patient's son at the bedside-09/29/2025 patient adamantly refuses BiPAP and would rather
Suspected hypoventilation from obesity hypoventilation syndrome
Previous CT angiogram 08/16/2025 was without any pulmonary embolism and lower extremity ultrasounds were negative for DVT at that time
Gentle diuresis continues
Monitor renal function, electrolytes, intake/output, lower extremity edema and weight
Replace electrolytes as needed
Observe off antibiotics
DVT prophylaxis-on Lovenox
Nutrition
Early mobilization/PT/OT
Reviewed with nursing
Discussed with Dr. Garcia on 09/29/2025
Consider goals of care-comfort/hospice as suspect without chronic PAP therapy she will have recurrent admissions-Dr. Melvin spoke to [id number]-family is conversing about 'no rehospitalization' and 'hospice'
Dr. Melvin reviewed with son at the bedside 09/29/2025-he understands and states that she is 'stubborn', also reviewed with [id number] 09/30/2025-family and patient considering no rehospitalization's/hospice
Diagnostics
Chest x-ray: 09/27/2025, cardiomegaly, low lung volumes, kyphosis, mild pulmonary vascular congestion.
CT chest 08/16/2025: No evidence for pulmonary embolism.
Cardiomegaly, coronary artery for dissection. Large hiatal hernia
Chest CTA 11-09-23
COMPARISON: No prior studies available for comparison.
FINDINGS:
Vascular: There is satisfactory opacification of the pulmonary arterial distribution. No filling defect to suggest pulmonary embolus. Mild dilation of the main pulmonary trunk, measuring 4 cm in diameter.
No evidence of thoracic aortic dissection. The proximal arch vessels are markedly tortuous. Atherosclerotic plaque is seen near the origin of the left subclavian artery and distal brachiocephalic artery, each associated with approximately 50%
stenosis.
Thyroid: No significant enlargement, and no significant nodules appreciated.
Supraclavicular region: No pathologic lymphadenopathy appreciated.
No pathologic axillary lymphadenopathy on either side.
Mediastinum: No pathologic mediastinal lymphadenopathy. No significant pericardial effusion. Mild calcification of the proximal LAD.
Lungs: Small to moderate pleural effusions are seen on each side.
Bilateral central patchy groundglass opacity is seen, most pronounced centrally, suggestive of pulmonary edema. No definite lobar pneumonia or pneumothorax on either side. Minimal bibasilar subsegmental atelectasis.
Upper abdomen: Moderate hiatal hernia without evidence of incarceration..
Osseous structures: Multiple compression fractures are seen within the thoracic and upper lumbar spine. Vertebra plana deformity is seen at T12.
No paraspinal inflammatory change or large paraspinal mass.
IMPRESSION:
1. No evidence of pulmonary embolism or thoracic aortic dissection.
2. Small to moderate bilateral pleural effusions. Bibasilar subsegmental atelectasis.
3. Central groundglass opacity on each side, most suggestive of pulmonary edema.
4. Dilation of the main pulmonary trunk, suggestive of pulmonary arterial hypertension in the correct clinical setting.
5. Moderate hiatal hernia without evidence of incarceration.
6. Mild coronary arterial calcification. Please correlate with symptoms of and risk factors for coronary artery disease, with further workup as clinically appropriate.
7. Pronounced tortuosity of the proximal arch vessels. Mild stenoses within the proximal left subclavian artery and brachiocephalic artery.
Echocardiogram 08/17/2025: Report reviewed.
Normal LVEF. Dilated right ventricle with mild reduced systolic function.
No significant valve disease. Mild pulmonary hypertension
No TTE
Subjective Data
-
Date of Service:
Date of Service: September 30, 2025
Chief Complaint: Pulmonary Follow Up and Dyspnea Follow Up
Subjective:
Feels about the same, FiO2 weaned to home levels, no chest congestion, productive cough, refusing BiPAP
Review of Systems
General: Other ( per HPI)
Objective Data
Data Reviewed
Vital Signs / I&O:
Vital Signs
Temp Pulse Resp BP Pulse Ox
99 F 86 20 111/60 96
09/30/25 07:00 09/30/25 07:00 09/30/25 07:00 09/30/25 07:00 09/30/25 07:00
Intake and Output
09/29/25 09/30/25 10/01/25
06:59 06:59 06:59
Intake Total 660 / 660 500 / 500 360 / 360
Balance 660 / 660 500 / 500 360 / 360
SaO2: 96
Nasal Cannula flow liters per minute: 6
Physical Exam
General: Respiratory Distress (n) and Comfortable
HEENT: Normocephalic, Anicteric and Moist Mucous Membranes
Cardiovascular: Regular Rhythm
Respiratory: Crackles (Few basilar), Rhonchi (n), Non-Labored Respirations, Accessory Resp Muscle Use (n) and Stridor (n)
GI: Soft, Non Distended and Non Tender
Neurology: Awake, Alert and No Motor Deficits
Skin: Warm, Good Color, Cyanosis (n), Jaundice (n) and Rash (n)
Labs/Micro/Reports
Lab Data
09/30/25 06:41
09/30/25 06:41
Microbiology
09/28/25 05:56 Nose MRSA Screen - Final
No Methicillin Resistant Staphylococcus aureus isolated.
--- NOTE | 2025-09-30 12:19 | W.PN.ID1 ---
Date of Service
Date of Service: September 30, 2025
Today's Communication
Continue cefazolin.
Assessment / Plan
Recurrent Cellulitis, Nonpurulent.
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
Lymphedema
Obesity
-Cellulitis improving
- continue compression of the leg with rubina wraps
- elevation as tolerated
- continue cefazolin 2 gm IV q8hrs
- may consider a trial of suppressive antibiotics following the acute course
Chief Complaint
-: Cellulitis
Subjective / Review of Systems
No complaints.
Vital Signs / Physical Exam
Vital Signs
Vital Signs
Temp Pulse Resp BP Pulse Ox
98.2 F 90 22 111/65 96
09/30/25 11:00 09/30/25 11:00 09/30/25 11:00 09/30/25 11:00 09/30/25 11:12
Physical Exam
Constitutional: No Acute Distress and Obese
Cardiovascular: Regular Rate and S1/S2
Pulmonary: Rales (bibase)
Gastrointestinal: Soft, Non Tender, Non Distended and Normal Bowel Sounds
Extremities: Edema (lymphedema LLE>RLE) and Erythema (LLE: erythema ankle to medial thigh, decreasing)
Neurological: AO x 3
Objective Data
Lab Data
Lab Results
09/30/25 06:41
09/30/25 06:41
Estimated Creat Clear 72 ml/min 09/30/25 06:41
Total Bilirubin 0.8 mg/dl (0.2-1.3) 09/27/25 15:58
AST 37 U/L (14-36) H 09/27/25 15:58
ALT 24 U/L (0-35) 09/27/25 15:58
Alkaline Phosphatase 66 U/L (38-126) 09/27/25 15:58
Most recent labs reviewed.
Micro Results:
09/28/25 05:56 MRSA Screen - Final
Nose No Methicillin Resistant Staphylococcus aureus isolated.
[2025-09-30 15:00] VITALS: BP 128/65
--- NOTE | 2025-09-30 16:04 | W.PN.HOSP.TC ---
Today's Communication/Plan
-
Continue Ancef
Family continues to refuse BiPAP -- family is considering options e.g. palliative care, no rehospitalization, hospice
Assessment / Plan
Assessment / Plan
Assessment/Plan
LLE Cellulitis
Recurrent Cellulitis - Nonpurulent
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
- Patient was recently hospitalized with septic shock with associated cellulitis, at that time, ID was consulted given patient's third hospitalization for LLE cellulitis with increasing severity of illness.
- Continue Ancef
- Continue lower extremity Gonzales wrap (foot to above knee). Will need to follow up in lymphedema clinic following discharge.
- Lower extremity elevation to facilitate lymphatic drainage
- Possible trial of suppressive antibiotics following the acute course
Presentation with rapid shallow breathing, lethargy, unresponsiveness during recent hospitalization
Acute TME secondary to sepsis, infection, and hypercapnia -- during recent hospitalization
- Likely combination of sepsis, hypercapnic respiratory failure +/- chronic opioid dependence.
- Sepsis treatment as noted above. Last hospitalization, she appeared to have responded to IV fluids, IV antibiotics, BiPAP
- Oxycodone was stopped at that time -- avoid narcotic pain medications
- Follow for clinical improvement.
Chronic Hypoxemic Respiratory Failure on home 3 L oxygen previously
- ABG done in the ED showed pCO2 = 71 with slightly decreased pH (7.26).
- Given mental status change as noted above (and inability to entertain intubation / mechanical ventilation as per patient's wishes) NIV was tried with resulting improvement
- Continue BiPAP HS and PRN during stay; BiPAP can help her given her pulm hypertension, RV dysfunction, but now patient refuses BiPAP -- comfort/hospice would be appropriate as suspect without
chronic PAP therapy she will have recurrent admissions-Dr. Melvin spoke to [id number]-family is discussing 'no rehospitalization' and 'hospice'
- Patient was on NIV similarly during prior admission - though she began to refuse intervention once she was more alert.
- Continue usual O2 support
- Pulmonary/Pediatric Social Worker evaluation as noted above.
- Avoid opioids/narcotic pain medications
Chronic HFpEF
- Continue Lasix
- Continue Farxiga
- Follow I/Os, daily weights, etc.
- Echo done 07/2025 showed preserved LVEF and mild pulmonary hypertension.
Spinal Stenosis
Fibromyalgia
Chronic Pain Syndrome
Chronic Opioid Dependence
- Continue Gabapentin
- Avoid opioid pain medications
Morbid Obesity due to excess calories
- Affects all aspects of care - including chronic lymphedema / increased risk for recurrent cellulitis, etc.
Lymphedema
Obesity
DVT Prophylaxis: Lovenox
Code Status: DNR/DNI
Anticipated Discharge: 24 - 48 hours
Subjective/Interval History
-
Date of Service: September 30, 2025
Patient was seen and examined. No new significant symptoms or complaints.
Objective Data
-
Labs:
Laboratory Results
09/30/25
06:41
WBC 4.5 L
Hgb 11.7 L
Hct 39.7
Plt Count 145
Sodium 140
Potassium 4.0
Chloride 91 L
Carbon Dioxide 48 H
BUN 8
Creatinine 0.4 L
Glucose 96
Calcium 8.9
Vital Signs:
Vital Signs
Temp Pulse Resp BP Pulse Ox
97.9 F 76 22 128/65 95
09/30/25 15:00 09/30/25 15:00 09/30/25 15:00 09/30/25 15:00 09/30/25 15:00
I&O
09/29/25 09/30/25 10/01/25
06:59 06:59 06:59
Intake Total 660 / 660 500 / 500 360 / 360
Balance 660 / 660 500 / 500 360 / 360
[2025-09-30] MEDS: LOVENOX 40 MG SC (17:25)
[2025-10-01] MEDS: TYLENOL PO ×2 (00:58→01:12)
[2025-10-01] MEDS: ANCEF 10 IV ×3 (00:58→17:58)
[2025-10-01 01:51] VITALS: BP 137/71
--- NOTE | 2025-10-01 01:52 | W.PN.UPDATE ---
Update Note
Progress Note Update
-Patient is hypoxic on with SPO2 on 80s % on 9 L of O2. Afebrile.
-Patient is using accessory muscle to breath. Diminished lung sound on exam.
-Per chart review, patient is DNR, family is refusing Bipap, and considering options e.g. palliative care, no rehospitalization, hospice
-Spoke to the son/ Ayaz regarding the goal of care as the patient is declining. the Son agrees to use Bipap if needed and ok with morphine to help the patient to be comfortable.
-Per son, the plan to discharge the patient tomorrow to hospice service at the custod[facility].
-One time order or IV morphine given.
-Patient currently with Spo2 94% on NRB 15L.
[2025-10-01] MEDS: MORPHINE SULFATE 1 MG IV (02:23)
--- NOTE | 2025-10-01 03:28 | PTCARENOTE ---
Pt was found during medication pass using accessory muscles to breathe. Pt was not easily arousable. Pt O2 was 85-89% on 5L O2 NC. Pt increased to 9L, 88-90%. RT and WOOD CAR BUILDER notified, RT and WOOD CAR BUILDER examined pt in person. Venti mask placed with 6L, Pt 88-90%.
Pt placed on nonrebreather mask, 15L, 92-94%. Pt oriented to baseline, arousable, and speaking to nurses post incident.
[2025-10-01 06:00] VITALS: BMI 36.8
[2025-10-01 06:46] LABS: Hematocrit 42.5 % (37.0-47.0); Hemoglobin 12.4 g/dL (12.0-16.0); Mean Corp Hgb Conc. 29.2 g/dL (33.0-37.0); Mean Corpuscular Volume 111.5 fL (81.0-99.0); Nucleated Red Blood Cells % 0 %; Platelet Count 124 10^3/uL (130-400); Red Cell Dist. Width 14.4 % (11.5-14.5)
[2025-10-01 07:00] VITALS: BP 166/85
[2025-10-01 07:06] LABS: Blood Urea Nitrogen 10 mg/dl (7-17); Calcium 8.9 mg/dl (8.4-10.2); Chloride 86 mmol/L (98-107); Estimated Creatinine Clearance 72 ml/min; Glucose 109 mg/dl (70-99); Potassium 4.0 mmol/L (3.5-5.1); Sodium 135 mmol/L (135-145); eGFR > 60.00
[2025-10-01 07:17] LABS: Carbon Dioxide 52 mmol/L (22-30)
--- NOTE | 2025-10-01 07:23 | W.PN.HOSP.TC ---
Today's Communication/Plan
-
Spoke with son regards hospice.
Case management consulted
Planning to shift 15 l of oxygen to 10 liter, and if the patient is stable then planning to discharge to hospice.
Assessment / Plan
Assessment / Plan
Assessment/Plan
#LLE Cellulitis
Recurrent Cellulitis - Nonpurulent
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
- ID was consulted and shifted to cefazolin currently on day 4, while on discharge switch to oral Keflex 500 mg 4 times a day for 2 weeks.
09/27 to 10/10.
- Continue lower extremity Gonzales wrap (foot to above knee). Will need to follow up in lymphedema clinic following discharge.
- Lower extremity elevation to facilitate lymphatic drainage
- Oxycodone was stopped -- avoid narcotic pain medications
- Follow for clinical improvement.
# Chronic Hypoxemic Respiratory Failure on home 3 L oxygen previously
- Given mental status change as noted above (and inability to entertain intubation / mechanical ventilation as per patient's wishes) NIV was tried with resulting improvement
- Continue usual O2 support
-Planning to shift 15 l of oxygen to 10 liter, and if the patient is stable then planning to discharge to hospice tomorrow.
Chronic HFpEF
- Continue Lasix
- Continue Farxiga
- Follow I/Os, daily weights, etc.
- Echo done 07/2025 showed preserved LVEF and mild pulmonary hypertension.
Spinal Stenosis
Fibromyalgia
Chronic Pain Syndrome
Chronic Opioid Dependence
- Continue Gabapentin
- Avoid opioid pain medications
Morbid Obesity due to excess calories
- Affects all aspects of care - including chronic lymphedema / increased risk for recurrent cellulitis, etc.
Lymphedema
Obesity
DVT Prophylaxis: Lovenox
Code Status: DNR/DNI
Disposition: half-way -hospice.
Anticipated Discharge: Within 24 hours
Subjective/Interval History
-
Date of Service: October 01, 2025
Overnight the patient went for hypoxia with a saturation dropped to 80% and director pharmacy services was consulted and kept on 9 L of oxygen, patient's status was declining spoke with son/Ayaz.
The patient's family are willing to use BiPAP, and hospice for the future. She was using secondary accessory muscles for her breathing today morning, used 15 L oxygen with saturation maintained around 94%.
She does not feel fever, chills, cough.
On observation her left leg had rash above the Gonzales wrap at today morning.
Objective Data
-
Labs:
Laboratory Results
10/01/25
06:29
WBC 4.0 L
Hgb 12.4
Hct 42.5
Plt Count 124 L
Sodium 135
Potassium 4.0
Chloride 86 L
Carbon Dioxide 52 H
BUN 10
Creatinine 0.3 L
Glucose 109 H
Calcium 8.9
Vital Signs:
Vital Signs
Temp Pulse Resp BP Pulse Ox
98.5 F 81 14 137/71 94
10/01/25 01:10 10/01/25 01:51 10/01/25 01:51 10/01/25 01:51 10/01/25 01:51
I&O
09/30/25 10/01/25 10/02/25
06:59 06:59 06:59
Intake Total 500 / 500 360 / 360
Balance 500 / 500 360 / 360
Review of Systems
-
Unable to obtain full review of systems at this time due to: Other (Sleeping)
History Source: Patient
All other systems: Reviewed and negative
Physical Exam
-
General: Respiratory Distress and Morbidly Obese
Respiratory: Crackles
Cardiac: Regular Rhythm and S1/S2
GI: Soft, Nontender and Nondistended
Skin: Warm and Other (B/L lower extremities rashes present until knee. Currently she is on Gonzales wrap.)
Neuro: Awake and Alert
Psych: Calm
[2025-10-01] MEDS: FARXIGA 10 MG PO (09:26)
[2025-10-01] MEDS: NEURONTIN 300 MG PO ×3 (09:26→20:52)
[2025-10-01] MEDS: KCL 20 MEQ PO (09:26)
[2025-10-01] MEDS: LASIX 80 MG PO (09:26)
[2025-10-01] MEDS: PEPCID 20 MG PO ×2 (09:27→20:52)
[2025-10-01] MEDS: DICLOFENAC 1% TOPICAL GEL 2 GRAM TOPICAL (09:27)
[2025-10-01] MEDS: MIRALAX 17 GRAMS PO (09:27)
[2025-10-01] MEDS: TYLENOL 1000 MG PO ×2 (09:28→16:24)
[2025-10-01] MEDS: FEOSOL 325 MG PO (09:29)
[2025-10-01] MEDS: HYDROPHOR 1 APPLIC TOPICAL (09:30)
[2025-10-01] MEDS: TRIAMCINOLONE ACETONIDE 0.025% CREAM 1 APPLIC TOPICAL ×2 (09:31→20:53)
[2025-10-01] MEDS: DESENEX/MITRAZOL/ZEASORB 1 APPLIC TOPICAL ×2 (09:31→20:52)
[2025-10-01] MEDS: VITAMIN C 500 MG PO ×2 (09:32→18:15)
--- NOTE | 2025-10-01 10:02 | W.PN.ID1 ---
Date of Service
Date of Service: October 01, 2025
Today's Communication
- continue cefazolin 2 gm IV q8hrs while inpatient, on discharge can transition to keflex 500 mg PO QID x 2 weeks 09/27-10/10
- plan to transition to hospice at assisted today
Assessment / Plan
Recurrent Cellulitis, Nonpurulent.
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
Lymphedema
Obesity
- Cellulitis improving
- continue compression of the leg with rubina wraps
- elevation as tolerated
- continue cefazolin 2 gm IV q8hrs while inpatient, on discharge can transition to keflex 500 mg PO QID x 2 weeks 09/27-10/10
- plan to transition to hospice at assisted today
Chief Complaint
-: Cellulitis
Subjective / Review of Systems
afebrile
bp stable
note plan to discharge to hospice service today
Vital Signs / Physical Exam
Vital Signs
Vital Signs
Temp Pulse Resp BP Pulse Ox
98 F 83 20 166/85 99
10/01/25 07:00 10/01/25 07:00 10/01/25 07:00 10/01/25 07:00 10/01/25 07:00
Physical Exam
Constitutional: No Acute Distress
Cardiovascular: Regular Rate and S1/S2; Negative Murmur or Rub
Pulmonary: Clear and Symmetric; Negative Wheezes or Rales
Gastrointestinal: Soft, Non Tender, Non Distended and Normal Bowel Sounds
Skin: Warm and Dry; Negative Rash or Jaundice
Objective Data
Lab Data
Lab Results
10/01/25 06:29
10/01/25 06:29
Estimated Creat Clear 72 ml/min 10/01/25 06:29
Total Bilirubin 0.8 mg/dl (0.2-1.3) 09/27/25 15:58
AST 37 U/L (14-36) H 09/27/25 15:58
ALT 24 U/L (0-35) 09/27/25 15:58
Alkaline Phosphatase 66 U/L (38-126) 09/27/25 15:58
Most recent labs reviewed.
Micro Results:
09/28/25 05:56 MRSA Screen - Final
Nose No Methicillin Resistant Staphylococcus aureus isolated.
--- NOTE | 2025-10-01 12:01 | CM ---
CM reviewed chart, patient seen bedside with son and daughter in law.
Patient plan return to [facility] with [facility].
CM spoke with Heron from [facility], able to sign patient on tomorrow.
VM left for Karina at [facility].
Patient currently on 15L O2.
[facility] DNR form placed on chart, ambulance forms on chart.
CM will continue to follow.
Plan; return to [facility], [facility] to sign on
[facility]
Report: [phone]

[facility]
[2025-10-01 15:00] VITALS: BP 120/66
[2025-10-01] MEDS: LOVENOX 40 MG SC (17:58)
[2025-10-01 23:03] VITALS: BP 111/62
[2025-10-02] MEDS: ANCEF 10 IV ×3 (01:02→16:59)
[2025-10-02] MEDS: TYLENOL 1000 MG PO ×3 (01:02→15:20)
--- NOTE | 2025-10-02 03:54 | CHAP ---
Monsignor Ding informed us that Ms. Simmons had received [facility] the [facility]ick within the last few weeks at [facility]. I let the family know that 'she was taken care of Sacramentally' and that he would be able to see her again at [facility]
[2025-10-02 05:02] VITALS: BP 131/77
--- NOTE | 2025-10-02 05:27 | W.PN.UPDATE ---
Update Note
Progress Note Update
RN reports patient agitated, hitting staff and screaming. Patient out loud saying she wants to leave, continuously removing her midflow. RN states patient has been voiding without difficulty, and has received pain medications. Stable VS.
Will order Zyprexa Disintgrating 5mg x1, hand mitts.
[2025-10-02] MEDS: ZYPREXA ZYDIS (ORALLY DISINTEGRATING) 5 MG PO (05:37)
[2025-10-02 06:00] VITALS: BMI 36.8
--- NOTE | 2025-10-02 07:27 | W.PN.HOSP.TC ---
Addendum entered and electronically signed by Veto Ventura DO 10/03/25 11:55:
CDI: LLE cellulitis only
Original Note:
Today's Communication/Plan
-
Recommended soft diet while on discharge.
morphine twice daily
Assessment / Plan
Assessment / Plan
Assessment/Plan
#LLE Cellulitis
Recurrent Cellulitis - Nonpurulent
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
Currently on day 5 of antibiotic course-today discharged and switched to oral Keflex 500 mg 4 times a day for 2 weeks.
09/27 to 10/10.
- Continue lower extremity Gonzales wrap (foot to above knee). Will need to follow up in lymphedema clinic following discharge.
- Lower extremity elevation to facilitate lymphatic drainage
- Oxycodone was stopped -- avoid narcotic pain medications
- Follow for clinical improvement.
# Chronic Hypoxemic Respiratory Failure on home 3 L oxygen previously
- Given mental status change as noted above (and inability to entertain intubation / mechanical ventilation as per patient's wishes) NIV was tried with resulting improvement
- Continue usual O2 support
- Patient is stable with 5 L of oxygen nasal cannula, planning to discharge to hospice today.
- Shifted to soft diet while on discharge to avoid aspiration pneumonia.
Chronic HFpEF
- Farxiga, Lasix stopped while on discharge.
- Follow I/Os, daily weights, etc.
- Echo done 07/2025 showed preserved LVEF and mild pulmonary hypertension.
Spinal Stenosis
Fibromyalgia
Chronic Pain Syndrome
Chronic Opioid Dependence
- Continue Gabapentin
- Avoid opioid pain medications
Morbid Obesity due to excess calories
- Affects all aspects of care - including chronic lymphedema / increased risk for recurrent cellulitis, etc.
Lymphedema
Obesity
DVT Prophylaxis: Lovenox
Code Status: DNR/DNI
Disposition: shelter -hospice.
Anticipated Discharge: Today
Subjective/Interval History
-
Date of Service: October 02, 2025
Today the patient is completely oriented to time place person. She was accompanied by her daughter at bedside.
She she has no concern for shortness of breath, palpitation, chest pain.
Overnight she was agitated and wanted to leave from hospital. Her SpO2 maintained around 95-99 with 10L-13 L of oxygen.
Objective Data
-
Labs:
Laboratory Results
10/01/25 10/02/25
10:03 06:00
WBC Pending
Hgb Pending
Hct Pending
Plt Count Pending
HCO3 Cancelled
Sodium Pending
Potassium Pending
Chloride Pending
Carbon Dioxide Pending
BUN Pending
Creatinine Pending
Glucose Pending
Calcium Pending
Total Bilirubin Pending
AST Pending
ALT Pending
Alkaline Phosphatase Pending
Vital Signs:
Vital Signs
Temp Pulse Resp BP Pulse Ox
97.6 F 89 24 131/77 98
10/02/25 05:02 10/02/25 05:02 10/02/25 05:02 10/02/25 05:02 10/02/25 05:02
I&O
10/01/25 10/02/25 10/03/25
06:59 06:59 06:59
Intake Total 360 / 360
Balance 360 / 360
Review of Systems
-
History Source: Patient
All other systems: Reviewed and negative
Physical Exam
-
General: Well Developed and Other
HEENT: PERRLA and Oxygen (5 L of oxygen nasal cannula)
Respiratory: Clear to Auscultation
Cardiac: Regular Rhythm
GI: Soft, Nontender and Nondistended
Genito-urinary: No Costovertebral Tender
Musculoskeletal: No Clubbing
Skin: Warm
Neuro: AO x 3
Psych: Calm
[2025-10-02] MEDS: MORPHINE SULFATE 1 MG IV ×4 (07:33→18:25)
[2025-10-02] MEDS: DESENEX/MITRAZOL/ZEASORB 1 APPLIC TOPICAL (07:36)
--- NOTE | 2025-10-02 07:36 | PTCARENOTE ---
Pt agitated, removing O2 tubing and refusing to wear. Pt orientation at baseline AAOx1-2. Multiple redirection, diversion, and calm attitude provided and ineffective. Zyprexa 1x order given, see MAR. Pt applied with soft mitts, continued redirection
after. Pt was able to keep O2 tubing on face post mitts.
[2025-10-02] MEDS: FARXIGA 10 MG PO (07:38)
[2025-10-02] MEDS: PEPCID 20 MG PO (07:38)
[2025-10-02] MEDS: KCL 20 MEQ PO (07:39)
[2025-10-02] MEDS: NEURONTIN 300 MG PO ×2 (07:39→15:20)
[2025-10-02] MEDS: LASIX 80 MG PO (07:39)
[2025-10-02] MEDS: MIRALAX 17 GRAMS PO (07:40)
[2025-10-02] MEDS: TRIAMCINOLONE ACETONIDE 0.025% CREAM 1 APPLIC TOPICAL (07:42)
[2025-10-02] MEDS: HYDROPHOR 1 APPLIC TOPICAL (07:42)
[2025-10-02 08:10] VITALS: BP 124/68
[2025-10-02 09:03] LABS: Hematocrit 44.4 % (37.0-47.0); Hemoglobin 13.0 g/dL (12.0-16.0); Mean Corp Hgb Conc. 29.3 g/dL (33.0-37.0); Mean Corpuscular Volume 110.4 fL (81.0-99.0); Nucleated Red Blood Cells % 0 %; Platelet Count 145 10^3/uL (130-400); Red Cell Dist. Width 14.2 % (11.5-14.5)
[2025-10-02 09:19] LABS: ALT (SGPT) 10 U/L (0-35); AST (SGOT) 33 U/L (14-36); Albumin 3.7 g/dl (3.5-5.0); Alkaline Phosphatase 60 U/L (38-126); Blood Urea Nitrogen 12 mg/dl (7-17); Calcium 8.9 mg/dl (8.4-10.2); Chloride 84 mmol/L (98-107); Estimated Creatinine Clearance 72 ml/min; Glucose 87 mg/dl (70-99); Potassium 4.0 mmol/L (3.5-5.1); Sodium 139 mmol/L (135-145); Total Protein 6.6 g/dl (6.3-8.2); eGFR > 60.00
--- NOTE | 2025-10-02 09:30 | WOUNDNOTE ---
NAHOMY RN NOTE: Confirmed with nurse Nash and nurse Martinez that patient does not have an open wound on sacrum, has MASD. Using [facility] nurse, which was applied this morning. L medial ankle seen by wound care on 09/28, is not a pressure injury.
[2025-10-02 10:39] LABS: Carbon Dioxide 51 mmol/L (22-30)
--- NOTE | 2025-10-02 12:43 | W.PN.ID1 ---
Date of Service
Date of Service: October 02, 2025
Today's Communication
- continue cefazolin 2 gm IV q8hrs while inpatient, on discharge can transition to keflex 500 mg PO QID x 2 weeks 09/27-10/10
- plan to transition to hospice at longterm
Assessment / Plan
Recurrent Cellulitis, Nonpurulent.
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
Lymphedema
Obesity
- Cellulitis improving
- continue compression of the leg with rubina wraps
- elevation as tolerated
- continue cefazolin 2 gm IV q8hrs while inpatient, on discharge can transition to keflex 500 mg PO QID x 2 weeks 09/27-10/10
- plan to transition to hospice at longterm
Chief Complaint
-: Cellulitis
Subjective / Review of Systems
afebrile
bp stable
agitated overnight
calm during my evaluation
Vital Signs / Physical Exam
Vital Signs
Vital Signs
Temp Pulse Resp BP Pulse Ox
97.9 F 106 20 124/68 97
10/02/25 09:13 10/02/25 08:10 10/02/25 08:10 10/02/25 08:10 10/02/25 08:10
Physical Exam
Constitutional: No Acute Distress
Cardiovascular: Regular Rate and S1/S2; Negative Murmur or Rub
Pulmonary: Clear and Symmetric; Negative Wheezes or Rales
Gastrointestinal: Soft, Non Tender, Non Distended and Normal Bowel Sounds
Skin: Warm, Dry and Rash (left leg now pale pink, mildly warm, nontender; compression in place); Negative Jaundice
Objective Data
Lab Data
Lab Results
10/02/25 08:18
10/02/25 08:18
Estimated Creat Clear 72 ml/min 10/02/25 08:18
Total Bilirubin 0.8 mg/dl (0.2-1.3) 10/02/25 08:18
AST 33 U/L (14-36) 10/02/25 08:18
ALT 10 U/L (0-35) 10/02/25 08:18
Alkaline Phosphatase 60 U/L (38-126) 10/02/25 08:18
Most recent labs reviewed.
Micro Results:
09/28/25 05:56 MRSA Screen - Final
Nose No Methicillin Resistant Staphylococcus aureus isolated.
--- NOTE | 2025-10-02 14:08 | CM ---
CM reviewed chart, spoke with Sandra at [facility], able to sign patient on to hospice services at [facility], patients LTC facility, at 6:00 p.m. dominique.
GALINA spoke with patients mack, Ralf and Saroj, requesting call from clinical rn liaison, Sandra will call family.
GALINA spoke with Nursing Motorcycle Sales Associate at [facility] ([phone]), aware patient scheduled for 6:30 p.m. ambulance transport with [facility] to sign on.
GALINA spoke with Sandra at [facility], aware of transport time, sons in agreement with plan.
GALINA spoke with sonRalf, aware of transport time. IMM verbally reviewed, provided with copy, placed in chart.
Plan; return to [facility] LT with [facility], 6:30 p.m. ambulance
[facility]
Report: [phone]

[facility]
--- NOTE | 2025-10-02 14:52 | PN.CDI ---
CDI
- -
CDI:
Physician Documentation Request
Admit Date: 09/27/25 18:15
Dear . ,
[facility] is using an adapted version of the 2016 Third International Consensus Definitions for Sepsis and Septic Shock (Sepsis-3) where sepsis is defined as life threatening organ dysfunction caused by a deregulated host response to infection.
Please reference the official [facility] Sepsis Recognition Tool for further information, which can be found on the Intranet under Infection Prevention.
Clinical Indicators Include:
Pt admitted with acute on chronic respiratory failure and LLE cellulitis.
Progress Notes:
09/27 H&P: ' Patient multiple recent hospitalizations for LLE cellulitis most recently discharged 09/25/2025 for septic shock 2/2 to severe LLE cellulitis.'
IV Ancef
Based on your medical judgment, can you further clarify the diagnosis being monitored/treated this admission?
� Sepsis due to LLE cellulitis with organ dysfunction of Acute on chronic respiratory failure
� LLE cellulitis only
� Other
� Clinically unable to determine
Use of terms such as suspected, likely, concern for, or probable (associated with a specific diagnosis that is being evaluated, monitored, or treated as if it exists) are acceptable and can be coded in the inpatient setting when documented at the
time of discharge.
Please use your independent medical judgement in providing your response.
Thank you,
Sienna Diaz RN, BSN
CDI Specialist
[facility] [employer]
[2025-10-02 15:30] VITALS: BP 142/70
[2025-10-02] MEDS: LOVENOX 40 MG SC (16:59)
[2025-10-02 17:45] VITALS: BP 132/67
--- NOTE | 2025-10-02 20:21 | PTCARENOTE ---
pt d/c'd with all belongings.
--- NOTE | 2025-10-03 16:21 | W.DCSUMMARY ---
Documented by User: Venkat Bradford MD, Resident 10/03/25 16:54
Discharge Summary
Discharge Data
Date of Admission: 09/27/25
Date of Discharge: 10/02/25
Total time spent discharging patient (in min): 45 minutes
-
Pending Results: No
Hospital Course
Discharging Physician : Veto Barlow D.O
Venkat Owens M.D
Disposition : Hospice
Primary care physician : Jean-Paul Ma
Principal Discharge diagnosis : Acute on chronic hypoxemic respiratory failure from aspiration pneumonitis.
Chronic Discharge diagnosis :
# Chronic HFpEF:Farxiga, Lasix continued at the course of hospitalization and stopped while on discharge.
# Spinal stenosis
# Fibromyalgia
# Chronic opioid dependence: Continue gabapentin, avoid opiate pain medications.
Hospital Course : On 09/27 89-year-old female with known history of chronic hypoxemic RF, HFpEF, PAD, lymphedema, hypertension, overactive bladder, chronic anemia, dementia and GERD arrived to the ER for breathing problem(tachypnea, hypoxia at
the facility SNF). Initial workup was done including CBC, CMP, MRSA, wound culture, urinalysis. Pulmonology, ID consulted. MRSA, blood culture results were negative. Urinalysis with moderate urine yeast, bacteria positive. Assistant County Engineer
recommended to wear BiPAP nightly and discharged along with BiPAP. But while on admission the patient was refusing BiPAP. activities manager was consulted for the disposition to hospice after discussing with her son. Patient was recently admitted to
hospital for LLE cellulitis regards that started Ancef 2 g. Patient went for hypoxic with saturation on 80% 9-15 l of oxygen administered and maintained saturation around 94%. Morphine 1 mg recommended as needed for air hunger/pain. Patient was
agitated likely from aspiration event, restraints ordered. ID consulted and recommended Keflex 500 mg 4 times daily at time of discharge to hospice with 5 L of nasal oxygen cannula.
DNR status
Diet--regular
DVT-SQ Lovenox
Important imaging findings :
On 09/27/2025 chest x-ray findings:
1 Mild interstitial cardiogenic pulmonary edema.
2. Moderately decreased bilateral lung volumes.
3. Multiple bands of opacity in the mid and lower lungs which have an appearance most suggestive of multifocal scarring and subsegmental atelectasis. If there are signs/symptoms of pulmonary infection, pneumonia is a diagnostic possibility.
4. Mild cardiomegaly.
5. Chronic pulmonary arterial hypertension.
6. Severely exaggerated thoracic kyphosis secondary to multilevel chronic vertebral body endplate insufficiency fractures.
7. Moderate to large hiatal hernia.
On 10/01/2025 chest x-ray findings:
Low lung volumes with increased left basilar and right perihilar opacities which are favored to represent atelectasis although pneumonia cannot be excluded.
Procedure findings : None
Discharge Plan
-
Patient Disposition: Halfway/SNF
Discharge Diagnosis/Procedures: Acute on chronic hypoxemic respiratory failure
Acute hypercapnic respiratory failure
Aspiration pneumonitis/pneumonia
Recurrent cellulitis of LLE
Diet: As tolerated
Activity: As tolerated
Driving Restrictions: No driving
Bathing Restrictions: None
Blood Work: None
Others Tests: None
Activity Restrictions/Additional Instructions:
Wound Care Instructions
L medial ankle ulcer-clean with Vashe wound cleanser, adaptic, alginate, cover with silicone border foam or ABD pad and saskia, change daily and prn drainage.
L posterior ankle abrasion-clean with Vashe wound cleanser, silicone border foam, change q 3 days and prn drainage.
Triamcinolone cream to rash areas RLE bid.
Aquaphor ointment to dry skin daily.
L knee high Gonzales wrap as tolerated; rewrap daily and as needed for skin check.
Sacrum-protective silicone border foam, change q 3 days and prn loosened dressing.
Miconazole powder to abdominal/groin folds bid.
Keep abdominal/groin folds clean and dry. Tuck non woven gauze in skin folds as needed to keep skin folds dry.
Back skin tear-clean with saline, silicone border foam, change q 3 days and prn loosened dressing.
Air mattress
Turning schedule
Elevate heels off bed with pillows
Pressure redistributing chair cushion (i.e. Air chair cushion).
Follow up with wound care professionals if needed.
Instructions: *PCP/Other Print Producer Heart Failure Instructions
Referrals:
Jean Sandoval DO [Family Provider, [facility]]
Additional Discharge Medication Instructions: Medications may be adjusted by hospice team once she returns to the facility
Recommended to use morphine twice daily.
Prescriptions:
Continued
magnesium hydroxide [Milk of Magnesia] 400 mg/5 mL Suspension
30 ml PO HSPRN PRN (Reason: constipation)
ascorbic acid (vitamin C) 500 mg Tablet
500 mg PO MOWEFR@829,1829
bisacodyl [Dulcolax (bisacodyl)] 10 mg Suppository
10 mg VA [id number] PRN (Reason: IF NO BM AFTR MOM)
gabapentin 300 mg capsule
300 mg PO TID
ferrous gluconate 324 mg (38 mg iron) Tablet
324 mg PO MOWEFR
diclofenac sodium 1 % Gel
2 g TOPICAL Q8HPRN PRN (Reason: lower back pain)
acetaminophen [Pain Relief ES (acetaminophen)] 500 mg Tablet
1,000 mg PO TID Qty: 0 0RF
polyethylene glycol 3350 17 gram/dose powder
17 g PO DAILY Qty: 510 0RF
famotidine 20 mg Tablet
20 mg PO BID
cephalexin 500 mg capsule
500 mg PO QID 7 Days Qty: 28 0RF
Rx Instructions:
11/27/24: X 7 DAYS STARTING 11/26/24
Discontinued
potassium chloride 20 mEq tablet extended release
20 meq PO DAILY Qty: 30 0RF
dapagliflozin propanediol 10 mg Tablet
10 mg PO DAILY Qty: 30 0RF
furosemide [Lasix] 80 mg tablet
80 mg PO DAILY Qty: 0 0RF
Discharge Orders:
Discharge Patient (As Directed); Ordered 10/01/25
Ordered By: Veto Ventura
Discharge Date and Time
Discharge Date/Time: 10/02/25 20:19
Print Language: CITIZEN [place]

Documented by User: Veto Ventura, DO 10/03/25 20:00
Discharge Summary
Discharge Data
Date of Admission: 09/27/25
Date of Discharge: 10/03/25
Discharge Plan
-
Patient Disposition: Halfway/SNF
Discharge Diagnosis/Procedures: Acute on chronic hypoxemic respiratory failure
Acute hypercapnic respiratory failure
Aspiration pneumonitis/pneumonia
Recurrent cellulitis of LLE
Diet: As tolerated
Activity: As tolerated
Driving Restrictions: No driving
Bathing Restrictions: None
Blood Work: None
Others Tests: None
Activity Restrictions/Additional Instructions:
Wound Care Instructions
L medial ankle ulcer-clean with Vashe wound cleanser, adaptic, alginate, cover with silicone border foam or ABD pad and saskia, change daily and prn drainage.
L posterior ankle abrasion-clean with Vashe wound cleanser, silicone border foam, change q 3 days and prn drainage.
Triamcinolone cream to rash areas RLE bid.
Aquaphor ointment to dry skin daily.
L knee high Gonzales wrap as tolerated; rewrap daily and as needed for skin check.
Sacrum-protective silicone border foam, change q 3 days and prn loosened dressing.
Miconazole powder to abdominal/groin folds bid.
Keep abdominal/groin folds clean and dry. Tuck non woven gauze in skin folds as needed to keep skin folds dry.
Back skin tear-clean with saline, silicone border foam, change q 3 days and prn loosened dressing.
Air mattress
Turning schedule
Elevate heels off bed with pillows
Pressure redistributing chair cushion (i.e. Air chair cushion).
Follow up with wound care professionals if needed.
Instructions: *PCP/Other Print Producer Heart Failure Instructions
Referrals:
Jean Sandoval DO [Family Provider, Family Practice]
Additional Discharge Medication Instructions: Medications may be adjusted by hospice team once she returns to the facility
Recommended to use morphine twice daily.
Prescriptions:
Continued
magnesium hydroxide [Milk of Magnesia] 400 mg/5 mL Suspension
30 ml PO HSPRN PRN (Reason: constipation)
ascorbic acid (vitamin C) 500 mg Tablet
500 mg PO MOWEFR@0830,1830
bisacodyl [Dulcolax (bisacodyl)] 10 mg Suppository
10 mg VA [id number] PRN (Reason: IF NO BM AFTR MOM)
gabapentin 300 mg capsule
300 mg PO TID
ferrous gluconate 324 mg (38 mg iron) Tablet
324 mg PO MOWEFR
diclofenac sodium 1 % Gel
2 g TOPICAL Q8HPRN PRN (Reason: lower back pain)
acetaminophen [Pain Relief ES (acetaminophen)] 500 mg Tablet
1,000 mg PO TID Qty: 0 0RF
polyethylene glycol 3350 17 gram/dose powder
17 g PO DAILY Qty: 510 0RF
famotidine 20 mg Tablet
20 mg PO BID
cephalexin 500 mg capsule
500 mg PO QID 7 Days Qty: 28 0RF
Rx Instructions:
11/27/24: X 7 DAYS STARTING 11/26/24
Discontinued
potassium chloride 20 mEq tablet extended release
20 meq PO DAILY Qty: 30 0RF
dapagliflozin propanediol 10 mg Tablet
10 mg PO DAILY Qty: 30 0RF
furosemide [Lasix] 80 mg tablet
80 mg PO DAILY Qty: 0 0RF
Discharge Orders:
Discharge Patient (As Directed); Ordered 10/01/25
Ordered By: Veto Ventura
Discharge Date and Time
Discharge Date/Time: 10/02/25 20:19
Print Language: CITIZEN [place]
== END 2025-10-02 20:19 | DRG 602 ==
LOC: 4 WEST ACU 18:15
PROVIDERS: Hospitalist; Nurse Practitioner Family; ADMITTING PHYSICIAN Internal Medicine; ATTENDING PHYSICIAN Internal Medicine; EMERGENCY PHYSICIAN Emergency Medicine; FAMILY PHYSICIAN Student in an Organized Health Care Education/Training Program; OTHER PHYSICIAN Internal Medicine Critical Care Medicine; OTHER PHYSICIAN Student in an Organized Health Care Education/Training Program
DX: L03.116 Cellulitis of left lower limb (principal); G93.41 Metabolic encephalopathy; I50.33 Acute on chronic diastolic (congestive) heart failure; J96.21 Acute and chronic respiratory failure with hypoxia; J69.0 Pneumonitis due to inhalation of food and vomit; J96.22 Acute and chronic respiratory failure with hypercapnia; F03.94 Unspecified dementia, unspecified severity, with anxiety; E66.2 Morbid (severe) obesity with alveolar hypoventilation; E87.3 Alkalosis; K92.2 Gastrointestinal hemorrhage, unspecified; F03.911 Unspecified dementia, unspecified severity, with agitation; Z66 Do not resuscitate; M48.00 Spinal stenosis, site unspecified; M79.7 Fibromyalgia; I27.20 Pulmonary hypertension, unspecified; G89.4 Chronic pain syndrome; I89.0 Lymphedema, not elsewhere classified; I73.9 Peripheral vascular disease, unspecified; N32.81 Overactive bladder; K21.9 Gastro-esophageal reflux disease without esophagitis; I11.0 Hypertensive heart disease with heart failure; E55.9 Vitamin D deficiency, unspecified; Z96.653 Presence of artificial knee joint, bilateral; Z87.891 Personal history of nicotine dependence; Z99.81 Dependence on supplemental oxygen; I25.10 Atherosclerotic heart disease of native coronary artery without angina pectoris; D50.9 Iron deficiency anemia, unspecified; Z85.828 Personal history of other malignant neoplasm of skin; K44.9 Diaphragmatic hernia without obstruction or gangrene; K59.00 Constipation, unspecified; M06.9 Rheumatoid arthritis, unspecified; M40.209 Unspecified kyphosis, site unspecified; Z79.899 Other long term (current) drug therapy; Z68.36 Body mass index [BMI] 36.0-36.9, adult; I27.21 Secondary pulmonary arterial hypertension; M40.204 Unspecified kyphosis, thoracic region
CPT/HCPCS: 36415; 71045; 80048; 80053; 81003; 81015; 83735; 83880; 84484; 85025; 85027; 87070; 93005; 99285